=== PATIENT | male | born 1930 | race Caucasian/White ===

== ENCOUNTER 2018-01-22 09:50 | Observation (INO) | payer OTHER ==
--- NOTE | 2018-01-22 10:08 | PDOC ---
History of Present Illness - General Chief Complaint: Weakness Stated Complaint: WEAKNESS Time Seen by Provider: 01/22/18 09:53 - History of Present Illness Initial Comments: 01/22/18 10:36 87m with pmh of CVA, DM,HTN,HLD,CAD S/P CABG presents to the ED after episode of weakness making him unsteady on his legs [address] Ferreira who said to come to ED today for evaluation. Patient feels at baseline. No oil changer the past 3 days. Patient was supposed to get follow up to the wound care clinic for right leg wound today but didn't to get evaluated here. Past History - Past Medical History Allergies/Adverse Reactions: Allergies Allergy/AdvReac Type Severity Reaction Status Date / Time ciprofloxacin [From Cipro] Allergy Verified 01/22/18 09:54 moxifloxacin [From Avelox] Allergy Verified 01/22/18 09:54 Penicillins Allergy Verified 01/22/18 09:54 Home Medications: Ambulatory Orders Atorvastatin Ca [Lipitor] 40 mg PO HS 10/07/17 Amlodipine Besylate 2.5 mg PO DAILY 30 Days tablet 10/11/17 Aspirin Coated [Ecotrin -] 162 mg PO DAILY tablet.ec 10/11/17 Memantine HCl [Namenda -] 5 mg PO BID 12/25/17 Ascorbic Acid [Vitamin C -] 500 mg PO DAILY 01/22/18 Glimepiride 4 mg PO DAILY 01/22/18 L.acidoph,Paracasei, B.lactis [Probiotic] 1 each PO BID 01/22/18 CVA: Yes COPD: No Dementia: Yes Diabetes: Yes HTN: Yes Hypercholesterolemia: Yes - Surgical History Cardiac Surgery: Yes (cabg) - Immunization History Immunization Up to Date: Yes - Suicide/Smoking/Psychosocial Hx Smoking History: Former smoker Have you smoked in the past 12 months: No If you are a former smoker, when did you quit?: 2003 Hx Alcohol Use: No Drug/Substance Use Hx: No Substance Use Type: None Hx Substance Use Treatment: No Review of Systems - Review of Systems Able to Perform ROS?: Yes Is the patient limited Faroese proficient: No Constitutional: Yes: See HPI HEENTM: No: Symptoms Reported Respiratory: No: Symptoms reported Cardiac (ROS): No: Symptoms Reported ABD/GI: No: Symptoms Reported : No: Symptoms Reported Musculoskeletal: No: Symptoms Reported Integumentary: No: Symptoms Reported Neurological: No: Symptoms reported All Other Systems: Reviewed and Negative *Physical Exam - Physical Exam General Appearance: Yes: Nourished, Appropriately Dressed. No: Apparent Distress HEENT: positive: EOMI, OMERO, Normal ENT Inspection Respiratory/Chest: positive: Lungs Clear, Normal Breath Sounds. negative: Chest Tender Cardiovascular: positive: Regular Rhythm, Regular Rate, S1, S2 Gastrointestinal/Abdominal: positive: Normal Bowel Sounds, Flat, Soft. negative : Tender Neurologic: positive: Alert, Normal Response, Motor Strength 5/5 NIH Stroke Scale - Last Known Well Date/Time & Onset Date Last Known Well: 01/20/18 - Initial Evaluation Level of consciousness: Alert Ask patient the month and their age: Answers one correctly Ask patient to open & close eyes; make fist and let go: Obeys both correctly Best gaze (horizontal eye movement): Normal Visual field testing: No visual field loss Facial paresis (Show teeth/raise eyebrows/close eyes tight): Normal symmetrical movement Motor Function: Left Arm: Normal Motor Function: Right Arm: Normal (extends arm 90 (or 45) degrees for 10 seconds without drift Motor Function: Left Leg: Normal (extends leg 30 degrees for 5 seconds without drift) Motor Function: Right Leg: Normal (extends leg 30 degrees for 5 seconds without drift) Limb Ataxia: No ataxia Sensory(Use pinprick test arms,legs,trunk,face/side to side): Normal Best language (Describe picture, name items, read sentences): No Aphasia Dysarthria (read several words): Normal articulation Extinction and Inattention: No abnormality - Total Score NIH Stroke Scale Score: 1 Critical Care Time/MDM Note - Medical Decision Making Note: 01/22/18 14:13 87m with pmh of cva with episode of weakness 3 days ago. R/o stroke vs metabolic vs cardiac event Although the diagnosis of stroke is unlikely for b/l leg weakness "giving out" under his weight we will r/o stroke due to recent pmh of the patient. CT head negative, all labs wnl. Negative troponins EKG: Junctional rhythm, left anterior fascicular block, junctional ST depression , probably normal Will admit for tele obs for weakness and failure to ambulate 01/22/18 14:35 *DC/Admit/Observation/Transfer Diagnosis at time of Disposition: Weakness - Discharge Dispostion Decision to Admit order: Yes - Referrals Referrals: Rober Ferreira MD [Primary Care Provider] - - Patient Instructions - Post Discharge Activity
[2018-01-22] MEDS: SODIUM CHLORIDE 1,000 ML IV SCH ×2 (10:30→22:24)
[2018-01-22 10:39] VITALS: BMI 23.7
--- NOTE | 2018-01-22 10:39 | PDOC ---
Attending Attestation - Resident Resident Name: Charles Baldwin - ED Attending Attestation I have performed the following: I have examined & evaluated the patient, The case was reviewed & discussed with the resident, I agree w/resident's findings & plan, Exceptions are as noted - HPI HPI: 01/22/18 10:41 87yo M Dementia, T2DM, HTN, Dyslipedemia, CAD s/p CABG, CVA 09/2017 presents to the emergency department for evaluation of a fall 3 days ago. History is provided by the patient's as patient is demented. She reports the patient was ambulating with his walker 3 days ago when suddenly his legs gave out and he fell onto his knees bilaterally. She activated the nonurgent medical line who evaluated the patient and brought him a wheelchair to their home. She called her primary physician Dr. Ferreira who recommended that they come in for evaluation, but the patient's states she had too much to do this weekend and decided to bring him on Monday (today). Per Dr. Ferreira, the patient previously had a stroke that presented with new lower extremity weakness. does not report any focal weakness. She does report the patient has not ambulated since the fall on Monday. Patient denies any pain at this time. - Physicial Exam PE: 01/22/18 10:49 GENERAL: Awake, alert, and oriented to name, in no acute distress HEAD: No signs of trauma EYES: Sclera anicteric, conjunctiva clear ENT: Nares patent, oropharynx clear without exudates. Moist mucosa NECK: Normal ROM, supple, no lymphadenopathy, JVD, or masses LUNGS: Breath sounds equal, clear to auscultation bilaterally. No wheezes, and no crackles HEART: Regular rate and rhythm, normal S1 and S2, no murmurs, rubs or gallops ABDOMEN: Soft, nontender, normoactive bowel sounds. No guarding, no rebound. No masses EXTREMITIES: Normal range of motion, no edema. No cords, erythema, or tenderness BACK: No midline spinal tenderness in cervical/thoracic/lumbar region NEUROLOGICAL: Normal speech, cranial nerves intact, negative pronator drift, 4/ 5 strength in all 4 extremities, normal sensation to light touch in all 4 extremities, normal cerebellar exam, gait deferred, normal tone - Medical Decision Making 01/22/18 10:58 87yo M hx dementia, CABG, CVA presents to the ED after fall, c/o persistent leg weakness, inability to ambulate. Vitals remarkable for elevated BP. On exam, pt is globally weak. Wide differential for LE weakness includes neurologic vs infectious vs metabilic abnormalities. Case discussed with Dr. Ferreira, anticipate admission.
[2018-01-22 11:18] LABS: BASO % 0.6 % (0-2.0); EOS % 5.4 % (0-4.5); HEMATOCRIT 43.7 % (35.4-49); LYMPH % 32.1 % (8-40); MCH 32.1 pg (25.7-33.7); MCHC 34.3 g/dl (32.0-35.9); MEAN CELL VOLUME 93.7 fl (80-96); MEAN PLT VOLUME 10.4 fl (7.5-11.1); MONO % 4.7 % (3.8-10.2); NEUT % 57.2 % (42.8-82.8); PLATELET COUNT 264 K/MM3 (134-434); RBC 4.67 M/mm3 (4.00-5.60); RDW 14.7 % (11.9-15.9); WHITE BLOOD COUNT 7.4 K/mm3 (4.0-10.0)
[2018-01-22 11:40] LABS: INR 0.94 (0.83-1.09); PROTHROMBIN TIME (PATIENT) 11.1 SEC (9.7-13.0)
[2018-01-22 11:55] LABS: ALBUMIN 3.4 g/dl (3.4-5.0); ALK PHOS 114 U/L (45-117); ANION GAP 9 MMOL/L (8-16); BILIRUBIN,TOTAL 0.4 mg/dL (0.2-1); BLOOD UREA NITROGEN 40 mg/dL (7-18); CALCIUM 10.1 mg/dL (8.5-10.1); CHLORIDE 106 mmol/L (98-107); CHOLESTEROL 131 mg/dL (50-200); CO2 26 mmol/L (21-32); CREATININE 2.2 mg/dL (0.55-1.3); GLUCOSE,RANDOM 86 mg/dL (74-106); HDL CHOLESTEROL 35 mg/dL (40-60); POTASSIUM 4.6 mmol/L (3.5-5.1); SGOT/AST 14 U/L (15-37); SGPT/ALT 24 U/L (13-61); SODIUM 140 mmol/L (136-145); TOT PROT 6.8 g/dl (6.4-8.2); TRIGLYCERIDES 94 mg/dL (0-150)
[2018-01-22 12:20] LABS: MAGNESIUM 2.2 mg/dL (1.8-2.4)
--- NOTE | 2018-01-22 14:21 | HP ---
Admitting History and Physical - Primary Care Physician PCP: Rober Ferreira - Admission Chief Complaint: weakness History of Present Illness: is a 87 year old male pmh of recent CVA, dementia, NIDDM, CKD,HTN, HLD , CAD s/p CABG brought in by for complaints of weakness. Pt unable to give substantial history due to dementia. reports pt had an episode of generalized weakness 3 days ago where his legs gave out and he sat down onto the floor. She called PCP and was advised to come to ED. Pt has been in a wheelchair since the incident, he has not been getting up or ambulating as before. She denies pt reporting any prodromal symptoms such as chest pain, sob, n/v/d or lightheadedness. Denies any recent fall, head trauma, loss of consciousness or dizziness. Pt reports he is feeling well, denies any current chest pain, sob, n/v/d, lightheadedness, dysuria, abd pain, rash or recent med changes. 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, 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 History of Recent Travel: No Home Medications - Allergies Allergies/Adverse Reactions: Allergies Allergy/AdvReac Type Severity Reaction Status Date / Time ciprofloxacin [From Cipro] Allergy Verified 01/22/18 09:54 moxifloxacin [From Avelox] Allergy Verified 01/22/18 09:54 Penicillins Allergy Verified 01/22/18 09:54 - Home Medications Home Medications: Ambulatory Orders Atorvastatin Ca [Lipitor] 40 mg PO HS 10/07/17 Amlodipine Besylate 2.5 mg PO DAILY 30 Days tablet 10/11/17 Aspirin Coated [Ecotrin -] 162 mg PO DAILY tablet.ec 10/11/17 Memantine HCl [Namenda -] 5 mg PO BID 12/25/17 Ascorbic Acid [Vitamin C -] 500 mg PO DAILY 01/22/18 Glimepiride 4 mg PO BID 01/22/18 Grace.acidoph,Paracjorgei B.lactis [Probiotic] 1 each PO BID 01/22/18 Family Disease History - Family Disease History Family History: Denies Review of Systems Findings/Remarks: as per hpi Physical Examination Vital Signs: Vital Signs Temperature 97.4 F L 01/22/18 13:00 Pulse Rate 58 L 01/22/18 13:00 Respiratory Rate 18 01/22/18 13:00 Blood Pressure 137/71 01/22/18 13:00 O2 Sat by Pulse Oximetry (%) 98 01/22/18 13:00 Constitutional: Yes: Well Nourished, No Distress, Calm Cardiovascular: Yes: WNL, Regular Rate and Rhythm. No: Murmur Respiratory: Yes: WNL, Regular, CTA Bilaterally. No: Accessory Muscle Use, SOB , Tachypnea, Wheezes Gastrointestinal: Yes: WNL, Normal Bowel Sounds, Soft. No: Distention, Tenderness Renal/: Yes: WNL Musculoskeletal: Yes: WNL Extremities: Yes: WNL Edema: No Neurological: Yes: Alert, Confusion Psychiatric: Yes: Alert Labs: CBC, BMP 01/22/18 10:06 01/22/18 10:12 Imaging - Results Chest X-ray: Report Reviewed Cat Scan: Pending (HEAD CT- no acute findings Lumbar/Spine- marked L4-L5, L3- L4 central canal stenosis), Report Reviewed Problem List - Problems (1) Weakness Assessment/Plan: generalized b/l lower extremity weakness head CT neg trop neg, echo ordered cardiac monitoring x [address] lumbar w/ marked stenosis neurology consulted PT family declines SNF if needed Code(s): R53.1 - WEAKNESS (2) CAD (coronary artery disease) Assessment/Plan: s/p cabg continue asa, statin Code(s): I25.10 - ATHSCL HEART DISEASE OF [place] CORONARY ARTERY W/O ANG PCTRS Qualifiers: [place] vs. 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: without [facility] use Diabetes mellitus complication status: with kidney complications Diabetes mellitus complication detail: with chronic kidney disease Chronic kidney disease stage : stage 3 (moderate) Qualified Code(s): E11.22 - Type 2 diabetes mellitus with diabetic chronic kidney disease; N18.3 - Chronic kidney disease, stage 3 ( moderate) (5) Dementia Assessment/Plan: stable continue namenda Code(s): F03.90 - UNSPECIFIED DEMENTIA WITHOUT BEHAVIORAL DISTURBANCE Qualifiers: Dementia behavioral disturbance: without behavioral disturbance (6) HLD (hyperlipidemia) Assessment/Plan: stable continue statin Code(s): E78.5 - HYPERLIPIDEMIA, UNSPECIFIED (7) Chronic wound of extremity Assessment/Plan: chronic RLE wound, no signs of active infection followed by vascular consulted per family request Code(s): GCC4859 -
--- NOTE | 2018-01-22 15:13 | EKG ---
Test Reason : Blood Pressure : / mmHG Vent. Rate : 057 BPM Atrial Rate : 056 BPM P-R Int : 000 ms QRS Dur : 090 ms QT Int : 448 ms P-R-T Axes : 000 -82 055 degrees QTc Int : 436 ms PROBABLE SINUS RHYTHM, BASELINE ARTIFACT WHEN COMPARED WITH ECG OF 07-OCT-2017 11:58, LIKELY NO SIGNIFICANT CHANGES Confirmed by GENEVIEVE FOFANA MD ([id number]) on 01/22/2018 3:13:28 PM Referred By: Confirmed By:GENEVIEVE FOFANA MD
[2018-01-22 16:08] LABS: URINE APPEARANCE CLEAR; URINE BILIRUBIN NEGATIVE (<2.0 mg/dL); URINE COLOR LTYELLOW; URINE GLUCOSE (UA) 1+ (NEGATIVE); URINE KETONE NEGATIVE (NEGATIVE); URINE LEUK ESTERASE NEGATIVE (NEGATIVE); URINE NITRITE NEGATIVE (NEGATIVE); URINE PROTEIN NEGATIVE (NEGATIVE); URINE UROBILINOGEN NEGATIVE mg/dL (0.2-1.0)
[2018-01-22] MEDS ORDERED: PNEUMOC 13-VAL CONJ-DIP CRM/PF 0.5 ML DISP.SYRIN IM ONE (19:30)
[2018-01-22] MEDS ORDERED: ATORVASTATIN CA 40 MG TABLET (FP) PO SCH (22:00)
[2018-01-22] MEDS: MEMANTINE HCL 5 MG TABLET (UD) PO SCH (22:25)
[2018-01-23] MEDS: GLIMEPIRIDE 4 MG TABLET (FP) PO SCH ×2 (06:10→17:50)
[2018-01-23 06:52] LABS: ANION GAP 7 MMOL/L (8-16); BLOOD UREA NITROGEN 39 mg/dL (7-18); CALCIUM 9.5 mg/dL (8.5-10.1); CHLORIDE 113 mmol/L (98-107); CO2 25 mmol/L (21-32); CREATININE 2.2 mg/dL (0.55-1.3); GLUCOSE,RANDOM 61 mg/dL (74-106); PHOSPHOROUS 2.7 mg/dL (2.5-4.9); POTASSIUM 4.4 mmol/L (3.5-5.1); SODIUM 145 mmol/L (136-145)
[2018-01-23 07:02] LABS: BASO % 0.7 % (0-2.0); EOS % 6.1 % (0-4.5); HEMATOCRIT 39.2 % (35.4-49); HEMOGLOBIN 13.4 GM/dL (11.7-16.9); MCH 32.1 pg (25.7-33.7); MCHC 34.2 g/dl (32.0-35.9); MEAN PLT VOLUME 9.8 fl (7.5-11.1); MONO % 6.1 % (3.8-10.2); NEUT % 51.1 % (42.8-82.8); PLATELET COUNT 242 K/MM3 (134-434); RBC 4.17 M/mm3 (4.00-5.60); RDW 14.7 % (11.9-15.9); WHITE BLOOD COUNT 6.8 K/mm3 (4.0-10.0)
--- NOTE | 2018-01-23 09:04 | CONSULT ---
Consult - text type - Consultation Consultation Note: Neurology History of Present Illness: 87 year old male pmh of recent CVA, dementia, NIDDM, CKD,HTN, HLD, CAD s/p CABG brought in by for complaints of weakness. Pt unable to give substantial history due to dementia. reported pt had an episode of generalized weakness 3 days prior to admission where his legs gave out and he sat down onto the floor. She called PCP, Dr. Ferreira, and was advised to come to ED. Pt has been in a wheelchair since the incident, he has not been getting up or ambulating as before. She denied pt reporting any prodromal symptoms such as chest pain, sob, n/v/d or lightheadedness. Denies any recent fall, head trauma, loss of consciousness or dizziness. Pt reported he is feeling well, denies any current chest pain, sob, n/v/d, lightheadedness, dysuria, abd pain, rash or recent med changes. CT head was completed and reviewed, no acute changes noted. Spoke with hospitalist yesterday, CT L spine recommended, completed and showed marked L4/L5 and moderate to marked L3/L4 central stenosis though denies back pain. 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 History of Recent Travel: No Home Medications - Allergies Allergies/Adverse Reactions: Allergies Allergy/AdvReac Type Severity Reaction Status Date / Time ciprofloxacin [From Cipro] Allergy Verified 01/22/18 09:54 moxifloxacin [From Avelox] Allergy Verified 01/22/18 09:54 Penicillins Allergy Verified 01/22/18 09:54 - Home Medications Home Medications: Ambulatory Orders Atorvastatin Ca [Lipitor] 40 mg PO HS 10/07/17 Amlodipine Besylate 2.5 mg PO DAILY 30 Days tablet 10/11/17 Aspirin Coated [Ecotrin -] 162 mg PO DAILY tablet.ec 10/11/17 Memantine HCl [Namenda -] 5 mg PO BID 12/25/17 Ascorbic Acid [Vitamin C -] 500 mg PO DAILY 01/22/18 Glimepiride 4 mg PO BID 01/22/18 Biboph,Frances, B.lactis [Probiotic] 1 each PO BID 01/22/18 Family Disease History - Family Disease History Family History: Denies Review of Systems Findings/Remarks: as per hpi Physical Examination Vital Signs: Vital Signs Temperature 97.4 F L 01/22/18 13:00 Pulse Rate 58 L 01/22/18 13:00 Respiratory Rate 18 01/22/18 13:00 Blood Pressure 137/71 01/22/18 13:00 O2 Sat by Pulse Oximetry (%) 98 01/22/18 13:00 Constitutional: Yes: Well Nourished, No Distress, Calm Cardiovascular: Yes: WNL, Regular Rate and Rhythm. No: Murmur Respiratory: Yes: WNL, Regular, CTA Bilaterally. No: Accessory Muscle Use, SOB , Tachypnea, Wheezes Gastrointestinal: Yes: WNL, Normal Bowel Sounds, Soft. No: Distention, Tenderness Renal/: Yes: WNL Musculoskeletal: Yes: WNL Extremities: Yes: WNL Edema: No Neurological: Yes: Alert, awake, CN intact, strength 5-/5 in UE, 4+ in LE, sensory intact, gait deferred Psychiatric: Yes: Alert CBCD WBC 6.8 K/mm3 (4.0-10.0) 01/23/18 06:00 RBC 4.17 M/mm3 (4.00-5.60) 01/23/18 06:00 Hgb 13.4 GM/dL (11.7-16.9) 01/23/18 06:00 Hct 39.2 % (35.4-49) 01/23/18 06:00 MCV 94.0 fl (80-96) 01/23/18 06:00 MCHC 34.2 g/dl (32.0-35.9) 01/23/18 06:00 RDW 14.7 % (11.9-15.9) 01/23/18 06:00 Plt Count 242 K/MM3 (134-434) 01/23/18 06:00 MPV 9.8 fl (7.5-11.1) 01/23/18 06:00 CMP Sodium 145 mmol/L (136-145) 01/23/18 06:00 Potassium 4.4 mmol/L (3.5-5.1) 01/23/18 06:00 Chloride 113 mmol/L (98-107) H 01/23/18 06:00 Carbon Dioxide 25 mmol/L (21-32) 01/23/18 06:00 Anion Gap 7 MMOL/L (8-16) L 01/23/18 06:00 BUN 39 mg/dL (7-18) H 01/23/18 06:00 Creatinine 2.2 mg/dL (0.55-1.3) H 01/23/18 06:00 Creat Clearance w eGFR 28.39 (>60) 01/23/18 06:00 Random Glucose 61 mg/dL (74-106) L 01/23/18 06:00 Calcium 9.5 mg/dL (8.5-10.1) 01/23/18 06:00 Total Bilirubin 0.4 mg/dL (0.2-1) 01/22/18 10:12 AST 14 U/L (15-37) L 01/22/18 10:12 ALT 24 U/L (13-61) 01/22/18 10:12 Alkaline Phosphatase 114 U/L (45-117) 01/22/18 10:12 Total Protein 6.8 g/dl (6.4-8.2) 01/22/18 10:12 Albumin 3.4 g/dl (3.4-5.0) 01/22/18 10:12 CARDIAC ENZYMES Creatine Kinase 56 IU/L (26-308) 01/22/18 10:12 Troponin I < 0.02 ng/ml (0.00-0.05) 01/23/18 06:00 Imaging - Results Chest X-ray: Report Reviewed Cat Scan: Pending (HEAD CT- no acute findings Lumbar/Spine- marked L4-L5, L3- L4 central canal stenosis) Plan 87 year old male pmh of recent CVA, dementia, NIDDM, CKD,HTN, HLD, CAD s/p CABG brought in by for complaints of weakness. Pt unable to give substantial history due to dementia. reported pt had an episode of generalized weakness 3 days prior to admission where his legs gave out and he sat down onto the floor. She called PCP, Dr. Ferreira, and was advised to come to ED. Pt has been in a wheelchair since the incident, he has not been getting up or ambulating as before. She denied pt reporting any prodromal symptoms such as chest pain, sob, n/v/d or lightheadedness. Denies any recent fall, head trauma, loss of consciousness or dizziness. Pt reported he is feeling well, denies any current chest pain, sob, n/v/d, lightheadedness, dysuria, abd pain, rash or recent med changes. CT head was completed and reviewed, no acute changes noted. Spoke with hospitalist yesterday, CT L spine recommended, completed and showed marked L4/L5 and moderate to marked L3/L4 central stenosis though denies back pain. Not likely surgical candidate given age and comorbidities. Recommend conservative mgmt, physical therapy, increased use of assistive device (reports using walker), fall precautions. Consider short term rehab. Continue Namenda for dementia. Hydration recommended. Follow up vascular rec'd for wound care.
--- NOTE | 2018-01-23 09:27 | CONSULT ---
- Consultation REQUESTING PROVIDER: CONSULT REQUEST: We have been asked to surgically evaluate this patient for RLE wound PCP:Amos Patterson MD HISTORY OF PRESENT ILLNESS: 87yo M who is known to the wound care clinic and Dr. Carter, was admitted to the hospital for weakness and missed his appt with the wound care clinic. Pt has dementia and is unable to answer questions, RLE was being treated with Silver collagen dressing. PMHx: Dementia, DM, HTN, CAD Home Medications Medication Instructions Recorded Atorvastatin Ca [Lipitor] 40 mg PO HS 10/07/17 Amlodipine Besylate 2.5 mg PO DAILY 30 Days tablet 10/11/17 Aspirin Coated [Ecotrin -] 162 mg PO DAILY tablet.ec 10/11/17 Memantine HCl [Namenda -] 5 mg PO BID 12/25/17 Ascorbic Acid [Vitamin C -] 500 mg PO DAILY 01/22/18 Glimepiride 4 mg PO BID 01/22/18 L.acidoph,Paracasei, B.lactis 1 each PO BID 01/22/18 [Probiotic] Allergies Allergy/AdvReac Type Severity Reaction Status Date / Time ciprofloxacin [From Cipro] Allergy Verified 01/22/18 09:54 moxifloxacin [From Avelox] Allergy Verified 01/22/18 09:54 Penicillins Allergy Verified 01/22/18 09:54 PHYSICAL EXAM: GENERAL: Awake, alert, confused HEAD: Normal with no signs of trauma. EYES: PERRL, sclera anicteric, conjunctiva clear. NECK: Normal ROM LUNGS: breathing comfortably, No accessory muscle use. HEART: Regular rate and rhythm. MUSCULOSKELETAL: Normal ROM at all joints. UPPER EXTREMITIES: 2+ pulses, warm, well-perfused. No cyanosis. Cap refill <2 seconds. No peripheral edema. LOWER EXTREMITIES: faint dopplarable pulses b/l, warm, well-perfused. No calf tenderness. No peripheral edema. RLE shows 1 cm wound on lateral right gutierrez, no erythema or discharge. PSYCH: Cooperative. SKIN: Warm, dry, normal turgor, no rashes or lesions noted. Vital Signs Temperature 97.3 F L 01/23/18 06:00 Pulse Rate 63 01/23/18 06:00 Respiratory Rate 18 01/23/18 07:00 Blood Pressure 147/62 01/23/18 06:00 O2 Sat by Pulse Oximetry (%) 98 01/23/18 07:00 Lab Results WBC 6.8 K/mm3 (4.0-10.0) 01/23/18 06:00 RBC 4.17 M/mm3 (4.00-5.60) 01/23/18 06:00 Hgb 13.4 GM/dL (11.7-16.9) 01/23/18 06:00 Hct 39.2 % (35.4-49) 01/23/18 06:00 MCV 94.0 fl (80-96) 01/23/18 06:00 MCHC 34.2 g/dl (32.0-35.9) 01/23/18 06:00 RDW 14.7 % (11.9-15.9) 01/23/18 06:00 Plt Count 242 K/MM3 (134-434) 01/23/18 06:00 Sodium 145 mmol/L (136-145) 01/23/18 06:00 Potassium 4.4 mmol/L (3.5-5.1) 01/23/18 06:00 Chloride 113 mmol/L (98-107) H 01/23/18 06:00 Carbon Dioxide 25 mmol/L (21-32) 01/23/18 06:00 Anion Gap 7 MMOL/L (8-16) L 01/23/18 06:00 BUN 39 mg/dL (7-18) H 01/23/18 06:00 Creatinine 2.2 mg/dL (0.55-1.3) H 01/23/18 06:00 Random Glucose 61 mg/dL (74-106) L 01/23/18 06:00 Calcium 9.5 mg/dL (8.5-10.1) 01/23/18 06:00 Blood Type O NEGATIVE 01/22/18 10:15 Antibody Screen Negative 01/22/18 10:15 INR 0.94 (0.83-1.09) 01/22/18 10:11 Problem List - Problems (1) Chronic wound of extremity Assessment/Plan: Plan -wound appears to be healing well, place silver collagen dressing. -follow up with wound care clinic with Dr. Carter as outpatient -please contact vascular surgery if any issues. Code(s): [id number] -
[2018-01-23] MEDS ORDERED: amLODIPine BESYLATE 2.5 MG TABLET (FP) PO SCH (10:00)
[2018-01-23] MEDS ORDERED: ASCORBIC ACID 500 MG TABLET (FP) PO SCH (10:00)
[2018-01-23] MEDS ORDERED: ASPIRIN COATED 81 MG TABLET.EC PO SCH (10:00)
[2018-01-23] MEDS: SODIUM CHLORIDE 1,000 ML IV SCH (10:07)
[2018-01-23] MEDS: MEMANTINE HCL 5 MG TABLET (UD) PO SCH (10:07)
--- NOTE | 2018-01-23 14:38 | ECHO ---
Name: ANA AMARAL Exam:Adult Echocardiogram Study Date: 01/23/2018 08:34 AM Age: 87 yrs Reason For Study: WEAKNESS Height: 71 in Weight: 170 lb BSA: 2.0 m2 MMode/2D Measurements & Calculations IVSd: 0.95 cm Ao root diam: 4.1 cm LVIDd: 4.9 cm LA dimension: 2.5 cm LVIDs: 2.7 cm LVPWd: 0.91 cm EDV(Teich): 112.0 ml LAV (MOD-bp): 41.1 ml ESV(Teich): 27.8 ml Doppler Measurements & Calculations MV E max cristopher: 69.4 cm/sec AI P1/2t: 604.8 msec MV A max cristopher: 93.1 cm/sec MV E/A: 0.75 MV dec time: 0.16 sec AI max cristopher: 168.3 cm/sec TR max cristopher: 209.7 cm/sec AI max P.3 mmHg TR max P.8 mmHg AI dec slope: 81.5 cm/sec2 PI end-d cristopher: 67.9 cm/sec Med Peak E' Cristopher: 5.0 cm/sec Med E/e': 13.9 Lat Peak E' Cristopher: 8.5 cm/sec Lat E/e': 8.2 Procedure The study was technically adequate with some images being suboptimal in quality. Left Ventricle Ejection Fraction = 55%. The left ventricular ejection fraction is normal. The transmitral spectral D oppler flow pattern is suggestive of impaired LV relaxation. The left ventricular wall motion is normal. Right Ventricle The right ventricle is normal in size and function. Atria Normal left and right atrial size and function. Mitral Valve Redundant mitral valve with posterior prolapse. There is no mitral regurgitation noted. Tricuspid Valve The tricuspid valve is normal in structure and function. Aortic Valve The aortic valve is trileaflet. Trace aortic regurgitation. Pulmonic Valve The pulmonic valve is not well visualized. Great Vessels The aortic root is normal size. Pericardium/Pleura There is no pericardial effusion. There is no pleural effusion. Interpretation Summary The left ventricular wall motion is normal. Ejection Fraction = 55%. The right ventricle is normal in size and function. Redundant mitral valve with posterior prolapse. Marques Adams 01/23/2018 02:38 PM
--- NOTE | 2018-01-23 14:58 | DS ---
Physical Examination Vital Signs: Vital Signs Temperature 97.8 F 01/23/18 10:00 Pulse Rate 90 01/23/18 10:00 Respiratory Rate 18 01/23/18 10:00 Blood Pressure 146/63 01/23/18 10:00 O2 Sat by Pulse Oximetry (%) 98 01/23/18 07:00 Constitutional: Yes: Well Nourished, No Distress, Calm Cardiovascular: Yes: Regular Rate and Rhythm Respiratory: Yes: Regular, CTA Bilaterally. No: Accessory Muscle Use, Rhonchi, SOB, Tachypnea, Wheezes Gastrointestinal: Yes: WNL, Normal Bowel Sounds, Soft. No: Distention, Vomiting Renal/: Yes: WNL Extremities: Yes: WNL Edema: No Neurological: Yes: Alert, Confusion Psychiatric: Yes: Alert Labs: CBC, BMP 01/23/18 06:00 01/23/18 06:00 Discharge Summary Reason For Visit: WEAKNESS Current Active Problems Chronic wound of extremity (Acute) HLD (hyperlipidemia) (Acute) Weakness (Acute) Hospital Course: 87 year old male admitted for evaluation of generalized weakness/near fall. All infectious work up neg. Lumbar spine CT revealed marked stenosis of L3-L5, evaluated by neurology, conservative management considering older age/ comorbidities, ambulated 20ft with PT, recommended SNF for rehab, refuses snf placement. Cardiac echo revealed mitral valve prolapse, discussed with cardiology, recommend outpt follow up. Otherwise, pt in no acute distress, vitals stable,labs unremarkable. Pt is medically stable for discharge home. Follow up as directed 32 minutes spent in discharge planning Condition: Good - Instructions Diet, Activity, Other Instructions: HOME PT TOLERATED FALL PRECAUTIONS CARDIAC ECHO SHOWED MITRAL VALVE PROLAPSE- PLEASE FOLLOW UP WITH REGARDING THIS F/U DIRECTED Referrals: Jasiel Urbina MD [Staff Physician] - 1 Week Rober Ferreira MD [Primary Care Provider] - 1 Week Disposition: VNS/HOME HEALTH CARE - Home Medications Comprehensive Discharge Medication List: Ambulatory Orders Atorvastatin Ca [Lipitor] 40 mg PO HS 10/07/17 Amlodipine Besylate 2.5 mg PO DAILY 30 Days tablet 10/11/17 Aspirin Coated [Ecotrin -] 162 mg PO DAILY tablet.ec 10/11/17 Memantine HCl [Namenda -] 5 mg PO BID 12/25/17 Ascorbic Acid [Vitamin C -] 500 mg PO DAILY 01/22/18 Glimepiride 4 mg PO BID 01/22/18 L.acidoph,Paracasei, B.lactis [Probiotic] 1 each PO BID 01/22/18
[2018-01-23 15:04] VITALS: BP 120/62; PULSE 86; TEMP 98.3
== END 2018-01-23 22:04 | disposition home health service (06) ==
LOC: JER 09:50 → JERBED 14:16 → J4S 16:14
PROVIDERS: ADMIT Internal Medicine; ATTEND Nurse Practitioner Family
DX: R53.1 Weakness (principal); I25.10 Atherosclerotic heart disease of native coronary artery without angina pectoris; I12.9 Hypertensive chronic kidney disease with stage 1 through stage 4 chronic kidney disease, or unspecified chronic kidney disease; N18.3 Chronic kidney disease, stage 3 (moderate); Z95.1 Presence of aortocoronary bypass graft; Z87.891 Personal history of nicotine dependence; E11.22 Type 2 diabetes mellitus with diabetic chronic kidney disease; Z79.84 Long term (current) use of oral hypoglycemic drugs; E78.5 Hyperlipidemia, unspecified; E78.00 Pure hypercholesterolemia, unspecified; F03.90 Unspecified dementia, unspecified severity, without behavioral disturbance, psychotic disturbance, mood disturbance, and anxiety; L97.919 Non-pressure chronic ulcer of unspecified part of right lower leg with unspecified severity; Z86.73 Personal history of transient ischemic attack (TIA), and cerebral infarction without residual deficits; R26.89 Other abnormalities of gait and mobility; Z99.89 Dependence on other enabling machines and devices; Z88.0 Allergy status to penicillin; Z88.1 Allergy status to other antibiotic agents
CPT/HCPCS: 36415; 70450-TC; 71045-TC-FY; 72131-TC; 80048; 80053; 81003; 82465; 82550; 82962; 83718; 83721; 83735; 84100; 84478; 84484; 85025; 85610; 86850; 86900; 86901; 87086; 93005; 93010; 93306-TC; 97116-GP; 97161-GP; 99285-25; G0378; J7030

== ENCOUNTER 2018-07-30 11:09 | Emergency (ER) | payer OTHER | END 2018-07-30 21:00 | disposition home or self-care (01) | LOC: JER 11:09 ==

== ENCOUNTER 2019-01-09 11:00 | Inpatient (IN) | payer OTHER ==
--- NOTE | 2019-01-09 11:58 | PDOC ---
History of Present Illness - General Chief Complaint: Urinary Problem Stated Complaint: UTI Time Seen by Provider: 01/09/19 11:57 History Source: Patient Exam Limitations: No Limitations, Dementia - History of Present Illness Initial Comments: Pt is an 88 yo M, with PMH of CVA, CAD (s/p CABG), dementia, HTN, HLD, NIDDM, who is presenting with AMS, foul-smelling urine, and generalized weakness which has worsened over the past 3 days. Pt is accompanied by his , who states the pt has been unable to stand up due to weakness in his legs, and he can normally transfer from the wheelchair to his walker. Pts sugar was also elevated today >200, which is abnormal. His behavior has changed from baseline, with increased agitation and lack of appetite. She denies any changes to his BMs , diarrhea, vomiting, or fevers at home. Allergies: NKDA PCP: Dr. Ferreira Cards: Dr. Urbina Social: No cigarette, alcohol, or drug use. No recent travel or sick contacts. Surgical: CABG Family: no relevant history. 01/09/19 12:45 Past History - Travel Traveled outside of the country in the last 30 days: No Close contact w/someone who was outside of country & ill: No - Past Medical History Allergies/Adverse Reactions: Allergies Allergy/AdvReac Type Severity Reaction Status Date / Time ciprofloxacin [From Cipro] Allergy Verified 01/09/19 11:06 moxifloxacin [From Avelox] Allergy Verified 01/09/19 11:06 Penicillins Allergy Verified 01/09/19 11:06 Home Medications: Ambulatory Orders Amlodipine Besylate 2.5 mg PO HS 01/09/19 Ascorbate Calcium [Vitamin C] 500 mg PO DAILY 01/09/19 Aspirin 162 mg PO DAILY 01/09/19 Atorvastatin Ca [Lipitor] 40 mg PO HS 01/09/19 Glimepiride [Amaryl -] 4 mg PO BID 01/09/19 Lactobacillus Acidophilus [Acidophilus] 1 each PO DAILY 01/09/19 Memantine HCl 5 mg PO BID 01/09/19 Cardiac Disorders: Yes (HTN, CAD) CVA: Yes COPD: No CHF: Yes Dementia: Yes Diabetes: Yes GI Disorders: Yes HTN: Yes Hypercholesterolemia: Yes Thyroid Disease: No - Surgical History Cardiac Surgery: Yes (cabg) - Immunization History Immunization Up to Date: Yes - Psycho Social/Smoking Cessation Hx Smoking History: Unknown if ever smoked Have you smoked in the past 12 months: No If you are a former smoker, when did you quit?: 2003 Information on smoking cessation initiated: No Hx Alcohol Use: No Drug/Substance Use Hx: No Substance Use Type: None Hx Substance Use Treatment: No Abd/GI Specific PMHX - Complaint Specific PMHX Colitis: No Diverticulitis: No Gall Bladder Disease: No GERD: No Hepatitis: No Irritable Bowel Synd (IBS): No Pancreatitis: No GI Ulcer Disease: No Review of Systems - Review of Systems Able to Perform ROS?: No (dementia, see HPI) *Physical Exam - Vital Signs Last Vital Signs Temp Pulse Resp BP Pulse Ox 97.8 F 86 16 138/80 96 01/09/19 11:03 01/09/19 11:03 01/09/19 11:03 01/09/19 11:03 01/09/19 11:03 - Physical Exam Comments: Vitals stable, pt afebrile. Pt in NAD, normal body habitus. Pt alert with spontaneous eye opening, but does not follow commands. [employer] e business developer generally intact (limited due to pt cooperation), muscular strength and sensation intact. No midline spinal tenderness, step-offs, or crepitus. Head normocephalic, atraumatic. Eyes PERRLA, EOMI. Oropharynx without erythema or exudates, no LAD b/l. No nasal congestion. Hearing severely diminished (baseline, hearing aids) Clear heart sounds, S1/S2, no JVD, b/l pedal edema, or heart murmur. Clear lung sounds, no respiratory distress, wheezes, crackles, or accessory muscle use. No abdominal or CVA tenderness to palpation, no rebound, no guarding. Abdomen soft, non-distended, and with normoactive bowel sounds. Large ([place]-sized) external hemorrhoid. No pressure ulcers noted. Skin without jaundice or rash. 01/09/19 12:49 ED Treatment Course - LABORATORY CBC & Chemistry Diagram: 01/09/19 12:24 01/09/19 12:24 Medical Decision Making - Medical Decision Making Pt was seen at bedside, also will be seen by attending Dr. Angel. Pt presenting with AMS, foul-smelling and pustular looking urine, likely 2/2 UTI. Will also evaluate for sepsis, electrolyte imbalances, ACS, CVA/bleed. No recent falls since his last visit. Provided 1 L IV NS and ofirmev for improvement of hydration and discomfort. Will continue to reassess pt and monitor for symptomatic improvement. 01/09/19 12:52 ECG: NSR with PACs (Hr 73, Pr 156, QRS 96, QTc 467). Biphasic T wave in V3, with no contiguous leads or significant ST segment changes. No significant changes from prior ECG (07/30/2018). CBC WNL CMP shows mild ARSALAN from baseline -- providing 2 L IV NS UA with UTI, blood -- providing 1 g aztreonam Trop <.02 with no significant EKG changes Pt going for head CT to evaluate for any stroke or bleed that also could be causing AMS or weakness Pt admitted to hospitalist team (Dr. Whitaker) 01/09/19 14:54 01/09/19 16:20 CT head negative for acute infarct. 01/09/19 18:20 Discharge - Discharge Information Problems reviewed: Yes Clinical Impression/Diagnosis: ARSALAN (acute kidney injury) UTI (urinary tract infection) Qualifiers: Urinary tract infection type: acute cystitis Hematuria presence: with hematuria Qualified Code(s): N30.01 - Acute cystitis with hematuria AMS (altered mental status) Qualifiers: Altered mental status type: delirium Qualified Code(s): R41.0 - Disorientation , unspecified Condition: Stable - Admission Yes - Follow up/Referral - Patient Discharge Instructions - Post Discharge Activity
[2019-01-09] MEDS ORDERED: SODIUM CHLORIDE 0.9% 1000 ML INFUS.BAG IV ONE (12:02)
[2019-01-09 12:49] LABS: BASO % 1.1 % (0-2.0); EOS % 3.5 % (0-4.5); HEMATOCRIT 42.4 % (35.4-49); HEMOGLOBIN 13.8 GM/dL (11.7-16.9); LYMPH % 12.9 % (8-40); MCH 31.9 pg (25.7-33.7); MCHC 32.6 g/dl (32.0-35.9); MEAN CELL VOLUME 97.7 fl (80-96); MEAN PLT VOLUME 10.3 fl (7.5-11.1); MONO % 6.3 % (3.8-10.2); NEUT % 76.2 % (42.8-82.8); PLATELET COUNT 257 K/MM3 (134-434); RBC 4.34 M/mm3 (4.00-5.60); RDW 14.9 % (11.9-15.9); WHITE BLOOD COUNT 9.8 K/mm3 (4.0-10.0)
[2019-01-09] MEDS ORDERED: ACETAMINOPHEN 1000 MG/100 ML VIAL (NON FORMULARY) IVPB ONE (12:55)
--- NOTE | 2019-01-09 12:57 | PDOC ---
Attending Attestation - Resident Resident Name: AdamConnie - ED Attending Attestation I have performed the following: I have examined & evaluated the patient, The case was reviewed & discussed with the resident, I agree w/resident's findings & plan, Exceptions are as noted - HPI HPI: 01/09/19 12:53 88-year-old male currently at home history of CVA with residual right-sided weakness, hypertension CAD CABG diabetes dementia here today with his who provides the history and his foot caster who states that he has been more lethargic and sleepy and has had foul-smelling urine over the last few days. Patient does have a cough which is chronic according to them no recent fevers no nausea no vomiting however has had decreased p.o. intake over the last 24 hours. Patient does not ambulate but is out of bed to wheelchair daily was previously in physical therapy but is no longer. No recent falls no other complaints the patient is very hard of hearing and therefore is unable to provide history or answer many of the questions asked normally he is alert and oriented to person and place - Physicial Exam PE: 01/09/19 12:54 Patient is awake alert eyes open has moist mucous membranes. Lungs are clear bilaterally no appreciated wheezes or crackles. Heart is regular without murmurs rubs or gallops abdomen is soft no palpable fullness no pulsatile masses. Appears to be nontender extremities are warm well perfused there is no noted edema no rash appreciated. Neurologically the patient is awake unable to follow many commands due to his difficulty hearing however on gross examination does demonstrate to have some right-sided leg weakness compared to the left but is moving all 4 extremities and faces are symmetric - Medical Decision Making 01/09/19 12:54 88-year-old male history of dementia hypertension diabetes CAD here with worsening lethargy and confusion differential includes renal failure, dehydration, electrolyte abnormality such as hyponatremia anemia infection or sepsis from possible pneumonia or UTI being the most likely. Patient received a straight catheter the bedside performed by the nurse there was purulent puslike urine that came out patient will be treated for a UTI septic work-up was initiated. Rectal temperature was found to be 99 we will also obtain a CT head to rule out any intracranial pathology as patient does have a history of a previous stroke Due to the delirium on dementia and a UTI in addition to patient being diabetic will admit for IV antibiotics, debora. given ivf, aztreonam, and admitted to hospitalist dr ren, for dr robert. 01/09/19 14:58
[2019-01-09 13:10] LABS: ALK PHOS 98 U/L (45-117); ANION GAP 5 MMOL/L (8-16); BILIRUBIN,TOTAL 0.5 mg/dL (0.2-1); BLOOD UREA NITROGEN 51.3 mg/dL (7-18); CALCIUM 10.8 mg/dL (8.5-10.1); CHLORIDE 114 mmol/L (98-107); CO2 24 mmol/L (21-32); CREATININE 2.8 mg/dL (0.55-1.3); GLUCOSE,RANDOM 211 mg/dL (74-106); POTASSIUM 4.6 mmol/L (3.5-5.1); SGOT/AST 16 U/L (15-37); SGPT/ALT 20 U/L (13-61); SODIUM 144 mmol/L (136-145); TOT PROT 6.3 g/dl (6.4-8.2)
[2019-01-09] MEDS ORDERED: ACETAMINOPHEN INJECTION 100 ML IVPB ONE (13:21)
[2019-01-09] MEDS ORDERED: AZTREONAM 1 GM in DEXTROSE 5%-WATER - 50 ML IVPB ONE (14:21)
[2019-01-09] MEDS ORDERED: SODIUM CHLORIDE 1,000 ML IV STA (14:22)
[2019-01-09 14:25] LABS: PH,URINE >= 9.0 (5.0-8.0); URINE BILIRUBIN Negative (NEGATIVE); URINE COLOR Yellow; URINE GLUCOSE (UA) 2+ (NEGATIVE); URINE KETONE Negative (NEGATIVE); URINE LEUK ESTERASE 3+ (NEGATIVE); URINE NITRITE Positive (NEGATIVE); URINE PROTEIN 3+ (NEGATIVE); URINE UROBILINOGEN 0.2 mg/dL (0.2-1.0)
[2019-01-09 14:28] LABS: URINE APPEARANCE TURBID
[2019-01-09 14:39] LABS: EPI CELLS 1 /HPF (0-5/HPF); HYALINE CASTS 1 /lpf (0-8)
[2019-01-09 14:40] LABS: URINE CRYSTALS 0 /hpf
[2019-01-09] MEDS ORDERED: AZTREONAM 1 GM VIAL (RESTRICTED TO ID) ONE (14:40)
[2019-01-09 14:43] LABS: URINE WBC >100 /hpf (0-5)
[2019-01-09 14:44] LABS: URINE BACTERIA MANY /hpf (NEGATIVE); YEAST NONE SEEN (NEGATIVE)
[2019-01-09 14:45] LABS: URINE RBC 10 /hpf (0-4)
[2019-01-09] MEDS ORDERED: ACETAMINOPHEN 325 MG TABLET (FP) PO ONE (14:54)
--- NOTE | 2019-01-09 14:54 | EKG ---
Test Reason : Blood Pressure : / mmHG Vent. Rate : 073 BPM Atrial Rate : 073 BPM P-R Int : 156 ms QRS Dur : 096 ms QT Int : 424 ms P-R-T Axes : 079 -58 098 degrees QTc Int : 467 ms SINUS RHYTHM WITH PREMATURE ATRIAL COMPLEXES LEFT AXIS DEVIATION T WAVE ABNORMALITY, CONSIDER ANTERIOR ISCHEMIA PROLONGED QT ABNORMAL ECG WHEN COMPARED WITH ECG OF 30-JUL-2018 15:29, PREMATURE ATRIAL COMPLEXES ARE NOW PRESENT Confirmed by IVAN MARTINEZ MD ([id number]) on 01/09/2019 2:54:20 PM Referred By: Confirmed By:IVAN MARTINEZ MD
[2019-01-09] MEDS ORDERED: SODIUM CHLORIDE 1,000 ML IV SCH ×2 (15:00→16:02)
--- NOTE | 2019-01-09 15:39 | HP ---
Hospitalist Medicine 88 y/o M with PMH dementia (baseline), CVA (2019), CAD without stents s/p CABG, NIDDM, HTN, HLD, who presented for a change in mental status over the last 2-3 days. Per at bedside, pt has not been acting himself during this time. States that he has had confusion, and weakness in his gait. No new medications have been started, no falls, and no recent illnesses or sick contacts. Lives at home with , has a HEMODIALYSIS RN who is there for 3 days a week, M/W/F. Does some of ADL's on own such as eating and grooming. However needs help with bathing, etc. No recent falls. Has not complained to of any sx; denies MACK, fever, chills , SOB, chest pain or pressure or changes in urinary or bowel function. At baseline, pt alternates with a walker and wheelchair for ambulation. 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 ex-smoker; smoked 1 ppd since age 16, quit when had CABG. social drinker previously. no drug use Allergies ciprofloxacin [From Cipro] Allergy (Verified 01/09/19 11:06) -swelling moxifloxacin [From Avelox] Allergy (Verified 01/09/19 11:06) - swelling Penicillins Allergy (Verified 01/09/19 11:06) - swelling AVELOX - severe allergy, MACK, tinnitus HOME MEDICATIONS: Home Medications Medication Instructions Recorded Amlodipine Besylate 2.5 mg PO HS 01/09/19 Ascorbate Calcium [Vitamin C] 500 mg PO DAILY 01/09/19 Aspirin 81 mg x 2 PO DAILY 01/09/19 Atorvastatin Ca [Lipitor] 40 mg PO HS 01/09/19 Glimepiride [Amaryl -] 4 mg PO BID 01/09/19 Lactobacillus Acidophilus 1 each PO DAILY 01/09/19 [Acidophilus] Memantine HCl 5 mg PO BID 01/09/19 PHYSICAL EXAMINATION Vital Signs - 24 hr 01/09/19 01/09/19 11:03 12:15 Temperature 97.8 F 99.7 F H Pulse Rate 86 Respiratory 16 Rate Blood Pressure 138/80 O2 Sat by Pulse 96 Oximetry (%) General: +nonsensical speech, stuttering. in NAD , resting. unable to respond to commands or questions. HEENT: NCAT, PERRLA neck: supple, no JVD noted Cardio: +systolic murmur 2nd IS. otherwise no r/g. RRR pulm: CTA b/l, however poor inspiratory effort abdomen: nontender, nondistended. obese MSK: would not participate in exam, able to move UE, LE neuro: Aircraft [employer]ic [employer]ures 2-12 grossly intact, however does not participate in full exam. + intention tremor skin: +wound on LE 2x2cm, clean, without drainage . no foul smell affect: inappropriate, self stimulated; laughing to self Laboratory Results - last 24 hr 01/09/19 01/09/19 01/09/19 12:24 12:24 12:24 WBC 9.8 RBC 4.34 Hgb 13.8 Hct 42.4 MCV 97.7 H MCH 31.9 MCHC 32.6 RDW 14.9 Plt Count 257 MPV 10.3 Absolute Neuts (auto) 7.5 Neutrophils % 76.2 Lymphocytes % 12.9 Monocytes % 6.3 Eosinophils % 3.5 Basophils % 1.1 D Nucleated RBC % 0 Sodium 144 Potassium 4.6 Chloride 114 H Carbon Dioxide 24 Anion Gap 5 L BUN 51.3 H Creatinine 2.8 H Est GFR (CKD-EPI)AfAm 22.17 Est GFR (CKD-EPI)NonAf 19.13 Random Glucose 211 H Lactic Acid Calcium 10.8 H Total Bilirubin 0.5 AST 16 ALT 20 Alkaline Phosphatase 98 Troponin I < 0.02 Total Protein 6.3 L Albumin 3.0 L Urine Color Yellow Urine Appearance Turbid Urine pH >= 9.0 H D Ur Specific [place] 1.010 Urine Protein 3+ H Urine Glucose (UA) 2+ H Urine Ketones Negative Urine Blood 1+ H Urine Nitrite Positive Urine Bilirubin Negative Urine Urobilinogen 0.2 Ur Leukocyte Esterase 3+ H Urine WBC (Auto) >100 Urine RBC (Auto) 10 Urine Casts (Auto) 1 U Epithel Cells (Auto) 1 Urine Crystals (Auto) 0 Urine Bacteria (Auto) Many Urine Yeast (Auto) None seen 01/09/19 12:31 WBC RBC Hgb Hct MCV MCH MCHC RDW Plt Count MPV Absolute Neuts (auto) Neutrophils % Lymphocytes % Monocytes % Eosinophils % Basophils % Nucleated RBC % Sodium Potassium Chloride Carbon Dioxide Anion Gap BUN Creatinine Est GFR (CKD-EPI)AfAm Est GFR (CKD-EPI)NonAf Random Glucose Lactic Acid 1.6 Calcium Total Bilirubin AST ALT Alkaline Phosphatase Troponin I Total Protein Albumin Urine Color Urine Appearance Urine pH Ur Specific [place] Urine Protein Urine Glucose (UA) Urine Ketones Urine Blood Urine Nitrite Urine Bilirubin Urine Urobilinogen Ur Leukocyte Esterase Urine WBC (Auto) Urine RBC (Auto) Urine Casts (Auto) U Epithel Cells (Auto) Urine Crystals (Auto) Urine Bacteria (Auto) Urine Yeast (Auto) 01/09 Ucx, blood cx - sent, pending EKG 01/09: NSR, with PAC's, biphasic V3, no reciprocal changes. qtc 467ms* CXR 01/09: prominent mediastinum w/ sternal sutures, aortic plaque. no acute process is seen Head CT 01/09: no acute infarct, no hemorrhage, chronic L frontal, L parietal, L occipital/temp cortical/subcortical infarcts ASSESSMENT/PLAN: 88 y/o M with PMH dementia (baseline), CVA (2019), CAD without stents s/p CABG, NIDDM, HTN, HLD, who presented for a change in mental status over the last 2-3 days. #Acute metabolic encephalopathy 2/2 UTI -less likely 2/2 bleed, electrolyte disturbance, polypharmacy, or hypoglycemia -UA (+): will tx with azactam 0.5g IVPB q8h renally dosed -multiple abx allergies -f/u Ucx, blood cx -PT, fall risk precautions, neurochecks q4h -IVF -insert mazariegos -ID: Dr. Beauchamp #ARSALAN on CKD -f/u renal, bladder sono -c/w gentle IVF -continue to monitor #dementia -c/w namenda #hx CVA -c/w asa 162 mg (confirmed w/ list) -c/w lipitor #NIDDM -hold home agents -f/u a1c -ISS, BGM ACHS #HTN -c/w amlodipine #HLD -c/w lipitor #F/E/ EF 55% previously. IV NS 75 cc/hr continue to follow lytes puree diet (diabetic, low salt) until s/s #code status full code #PPX DVT: SCD's #Dispo admit to med-surg Visit type - Emergency Visit Emergency Visit: Yes ED Registration Date: 01/09/19 Care time: The patient presented to the Emergency Department on the above date and was hospitalized for further evaluation of their emergent condition. - New Patient This patient is new to me today: Yes Date on this admission: 01/09/19 - Critical Care Critical Care patient: No
[2019-01-09 15:44] LABS: INR 0.98 (0.83-1.09); PROTHROMBIN TIME (PATIENT) 11.6 SEC (9.7-13.0)
[2019-01-09 15:47] LABS: ACTIVATED PTT 27.6 SECONDS (25.2-36.5)
--- NOTE | 2019-01-09 15:55 | PN ---
Teaching Attending Note Name of Resident: Isaura Tejada ATTENDING PHYSICIAN STATEMENT I saw and evaluated the patient. I reviewed the resident's note and discussed the case with the resident. I agree with the resident's findings and plan as documented. SUBJECTIVE: Altered mental status OBJECTIVE: Vital Signs Temperature 99.7 F H 01/09/19 12:15 Pulse Rate 86 01/09/19 11:03 Respiratory Rate 16 01/09/19 11:03 Blood Pressure 138/80 01/09/19 11:03 O2 Sat by Pulse Oximetry (%) 96 01/09/19 11:03 General: Elderly man, confused, oriented to self comfortable, not in distress HEENT; mucous membranes dry, no anemia, no jaundice, PERRLA, no nystagmus Neck: No JVD, supple, no bruit, thyroid palpably normal, normal carotid pulsations. Chest: Non-tender, clear to auscultation bilaterally/bilateral wheezing/ bilateral basal rales. CVS: S1-S2 regular/irregular no murmur/gallop/rub Abdomen: Non-distended, soft, bowel sounds present. Extremities: No edema., No cough tenderness, pulses present RESPONDER: Confused disoriented CBCD WBC 9.8 K/mm3 (4.0-10.0) 01/09/19 12:24 RBC 4.34 M/mm3 (4.00-5.60) 01/09/19 12:24 Hgb 13.8 GM/dL (11.7-16.9) 01/09/19 12:24 Hct 42.4 % (35.4-49) 01/09/19 12:24 MCV 97.7 fl (80-96) H 01/09/19 12:24 MCHC 32.6 g/dl (32.0-35.9) 01/09/19 12:24 RDW 14.9 % (11.9-15.9) 01/09/19 12:24 Plt Count 257 K/MM3 (134-434) 01/09/19 12:24 MPV 10.3 fl (7.5-11.1) 01/09/19 12:24 CMP Sodium 144 mmol/L (136-145) 01/09/19 12:24 Potassium 4.6 mmol/L (3.5-5.1) 01/09/19 12:24 Chloride 114 mmol/L (98-107) H 01/09/19 12:24 Carbon Dioxide 24 mmol/L (21-32) 01/09/19 12:24 Anion Gap 5 MMOL/L (8-16) L 01/09/19 12:24 BUN 51.3 mg/dL (7-18) H 01/09/19 12:24 Creatinine 2.8 mg/dL (0.55-1.3) H 01/09/19 12:24 Calcium 10.8 mg/dL (8.5-10.1) H 01/09/19 12:24 Total Bilirubin 0.5 mg/dL (0.2-1) 01/09/19 12:24 AST 16 U/L (15-37) 01/09/19 12:24 ALT 20 U/L (13-61) 01/09/19 12:24 Alkaline Phosphatase 98 U/L (45-117) 01/09/19 12:24 Total Protein 6.3 g/dl (6.4-8.2) L 01/09/19 12:24 Albumin 3.0 g/dl (3.4-5.0) L 01/09/19 12:24 EK normal sinus rhythm QTc 467 axis -58, nonspecific ST-T changes same as baseline. Chest x-ray: No acute infiltrate . Active Medications Amlodipine Besylate (Norvasc -) 2.5 mg PO HS SONYA Aspirin (Asa -) 162 mg PO DAILY SONYA Atorvastatin Calcium (Lipitor -) 40 mg PO HS SONYA Sodium Chloride (Normal Saline -) 1,000 mls @ 100 mls/hr IV [facility] Last Admin: 01/09/19 15:13 Dose: 100 mls/hr Aztreonam 0.5 gm/ Dextrose 50 mls @ 100 mls/hr IVPB Q8H SONYA; Protocol Aztreonam 0.5 gm/ Dextrose 50 mls @ 100 mls/hr IVPB Q8H SONYA; Protocol Stop: 01/10/19 14:29 Insulin Aspart (Novolog Vial Sliding Scale -) 1 vial SQ [facility]; Protocol Lactobacillus Acidophilus (Bacid -) 1 tab PO DAILY SONYA Memantine (Namenda -) 5 mg PO BID [facility] ASSESSMENT AND PLAN: 88 years old man lives at home with the , poor historian due to advanced dementia history of CVA with right-sided residual weakness, as per no problem with swallowing CAD he status post CABG and stent, type 2 diabetes mellitus, CKD stage III hypertension, dyslipidemia, at baseline minimalADLS with help of and walker, today brought in by for evaluation of gradually increasing weakness, and poor p.o. intake, Foul- smelling urine, low-grade fever, does not endorse any nausea, vomiting , diarrhea , cough or a fall, on arrival to ED patient is confused dehydrated, UA shows many WBC leukoesterase and nitrate and elevated BUN/creatinine Impression: 1. UTI: Patient urinalysis consistent with UTI, follow-up urine culture, blood culture, meantime continue aztreonam 2. Toxic metabolic encephalopathy: Due to UTI, neurochecks, fall precautions, n.p.o. except medication, follow-up CT head 2. Dehydration: Patient has poor p.o. intake, normal saline 75 cc/h switch to D5 once Accu-Cheks are less than 150 mg 3. ARSALAN on CKD; worsening renal functions, Chou's catheter, follow BMP after IV hydration 4. CAD: Stable at present denies any chest pain, EKG non-dynamic, resume all home medications including ASA 5. Type 2 diabetes mellitus: Hold p.o. medication, Accu-Chek and correction dose lispro 6. CODE STATUS discussed with the as per patient is full code.
[2019-01-09] MEDS: INSULIN SLIDING SCALE (NOVOLOG) 1 VIAL SQ SCH (16:43)
[2019-01-09] MEDS ORDERED: AZTREONAM 0.5 GM in DEXTROSE 5%-WATER - 50 ML IVPB SCH (22:00)
[2019-01-09] MEDS ORDERED: ATORVASTATIN CA 40 MG TABLET (FP) ONE (22:06)
[2019-01-09] MEDS: ATORVASTATIN CA 40 MG TABLET (FP) PO SCH (22:20)
[2019-01-09] MEDS ORDERED: amLODIPine BESYLATE 5 MG TABLET (FP) ONE (23:21)
[2019-01-09] MEDS: MEMANTINE HCL 5 MG TABLET (UD) PO SCH (23:31)
[2019-01-09] MEDS: amLODIPine BESYLATE 2.5 MG TABLET (FP) PO SCH (23:31)
[2019-01-10 06:24] LABS: BASO % 0.6 % (0-2.0); EOS % 6.9 % (0-4.5); HEMATOCRIT 40.8 % (35.4-49); HEMOGLOBIN 13.5 GM/dL (11.7-16.9); LYMPH % 17.1 % (8-40); MEAN CELL VOLUME 97.1 fl (80-96); MEAN PLT VOLUME 9.6 fl (7.5-11.1); MONO % 8.3 % (3.8-10.2); NEUT % 67.1 % (42.8-82.8); PLATELET COUNT 230 K/MM3 (134-434); RBC 4.21 M/mm3 (4.00-5.60); RDW 14.4 % (11.9-15.9); WHITE BLOOD COUNT 7.4 K/mm3 (4.0-10.0)
[2019-01-10 06:43] LABS: BLOOD UREA NITROGEN 44.3 mg/dL (7-18); CALCIUM 10.2 mg/dL (8.5-10.1); CREATININE 2.3 mg/dL (0.55-1.3); MAGNESIUM 2.3 mg/dL (1.8-2.4); PHOSPHOROUS 2.2 mg/dL (2.5-4.9); POTASSIUM 4.3 mmol/L (3.5-5.1)
[2019-01-10] MEDS: INSULIN SLIDING SCALE (NOVOLOG) 1 VIAL SQ SCH ×3 (07:01→17:36)
[2019-01-10] MEDS: ASPIRIN 81 MG CHEWABLE TABLETS PO SCH (09:44)
[2019-01-10] MEDS: LACTOBACILLUS ACIDOPHILUS 1 TABLET PO SCH (09:44)
[2019-01-10] MEDS: MEMANTINE HCL 5 MG TABLET (UD) PO SCH ×2 (09:44→21:51)
[2019-01-10] MEDS ORDERED: ASPIRIN 81 MG CHEWABLE TABLETS PO SCH (10:00)
[2019-01-10] MEDS ORDERED: AZTREONAM 1 GM in DEXTROSE 5%-WATER - 50 ML IVPB SCH (10:00)
[2019-01-10] MEDS ORDERED: CEFTRIAXONE 1 GM in DEXTROSE 5%-WATER - 50 ML IVPB SCH (10:00)
--- NOTE | 2019-01-10 10:38 | PN ---
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 (short form) - Note 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: ID CONSULT DICTATED GRAM NEGATIVE BACTEREMIA/ SEPSIS UTI/ SEPSIS SECONDARY TO UTI PCN/ FQ ALLERGIES RENAL INSUFFICIENCY TOXIC METABOLIC ENCEPHALOPATHY/OBS AWAIT C/S EMPIRIC AZTREONAM/VANCOMYCIN
--- NOTE | 2019-01-10 11:39 | CONS ---
DATE OF CONSULTATION: DATE OF DICTATION: 01/10/2019 INFECTIOUS DISEASE CONSULTATION HISTORY OF PRESENT ILLNESS: The patient is an 88-year-old male who is evaluated for sepsis. History was obtained from the chart, as he suffers from dementia and cannot give a history. He was admitted from home on January 09, 2019, with altered mental status. According to notes, he had become increasingly confused and had experienced generalized weakness over the past 3 days prior to admission. He had very poor oral intake and had inability to stand. In addition, the patient was noted to have foul-smelling urine. He was evaluated in the emergency room where urine specimens showed kenneth pus. Cultures now positive for gram-negative rods. He is awake, however he is confused. He cannot offer any additional details. No reports of high-grade fever or shaking chills. Blood pressure has been stable. PAST MEDICAL HISTORY: Positive for stroke, dementia, coronary artery disease, hypertension, hyperlipidemia. ALLERGIES: CIPROFLOXACIN and PENICILLIN. He has tolerated aztreonam in the past. MEDICATION: Include amlodipine, aspirin, Lipitor, and Amaryl. SOCIAL HISTORY: Lives at home. Has a home health aid. SYSTEMS REVIEW: Neurologic: Positive for dementia and stroke. Cardiac: Negative for chest pain or palpitations. Respiratory: Negative for cough or sputum production. Gastrointestinal: Negative vomiting or diarrhea. Genitourinary: As per HPI. LABORATORY DATA: White count 7.4, hematocrit 40.8, platelets 230, creatinine 2.3. Blood cultures growing gram-negative rods. Urine culture growing proteus. Urine analysis with pH of greater than 9. PHYSICAL EXAMINATION: General: On exam, he is awake but confused. He is nonconversant. Vital signs: Temperature 98.7, blood pressure 142/69, pulse 129 regular, respirations 16 per minute. HEENT: Sclerae anicteric. Cardiovascular: Heart sounds S1, S2. Lungs: Clear. Abdomen: Soft, no tenderness elicited. Extremities: Negative for edema. Chou catheter is in place. Urine is cloudy. IMPRESSION: 1. Gram-negative bacteremia/sepsis. 2. Urinary tract infection/sepsis secondary to urinary tract infection. 3. PENICILLIN and FLUOROQUINOLONE allergies. 4. Renal insufficiency. 5. Toxic metabolic encephalopathy/dementia. Await final culture results. Empiric antibiotic coverage with vancomycin and Azactam adjusted for renal insufficiency. Further recommendations pending cultures. Will follow. Thank you for the kind referral. MC TAVARES M.D. ERIK/[id number]
[2019-01-10] MEDS ORDERED: VANCOMYCIN 1 GRAM (PRE-DOCKED) 1,000 MG/250 ML BAG IVPB ONE ×2 (12:00→13:06)
--- NOTE | 2019-01-10 14:01 | PN ---
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 (short form) - Note 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: Hospitalist Medicine Resting in bed, without complaint. Vitals 01/10/19 01/10/19 01/10/19 04:08 07:38 08:34 Temperature 98.7 F Pulse Rate [ 121 H Radial] Blood Pressure 142/69 [Right Arm] O2 Sat by Pulse 92 L 99 Oximetry (%) Physical Exam General: resting in bed, in NAD HEENT: NCAT, PERRLA neck: supple, no JVD noted Cardio: +systolic murmur 2nd IS. otherwise no r/g. RRR pulm: CTA b/l, however poor inspiratory effort abdomen: nontender, nondistended. neuro: Weight And Test Bar Clerk 2-12 grossly intact, +intention tremor skin: +wound on LE 2x2cm, clean, without drainage . affect: appropriate Laboratory Tests 01/10/19 01/10/19 01/10/19 06:08 06:08 06:08 WBC 7.4 RBC 4.21 Hgb 13.5 Hct 40.8 Plt Count 230 Sodium 149 H Potassium 4.3 Chloride 122 H BUN 44.3 H Creatinine 2.3 H Hemoglobin A1c % 8.0 H Calcium 10.2 H Phosphorus 2.2 L Magnesium 2.3 Microbiology 01/09/19 12:29 Blood - Peripheral Venous Blood Culture - Preliminary Pending Organism 01/09/19 12:24 Urine - Urine Clean Catch Urine Culture - Preliminary Proteus Species 01/09/19 12:10 Blood - Peripheral Venous Blood Culture - Preliminary Pending Organism Imaging EKG 01/09: NSR, with PAC's, biphasic V3, no reciprocal changes. qtc 467ms* CXR 01/09: prominent mediastinum w/ sternal sutures, aortic plaque. no acute process is seen Head CT 01/09: no acute infarct, no hemorrhage, chronic L frontal, L parietal, L occipital/temp cortical/subcortical infarcts spiral CT 01/10: mild fullness of pelvicalyceal system and proximal hydroureter , without evidence of obstructing stone. Few L ernal cysts. Complex cysts noted. Vascular calcifications in renal hilum. Mild fullness of R renal pelvis and mild proximal R hydroureter without obstructing stone. urinary bladder decompressed with mazariegos. possible cystitis. moderate amount fecal residue. prostate enlarged. 3.2cm abdominal aorta. ASSESSMENT/PLAN: 88 y/o M with PMH dementia (baseline), CVA (2019), CAD without stents s/p CABG, NIDDM, HTN, HLD, who presented for a change in mental status over the last 2-3 days. #Acute metabolic encephalopathy 2/2 UTI -c/w azactam (Day 2), vanco x 1 -no nephrolithiasis per spiral CT -multiple abx allergies -Ucx - proteus, blood cx - gram (-) bacilli, c+s pending -PT, fall risk precautions, neurochecks q4h -IVF -c/w mazariegos -ID: Dr. Mart #ARSALAN on CKD -c/w gentle IVF -continue to monitor #dementia -c/w namenda #hx CVA -c/w asa 162 mg (confirmed w/ list) -c/w lipitor #NIDDM -hold home agents -a1c 8% -ISS, BGM ACHS #HTN -c/w amlodipine #HLD -c/w lipitor #F/E/N EF 55% previously. switched to IV 1/2NS 75 cc/hr continue to follow lytes puree diet (diabetic, low salt) until s/s #code status full code #PPX DVT: SCD's #Dispo admitted to med-surg, however no beds. in ER <Isaura Tejada - Last Filed: 01/10/19 14:09> - Note 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: Seen and examined; please see resident note for further historical information. I personally verified all kelley historical information and exam findings. Personally interpreted all imaging and diagnostics and reviewed appropriate consults. I reviewed all labs and vital signs as per resident note and EMR as documented. I agree with the above assessment and plan unless supplemented by myself in the following. Tachycardic this morning and poor mentation. This is apparently worse than his baseline. Patient has gram-negative bacteremia and is growing Proteus which is suspicious for an underlying stone. I will obtain a CT abdomen and pelvis. If this is positive for any acute findings with the genitourinary system we will consult urology. I was informed a renal ultrasound was ordered yesterday but this was not seen under the order history. Preliminary imaging does show proximal hydroureter with patient septic from urinary source with positive bacteremia. Repeating blood cultures in 48 hours, checking lactic acid, will upgrade level of care if necessary. Will discuss goals of care with family should he have a diminished response to resuscitation. 10 system review of systems could not be reliably completed due to the underlying dementia and toxic metabolic encephalopathy VS, labs, imaging reviewed NAD, AAO, resting comfortably in bed. RRR s1/2 no mgr Normal muscle tone, moves all 5 extremities with normal apparent strength Neck is supple, trachea midline, no kenneth LN Lungs CTAB with sym expansion NT ND +BS no kenneth organomegaly CN2-12 wnl; no FND NC AT EOMI PERRLA Normal mood, appropriate behavior, euthymic affect No skin breakdown or rashes noted EKG reviewed Chest x-ray reviewed CT head without acute abnormalities Preliminary CT abdomen and pelvis with proximal hydroureter without clear stone A/P: Patient presents with AMS due to Toxic metabolic encephalopathy brought upon by sepsis secondary to UTI. He is found to be bacteremic and growing proteus and was tachycardic this morning. No new issues today. Mentation not clearly improved. Sepsis secondary to urinary tract infection, persistent Toxic metabolic encephalopathy causing acute on chronic altered mentation Underlying dementia ARSALAN on CKD, improved to baseline Diabetes mellitus, A1c is 8.0%. This is acceptable for an 88-year-old, we will hold p.o. medications and monitor fingersticks. Poor p.o. intake, check prealbumin, consider diagnosis of failure to thrive Hypernatremia, hyperchloremia the pattern observed with this appears to have been drawn off of the saline lock. I will repeat a stat BM P and we can address if these values indeed persist <Erwin Whitaker - Last Filed: 01/10/19 14:19>
[2019-01-10] MEDS ORDERED: SODIUM CHLORIDE 0.45% 1,000 ML IV SCH (14:15)
[2019-01-10] MEDS: LACTATED RINGERS SOLUTION 1,000 ML/1,000 ML INFUS.BAG IV SCH (15:25)
[2019-01-10 17:42] LABS: BLOOD UREA NITROGEN 43.9 mg/dL (7-18); CALCIUM 9.7 mg/dL (8.5-10.1); CREATININE 2.3 mg/dL (0.55-1.3); POTASSIUM 4.3 mmol/L (3.5-5.1)
--- NOTE | 2019-01-10 21:00 | CONS ---
DATE OF CONSULTATION: DATE OF DICTATION: 01/10/2019 The patient is an 88-year-old male admitted via the emergency room on January 09, 2019. He comes in with change in mental status as well as lethargy. explains that the patient has not been acting normally and has been more confused and weaker for the past several days. Also states that the patient has been having odorous urine and the urine is cloudy in color. The patient does have a history of a left CVA with some right hemiparesis. He also has a history of coronary artery disease. He underwent coronary artery bypass graft surgery in the past. He is a type 2 diabetic, a hypertensive, a dyslipidemic. He also has history of dementia. Patient is on multiple medications including Norvasc, Amaryl, and Lipitor. He is allergic to CIPRO, PENICILLIN, and AVELOX. In the emergency room, the urine appeared to be cloudy and odorous. The patient is presently confused and nonverbal due to hearing impairment. The patient underwent a CT scan of the abdomen earlier this afternoon and this revealed mild fulness of the right renal unit as well as healthy caliceal system dilation, also has proximal hydroureter without evidence of an obstructing stone. There were bilateral renal simple cysts. A Chou catheter was in place. There was a decompressed bladder. The bladder revealed diffuse wall thickening, which is suggestive of possible cystitis. Also gallstones and diverticulosis were seen on CAT scan. The patient's Chou catheter presently is draining clear urine. His abdomen is soft. No CVA tenderness is elicited. Laboratory data reveals a white count of 7.4, hematocrit 40.8, platelets 230, creatinine 2.3. Blood cultures grew gram-negative rods and urine culture is growing Proteus. The urine pH was greater than 9. The patient appears to be confused and nonconversant. His T-max is 98.7. Presently his blood pressure is 142/69, pulse is 129 and regular, respirations are 16. Genitalia are atraumatic. Prostate is 3+, firm, and nontender. IMPRESSION AT PRESENT: Gram-negative bacteremia as well as sepsis, urinary tract sepsis secondary to prostatism, renal insufficiency, with acute exacerbation, most likely secondary to obstructive uropathy and toxic metabolic encephalopathy and dementia secondary to sepsis. Will recommend continuation of Chou catheter, strict I's and O's, placing the patient on tamsulosin 0.4 mg daily. Will discontinue Chou catheter in 48 hours and monitor patient's urine output. Will follow with you. Alfred [id number]
[2019-01-10] MEDS ORDERED: AZTREONAM 1 GM VIAL (RESTRICTED TO ID) ONE (21:41)
[2019-01-10] MEDS ORDERED: DEXTROSE 5%-WATER - 50 ML IVPB ONE (21:41)
[2019-01-10] MEDS: AZTREONAM 1 GM in DEXTROSE 5%-WATER - 50 ML IVPB SCH (21:44)
[2019-01-10] MEDS: ATORVASTATIN CA 40 MG TABLET (FP) PO SCH (21:51)
[2019-01-10] MEDS: amLODIPine BESYLATE 2.5 MG TABLET (FP) PO SCH (21:51)
[2019-01-11] MEDS ORDERED: AZTREONAM 1 GM in DEXTROSE 5%-WATER - 50 ML IVPB SCH (02:00)
[2019-01-11 04:19] VITALS: BMI 23.6
[2019-01-11] MEDS: INSULIN SLIDING SCALE (NOVOLOG) 1 VIAL SQ SCH ×3 (06:00→17:29)
[2019-01-11] MEDS ORDERED: TAMSULOSIN HCL 0.4 MG CAP PO SCH (08:30)
[2019-01-11 09:18] LABS: BASO % 0.6 % (0-2.0); HEMATOCRIT 36.5 % (35.4-49); HEMOGLOBIN 12.3 GM/dL (11.7-16.9); LYMPH % 22.8 % (8-40); MCH 32.5 pg (25.7-33.7); MCHC 33.8 g/dl (32.0-35.9); MEAN CELL VOLUME 96.2 fl (80-96); MEAN PLT VOLUME 9.7 fl (7.5-11.1); NEUT % 63.6 % (42.8-82.8); PLATELET COUNT 233 K/MM3 (134-434); RBC 3.79 M/mm3 (4.00-5.60); RDW 14.4 % (11.9-15.9); WHITE BLOOD COUNT 6.5 K/mm3 (4.0-10.0)
[2019-01-11 09:55] LABS: BLOOD UREA NITROGEN 38.7 mg/dL (7-18); CREATININE 2.2 mg/dL (0.55-1.3); MAGNESIUM 2.1 mg/dL (1.8-2.4); PHOSPHOROUS 2.1 mg/dL (2.5-4.9)
[2019-01-11] MEDS ORDERED: FLU VACCINE QUAD 60 MCG/0.5 ML (MDV 19-20) IM ONE (10:00)
[2019-01-11] MEDS ORDERED: AZTREONAM 1 GM VIAL (RESTRICTED TO ID) ONE ×2 (11:40→22:40)
[2019-01-11] MEDS ORDERED: DEXTROSE 5%-WATER - 50 ML IVPB ONE ×2 (11:41→22:41)
[2019-01-11] MEDS: LACTATED RINGERS SOLUTION 1,000 ML/1,000 ML INFUS.BAG IV SCH ×2 (11:56→15:12)
[2019-01-11] MEDS: AZTREONAM 1 GM in DEXTROSE 5%-WATER - 50 ML IVPB SCH ×2 (11:58→22:41)
[2019-01-11] MEDS: TAMSULOSIN HCL 0.4 MG CAP PO SCH (11:58)
[2019-01-11] MEDS: LACTOBACILLUS ACIDOPHILUS 1 TABLET PO SCH (11:58)
[2019-01-11] MEDS: ASPIRIN 81 MG CHEWABLE TABLETS PO SCH (11:58)
[2019-01-11] MEDS: MEMANTINE HCL 5 MG TABLET (UD) PO SCH ×2 (12:01→22:41)
--- NOTE | 2019-01-11 12:41 | CONSULT ---
Admitting History and Physical - Primary Care Physician PCP: Erwin Whitaker - Admission History of Present Illness: 88 y/o M with PMH dementia (baseline), CVA (2019), CAD without stents s/p CABG, NIDDM, HTN, HLD, who presented for a change in mental status over the last 2-3 days. Per at bedside, pt has not been acting himself during this time. States that he has had confusion, and weakness in his gait. Selected Entries 01/10/19 01/10/19 01/10/19 04:08 14:30 17:39 Temperature 98.7 F 97.5 F L 98.2 F 01/10/19 01/11/19 20:03 05:32 Temperature 98.7 F 98.5 F Laboratory Tests 01/11/19 08:20 WBC 6.5 On Puree/thin liquids Seen last by me 09/2017-verbal confused euphoric, tolerated reg diet/thin liquids ID imp-GRAM NEGATIVE BACTEREMIA/ SEPSIS UTI/ SEPSIS SECONDARY TO UTI PCN/ FQ ALLERGIES RENAL INSUFFICIENCY TOXIC METABOLIC ENCEPHALOPATHY/OBS\ \ Performance similar to 09/30 assessment History Source: Medical Record Limitations to Obtaining History: Clinical Condition, Dementia - Past Medical History LINE ORDERING CLINICIAN: Yes: CVA, Dementia Cardiovascular: Yes: CAD, HTN, Hyperlipdemia - Past Surgical History Past Surgical History: Yes: CABG - Smoking History Smoking history: Former smoker Have you smoked in the past 12 months: No If you are a former smoker, when did you quit?: 2003 - Alcohol/Substance Use Hx Alcohol Use: No History of Substance Use: reports: None - Social History ADL: Family Assistance 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, 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 History of Recent Travel: No History - Admission Reason For Visit: UTI - Diagnostics CT Scan: Report Reviewed - General Mental Status: Awake and Alert, Confused Attention: Mild Impairment Ability to Follow Directions: Fair (intermittent) Head/Neck Control: Fair - Hearing Hearing: Impaired Hearing Aide: Yes (Right side only) With Patient: Yes Speech Evaluation - Communication Primary Language: GABONESE Communication: Yes: Simple Responses Oral Expression Ability: Yes: Mild Impairment, Moderate Impairment - Speech Production Intelligibility: Yes: WNL - Speech Characteristics Voice Loudness: Normal Voice Pitch: Yes: Normal Voice Phonatory-based Quality: Yes: Normal Speech Pattern: Normal Nasal Resonance: Normal Articulation: Yes: Imprecise (intermittent) - Language/Auditory Comprehension Observation: Comprehends Conversational Speech: Yes (If loud enough) - Swallow Evaluation/Bedside Assessment Current Nutritional Intake: Dysphagia Pureed, Thin Liquids, Other (cookies at bedside) Oral Secretions: Yes: WFL Dentition: Yes: Adequate Facial Symmetry at Rest: Symmetrical Facial Symmetry on Retraction: Symmetrical Against Resistance Opening: Normal Against Resistance Closing: Normal Pucker Lips: Normal Smile: Normal Lingual Movement: Normal, Symmetric Lingual Speed of Movement: Normal Lingual Movement Strgth Against Opposition: Normal Lingual Movement Characteristics: Normal Velopharyngeal Movement: Normal Laryngeal Elevation: WFL Rate of Intake: WFL Bolus Size: WFL Labial Seal: WFL Chewing: WFL Oral Prep Time: WFL A-P Transit: WFL Pocketing: None Timing of Swallow: Delayed Coughing/Throat Clear: No Change in Voice: No Recommendations - Speech Evaluation, Impression/Plan Impression: Confused, euphoric, chews well, delayed but brisk swallow. - Dysphagia Impressions/Plan Dysphagia Impressions: Mild Impairment, Risk of Aspiration *Silent aspiration: cannot be R/O at bedside Dysphagia Treatment Plan: Small Bites, Chin Tuck/Down, Facilitative Feeding, Safe Rate, Elevate HOB during feed - Recommendations Diet Consistency: Regular (cut up. Assist with meals) Medication Administration: Crushed with applesauce Liquids: Thin Liquids Supplement: Ensure, Magic Cup
--- NOTE | 2019-01-11 13:38 | PN ---
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 (short form) - Note 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: Hospitalist Medicine Resting in bed. Interactive, however w/ dementia Vitals 01/11/19 05:32 Temperature 98.5 F Pulse Rate 62 Respiratory 18 Rate Blood Pressure 122/54 L Physical Exam General: resting in bed, in NAD HEENT: NCAT, PERRLA neck: supple Cardio: +systolic murmur 2nd IS. otherwise no r/g. RRR pulm: CTA b/l abdomen: nontender, nondistended. neuro: Claims Director 2-12 grossly intact, +intention tremor skin: +wound on LE 2x2cm, clean, without drainage . affect: confused Laboratory Tests 01/11/19 01/11/19 08:20 08:20 WBC 6.5 Hgb 12.3 Hct 36.5 Plt Count 233 Sodium 148 H Potassium 4.0 Chloride 120 H BUN 38.7 H Creatinine 2.2 H Random Glucose 62 L Phosphorus 2.1 L Microbiology 01/09/19 12:24 Urine - Urine Clean Catch Urine Culture - Final Proteus Mirabilis 01/09/19 12:29 Blood - Peripheral Venous Blood Culture - Preliminary Proteus Species 01/09/19 12:10 Blood - Peripheral Venous Blood Culture - Preliminary Proteus Species Imaging EKG 01/09: NSR, with PAC's, biphasic V3, no reciprocal changes. qtc 467ms* CXR 01/09: prominent mediastinum w/ sternal sutures, aortic plaque. no acute process is seen Head CT 01/09: no acute infarct, no hemorrhage, chronic L frontal, L parietal, L occipital/temp cortical/subcortical infarcts spiral CT 01/10: mild fullness of pelvicalyceal system and proximal hydroureter , without evidence of obstructing stone. Few L ernal cysts. Complex cysts noted. Vascular calcifications in renal hilum. Mild fullness of R renal pelvis and mild proximal R hydroureter without obstructing stone. urinary bladder decompressed with mazariegos. possible cystitis. moderate amount fecal residue. prostate enlarged. 3.2cm abdominal aorta. ASSESSMENT/PLAN: 88 y/o M with PMH dementia (baseline), CVA (2019), CAD without stents s/p CABG, NIDDM, HTN, HLD, who presented for a change in mental status over the last 2-3 days. #Acute metabolic encephalopathy 2/2 UTI -c/w azactam (Day 3), vanco x 1 -no nephrolithiasis per spiral CT -multiple abx allergies -Ucx, blood cx (+) proteus -blood cx repeated (48h after) -PT, fall risk precautions, neurochecks q4h -IVF -c/w mazariegos -ID: Dr. Mart #ARSALAN on CKD -c/w gentle IVF -continue to monitor -f/u renal, bladder sono -started on flomax per uro recs -uro: Dr. Anthony Magdaleno #dementia -c/w namenda #hx CVA -c/w asa 162 mg (confirmed w/ list) -c/w lipitor #NIDDM -hold home agents -will need to hold glimepiride on d/c -a1c 8% -ISS, BGM ACHS #HTN -c/w amlodipine #HLD -c/w lipitor #F/E/N EF 55% previously. switched to LR 75 cc/hr continue to follow lytes na controlled/diabetic - cut with thin liquids #code status full code #PPX DVT: SCD's #Dispo monitoring on med-surg <Isaura Tejada - Last Filed: 01/11/19 13:46> - Note 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: Seen and examined; agree with resident note as documented aside from as supplemented by myself. All kelley historical and PE findings independently verified alongside all labs, imaging, and diagnostics. Discussed at length with resident team and indicated consultants. Mentation is slightly improved; no new issues brought to my attention VS, labs, imaging reviewed NAD, AAO, resting in bed NC AT EOMI PERRLA HR wnl, +s1/2 Lungs CTAB, w/ sym exp NT ND +BS Mentation slightly improved; restricted insight and judgment with underlying dementia Trachea midline; no JVD. No LN Skin without new rashes or breakdown A/P: Patient presents with toxic metabolic encephalopathy secondary to acute infection with AMS superimposed over his dementia; agree with the above plan and problem list. Continue to monitor on floor, abx. Full Code <Erwin Whitaker - Last Filed: 01/13/19 13:14>
[2019-01-11] MEDS ORDERED: POTASSIUM PHOSPHATE 15 MM in DEXTROSE 5%-WATER - 250 ML IVPB ONE (14:00)
[2019-01-11] MEDS ORDERED: HEPARIN NA (PORCINE) 5,000 UNITS/ML 1ML VIAL SQ SCH (14:00)
--- NOTE | 2019-01-11 17:08 | PN ---
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, Physician History of Present Illness: AWAKE, NON VERBAL AFEBRILE BC, URINE C/S PROTEUS SP - Current Medication List Current Medications: Active Medications Amlodipine Besylate (Norvasc -) 2.5 mg PO HS [facility] Last Admin: 01/10/19 21:51 Dose: 2.5 mg Aspirin (Asa -) 162 mg PO DAILY [facility] Last Admin: 01/11/19 11:58 Dose: 162 mg Atorvastatin Calcium (Lipitor -) 40 mg PO HS [facility] Last Admin: 01/10/19 21:51 Dose: 40 mg Aztreonam 1 gm/ Dextrose 50 mls @ 100 mls/hr IVPB BID [facility]; Protocol Last Admin: 01/11/19 11:58 Dose: 100 mls/hr Lactated Ringer's (Lactated Ringers Solution) 1,000 ml in 1,000 mls @ 75 mls/ hr IV ASDIR [facility] Last Admin: 01/11/19 15:12 Dose: Not Given Potassium Phosphate 15 mm/ (Dextrose) 255 mls @ 42.5 mls/hr IVPB ONCE ONE Stop: 01/11/19 19:59 Last Admin: 01/11/19 15:14 Dose: 42.5 mls/hr Insulin Aspart (Novolog Vial Sliding Scale -) 1 vial SQ TIDAC [facility]; Protocol Last Admin: 01/11/19 12:01 Dose: Not Given Lactobacillus Acidophilus (Bacid -) 1 tab PO DAILY [facility] Last Admin: 01/11/19 11:58 Dose: 1 tab Memantine (Namenda -) 5 mg PO BID [facility] Last Admin: 01/11/19 12:01 Dose: 5 mg Tamsulosin HCl (Flomax -) 0.4 mg PO DAILY@0830 [facility] Last Admin: 01/11/19 11:58 Dose: 0.4 mg - Objective Vital Signs: Vital Signs Temperature 98.7 F 01/11/19 14:15 Pulse Rate 76 01/11/19 14:15 Respiratory Rate 20 01/11/19 14:15 Blood Pressure 127/58 L 01/11/19 14:15 O2 Sat by Pulse Oximetry (%) 95 01/11/19 09:00 Constitutional: Yes: No Distress Eyes: Yes: Conjunctiva Clear Cardiovascular: Yes: Regular Rate and Rhythm, S1, S2 Respiratory: Yes: Diminished Gastrointestinal: Yes: Normal Bowel Sounds, Soft. No: Tenderness Edema: Yes Edema: LLE: 1+, RLE: 1+ Labs: CBC, BMP 01/11/19 08:20 01/11/19 08:20 INR, PTT INR 0.98 (0.83-1.09) 01/09/19 15:11 Assessment/Plan UTI/ SEPSIS SECONDARY TO UTI PROTEUS SP PCN/ FQ ALLERGIES CKD TOXIC METABOLIC ENCEPHALOPATHY/ OBS CONTINUE AZTREONAM, ADJUSTED FOR RENAL FAILURE
[2019-01-11] MEDS: ATORVASTATIN CA 40 MG TABLET (FP) PO SCH (22:41)
[2019-01-11] MEDS: amLODIPine BESYLATE 2.5 MG TABLET (FP) PO SCH (22:41)
[2019-01-12] MEDS: INSULIN SLIDING SCALE (NOVOLOG) 1 VIAL SQ SCH ×3 (06:08→16:35)
[2019-01-12 09:08] LABS: BASO % 0.7 % (0-2.0); EOS % 4.9 % (0-4.5); HEMATOCRIT 37.9 % (35.4-49); HEMOGLOBIN 12.4 GM/dL (11.7-16.9); LYMPH % 23.2 % (8-40); MCH 31.9 pg (25.7-33.7); MCHC 32.8 g/dl (32.0-35.9); MEAN PLT VOLUME 9.4 fl (7.5-11.1); MONO % 6.9 % (3.8-10.2); NEUT % 64.3 % (42.8-82.8); PLATELET COUNT 235 K/MM3 (134-434); RBC 3.91 M/mm3 (4.00-5.60); RDW 14.5 % (11.9-15.9); WHITE BLOOD COUNT 6.6 K/mm3 (4.0-10.0)
[2019-01-12] MEDS ORDERED: AZTREONAM 1 GM VIAL (RESTRICTED TO ID) ONE ×2 (09:13→21:19)
[2019-01-12] MEDS ORDERED: DEXTROSE 5%-WATER - 50 ML IVPB ONE ×2 (09:13→21:19)
[2019-01-12] MEDS: MEMANTINE HCL 5 MG TABLET (UD) PO SCH ×2 (09:14→21:25)
[2019-01-12] MEDS: TAMSULOSIN HCL 0.4 MG CAP PO SCH (09:14)
[2019-01-12] MEDS: ASPIRIN 81 MG CHEWABLE TABLETS PO SCH (09:14)
[2019-01-12] MEDS: LACTOBACILLUS ACIDOPHILUS 1 TABLET PO SCH (09:14)
[2019-01-12] MEDS: AZTREONAM 1 GM in DEXTROSE 5%-WATER - 50 ML IVPB SCH ×2 (09:15→21:25)
[2019-01-12 09:29] LABS: BLOOD UREA NITROGEN 33.9 mg/dL (7-18); CALCIUM 9.9 mg/dL (8.5-10.1); CREATININE 2.2 mg/dL (0.55-1.3); PHOSPHOROUS 2.6 mg/dL (2.5-4.9)
--- NOTE | 2019-01-12 10:15 | PN ---
Physical Exam: SUBJECTIVE: Patient seen and examined Proteus Mirabella's growing in 2 out of 2 bottles on the initial cultures, negative repeat cultures to date. Hemodynamics are stable. No longer septic. 10 item review of systems done and negative aside from HPI OBJECTIVE: Vital Signs Period Temp Pulse Resp BP Sys/Brink Pulse Ox Last 24 Hr 98.5 F-98.7 F 76-80 20-20 120-127/58-80 95 VS, labs, imaging reviewed NAD, AAO, resting in bed NC AT EOMI PERRLA HR wnl, +s1/2 Lungs CTAB, w/ sym exp NT ND +BS Mentation slightly improved; restricted insight and judgment with underlying dementia Trachea midline; no JVD. No LN Skin without new rashes or breakdown Laboratory Results - last 24 hr 01/11/19 01/12/19 01/12/19 11:53 05:54 08:40 WBC 6.6 RBC 3.91 L Hgb 12.4 Hct 37.9 MCV 97.0 H MCH 31.9 MCHC 32.8 RDW 14.5 Plt Count 235 MPV 9.4 Absolute Neuts (auto) 4.2 Neutrophils % 64.3 Lymphocytes % 23.2 Monocytes % 6.9 Eosinophils % 4.9 H Basophils % 0.7 Nucleated RBC % 0 Sodium Potassium Chloride Carbon Dioxide Anion Gap BUN Creatinine Est GFR (CKD-EPI)AfAm Est GFR (CKD-EPI)NonAf POC Glucometer 115 112 Random Glucose Calcium Phosphorus Magnesium 01/12/19 08:40 WBC RBC Hgb Hct MCV MCH MCHC RDW Plt Count MPV Absolute Neuts (auto) Neutrophils % Lymphocytes % Monocytes % Eosinophils % Basophils % Nucleated RBC % Sodium 146 H Potassium 4.0 Chloride 116 H Carbon Dioxide 25 Anion Gap 5 L BUN 33.9 H Creatinine 2.2 H Est GFR (CKD-EPI)AfAm 29.68 Est GFR (CKD-EPI)NonAf 25.61 POC Glucometer Random Glucose 100 Calcium 9.9 Phosphorus 2.6 Magnesium 2.0 Active Medications Generic Name Dose Route Start Last Admin Trade Name Freq PRN Reason Stop Dose Admin Amlodipine Besylate 2.5 mg 01/09/19 22:00 01/11/19 22:41 Norvasc - PO 2.5 mg HS [facility]ON[facility] Administration Aspirin 162 mg 01/10/19 10:00 01/12/19 09:14 Asa - PO 162 mg DAILY SONYA Administration Atorvastatin Calcium 40 mg 01/09/19 22:00 01/11/19 22:41 Lipitor - PO 40 mg HS SONYA Administration Aztreonam 1 gm/ Dextrose 50 mls @ 100 mls/hr 01/10/19 22:00 01/12/19 09:15 IVPB 100 mls/hr BID [facility] Administration Protocol Lactated Ringer's 1,000 ml in 1,000 mls @ 75 mls/hr 01/10/19 14:30 01/11/19 15:12 Lactated Ringers Solution IV Not Given [facility] Insulin Aspart 1 vial 01/09/19 16:30 01/12/19 06:08 Novolog Vial Sliding Scale - SQ Not Given [facility] Protocol Lactobacillus Acidophilus 1 tab 01/10/19 10:00 01/12/19 09:14 Bacid - PO 1 tab DAILY [facility] Administration Memantine 5 mg 01/09/19 22:00 01/12/19 09:14 Namenda - PO 5 mg BID S[facility] Administration Tamsulosin HCl 0.4 mg 01/11/19 08:30 01/12/19 09:14 Flomax - PO 0.4 mg DAILY@0830 [facility] Administration EKG 01/09: NSR, with PAC's, biphasic V3, no reciprocal changes. qtc 467ms* CXR 01/09: prominent mediastinum w/ sternal sutures, aortic plaque. no acute process is seen Head CT 01/09: no acute infarct, no hemorrhage, chronic L frontal, L parietal, L occipital/temp cortical/subcortical infarcts spiral CT 01/10: mild fullness of pelvicalyceal system and proximal hydroureter , without evidence of obstructing stone. Few L ernal cysts. Complex cysts noted. Vascular calcifications in renal hilum. Mild fullness of R renal pelvis and mild proximal R hydroureter without obstructing stone. urinary bladder decompressed with mazariegos. possible cystitis. moderate amount fecal residue. prostate enlarged. 3.2cm abdominal aorta. ASSESSMENT/PLAN: Patient presents with toxic metabolic encephalopathy secondary to acute infection with AMS superimposed over his dementia; ID following with abx. -AMS 2/2 Acute toxic met. enceph due to UTI is resolved. Will c/w abx per ID; no stone on CT with mild fullness of of the collecting system noted. -ARSALAN on CKD; followup with uro recs, no obstructing stones. monioring BMP and UOP -dementia; no issues with sundowning noted. Will c/w namenda -hx CVA On asa, statin. -NIDDM; hold PO agents and no STILL on DC; A1c acceptable for age. SSI and ACHS checks. -HTN; Controlled on amlodipine. Continue to monitor on floor. -HLD; continue statin. Full Code Starting hep SQ for DVT ppx Visit type - Emergency Visit Emergency Visit: Yes ED Registration Date: 01/09/19 Care time: The patient presented to the Emergency Department on the above date and was hospitalized for further evaluation of their emergent condition. - New Patient This patient is new to me today: No - Critical Care Critical Care patient: No
[2019-01-12] MEDS ORDERED: INSULIN (NOVOLOG) ASPART 100 UNITS/ML 10ML VIAL ONE (11:35)
[2019-01-12] MEDS: LACTATED RINGERS SOLUTION 1,000 ML/1,000 ML INFUS.BAG IV SCH ×2 (16:34→21:25)
[2019-01-12] MEDS ORDERED: PT OWN MED DRAWER 7, Y5N ONE (21:19)
[2019-01-12] MEDS: ATORVASTATIN CA 40 MG TABLET (FP) PO SCH (21:25)
[2019-01-12] MEDS: amLODIPine BESYLATE 2.5 MG TABLET (FP) PO SCH (21:25)
[2019-01-13] MEDS: INSULIN SLIDING SCALE (NOVOLOG) 1 VIAL SQ SCH ×3 (06:45→16:34)
[2019-01-13] MEDS: ASPIRIN 81 MG CHEWABLE TABLETS PO SCH (08:59)
[2019-01-13] MEDS: TAMSULOSIN HCL 0.4 MG CAP PO SCH (08:59)
[2019-01-13] MEDS: MEMANTINE HCL 5 MG TABLET (UD) PO SCH ×2 (09:00→21:06)
[2019-01-13] MEDS: LACTOBACILLUS ACIDOPHILUS 1 TABLET PO SCH (09:00)
[2019-01-13] MEDS ORDERED: DEXTROSE 5%-WATER - 50 ML IVPB ONE ×2 (10:50→20:55)
[2019-01-13] MEDS ORDERED: AZTREONAM 1 GM VIAL (RESTRICTED TO ID) ONE ×2 (10:50→20:55)
[2019-01-13] MEDS: AZTREONAM 1 GM in DEXTROSE 5%-WATER - 50 ML IVPB SCH ×2 (10:58→21:06)
--- NOTE | 2019-01-13 13:19 | PN ---
Physical Exam: SUBJECTIVE: Patient seen and examined; no events. Not agitated. Urology recs to DC mazariegos in AM. If unable to void will schedule TURP on Monday. ID input noted as well. Appreciate expert management. Been eating so DC LR this PM. 10 item review of systems done and negative aside from HPI OBJECTIVE: Vital Signs Period Temp Pulse Resp BP Sys/Brink Pulse Ox Last 24 Hr 98.5 F-98.7 F 76-80 20-20 120-127/58-80 95 VS, labs, imaging reviewed NAD, AAO, resting in bed NC AT EOMI PERRLA HR wnl, +s1/2 Lungs CTAB, w/ sym exp NT ND +BS Mazariegos inserted and is draining appropriately. Mentation slightly improved; restricted insight and judgment with underlying dementia Trachea midline; no JVD. No LN Skin without new rashes or breakdown Laboratory Results - last 24 hr 01/11/19 01/12/19 01/12/19 11:53 05:54 08:40 WBC 6.6 RBC 3.91 L Hgb 12.4 Hct 37.9 MCV 97.0 H MCH 31.9 MCHC 32.8 RDW 14.5 Plt Count 235 MPV 9.4 Absolute Neuts (auto) 4.2 Neutrophils % 64.3 Lymphocytes % 23.2 Monocytes % 6.9 Eosinophils % 4.9 H Basophils % 0.7 Nucleated RBC % 0 Sodium Potassium Chloride Carbon Dioxide Anion Gap BUN Creatinine Est GFR (CKD-EPI)AfAm Est GFR (CKD-EPI)NonAf POC Glucometer 115 112 Random Glucose Calcium Phosphorus Magnesium 01/12/19 08:40 WBC RBC Hgb Hct MCV MCH MCHC RDW Plt Count MPV Absolute Neuts (auto) Neutrophils % Lymphocytes % Monocytes % Eosinophils % Basophils % Nucleated RBC % Sodium 146 H Potassium 4.0 Chloride 116 H Carbon Dioxide 25 Anion Gap 5 L BUN 33.9 H Creatinine 2.2 H Est GFR (CKD-EPI)AfAm 29.68 Est GFR (CKD-EPI)NonAf 25.61 POC Glucometer Random Glucose 100 Calcium 9.9 Phosphorus 2.6 Magnesium 2.0 Active Medications Generic Name Dose Route Start Last Admin Trade Name Freq PRN Reason Stop Dose Admin Amlodipine Besylate 2.5 mg 01/09/19 22:00 01/11/19 22:41 Norvasc - PO 2.5 mg HS SONYA Administration Aspirin 162 mg 01/10/19 10:00 01/12/19 09:14 Asa - PO 162 mg DAILY SONYA Administration Atorvastatin Calcium 40 mg 01/09/19 22:00 01/11/19 22:41 Lipitor - PO 40 mg HS SONYA Administration Aztreonam 1 gm/ Dextrose 50 mls @ 100 mls/hr 01/10/19 22:00 01/12/19 09:15 IVPB 100 mls/hr BID [facility] Administration Protocol Lactated Ringer's 1,000 ml in 1,000 mls @ 75 mls/hr 01/10/19 14:30 01/11/19 15:12 Lactated Ringers Solution IV Not Given ASDIR SONYA Insulin Aspart 1 vial 01/09/19 16:30 01/12/19 06:08 Novolog Vial Sliding Scale - SQ Not Given TIDAC [facility] Protocol Lactobacillus Acidophilus 1 tab 01/10/19 10:00 01/12/19 09:14 Bacid - PO 1 tab DAILY [facility] Administration Memantine 5 mg 01/09/19 22:00 01/12/19 09:14 Namenda - PO 5 mg BID SONYA Administration Tamsulosin HCl 0.4 mg 01/11/19 08:30 01/12/19 09:14 Flomax - PO 0.4 mg DAILY@0830 S[facility] Administration Microbiology 01/11/19 13:40 Blood - Peripheral Venous Blood Culture - Preliminary NO GROWTH OBTAINED AFTER 48 HOURS, INCUBATION TO CONTINUE FOR 3 DAYS. 01/11/19 13:20 Blood - Peripheral Venous Blood Culture - Preliminary NO GROWTH OBTAINED AFTER 48 HOURS, INCUBATION TO CONTINUE FOR 3 DAYS. 01/09/19 12:29 Blood - Peripheral Venous Blood Culture - Final Proteus Mirabilis 01/09/19 12:10 Blood - Peripheral Venous Blood Culture - Final Proteus Mirabilis 01/09/19 12:24 Urine - Urine Clean Catch Urine Culture - Final Proteus Mirabilis EKG 01/09: NSR, with PAC's, biphasic V3, no reciprocal changes. qtc 467ms* CXR 01/09: prominent mediastinum w/ sternal sutures, aortic plaque. no acute process is seen Head CT 01/09: no acute infarct, no hemorrhage, chronic L frontal, L parietal, L occipital/temp cortical/subcortical infarcts spiral CT 01/10: mild fullness of pelvicalyceal system and proximal hydroureter , without evidence of obstructing stone. Few L ernal cysts. Complex cysts noted. Vascular calcifications in renal hilum. Mild fullness of R renal pelvis and mild proximal R hydroureter without obstructing stone. urinary bladder decompressed with mazariegos. possible cystitis. moderate amount fecal residue. prostate enlarged. 3.2cm abdominal aorta. ASSESSMENT/PLAN: Patient presents with toxic metabolic encephalopathy secondary to acute infection with AMS superimposed over his dementia; ID following with abx. Continues to improve. Uro recs noted. NGTD 01/11 repeat cx. TURP Monday AM if fails voiding trial in the AM. -Sepsis secondary to UTI (present on admission, resolved) -AMS 2/2 Acute toxic met. enceph due to UTI is resolved. Will c/w abx per ID- on aztreonam due to PNC allergy; no stone on CT with mild fullness of of the collecting system noted. -Proteus Bacteremia (NGTD on the repeat cultures on 01/11. As GNB no need for echo. FU ID recs.) -ARSALAN on CKD; followup with uro recs, no obstructing stones. monioring BMP and UOP -Chronic Dementia; no issues with noted. Will c/w namenda -BPH (Continue tams, TURP on monday if fails voiding trial tomorrow). -Hx CVA On asa, statin. -NIDDM; hold PO agents and no STILL on DC; A1c acceptable for age. SSI and ACHS checks. -HTN; Controlled on amlodipine. Continue to monitor on floor. -HLD; continue statin. Full Code SCDs, Hep for DVT ppx. Visit type - Emergency Visit Emergency Visit: Yes ED Registration Date: 01/09/19 Care time: The patient presented to the Emergency Department on the above date and was hospitalized for further evaluation of their emergent condition. - New Patient This patient is new to me today: No - Critical Care Critical Care patient: No
--- NOTE | 2019-01-13 16:28 | PN ---
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 (short form) - Note 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: Pt is an 88 y/o M with a h/o urinary retention. Presently bun/cr are 33/2.2, wbc 6.6, afebrile, mazariegos patent, urine clear. Renal /pelvic sono reveals b/l renal cysts/ bladder decompressed, mazariegos in bladder. Plan: will give TOV in am. If unable to void, will recommend TURP Monday morning.
[2019-01-13] MEDS: ATORVASTATIN CA 40 MG TABLET (FP) PO SCH (21:06)
[2019-01-13] MEDS: amLODIPine BESYLATE 2.5 MG TABLET (FP) PO SCH (21:06)
[2019-01-14] MEDS: INSULIN SLIDING SCALE (NOVOLOG) 1 VIAL SQ SCH ×3 (06:17→17:19)
[2019-01-14 08:58] LABS: BASO % 0.5 % (0-2.0); EOS % 5.1 % (0-4.5); HEMATOCRIT 37.3 % (35.4-49); HEMOGLOBIN 12.2 GM/dL (11.7-16.9); LYMPH % 19.7 % (8-40); MCH 31.7 pg (25.7-33.7); MCHC 32.8 g/dl (32.0-35.9); MEAN CELL VOLUME 96.6 fl (80-96); MEAN PLT VOLUME 9.5 fl (7.5-11.1); MONO % 5.8 % (3.8-10.2); NEUT % 68.9 % (42.8-82.8); PLATELET COUNT 256 K/MM3 (134-434); RBC 3.86 M/mm3 (4.00-5.60); RDW 14.1 % (11.9-15.9); WHITE BLOOD COUNT 8.2 K/mm3 (4.0-10.0)
[2019-01-14 09:22] LABS: ALBUMIN 2.3 g/dl (3.4-5.0); BILIRUBIN,TOTAL 0.2 mg/dL (0.2-1); BLOOD UREA NITROGEN 32.2 mg/dL (7-18); CALCIUM 9.5 mg/dL (8.5-10.1); CREATININE 2.2 mg/dL (0.55-1.3); POTASSIUM 4.3 mmol/L (3.5-5.1); TOT PROT 5.1 g/dl (6.4-8.2)
[2019-01-14] MEDS ORDERED: DEXTROSE 5%-WATER - 50 ML IVPB ONE ×2 (10:03→21:58)
[2019-01-14] MEDS ORDERED: AZTREONAM 1 GM VIAL (RESTRICTED TO ID) ONE ×2 (10:03→21:58)
[2019-01-14] MEDS: ASPIRIN 81 MG CHEWABLE TABLETS PO SCH (10:17)
[2019-01-14] MEDS: AZTREONAM 1 GM in DEXTROSE 5%-WATER - 50 ML IVPB SCH ×2 (10:18→22:01)
[2019-01-14] MEDS: TAMSULOSIN HCL 0.4 MG CAP PO SCH (10:18)
[2019-01-14] MEDS: LACTOBACILLUS ACIDOPHILUS 1 TABLET PO SCH (10:18)
[2019-01-14] MEDS: MEMANTINE HCL 5 MG TABLET (UD) PO SCH ×2 (10:18→22:01)
--- NOTE | 2019-01-14 11:08 | CONSULT ---
Consultation: NEPHROLOGY CONSULTATION REQUESTING PROVIDER: Dr. Gan CONSULT REQUEST: We have been asked to medically evaluate this patient for CKD HISTORY OF PRESENT ILLNESS: This is an 88 year old male with a baseline history of dementia, CVA (2019 with reported residual R sided weakness), coronary artery disease s/p CABG, diabetes mellitus, hypertension initially arrived to the hospital for altered mental status for 2-3 days including increased confusion and motor weakness. Patient was found to have a urinary tract infection growing dhillon-sensitive proteus species. Nephrology consulted for evaluation and chronic followup of chronic kidney disease. Patient himself is reportedly at baseline mental status per primary team. He is pleasant, awake and alert, but is not appropriately responding to questions. He is able to follow basic commands after being prompted to over several times. He is unable to respond when questioned about his symptoms, but he is laying in bed in no distress and not complaining of any symptoms. CT scan showed R sided hydroureter without stone. Urology is following and patient was started on flomax. REVIEW OF SYSTEMS: Unable to obtain due to mental status PHYSICAL EXAMINATION Vital Signs - 24 hr 01/13/19 01/13/19 01/13/19 14:00 19:55 20:45 Temperature 98.4 F 99.4 F Pulse Rate 69 72 Respiratory 20 20 Rate Blood Pressure 130/60 124/59 L O2 Sat by Pulse 96 Oximetry (%) 01/14/19 05:18 Temperature 97.9 F Pulse Rate 67 Respiratory Rate Blood Pressure 149/67 O2 Sat by Pulse Oximetry (%) GENERAL: Awake and alert, but not oriented, no acute distress EYES: PERRL, EOMI ENT: poor dentition, oropharynx appears moist LUNGS: Clear to auscultation (with occasional cough) HEART: Regular rate and rhythm, systolic murmur auscultated on exam ABDOMEN: epigastrum soft and nontender, suprapubic region is very mildly distended but palpation does not elicit tenderness on exam. Bowel sounds present LOWER EXTREMITIES: 2+ pulses, warm, well-perfused. No calf tenderness. No peripheral edema. NEUROLOGICAL: Unable to fully assess due to mental status, but patient is moving all extremities equally SKIN: Warm, dry, normal turgor, no rashes or lesions noted. Laboratory Results - last 24 hr 12/01/19 12/01/19 12/02/19 11:28 16:32 06:09 WBC RBC Hgb Hct MCV MCH MCHC RDW Plt Count MPV Absolute Neuts (auto) Neutrophils % Lymphocytes % Monocytes % Eosinophils % Basophils % Nucleated RBC % Sodium Potassium Chloride Carbon Dioxide Anion Gap BUN Creatinine Est GFR (CKD-EPI)AfAm Est GFR (CKD-EPI)NonAf POC Glucometer 179 121 110 Random Glucose Calcium Magnesium Total Bilirubin AST ALT Alkaline Phosphatase Total Protein Albumin 01/14/19 01/14/19 08:10 08:10 WBC 8.2 RBC 3.86 L Hgb 12.2 Hct 37.3 MCV 96.6 H MCH 31.7 MCHC 32.8 RDW 14.1 Plt Count 256 MPV 9.5 Absolute Neuts (auto) 5.7 Neutrophils % 68.9 Lymphocytes % 19.7 Monocytes % 5.8 Eosinophils % 5.1 H Basophils % 0.5 Nucleated RBC % 0 Sodium 143 Potassium 4.3 Chloride 114 H Carbon Dioxide 23 Anion Gap 6 L BUN 32.2 H Creatinine 2.2 H Est GFR (CKD-EPI)AfAm 29.68 Est GFR (CKD-EPI)NonAf 25.61 POC Glucometer Random Glucose 101 Calcium 9.5 Magnesium 2.0 Total Bilirubin 0.2 AST 29 ALT 43 Alkaline Phosphatase 86 Total Protein 5.1 L Albumin 2.3 L Active Medications Generic Name Dose Route Start Last Admin Trade Name Freq PRN Reason Stop Dose Admin Amlodipine Besylate 2.5 mg 01/09/19 22:00 01/13/19 21:06 Norvasc - PO 2.5 mg HS SONYA Administration Aspirin 162 mg 01/10/19 10:00 01/14/19 10:17 Asa - PO 162 mg DAILY SONYA Administration Atorvastatin Calcium 40 mg 01/09/19 22:00 01/13/19 21:06 Lipitor - PO 40 mg HS SONYA Administration Aztreonam 1 gm/ Dextrose 50 mls @ 100 mls/hr 01/10/19 22:00 01/14/19 10:18 IVPB 100 mls/hr BID [facility] Administration Protocol Insulin Aspart 1 vial 01/09/19 16:30 01/14/19 06:17 Novolog Vial Sliding Scale - SQ Not Given TIDAC [facility] Protocol Lactobacillus Acidophilus 1 tab 01/10/19 10:00 01/14/19 10:18 Bacid - PO 1 tab DAILY S[facility]YA Administration Memantine 5 mg 01/09/19 22:00 01/14/19 10:18 Namenda - PO 5 mg BID S[facility]YA Administration Tamsulosin HCl 0.4 mg 01/11/19 08:30 01/14/19 10:18 Flomax - PO 0.4 mg DAILY@0830 S[facility] Administration ASSESSMENT/PLAN: 88 year old male with a baseline history of dementia, CVA (2019 with reported residual R sided weakness), coronary artery disease s/p CABG, diabetes mellitus , hypertension initially arrived to the hospital for altered mental status for 2 -3 days including increased confusion and motor weakness. #Acute Kidney Injury on Chronic Kidney Disease: initially presented with an ARSALAN on CKD that has since been improving. Creatinine on admission was 2.8, down to 2.2 which is patient's reported baseline. -CT abd/pelvis reveals R sided hydroureter w/o stone; urology following, on flowmax, unlikely causing this AKD/CKD because it is unilateral -US shows b/l renal cysts and chronic/medical renal disease -patient is making urine per primary team and nurse (UO > 1400), incontinent -Unclear history of CKD or prior followup with nephrology -urine lytes at present moment -initial ARSALAN likely due to volume depletion with concomitant urinary retention and acute cystitis with proteus mirabilus, unlikely overt ATN -on azactam for UTI #Hypercalcemia: calcium measured is 9.5, however corrected for albumin results in 10.9. Appears to be chronic as it was present last year as well -clinical status suggests a primary hyperparathyroidism -would recommend measuring intact PTH -monitor clinically Thank you for this consultative opportunity. Efrain Martin Will discuss with Dr. Mcgregor Visit type - Emergency Visit Emergency Visit: No - New Patient This patient is new to me today: Yes Date on this admission: 01/14/19 - Critical Care Critical Care patient: No ATTENDING PHYSICIAN STATEMENT I saw and evaluated the patient. I reviewed the resident's note and discussed the case with the resident. I agree with the resident's findings and plan as documented. SUBJECTIVE: OBJECTIVE: ASSESSMENT AND PLAN:
[2019-01-14] MEDS ORDERED: INSULIN (NOVOLOG) ASPART 100 UNITS/ML 10ML VIAL ONE (11:34)
--- NOTE | 2019-01-14 14:00 | PN ---
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 (short form) - Note 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: Hospitalist Medicine Pleasant. Laughing to self. Appears to be at baseline. Passed TOV; incontinent Vitals 01/14/19 10:00 Temperature 97.9 F Pulse Rate 70 Blood Pressure 136/74 Physical Exam General: resting in bed, in NAD HEENT: NCAT, PERRLA neck: supple Cardio: +systolic murmur 2nd IS. otherwise no r/g. RRR pulm: CTA b/l abdomen: nontender, nondistended. neuro: Bridge Attacher 2-12 grossly intact, +intention tremor skin: +wound on LE 2x2cm, clean, without drainage. affect: confused however at baseline Laboratory Tests 01/14/19 01/14/19 08:10 08:10 WBC 8.2 Hgb 12.2 Hct 37.3 Plt Count 256 Sodium 143 Potassium 4.3 Chloride 114 H Carbon Dioxide 23 BUN 32.2 H Creatinine 2.2 H Random Glucose 101 Microbiology 01/09/19 12:29 Blood - Peripheral Venous Blood Culture - Final Proteus Mirabilis 01/09/19 12:24 Urine - Urine Clean Catch Urine Culture - Final Proteus Mirabilis 01/09/19 12:10 Blood - Peripheral Venous Blood Culture - Final Proteus Mirabilis 01/11/19 13:40 Blood - Peripheral Venous Blood Culture - Preliminary NO GROWTH OBTAINED AFTER 72 HOURS, INCUBATION TO CONTINUE FOR 2 DAYS. 01/11/19 13:20 Blood - Peripheral Venous Blood Culture - Preliminary NO GROWTH OBTAINED AFTER 72 HOURS, INCUBATION TO CONTINUE FOR 2 DAYS. Imaging EKG 01/09: NSR, with PAC's, biphasic V3, no reciprocal changes. qtc 467ms* CXR 01/09: prominent mediastinum w/ sternal sutures, aortic plaque. no acute process is seen Head CT 01/09: no acute infarct, no hemorrhage, chronic L frontal, L parietal, L occipital/temp cortical/subcortical infarcts spiral CT 01/10: mild fullness of pelvicalyceal system and proximal hydroureter , without evidence of obstructing stone. Few L ernal cysts. Complex cysts noted. Vascular calcifications in renal hilum. Mild fullness of R renal pelvis and mild proximal R hydroureter without obstructing stone. urinary bladder decompressed with mazariegos. possible cystitis. moderate amount fecal residue. prostate enlarged. 3.2cm abdominal aorta. bladder/kidney U/S 01/12: bilateral renal cysts; several noted. largest is 2.2cm. largest of L is 3cm. no hydronephrosis or masses. ASSESSMENT/PLAN: 88 y/o M with PMH dementia (baseline), CVA (2019), CAD without stents s/p CABG, NIDDM, HTN, HLD, who presented for a change in mental status over the last 2-3 days. #Acute metabolic encephalopathy 2/2 UTI -c/w azactam (01/10), vanco x 1 -no nephrolithiasis per spiral CT -multiple abx allergies -Ucx, blood cx (+) proteus -blood cx repeated (48h after) -PT, fall risk precautions, neurochecks q4h -IVF -mazariegos has been d/c, passed TOV -ID: Dr. Mart -uro: Dr. Anthony Magdaleno #ARSALAN on CKD -c/w gentle IVF -continue to monitor -f/u urine lytes -started on flomax per uro recs -uro: Dr. Anthony Magdaleno -Nephro: Dr. Mcgregor #dementia -c/w namenda #hx CVA -c/w asa 162 mg (confirmed w/ list) -c/w lipitor #NIDDM -hold home agents -will need to hold glimepiride on d/c -a1c 8% -ISS, BGM ACHS #HTN -c/w amlodipine #HLD -c/w lipitor #F/E/N EF 55% previously. no need for IVF at this time continue to follow lytes na controlled/diabetic - cut with thin liquids #code status full code #PPX DVT: SCD's #Dispo monitoring on med-surg per ID, will likely need 7-10 days abx will need SNF placement, have d/w SW <Isaura Tejada - Last Filed: 01/14/19 14:19> - Note 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: Seen and examined; please see resident note for further historical information. I personally verified all kelley historical information and exam findings. Personally interpreted all imaging and diagnostics and reviewed appropriate consults. I reviewed all labs and vital signs as per resident note and EMR as documented. I agree with the above assessment and plan unless supplemented by myself in the following. Mentation plateaued and I am told this is apparently his baseline. He has no new issues or concerns today with no documented agitation. He will complete abx for Proteus Bacteremia per ID and then return to his place of living. Unreliable historian but denies pain. 10 sys ROS done and negative aside from hpi vs labs imaging reviewed NAD AAOx1-2 resting in bed NC AT EOMI PERRLA Trachea midlines, no jvd Lungs CTAB, w/ sym exp No rashes or breakdown noted CN2-12 wnl, no fnd Normal mood, appropriate behavior, limited insight and judgment secondary to chronic medical condition. -Sepsis secondary to UTI (present on admission, resolved) -AMS 2/2 Acute toxic met. enceph due to UTI is resolved. Will c/w abx per ID- on aztreonam due to PNC allergy; no stone on CT with mild fullness of of the collecting system noted. -Proteus Bacteremia (NGTD on the repeat cultures on 01/11. As GNB no need for echo. FU ID recs.) -ARSALAN on CKD; followup with uro recs, no obstructing stones. monioring BMP and UOP -Chronic Dementia; no issues with noted. Will c/w namenda -BPH (Continue tams, TURP on monday if fails voiding trial tomorrow). -Hx CVA On asa, statin. -NIDDM; hold PO agents and no STILL on DC; A1c acceptable for age. SSI and ACHS checks. -HTN; Controlled on amlodipine. Continue to monitor on floor. -HLD; continue statin. Full Code SCDs, Hep for DVT ppx. <Erwin Whitaker - Last Filed: 01/16/19 07:56>
--- NOTE | 2019-01-14 14:43 | PN ---
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, Physician History of Present Illness: AWAKE, NON VERBAL NO ACUTE DISTRESS AFEBRILE BC, URINE C/S PROTEUS SP - Current Medication List Current Medications: Active Medications Amlodipine Besylate (Norvasc -) 2.5 mg PO HS [facility] Last Admin: 01/13/19 21:06 Dose: 2.5 mg Aspirin (Asa -) 162 mg PO DAILY [facility] Last Admin: 01/14/19 10:17 Dose: 162 mg Atorvastatin Calcium (Lipitor -) 40 mg PO HS [facility] Last Admin: 01/13/19 21:06 Dose: 40 mg Aztreonam 1 gm/ Dextrose 50 mls @ 100 mls/hr IVPB BID [facility]; Protocol Last Admin: 01/14/19 10:18 Dose: 100 mls/hr Insulin Aspart (Novolog Vial Sliding Scale -) 1 vial SQ TIDAC [facility]; Protocol Last Admin: 01/14/19 11:36 Dose: 2 unit Lactobacillus Acidophilus (Bacid -) 1 tab PO DAILY [facility] Last Admin: 01/14/19 10:18 Dose: 1 tab Memantine (Namenda -) 5 mg PO BID [facility] Last Admin: 01/14/19 10:18 Dose: 5 mg Tamsulosin HCl (Flomax -) 0.4 mg PO DAILY@0830 [facility] Last Admin: 01/14/19 10:18 Dose: 0.4 mg - Objective Vital Signs: Vital Signs Temperature 98.2 F 01/14/19 14:21 Pulse Rate 69 01/14/19 14:21 Respiratory Rate 20 01/13/19 20:45 Blood Pressure 148/60 01/14/19 14:21 O2 Sat by Pulse Oximetry (%) 96 01/13/19 20:45 Constitutional: Yes: No Distress Eyes: Yes: Conjunctiva Clear Cardiovascular: Yes: Regular Rate and Rhythm, S1, S2 Respiratory: Yes: Rhonchi Gastrointestinal: Yes: Normal Bowel Sounds, Soft. No: Tenderness Labs: CBC, BMP 01/14/19 08:10 01/14/19 08:10 INR, PTT INR 0.98 (0.83-1.09) 01/09/19 15:11 Assessment/Plan UTI/ SEPSIS SECONDARY TO UTI PROTEUS SP PCN/ FQ ALLERGIES CKD TOXIC METABOLIC ENCEPHALOPATHY/ OBS DAY #5 AZTREONAM NEEDS 7-10D IV THERAPY CONTINUE AZTREONAM, ADJUSTED FOR RENAL FAILURE ORAL ANTIBIOTIC THERPY WOULD BE PROBLEMATIC IN LIGHT OF ALLERGIES WILL DISCUSS WITH
--- NOTE | 2019-01-14 18:26 | PN ---
Teaching Attending Note Name of Resident: Efrain Martin (Nephrology) ATTENDING PHYSICIAN STATEMENT I saw and evaluated the patient. I reviewed the resident's note and discussed the case with the resident. I agree with the resident's findings and plan as documented. Renal Pt is an 88 year old male with pmhx of demenia, CVA, cad, cabg, dm and htn who presented with altered mental status. He was found to have worsening of his renal function. 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 HE has hx of CKD. He is unable to contribute to his history. pmhx dm htm ckd pshx cabg allergies cipro, moxifloxacin, pna ros unable Current Medications Generic Name Dose Route Start Last Admin Trade Name Freq PRN Reason Stop Dose Admin Amlodipine Besylate 2.5 mg 01/09/19 22:00 01/13/19 21:06 Norvasc - PO 2.5 mg HS SONYA Administration Aspirin 162 mg 01/10/19 10:00 01/14/19 10:17 Asa - PO 162 mg DAILY [facility] Administration Atorvastatin Calcium 40 mg 01/09/19 22:00 01/13/19 21:06 Lipitor - PO 40 mg HS [facility] Administration Aztreonam 1 gm/ Dextrose 50 mls @ 100 mls/hr 01/10/19 22:00 01/14/19 10:18 IVPB 100 mls/hr BID [facility] Administration Protocol Insulin Aspart 1 vial 01/09/19 16:30 01/14/19 17:19 Novolog Vial Sliding Scale - SQ 2 unit TIDAC [facility] Administration Protocol Lactobacillus Acidophilus 1 tab 01/10/19 10:00 01/14/19 10:18 Bacid - PO 1 tab DAILY [facility] Administration Memantine 5 mg 01/09/19 22:00 01/14/19 10:18 Namenda - PO 5 mg BID [facility] Administration Tamsulosin HCl 0.4 mg 01/11/19 08:30 01/14/19 10:18 Flomax - PO 0.4 mg DAILY@0830 [facility] Administration Laboratory Tests 01/22/18 07/30/18 01/10/19 10:12 14:45 06:08 Creatinine 2.2 H 2.6 H 2.3 H 01/11/19 01/12/19 01/14/19 08:20 08:40 08:10 Creatinine 2.2 H 2.2 H 2.2 H cardio s1s2 pulm clear GI soft ext neg edema Impression 1. ckd with acute component 2. dementia 3. cva 4. cad 5. htn 6. uti Plan - renal function improved - bilateral renal cysts on ultrasound - renal dose meds - will follow - cont abx
[2019-01-14] MEDS: ATORVASTATIN CA 40 MG TABLET (FP) PO SCH (22:01)
[2019-01-14] MEDS: amLODIPine BESYLATE 2.5 MG TABLET (FP) PO SCH (22:01)
[2019-01-15] MEDS: INSULIN SLIDING SCALE (NOVOLOG) 1 VIAL SQ SCH ×3 (06:26→16:25)
[2019-01-15 08:41] LABS: BASO % 0.2 % (0-2.0); EOS % 4.7 % (0-4.5); HEMATOCRIT 38.6 % (35.4-49); HEMOGLOBIN 12.8 GM/dL (11.7-16.9); LYMPH % 20.1 % (8-40); MCH 31.7 pg (25.7-33.7); MCHC 33.1 g/dl (32.0-35.9); MEAN CELL VOLUME 95.9 fl (80-96); MONO % 4.1 % (3.8-10.2); NEUT % 70.9 % (42.8-82.8); RBC 4.02 M/mm3 (4.00-5.60)
[2019-01-15 08:43] LABS: INR 1.03 (0.83-1.09); PROTHROMBIN TIME (PATIENT) 12.1 SEC (9.7-13.0)
[2019-01-15 08:56] LABS: WHITE BLOOD COUNT 12.4 K/mm3 (4.0-10.0)
[2019-01-15 09:01] LABS: BLOOD UREA NITROGEN 29.8 mg/dL (7-18); CALCIUM 10.3 mg/dL (8.5-10.1); CREATININE 2.1 mg/dL (0.55-1.3); PHOSPHOROUS 2.5 mg/dL (2.5-4.9); POTASSIUM 4.6 mmol/L (3.5-5.1)
[2019-01-15] MEDS: TAMSULOSIN HCL 0.4 MG CAP PO SCH (09:09)
[2019-01-15] MEDS: ASPIRIN 81 MG CHEWABLE TABLETS PO SCH (09:09)
[2019-01-15] MEDS: LACTOBACILLUS ACIDOPHILUS 1 TABLET PO SCH (09:09)
[2019-01-15] MEDS: MEMANTINE HCL 5 MG TABLET (UD) PO SCH ×2 (09:09→21:57)
[2019-01-15] MEDS ORDERED: DEXTROSE 5%-WATER - 50 ML IVPB ONE ×2 (10:36→20:42)
[2019-01-15] MEDS ORDERED: AZTREONAM 1 GM VIAL (RESTRICTED TO ID) ONE ×2 (10:36→20:42)
[2019-01-15] MEDS: AZTREONAM 1 GM in DEXTROSE 5%-WATER - 50 ML IVPB SCH ×2 (10:38→21:57)
--- NOTE | 2019-01-15 14:47 | PN ---
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, Physician History of Present Illness: MORE AWAKE AND RESPONSIVE NO COMPLAINTS OFFERRED NO ACUTE DISTRESS AFEBRILE BC, URINE C/S PROTEUS SP - Current Medication List Current Medications: Active Medications Amlodipine Besylate (Norvasc -) 2.5 mg PO HS [facility] Last Admin: 01/14/19 22:01 Dose: 2.5 mg Aspirin (Asa -) 162 mg PO DAILY [facility] Last Admin: 01/15/19 09:09 Dose: 162 mg Atorvastatin Calcium (Lipitor -) 40 mg PO HS [facility] Last Admin: 01/14/19 22:01 Dose: 40 mg Aztreonam 1 gm/ Dextrose 50 mls @ 100 mls/hr IVPB BID [facility]; Protocol Last Admin: 01/15/19 10:38 Dose: 100 mls/hr Insulin Aspart (Novolog Vial Sliding Scale -) 1 vial SQ TIDAC [facility]; Protocol Last Admin: 01/15/19 11:58 Dose: 4 unit Lactobacillus Acidophilus (Bacid -) 1 tab PO DAILY [facility] Last Admin: 01/15/19 09:09 Dose: 1 tab Memantine (Namenda -) 5 mg PO BID [facility] Last Admin: 01/15/19 09:09 Dose: 5 mg Tamsulosin HCl (Flomax -) 0.4 mg PO DAILY@0830 [facility] Last Admin: 01/15/19 09:09 Dose: 0.4 mg - Objective Vital Signs: Vital Signs Temperature 97.9 F 01/15/19 10:00 Pulse Rate 71 01/15/19 10:00 Respiratory Rate 20 01/15/19 10:00 Blood Pressure 141/66 01/15/19 10:00 O2 Sat by Pulse Oximetry (%) 96 01/13/19 20:45 Constitutional: Yes: No Distress Eyes: Yes: Conjunctiva Clear Cardiovascular: Yes: Regular Rate and Rhythm, S1, S2 Respiratory: Yes: CTA Bilaterally Gastrointestinal: Yes: Normal Bowel Sounds, Soft. No: Tenderness Edema: No Labs: CBC, BMP 01/15/19 08:10 01/15/19 08:10 INR, PTT INR 1.03 (0.83-1.09) 01/15/19 08:10 Assessment/Plan UTI/ SEPSIS SECONDARY TO UTI PROTEUS SP PCN/ FQ ALLERGIES CKD TOXIC METABOLIC ENCEPHALOPATHY/ OBS DAY #6 AZTREONAM CONTINUE AZTREONAM, ADJUSTED FOR RENAL FAILURE DISCUSSED WITH [facility] SHE REPORTS PT DEVELOPED VOMITING AFTER TAKING PCN MANY YEARS AGO ADVISE COMPLETE 7D AZTREONAM, THEN SUBSTITUTE KEFLEX 500MG PO BID X 7D
--- NOTE | 2019-01-15 15:10 | PN ---
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 (short form) - Note 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: Hospitalist Medicine In good spirits, laughing to self. in NAD Vitals 01/15/19 10:00 Temperature 97.9 F Pulse Rate 71 Respiratory 20 Rate Blood Pressure 141/66 Physical Exam General: resting in bed, in NAD HEENT: NCAT, PERRLA neck: supple Cardio: +systolic murmur 2nd IS. otherwise no r/g. RRR pulm: CTA b/l abdomen: nontender, nondistended. neuro: [employer] 2-12 grossly intact, +intention tremor skin: +wound on LE 2x2cm, clean, without drainage. Laboratory Tests 01/15/19 01/15/19 08:10 08:10 WBC 12.4 H Hgb 12.8 Hct 38.6 Plt Count Sodium 144 Potassium 4.6 Chloride 115 H BUN 29.8 H Creatinine 2.1 H Random Glucose 103 Microbiology 01/14/19 10:00 Nares - Mrsa Screen - Right MRSA Screen - Final NO MRSA ISOLATED 01/14/19 10:00 Nares - Mrsa Screen - Left MRSA Screen - Final NO MRSA ISOLATED 01/09/19 12:29 Blood - Peripheral Venous Blood Culture - Final Proteus Mirabilis 01/09/19 12:24 Urine - Urine Clean Catch Urine Culture - Final Proteus Mirabilis 01/09/19 12:10 Blood - Peripheral Venous Blood Culture - Final Proteus Mirabilis 01/11/19 13:40 Blood - Peripheral Venous Blood Culture - Preliminary NO GROWTH OBTAINED AFTER 96 HOURS, INCUBATION TO CONTINUE FOR 1 DAYS. 01/11/19 13:20 Blood - Peripheral Venous Blood Culture - Preliminary NO GROWTH OBTAINED AFTER 96 HOURS, INCUBATION TO CONTINUE FOR 1 DAYS. Imaging EKG 01/09: NSR, with PAC's, biphasic V3, no reciprocal changes. qtc 467ms* CXR 01/09: prominent mediastinum w/ sternal sutures, aortic plaque. no acute process is seen Head CT 01/09: no acute infarct, no hemorrhage, chronic L frontal, L parietal, L occipital/temp cortical/subcortical infarcts spiral CT 01/10: mild fullness of pelvicalyceal system and proximal hydroureter , without evidence of obstructing stone. Few L ernal cysts. Complex cysts noted. Vascular calcifications in renal hilum. Mild fullness of R renal pelvis and mild proximal R hydroureter without obstructing stone. urinary bladder decompressed with mazariegos. possible cystitis. moderate amount fecal residue. prostate enlarged. 3.2cm abdominal aorta. bladder/kidney U/S 01/12: bilateral renal cysts; several noted. largest is 2.2cm. largest of L is 3cm. no hydronephrosis or masses. ASSESSMENT/PLAN: 88 y/o M with PMH dementia (baseline), CVA (2019), CAD without stents s/p CABG, NIDDM, HTN, HLD, who presented for a change in mental status over the last 2-3 days. #Acute metabolic encephalopathy 2/2 UTI -c/w azactam (01/10 - Day 07/20). will cont after with keflex 500mg BID x 7 days -no nephrolithiasis per spiral CT -multiple abx allergies -Ucx, blood cx (+) proteus -blood cx repeated (48h after) -PT, fall risk precautions, neurochecks q4h -IVF -mazariegos has been d/c, passed TOV -ID: Dr. Mart -uro: Dr. Anthony Magdaleno #ARSALAN on CKD -c/w gentle IVF -continue to monitor -f/u urine lytes -started on flomax per uro recs -uro: Dr. Anthony Magdaleno -Nephro: Dr. Mcgregor #dementia -c/w namenda #hx CVA -c/w asa 162 mg (confirmed w/ list) -c/w lipitor #NIDDM -hold home agents -will need to hold glimepiride on d/c -a1c 8% -ISS, BGM ACHS #HTN -c/w amlodipine #HLD -c/w lipitor #F/E/N EF 55% previously. no need for IVF at this time continue to follow lytes na controlled/diabetic - cut with thin liquids #code status full code #PPX DVT: SCD's #Dispo monitoring on med-surg per ID, tomorrow 08/19 IV abx, then to c/w keflex 500mg BID x 7 days <Renee Tejadana - Last Filed: 01/15/19 15:15> - Note 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: Seen and examined; please see resident note for further historical information. I personally verified all kelley historical information and exam findings. Personally interpreted all imaging and diagnostics and reviewed appropriate consults. I reviewed all labs and vital signs as per resident note and EMR as documented. I agree with the above assessment and plan unless supplemented by myself in the following. Mentation plateaued and I am told this is apparently his baseline. He has no new issues or concerns today with no documented agitation. He will complete abx for Proteus Bacteremia per ID and then return to his place of living. Unreliable historian but denies pain. 10 sys ROS done and negative aside from hpi vs labs imaging reviewed NAD AAOx1-2 resting in bed NC AT EOMI PERRLA Trachea midlines, no jvd Lungs CTAB, w/ sym exp No rashes or breakdown noted CN2-12 wnl, no fnd Normal mood, appropriate behavior, limited insight and judgment secondary to chronic medical condition. -Sepsis secondary to UTI (present on admission, resolved) -AMS 2/2 Acute toxic met. enceph due to UTI is resolved. Will c/w abx per ID- on aztreonam due to PNC allergy; no stone on CT with mild fullness of of the collecting system noted. -Proteus Bacteremia (NGTD on the repeat cultures on 01/11. As GNB no need for echo. FU ID recs.) -ARSALAN on CKD; followup with uro recs, no obstructing stones. monioring BMP and UOP -Chronic Dementia; no issues with noted. Will c/w namenda -BPH (Continue tams, TURP on monday if fails voiding trial tomorrow). -Hx CVA On asa, statin. -NIDDM; hold PO agents and no STILL on DC; A1c acceptable for age. SSI and ACHS checks. -HTN; Controlled on amlodipine. Continue to monitor on floor. -HLD; continue statin. Full Code SCDs, Hep for DVT ppx. <Erwin Whitaker - Last Filed: 01/16/19 07:56>
--- NOTE | 2019-01-15 15:16 | PN ---
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, COIL WRAPPER - Note 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: Selected Entries 01/15/19 01/15/19 01/15/19 06:00 09:49 10:00 Breakfast 75% Lunch Temperature 99.1 F 97.9 F 01/15/19 12:30 Breakfast Lunch 75% Temperature Laboratory Tests 01/14/19 01/15/19 08:10 08:10 WBC 8.2 12.4 H Pt on cut up diet/thin liquids with good tolerance.
--- NOTE | 2019-01-15 15:54 | PN ---
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, Physician History of Present Illness: Pt seen and examined at bedside. He is more awake today. - Current Medication List Current Medications: Active Medications Amlodipine Besylate (Norvasc -) 2.5 mg PO [facility] Last Admin: 01/14/19 22:01 Dose: 2.5 mg Aspirin (Asa -) 162 mg PO DAILY [facility] Last Admin: 01/15/19 09:09 Dose: 162 mg Atorvastatin Calcium (Lipitor -) 40 mg PO HS [facility] Last Admin: 01/14/19 22:01 Dose: 40 mg Aztreonam 1 gm/ Dextrose 50 mls @ 100 mls/hr IVPB BID [facility]; Protocol Last Admin: 01/15/19 10:38 Dose: 100 mls/hr Insulin Aspart (Novolog Vial Sliding Scale -) 1 vial SQ TIDAC [facility]; Protocol Last Admin: 01/15/19 11:58 Dose: 4 unit Lactobacillus Acidophilus (Bacid -) 1 tab PO DAILY [facility] Last Admin: 01/15/19 09:09 Dose: 1 tab Memantine (Namenda -) 5 mg PO BID [facility] Last Admin: 01/15/19 09:09 Dose: 5 mg Tamsulosin HCl (Flomax -) 0.4 mg PO DAILY@0830 [facility] Last Admin: 01/15/19 09:09 Dose: 0.4 mg - Objective Vital Signs: Vital Signs Temperature 97.9 F 01/15/19 10:00 Pulse Rate 71 01/15/19 10:00 Respiratory Rate 20 01/15/19 10:00 Blood Pressure 141/66 01/15/19 10:00 O2 Sat by Pulse Oximetry (%) 96 01/13/19 20:45 Constitutional: Yes: Calm Eyes: Yes: Conjunctiva Clear HENT: Yes: Atraumatic Cardiovascular: Yes: S1, S2 Respiratory: Yes: CTA Bilaterally Gastrointestinal: Yes: Soft Genitourinary: Yes: Incontinence Musculoskeletal: Yes: WNL Edema: No Neurological: Yes: Pre-Existing Deficit Labs: CBC, BMP 01/15/19 08:10 01/15/19 08:10 INR, PTT INR 1.03 (0.83-1.09) 01/15/19 08:10 Assessment/Plan Current Medications Generic Name Dose Route Start Last Admin Trade Name Freq PRN Reason Stop Dose Admin Amlodipine Besylate 2.5 mg 01/09/19 22:00 01/14/19 22:01 Norvasc - PO 2.5 mg HS SONYA Administration Aspirin 162 mg 01/10/19 10:00 01/15/19 09:09 Asa - PO 162 mg DAILY SONYA Administration Atorvastatin Calcium 40 mg 01/09/19 22:00 01/14/19 22:01 Lipitor - PO 40 mg HS SONYA Administration Aztreonam 1 gm/ Dextrose 50 mls @ 100 mls/hr 01/10/19 22:00 01/15/19 10:38 IVPB 100 mls/hr BID SONYA Administration Protocol Insulin Aspart 1 vial 01/09/19 16:30 01/15/19 11:58 Novolog Vial Sliding Scale - SQ 4 unit TIDAC [facility] Administration Protocol Lactobacillus Acidophilus 1 tab 01/10/19 10:00 01/15/19 09:09 Bacid - PO 1 tab DAILY SONYA Administration Memantine 5 mg 01/09/19 22:00 01/15/19 09:09 Namenda - PO 5 mg BID SONYA Administration Tamsulosin HCl 0.4 mg 01/11/19 08:30 01/15/19 09:09 Flomax - PO 0.4 mg DAILY@0830 SONYA Administration Impression 1. ckd with acute component 2. dementia 3. cva 4. cad 5. htn 6. uti 7. hypercalcemia Plan - will start fluids - follow pth - hypercalcemia workup - renal dose meds - will follow - cont abx
[2019-01-15] MEDS: SODIUM CHLORIDE 0.45% 1,000 ML IV SCH (16:07)
[2019-01-15] MEDS: ATORVASTATIN CA 40 MG TABLET (FP) PO SCH (21:57)
[2019-01-15] MEDS: amLODIPine BESYLATE 2.5 MG TABLET (FP) PO SCH (21:57)
[2019-01-16] MEDS: INSULIN SLIDING SCALE (NOVOLOG) 1 VIAL SQ SCH ×2 (06:07→11:41)
[2019-01-16] MEDS: SODIUM CHLORIDE 0.45% 1,000 ML IV SCH (06:08)
[2019-01-16] MEDS: TAMSULOSIN HCL 0.4 MG CAP PO SCH (08:22)
[2019-01-16 08:37] LABS: ALBUMIN 2.6 g/dl (3.4-5.0); BILIRUBIN,TOTAL 0.3 mg/dL (0.2-1); BLOOD UREA NITROGEN 30.6 mg/dL (7-18); CALCIUM 9.7 mg/dL (8.5-10.1); CREATININE 2.1 mg/dL (0.55-1.3); POTASSIUM 4.5 mmol/L (3.5-5.1); TOT PROT 5.5 g/dl (6.4-8.2)
[2019-01-16] MEDS: MEMANTINE HCL 5 MG TABLET (UD) PO SCH (09:03)
[2019-01-16] MEDS: ASPIRIN 81 MG CHEWABLE TABLETS PO SCH (09:03)
[2019-01-16] MEDS: LACTOBACILLUS ACIDOPHILUS 1 TABLET PO SCH (09:03)
[2019-01-16] MEDS ORDERED: AZTREONAM 1 GM VIAL (RESTRICTED TO ID) ONE (09:09)
[2019-01-16] MEDS ORDERED: DEXTROSE 5%-WATER - 50 ML IVPB ONE (09:09)
[2019-01-16] MEDS: AZTREONAM 1 GM in DEXTROSE 5%-WATER - 50 ML IVPB SCH (09:11)
[2019-01-16 09:31] LABS: EPI CELLS 1.4 /HPF (0-5/HPF); HYALINE CASTS 2 /lpf (0-8); URINE APPEARANCE CLEAR; URINE BACTERIA 2.9 /hpf (NEGATIVE); URINE BILIRUBIN NEGATIVE (NEGATIVE); URINE COLOR YELLOW; URINE GLUCOSE (UA) 2+ (NEGATIVE); URINE KETONE NEGATIVE (NEGATIVE); URINE LEUK ESTERASE NEGATIVE (NEGATIVE); URINE NITRITE NEGATIVE (NEGATIVE); URINE PROTEIN 1+ (NEGATIVE); URINE RBC 2 /hpf (0-4); URINE WBC 4 /hpf (0-5)
--- NOTE | 2019-01-16 09:50 | DS ---
Physical Exam: SUBJECTIVE: Patient seen and examined at bedside. Laughing to self, in good spirits. Receiving last dose of IV abx currently, then will be d/c. OBJECTIVE: Vital Signs Period Temp Pulse Resp BP Sys/Brink Pulse Ox Last 24 Hr 97.9 F-98.6 F 65-71 20-20 126-149/56-69 01/09/19 01/09/19 01/10/19 11:03 12:15 04:08 Temperature 97.8 F 99.7 F H 98.7 F 01/10/19 01/13/19 01/13/19 14:30 14:00 19:55 Temperature 97.5 F L 98.4 F 99.4 F 01/14/19 05:18 Temperature 97.9 F 01/09/19 01/10/19 01/11/19 11:03 20:03 05:32 Blood Pressure 138/80 158/71 122/54 L 01/11/19 01/12/19 01/12/19 14:15 15:08 21:06 Blood Pressure 127/58 L 117/53 L 130/59 L 01/13/19 01/15/19 01/15/19 19:55 06:00 22:00 Blood Pressure 124/59 L 110/56 L 126/56 L Physical Exam General: resting in bed, in NAD HEENT: NCAT, PERRLA neck: supple Cardio: +systolic murmur 2nd IS. otherwise no r/g. RRR pulm: CTA b/l abdomen: nontender, nondistended. neuro: [employer] 2-12 grossly intact, +intention tremor skin: +wound on LE 2x2cm, clean, without drainage. LABS Laboratory Results - last 24 hr 01/15/19 01/15/19 01/16/19 11:41 16:20 06:06 Sodium Potassium Chloride Carbon Dioxide Anion Gap BUN Creatinine Est GFR (CKD-EPI)AfAm Est GFR (CKD-EPI)NonAf POC Glucometer 213 146 102 Random Glucose Calcium Total Bilirubin AST ALT Alkaline Phosphatase Total Protein Albumin Urine Color Urine Appearance Urine pH Ur Specific Kramer Urine Protein Urine Glucose (UA) Urine Ketones Urine Blood Urine Nitrite Urine Bilirubin Urine Urobilinogen Ur Leukocyte Esterase Urine WBC (Auto) Urine RBC (Auto) Urine Casts (Auto) U Epithel Cells (Auto) Urine Bacteria (Auto) Ur Random Sodium Ur Random Potassium Ur Random Chloride 01/16/19 01/16/19 01/16/19 07:00 07:00 07:30 Sodium 141 Potassium 4.5 Chloride 112 H Carbon Dioxide 24 Anion Gap 6 L BUN 30.6 H Creatinine 2.1 H Est GFR (CKD-EPI)AfAm 31.40 Est GFR (CKD-EPI)NonAf 27.09 POC Glucometer Random Glucose 101 Calcium 9.7 Total Bilirubin 0.3 AST 22 ALT 48 Alkaline Phosphatase 96 Total Protein 5.5 L Albumin 2.6 L Urine Color Yellow Urine Appearance Clear Urine pH 6.0 D Ur Specific Kramer 1.015 Urine Protein 1+ H Urine Glucose (UA) 2+ H Urine Ketones Negative Urine Blood Negative Urine Nitrite Negative Urine Bilirubin Negative Urine Urobilinogen 1.0 Ur Leukocyte Esterase Negative Urine WBC (Auto) 4 Urine RBC (Auto) 2 Urine Casts (Auto) 2 U Epithel Cells (Auto) 1.4 Urine Bacteria (Auto) 2.9 Ur Random Sodium 98 Ur Random Potassium 33.0 Ur Random Chloride 97 L 01/09/19 01/10/19 01/11/19 12:24 06:08 08:20 WBC 9.8 7.4 6.5 01/12/19 01/14/19 01/15/19 08:40 08:10 08:10 WBC 6.6 8.2 12.4 H 01/09/19 01/10/19 01/10/19 12:24 06:08 16:55 Creatinine 2.8 H 2.3 H 2.3 H 01/11/19 01/12/19 01/14/19 08:20 08:40 08:10 Creatinine 2.2 H 2.2 H 2.2 H 01/15/19 01/16/19 08:10 07:30 Creatinine 2.1 H 2.1 H Microbiology 01/14/19 10:00 Nares - Mrsa Screen - Right MRSA Screen - Final NO MRSA ISOLATED 01/14/19 10:00 Nares - Mrsa Screen - Left MRSA Screen - Final NO MRSA ISOLATED 01/09/19 12:29 Blood - Peripheral Venous Blood Culture - Final Proteus Mirabilis 01/09/19 12:24 Urine - Urine Clean Catch Urine Culture - Final Proteus Mirabilis 01/09/19 12:10 Blood - Peripheral Venous Blood Culture - Final Proteus Mirabilis 01/11/19 13:40 Blood - Peripheral Venous Blood Culture - Preliminary NO GROWTH OBTAINED AFTER 96 HOURS, INCUBATION TO CONTINUE FOR 1 DAYS. 01/11/19 13:20 Blood - Peripheral Venous Blood Culture - Preliminary NO GROWTH OBTAINED AFTER 96 HOURS, INCUBATION TO CONTINUE FOR 1 DAYS. Imaging EKG 01/09: NSR, with PAC's, biphasic V3, no reciprocal changes. qtc 467ms* CXR 01/09: prominent mediastinum w/ sternal sutures, aortic plaque. no acute process is seen Head CT 01/09: no acute infarct, no hemorrhage, chronic L frontal, L parietal, L occipital/temp cortical/subcortical infarcts spiral CT 01/10: mild fullness of pelvicalyceal system and proximal hydroureter , without evidence of obstructing stone. Few L ernal cysts. Complex cysts noted. Vascular calcifications in renal hilum. Mild fullness of R renal pelvis and mild proximal R hydroureter without obstructing stone. urinary bladder decompressed with mazariegos. possible cystitis. moderate amount fecal residue. prostate enlarged. 3.2cm abdominal aorta. bladder/kidney U/S 01/12: bilateral renal cysts; several noted. largest is 2.2cm. largest of L is 3cm. no hydronephrosis or masses. HOSPITAL COURSE: Date of Admission:01/09/19 Date of Discharge: 01/16/19 Admit diagnosis: acute metabolic encephalopathy, UTI 88 y/o M with PMH dementia (baseline), CVA (2019), CAD without stents s/p CABG, NIDDM, HTN, HLD, who presented for a change in mental status over the last 2-3 days. Found to be 2/2 UTI. Please see below for management, while in hospital: #Acute metabolic encephalopathy 2/2 UTI -was on IV azactam- received 7 day course. will d/c on keflex 500mg BID x 7 days , per ID recommendation -no nephrolithiasis per spiral CT -multiple abx allergies -Ucx, blood cx (+) proteus -blood cx repeated (48h after) - negative -PT, fall risk precautions, neurochecks q4h -IVF -was initially with mazariegos catheter, but passed trial to void #ARSALAN on CKD -was monitored in hospital with IVF, by nephro -started on flomax per uro recs -will c/w nephro f/u as outpt #HyperCA -improved during stay, w/ IVF hydration -followed by nephro -on d/c , to continue hydration. improved corrected Ca 10.8 asymptomatic #dementia -c/w namenda #hx CVA -c/w asa 162 mg (confirmed w/ list) -c/w lipitor #NIDDM -will need to hold glimepiride on d/c -a1c 8%; preferred in elderly, to avoid falls. risks>benefits -ISS, BGM ACHS #HTN -c/w amlodipine #HLD -c/w lipitor Minutes to complete discharge: 45 <Isaura Tejada - Last Filed: 01/16/19 09:52> Physical Exam: Seeen and examined; I agree with thee above assessment and plan and DCS as documented. Discussed with resident and indicated subspecialists. Independently verified all kelley historical elements and PE features. All questions answered. No further subjective issues; patient has reached maximum benefit from hospital stay. VS labs imaging reviewed NAD, AAO HR wnl, +s1/2 NT ND +BS Neuro baseline with no new FNDs or speech changes Agree with DC plan as indicated including discussion of diet, activity, and followups. Agree with adjusted antihyperglycemic regimine. <Erwin Whitaker - Last Filed: 02/11/19 06:54> Discharge Summary Problems reviewed: Yes Reason For Visit: UTI Current Active Problems ARSALAN (acute kidney injury) (Acute) AMS (altered mental status) (Acute) UTI (urinary tract infection) (Acute) - Home Medications Comprehensive Discharge Medication List: Ambulatory Orders Amlodipine Besylate 2.5 mg PO HS 01/09/19 Ascorbate Calcium [Vitamin C] 500 mg PO DAILY 01/09/19 Aspirin 162 mg PO DAILY 01/09/19 Atorvastatin Ca [Lipitor] 40 mg PO HS 01/09/19 Lactobacillus Acidophilus [Acidophilus] 1 each PO DAILY 01/09/19 Memantine HCl 5 mg PO BID 01/09/19 Cephalexin [Keflex] 500 mg PO BID #14 capsule 01/16/19 Tamsulosin HCl [Flomax -] 0.4 mg PO DAILY@0830 #30 cap.er.24h 01/16/19 <Isaura Tejada - Last Filed: 01/16/19 09:52> - Home Medications Comprehensive Discharge Medication List: Ambulatory Orders Amlodipine Besylate 2.5 mg PO HS 01/09/19 Ascorbate Calcium [Vitamin C] 500 mg PO DAILY 01/09/19 Aspirin 162 mg PO DAILY 01/09/19 Atorvastatin Ca [Lipitor] 40 mg PO HS 01/09/19 Lactobacillus Acidophilus [Acidophilus] 1 each PO DAILY 01/09/19 Memantine HCl 5 mg PO BID 01/09/19 Cephalexin [Keflex] 500 mg PO BID #14 capsule 01/16/19 Tamsulosin HCl [Flomax -] 0.4 mg PO DAILY@0830 #30 cap.er.24h 01/16/19 <JulianneErwin - Last Filed: 02/11/19 06:54> Condition: Stable - Instructions Diet, Activity, Other Instructions: You were in the hospital because you were found to have a urinary tract infection. You were managed in the hospital with 7 days of IV antibiotics. While you were here, your kidney numbers were also mildly elevated (on top of your chronic kidney disease), however this resolved. You improved, and are being sent home. Medications 1. Please take keflex 500mg twice a day (starting tomorrow 01/17) for 7 days to finish your antibiotics for your urinary tract infection. 2. We are discontinuing your glimepiride diabetic medication. This can cause low blood sugar levels in elderly people. It is important to avoid this. Additionally, in elderly individuals, a slightly higher A1c is permitted, as the risks of falls usually outweigh the benefits of the medication. You should discuss this further with your primary care doctor this week. 3. You have been started on a medication called flomax. Please take 1 pill daily. This helps your urine flow. 3. You may continue your other home medications. Care It is important to stay hydrated, as this will help your kidneys. You had a speech and swallow evaluation in the hospital, and you were recommended to continue with a cut-up diet (cut foods) and thin liquids. You may continue this at home. Testing You will need to have your calcium followed after your discharge. It was initially elevated, but this improved during your stay. Please discuss this with your primary care doctor. He will likely repeat your complete metabolic panel (CMP). Follow up Please follow up with your primary care doctor, Dr. Ferreira - in 3-5 days after your discharge Also with a kidney doctor, Dr. Mcgregor in a week to have your kidney numbers checked (renal function testing) As well as a urologist - Dr. Anthony Magdaleno - 1 week to discuss your urinary flow Referrals: Ariel Mcgregor MD [Staff Physician] - 1 Week Rober Ferreira MD [Primary Care Provider] - 01/18/19 Malini Magdaleno MD [Staff Physician] - 1 Week Disposition: HOME This patient is new to me today: No Emergency Visit: No Critical Care patient: No - Discharge Referral Referred to [facility] Med P.C[facility] No <Isaura Tejada - Last Filed: 01/16/19 09:52> ATTENDING PHYSICIAN STATEMENT I saw and evaluated the patient. I reviewed the resident's note and discussed the case with the resident. I agree with the resident's findings and plan as documented. SUBJECTIVE: OBJECTIVE: ASSESSMENT AND PLAN: <Erwin Whitaker - Last Filed: 02/11/19 06:54>
[2019-01-16 10:39] VITALS: BP 153/78; PULSE 66; TEMP 97.9
--- NOTE | 2019-01-16 13:49 | PN ---
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, Physician History of Present Illness: Pt seen and examined at bedside. He is awake and appears comfortable. - Current Medication List Current Medications: Active Medications Amlodipine Besylate (Norvasc -) 2.5 mg PO HS [facility] Last Admin: 01/15/19 21:57 Dose: 2.5 mg Aspirin (Asa -) 162 mg PO DAILY [facility] Last Admin: 01/16/19 09:03 Dose: 162 mg Atorvastatin Calcium (Lipitor -) 40 mg PO HS [facility] Last Admin: 01/15/19 21:57 Dose: 40 mg Aztreonam 1 gm/ Dextrose 50 mls @ 100 mls/hr IVPB BID [facility]; Protocol Last Admin: 01/16/19 09:11 Dose: 100 mls/hr Sodium Chloride (1/2 Normal Saline) 1,000 mls @ 75 mls/hr IV ASDIR [facility] Last Admin: 01/16/19 06:08 Dose: 75 mls/hr Insulin Aspart (Novolog Vial Sliding Scale -) 1 vial SQ TIDAC [facility]; Protocol Last Admin: 01/16/19 11:41 Dose: 2 unit Lactobacillus Acidophilus (Bacid -) 1 tab PO DAILY [facility] Last Admin: 01/16/19 09:03 Dose: 1 tab Memantine (Namenda -) 5 mg PO BID [facility] Last Admin: 01/16/19 09:03 Dose: 5 mg Tamsulosin HCl (Flomax -) 0.4 mg PO DAILY@0830 [facility] Last Admin: 01/16/19 08:22 Dose: 0.4 mg - Objective Vital Signs: Vital Signs Temperature 97.9 F 01/16/19 10:00 Pulse Rate 66 01/16/19 10:00 Respiratory Rate 20 01/16/19 10:00 Blood Pressure 153/78 01/16/19 10:00 O2 Sat by Pulse Oximetry (%) 96 01/13/19 20:45 Constitutional: Yes: Calm Eyes: Yes: Conjunctiva Clear HENT: Yes: Atraumatic Neck: Yes: Supple Cardiovascular: Yes: S1, S2 Respiratory: Yes: CTA Bilaterally Gastrointestinal: Yes: Soft Genitourinary: Yes: Incontinence Musculoskeletal: Yes: Muscle Weakness Edema: No Neurological: Yes: Pre-Existing Deficit Labs: CBC, BMP 01/15/19 08:10 01/16/19 07:30 INR, PTT INR 1.03 (0.83-1.09) 01/15/19 08:10 Assessment/Plan Current Medications Generic Name Dose Route Start Last Admin Trade Name [place] PRN Reason Stop Dose Admin Amlodipine Besylate 2.5 mg 01/09/19 22:00 01/15/19 21:57 Norvasc - PO 2.5 mg HS SONYA Administration Aspirin 162 mg 01/10/19 10:00 01/16/19 09:03 Asa - PO 162 mg DAILY SONYA Administration Atorvastatin Calcium 40 mg 01/09/19 22:00 01/15/19 21:57 Lipitor - PO 40 mg HS SONYA Administration Aztreonam 1 gm/ Dextrose 50 mls @ 100 mls/hr 01/10/19 22:00 01/16/19 09:11 IVPB 100 mls/hr BID SONYA Administration Protocol Sodium Chloride 1,000 mls @ 75 mls/hr 01/15/19 16:00 01/16/19 06:08 1/2 Normal Saline IV 75 mls/hr ASDIR SONYA Administration Insulin Aspart 1 vial 01/09/19 16:30 01/16/19 11:41 Novolog Vial Sliding Scale - SQ 2 unit TIDAC SONYA Administration Protocol Lactobacillus Acidophilus 1 tab 01/10/19 10:00 01/16/19 09:03 Bacid - PO 1 tab DAILY SONYA Administration Memantine 5 mg 01/09/19 22:00 01/16/19 09:03 Namenda - PO 5 mg BID SONYA Administration Tamsulosin HCl 0.4 mg 01/11/19 08:30 01/16/19 08:22 Flomax - PO 0.4 mg DAILY@0830 SONYA Administration Laboratory Tests 01/15/19 01/16/19 08:10 07:30 Random Glucose 101 PTH Intact 65 Impression 1. ckd with acute component 2. dementia 3. cva 4. cad 5. htn 6. uti 7. hypercalcemia Plan - pth is mildy elevated - monitor calcium - hypercalcemia workup - renal dose meds - cont abx
== END 2019-01-16 14:50 | disposition home or self-care (01) | DRG 871 ==
LOC: JER 11:00 → JERBED 14:22 → J6S 01-10 19:50
PROVIDERS: ADMIT Internal Medicine; ATTEND Internal Medicine
DX: A41.50 Gram-negative sepsis, unspecified (principal); G92 Toxic encephalopathy; N39.0 Urinary tract infection, site not specified; N17.9 Acute kidney failure, unspecified; I69.351 Hemiplegia and hemiparesis following cerebral infarction affecting right dominant side; I25.10 Atherosclerotic heart disease of native coronary artery without angina pectoris; Z95.1 Presence of aortocoronary bypass graft; F03.90 Unspecified dementia, unspecified severity, without behavioral disturbance, psychotic disturbance, mood disturbance, and anxiety; E78.5 Hyperlipidemia, unspecified; Z88.0 Allergy status to penicillin; E11.22 Type 2 diabetes mellitus with diabetic chronic kidney disease; I12.9 Hypertensive chronic kidney disease with stage 1 through stage 4 chronic kidney disease, or unspecified chronic kidney disease; N18.9 Chronic kidney disease, unspecified; E86.0 Dehydration; B96.4 Proteus (mirabilis) (morganii) as the cause of diseases classified elsewhere; N40.0 Benign prostatic hyperplasia without lower urinary tract symptoms; N28.1 Cyst of kidney, acquired; E83.52 Hypercalcemia; Z79.84 Long term (current) use of oral hypoglycemic drugs
CPT/HCPCS: 36415; 70450-TC; 71045-TC-FY; 74176-TC; 76775-TC; 76856-TC; 80048; 80053; 81003; 82436; 82565; 82962; 83036; 83605; 83735; 83970; 84100; 84133; 84300; 84484; 84540; 85025; 85610; 85730; 87040; 87081; 87086; 87186; 93005; 93010; 97116-GP; 97162-GP; 99285-25; G0008; J0131; J7030; Q2036

== ENCOUNTER 2019-09-04 12:23 | Inpatient (IN) | payer OTHER ==
--- NOTE | 2019-09-04 13:35 | PDOC ---
History of Present Illness - General Chief Complaint: Weakness Stated Complaint: Urinary Problem Time Seen by Provider: 09/04/19 13:25 - History of Present Illness Initial Comments: History limited 2/2 altered mental status. 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 Per , pt has not been able to transfer out of the bed into his wheelchair which is his baseline. Also is only able to state his first name, and not able to answer when his asks him his full name and date. He was seen here 6 months ago for similar symptoms. Past History - Medical History Allergies/Adverse Reactions: Allergies Allergy/AdvReac Type Severity Reaction Status Date / Time ciprofloxacin [From Cipro] Allergy Verified 09/04/19 13:59 moxifloxacin [From Avelox] Allergy Verified 09/04/19 13:59 Penicillins Allergy Verified 09/04/19 13:59 Home Medications: Ambulatory Orders Amlodipine Besylate 2.5 mg PO DAILY 01/09/19 Ascorbate Calcium [Vitamin C] 500 mg PO DAILY 01/09/19 Aspirin 162 mg PO DAILY 01/09/19 Atorvastatin Ca [Lipitor] 40 mg PO HS 01/09/19 Lactobacillus Acidophilus [Acidophilus] 1 each PO DAILY 01/09/19 Memantine HCl 5 mg PO BID 01/09/19 Tamsulosin HCl [Flomax -] 0.4 mg PO DAILY@0830 #30 cap.er.24h 01/16/19 Glimepiride 4 mg PO BID 09/04/19 Cardiac Disorders: Yes (HTN, CAD) CVA: Yes COPD: No CHF: Yes Dementia: Yes Diabetes: Yes GI Disorders: Yes HTN: Yes Hypercholesterolemia: Yes Thyroid Disease: No - Surgical History Cardiac Surgery: Yes (cabg) - Immunization History Immunization Up to Date: Yes - Psycho-Social/Smoking History Smoking History: Never smoked Have you smoked in the past 12 months: No If you are a former smoker, when did you quit?: 2003 - Substance Abuse Hx (Audit-C & DAST Scrn) How often the patient has a drink containing alcohol: Never Score: In Men: 4 or > Positive; In Women: 3 or > Positive: 0 Screen Result (Pos requires Nsg. Audit-10AR): Negative In the last yr the pt used illegal drug/Rx for NonMed reason: No Score: Yes response is considered Positive: 0 Screen Result (Positive result requires Nsg. DAST-10): Negative Review of Systems - Review of Systems Able to Perform ROS?: No (altered mental status ) *Physical Exam - Vital Signs Last Vital Signs Temp Pulse Resp BP Pulse Ox 99 F 78 19 140/78 100 09/04/19 12:25 09/04/19 12:25 09/04/19 12:25 09/04/19 12:25 09/04/19 12:25 - Physical Exam GENERAL: Awake, alert, disoriented, in no acute distress_ HEAD: No signs of trauma, normocephalic, atraumatic _ EYES: PERRLA, EOMI, sclera anicteric, conjunctiva clear_ ENT: nares patent, mildly dry mucosa NECK: Normal ROM, supple, no lymphadenopathy, JVD, or masses, no c-spine TTP LUNGS: No distress, clear to auscultation bilaterally _ HEART: Regular rate and rhythm, normal S1 and S2, no murmurs appreciated, peripheral pulses normal and equal bilaterally._ ABDOMEN: Soft, nontender, normoactive bowel sounds. No guarding, no rebound. No masses_ EXTREMITIES: Normal inspection, Normal range of motion, no edema. No clubbing or cyanosis_ NEUROLOGICAL: Cranial nerves II through XII grossly intact. Unable to assess rest of neuro exam 2/2 altered mental status. Moving all four extremities and tracking the room. SKIN: Warm, Dry, normal turgor ED Treatment Course - LABORATORY CBC & Chemistry Diagram: 09/04/19 15:00 09/04/19 15:00 Medical Decision Making - Medical Decision Making 09/04/19 13:35 88M presenting today with weakness and altered mental status. DDx includes AMS 2/2 intracranial pathology vs r/o ACS vs r/o sepsis or infection vs electrolyte abnormality vs hypoglycemia. -labs -coags -ekg, trop, cxr -CT head -ua, ucx -tsh 09/04/19 16:26 CT head negative for acute intracranial pathology. Multiple chronic left cerebral infarcts noted. CXR shows no acute chest pathology. s/p Median sternotomy. 09/04/19 17:06 Labs reviewed. Laboratory Last Values WBC 9.5 K/mm3 (4.0-10.0) 09/04/19 15:00 RBC 4.91 M/mm3 (4.00-5.60) 09/04/19 15:00 Hgb 15.6 GM/dL (11.7-16.9) 09/04/19 15:00 Hct 47.9 % (35.4-49) D 09/04/19 15:00 MCV 97.6 fl (80-96) H 09/04/19 15:00 MCH 31.8 pg (25.7-33.7) 09/04/19 15:00 MCHC 32.6 g/dl (32.0-35.9) 09/04/19 15:00 RDW 14.9 % (11.9-15.9) 09/04/19 15:00 Plt Count 258 K/MM3 (134-434) 09/04/19 15:00 MPV 10.0 fl (7.5-11.1) 09/04/19 15:00 Absolute Neuts (auto) 6.6 K/mm3 (1.5-8.0) 09/04/19 15:00 Neutrophils % 69.9 % (42.8-82.8) 09/04/19 15:00 Lymphocytes % 20.7 % (8-40) 09/04/19 15:00 Monocytes % 6.2 % (3.8-10.2) 09/04/19 15:00 Eosinophils % 2.8 % (0-4.5) 09/04/19 15:00 Basophils % 0.4 % (0-2.0) 09/04/19 15:00 Nucleated RBC % 0 % (0-0) 09/04/19 15:00 PT with INR 10.80 SEC (9.7-13.0) 09/04/19 15:00 INR 0.92 (0.83-1.09) 09/04/19 15:00 PTT (Actin FS) 29.5 SECONDS (25.2-36.5) 09/04/19 15:00 Sodium 140 mmol/L (136-145) 09/04/19 15:00 Potassium 5.0 mmol/L (3.5-5.1) 09/04/19 15:00 Chloride 108 mmol/L (98-107) H 09/04/19 15:00 Carbon Dioxide 26 mmol/L (21-32) 09/04/19 15:00 Anion Gap 6 MMOL/L (8-16) L 09/04/19 15:00 BUN 36.6 mg/dL (7-18) H 09/04/19 15:00 Creatinine 2.7 mg/dL (0.55-1.3) H 09/04/19 15:00 Est GFR (CKD-EPI)AfAm 23.17 09/04/19 15:00 Est GFR (CKD-EPI)NonAf 19.99 09/04/19 15:00 Random Glucose 170 mg/dL (74-106) H 09/04/19 15:00 Calcium 11.2 mg/dL (8.5-10.1) H 09/04/19 15:00 Total Bilirubin 0.7 mg/dL (0.2-1) 09/04/19 15:00 AST 8 U/L (15-37) L 09/04/19 15:00 ALT 17 U/L (13-61) 09/04/19 15:00 Alkaline Phosphatase 139 U/L (45-117) H 09/04/19 15:00 Creatine Kinase 52 U/L (26-308) 09/04/19 15:00 Troponin I < 0.02 ng/ml (0.00-0.05) 09/04/19 15:00 Total Protein 6.9 g/dl (6.4-8.2) 09/04/19 15:00 Albumin 3.5 g/dl (3.4-5.0) 09/04/19 15:00 TSH 1.51 uIU/ml (0.358-3.74) D 09/04/19 15:00 Urine Color Yellow 09/04/19 15:00 Urine Appearance Turbid 09/04/19 15:00 Urine pH 5.0 (5.0-8.0) 09/04/19 15:00 Ur Specific [place] 1.013 (1.010-1.035) 09/04/19 15:00 Urine Protein 2+ (NEGATIVE) H 09/04/19 15:00 Urine Glucose (UA) Negative (NEGATIVE) 09/04/19 15:00 Urine Ketones Negative (NEGATIVE) 09/04/19 15:00 Urine Blood 3+ (NEGATIVE) H 09/04/19 15:00 Urine Nitrite Negative (NEGATIVE) 09/04/19 15:00 Urine Bilirubin Negative (NEGATIVE) 09/04/19 15:00 Urine Urobilinogen 0.2 mg/dL (0.2-1.0) 09/04/19 15:00 Ur Leukocyte Esterase 3+ (NEGATIVE) H 09/04/19 15:00 Urine WBC (Auto) 2392 /uL (0-25.8) 09/04/19 15:00 Urine RBC (Auto) 63.7 /uL (0-23.9) 09/04/19 15:00 Urine Casts (Auto) 232 /uL (0-3.1) 09/04/19 15:00 U Pathogenic Cast Auto /lpf (NEGATIVE) 09/04/19 15:00 U Epithel Cells (Auto) >36 /uL (0-25.1) 09/04/19 15:00 Urine Bacteria (Auto) >10,000 /uL (0-1359) 09/04/19 15:00 Started on ceftriaxone for UTI. 09/04/19 18:00 D/w Dr. De La Torre who accepts the patient for admission. Discharge - Discharge Information Problems reviewed: Yes Clinical Impression/Diagnosis: Weakness Altered mental status Qualifiers: Altered mental status type: delirium Qualified Code(s): R41.0 - Disorientation, unspecified UTI (urinary tract infection) Qualifiers: Urinary tract infection type: acute cystitis Hematuria presence: with hematuria Qualified Code(s): N30.01 - Acute cystitis with hematuria Condition: Stable - Admission Yes - Follow up/Referral - Patient Discharge Instructions - Post Discharge Activity
[2019-09-04 15:43] LABS: BASO % 0.4 % (0-2.0); EOS % 2.8 % (0-4.5); HEMATOCRIT 47.9 % (35.4-49); HEMOGLOBIN 15.6 GM/dL (11.7-16.9); LYMPH % 20.7 % (8-40); MCH 31.8 pg (25.7-33.7); MCHC 32.6 g/dl (32.0-35.9); MEAN CELL VOLUME 97.6 fl (80-96); MONO % 6.2 % (3.8-10.2); NEUT % 69.9 % (42.8-82.8); PLATELET COUNT 258 K/MM3 (134-434); RBC 4.91 M/mm3 (4.00-5.60); RDW 14.9 % (11.9-15.9); WHITE BLOOD COUNT 9.5 K/mm3 (4.0-10.0)
[2019-09-04 15:45] LABS: EPI CELLS >36 /uL (0-25.1); HYALINE CASTS 232 /uL (0-3.1); URINE APPEARANCE TURBID; URINE BILIRUBIN NEGATIVE (NEGATIVE); URINE COLOR YELLOW; URINE GLUCOSE (UA) NEGATIVE (NEGATIVE); URINE KETONE NEGATIVE (NEGATIVE); URINE LEUK ESTERASE 3+ (NEGATIVE); URINE NITRITE NEGATIVE (NEGATIVE); URINE PROTEIN 2+ (NEGATIVE); URINE UROBILINOGEN 0.2 mg/dL (0.2-1.0); URINE WBC 2392 /uL (0-25.8)
--- NOTE | 2019-09-04 15:45 | PDOC ---
Documentation entered by Catie Koch SCRIBE, acting as scribe for Meir Thomason MD. Meir Thomason MD: This documentation has been prepared by the emilyibeAugust Ana, SCRIBE, under my direction and personally reviewed by me in its entirety. I confirm that the documentation accurately reflects all work, treatment, procedures, and medical decision making performed by me. Attending Attestation - Resident Resident Name: Wilton Hampton - ED Attending Attestation I have performed the following: I have examined & evaluated the patient, The case was reviewed & discussed with the resident, I agree w/resident's findings & plan, Exceptions are as noted - HPI HPI: 09/04/19 13:30 Patient is an 88 year old male with a significant past medical history of CVA with residual right-sided weakness, hypertension, CAD, CABG, diabetes, and dementia, who presents to the ED with an altered mental status and weakness x3 days. Per patient's , at baseline patient is able to get out of bed and get into his wheelchair which he has not been able to do. also stated that patient is only able to recall his first name but cannot answer any other questions. Patient has experienced similar symptoms in the past. Allergies: NKDA PCP: Dr. Rober Ferreira - Physicial Exam PE: 09/04/19 13:33 See resident exam - Medical Decision Making 09/04/19 15:46 88 M with AMS and weakness. Suspect infectious process. - Labs, UA, CXR - Cultures 09/04/19 15:46 Pt with kenneth pyuria upon catheter placement. Will cover for UTI and admit Discharge - Discharge Information Problems reviewed: Yes Clinical Impression/Diagnosis: Weakness Altered mental status Qualifiers: Altered mental status type: delirium Qualified Code(s): R41.0 - Disorientation, unspecified UTI (urinary tract infection) Qualifiers: Urinary tract infection type: acute cystitis Hematuria presence: with hematuria Qualified Code(s): N30.01 - Acute cystitis with hematuria Condition: Stable - Follow up/Referral - Patient Discharge Instructions - Post Discharge Activity
[2019-09-04 15:48] LABS: INR 0.92 (0.83-1.09); PROTHROMBIN TIME (PATIENT) 10.8 SEC (9.7-13.0)
[2019-09-04 15:51] LABS: ACTIVATED PTT 29.5 SECONDS (25.2-36.5)
[2019-09-04] MEDS ORDERED: CEFTRIAXONE 1,000 MG in DEXTROSE 5%-WATER - 50 ML IVPB ONE (15:52)
[2019-09-04 15:53] LABS: URINE RBC 63.7 /uL (0-23.9)
[2019-09-04] MEDS ORDERED: CEFTRIAXONE 1 GM/50 ML BAG ONE (16:07)
[2019-09-04 16:15] LABS: ALBUMIN 3.5 g/dl (3.4-5.0); ALK PHOS 139 U/L (45-117); ANION GAP 6 MMOL/L (8-16); BILIRUBIN,TOTAL 0.7 mg/dL (0.2-1); BLOOD UREA NITROGEN 36.6 mg/dL (7-18); CALCIUM 11.2 mg/dL (8.5-10.1); CHLORIDE 108 mmol/L (98-107); CO2 26 mmol/L (21-32); CREATININE 2.7 mg/dL (0.55-1.3); GLUCOSE,RANDOM 170 mg/dL (74-106); SGOT/AST 8 U/L (15-37); SGPT/ALT 17 U/L (13-61); SODIUM 140 mmol/L (136-145); TOT PROT 6.9 g/dl (6.4-8.2)
--- NOTE | 2019-09-04 21:16 | PN ---
Teaching Attending Note Name of Resident: Theo Garrett ATTENDING PHYSICIAN STATEMENT I saw and evaluated the patient. I reviewed the resident's note and discussed the case with the resident. I agree with the resident's findings and plan as documented. SUBJECTIVE: 88 y/o male wtih PMH significant for dementia, CVA (2018), CAD s/p CABG (no merlin nts), DM, HTN, HLD presented to hospital with AMS and fatigue. As per symptoms started 2 days ago, she noticed decline in functional status and lethargy. Patient is non verbal unable to provide any history at this time. he denies chest pain, SOB, nausea, vomiting, fever, urinary symptoms OBJECTIVE: Last Vital Signs Temp Pulse Resp BP Pulse Ox 98.3 F 87 15 130/80 98 09/04/19 20:43 09/04/19 20:43 09/04/19 20:43 09/04/19 20:43 09/04/19 20:43 GENERAL: Normal built, not in acute distress HEAD: No signs of trauma, normocephalic, atraumatic EYES: PERRLA, EOMI, sclera anicteric, conjunctiva clear ENT: Hearing grossly normal, nares patent, oropharynx clear without exudates. No uvular deviation. Moist mucosa NECK: Normal ROM, supple, no lymphadenopathy, JVD, or ludy LUNGS: No distress, speaks in full sentences, clear to auscultation bilaterally HEART: Regular rate and rhythm, normal S1 and S2, + murmur systolic LSB ABDOMEN: Soft, nontender, normoactive bowel sounds. No guarding, no rebound. No ludy EXTREMITIES: No edema NEUROLOGICAL: alert, nonverbal, follows some verbal commands by blinking eyes, moves all extremities SKIN: Warm, Dry, normal turgor, no rashes or lesions noted CT head negative for acute intracranial pathology. Multiple chronic left cerebral infarcts noted UA positive for UTI ASSESSMENT AND PLAN: Acute encephhalopathy - metabolic likley due to UTI Dehydration ARSALAN on CKD likley due to dehydration Hypercalcemia - chronic HX of dementia, DM,HTN, HLD Admit to floor IV hydration IV azactam ( penicilin Allergy) Urine culture, blood culture Mg,phos,cpk, procal resume home meds clinical follow up for mental status repeat BMP in AM DVT ppx Discussed with house staff.
[2019-09-04] MEDS ORDERED: AZTREONAM 1 GM in DEXTROSE 5%-WATER - 50 ML IVPB SCH (22:30)
[2019-09-04] MEDS ORDERED: DEXTROSE 5%-WATER - 50 ML IVPB ONE (22:39)
[2019-09-04] MEDS ORDERED: AZTREONAM 1 GM VIAL (RESTRICTED TO ID) ONE (22:39)
--- NOTE | 2019-09-04 22:49 | HP ---
CHIEF COMPLAINT: Presented with AMS PCP: Dr. Ferreira HISTORY OF PRESENT ILLNESS: Gerry Pitt is a 88 y M with a PMH of CVA(2018) w/ residual R. sided weakness, HTN, CAD s/p CABG, DM, dementia, and CKD presents with 5D of AMS. Patient is non verbal at this time, but is able to follow simple commands. Hx was given by the , over the ). She reports that at baseline the patient is able to get out of his bed and on to his wheel chair and is able to have simple conversations. Since last Monday, she noticed that he has not been able to move from his bed to wheel chair or vice versa and also only able to say his name, been more confused and lethargic. She reports that patient did not complain of any chest pain, SOB, fever, chills, nausea vomiting or diarrhea. She also reports that she did not notice any new weakness (hx of R.residual weakness), facial droop, Falls/LOC or slurred speech. Patient currently lives at home with , has a SHIPPING CLERK/ADMIN who is there for 3 days a week, M/W/F. Does some of ADL's on own such as eating and grooming. However needs help with bathing, etc. Previous admission: 01/09/19-01/16/19: patient presented for a change in mental status over the last 2-3 days with had confusion, and weakness in his gait. Head CT 01/09: no acute infarct, no hemorrhage, chronic L frontal, L parietal, L occipital/temp cortical/subcortical infarcts. UA was (+) and was treated with azactam 0.5g IVPB q8h renally dose-received 7 day course. d/c on keflex 500mg BID x 7 days, per ID recommendation. ED: patient received Rocephin 1g. CT head: No acute intracranial pathology. CXR: no infiltrates noted. ER course was notable for: (1) UA: 2+protein, 3+blood, 3+ Leuk est (2) BUN/Crea 36.6/2.7 (3) Ca 11.2 Recent Travel: denies PAST MEDICAL HISTORY: As above in HPI PAST SURGICAL HISTORY: above in HPI Social History: Unable to obtain Smoking: Alcohol: Drugs: Allergies ciprofloxacin [From Cipro] Allergy (Verified 09/04/19 13:59) moxifloxacin [From Avelox] Allergy (Verified 09/04/19 13:59) Penicillins Allergy (Verified 09/04/19 13:59) HOME MEDICATIONS: Home Medications Medication Instructions Recorded Amlodipine Besylate 2.5 mg PO DAILY 01/09/19 Ascorbate Calcium [Vitamin C] 500 mg PO DAILY 01/09/19 Aspirin 162 mg PO DAILY 01/09/19 Atorvastatin Ca [Lipitor] 40 mg PO HS 01/09/19 Lactobacillus Acidophilus 1 each PO DAILY 01/09/19 [Acidophilus] Memantine HCl 5 mg PO BID 01/09/19 Tamsulosin HCl [Flomax -] 0.4 mg PO DAILY@0830 #30 cap.er.24h 01/16/19 Glimepiride 4 mg PO BID 09/04/19 REVIEW OF SYSTEMS: unable to obtain PHYSICAL EXAMINATION Vital Signs - 24 hr 09/04/19 09/04/19 09/04/19 12:25 18:00 18:30 Temperature 99 F Pulse Rate 78 Pulse Rate [ 74 Apical] Respiratory 19 20 Rate Blood Pressure 140/78 Blood Pressure 145/86 [Right Arm] O2 Sat by Pulse 100 98 98 Oximetry (%) 09/04/19 09/04/19 20:43 21:57 Temperature 98.3 F 98.3 F Pulse Rate 83 Pulse Rate [ 87 Apical] Respiratory 15 18 Rate Blood Pressure 123/56 L Blood Pressure 130/80 [Right Arm] O2 Sat by Pulse 98 98 Oximetry (%) GENERAL: Awake, non verbal, able to follow simple commands, no acute distress. HEAD: Normal with no signs of trauma. EYES: Pupils equal, round and reactive to light, extraocular movements intact, sclera anicteric, conjunctiva clear. EARS, NOSE, THROAT: Ears normal, nares patent, oropharynx clear without exudates. Moist mucous membranes. NECK: Normal range of motion, supple without lymphadenopathy, JVD, or masses. LUNGS: Breath sounds equal, clear to auscultation bilaterally. decreased inspiratory effort. No wheezes, and no crackles. No accessory muscle use. HEART: Regular rate and rhythm, normal S1 and S2, Sytolic 4/6 murmur along the left lateral sternal border, rub or gallop. ABDOMEN: Soft, nontender, not distended, normoactive bowel sounds, no guarding, no rebound, no masses. MUSCULOSKELETAL: unable to assess UPPER EXTREMITIES: 2+ pulses, warm, well-perfused. No cyanosis. No clubbing. No peripheral edema. LOWER EXTREMITIES: 2+ pulses, warm, well-perfused. No calf tenderness. No peripheral edema. NEUROLOGICAL: unable to assess. SKIN: Warm, dry, normal turgor, no rashes or lesions noted, normal capillary refill. Laboratory Results - last 24 hr 09/04/19 09/04/19 09/04/19 15:00 15:00 15:00 WBC 9.5 RBC 4.91 Hgb 15.6 Hct 47.9 D MCV 97.6 H MCH 31.8 MCHC 32.6 RDW 14.9 Plt Count 258 MPV 10.0 Absolute Neuts (auto) 6.6 Neutrophils % 69.9 Lymphocytes % 20.7 Monocytes % 6.2 Eosinophils % 2.8 Basophils % 0.4 Nucleated RBC % 0 PT with INR 10.80 INR 0.92 PTT (Actin FS) 29.5 Sodium Potassium Chloride Carbon Dioxide Anion Gap BUN Creatinine Est GFR (CKD-EPI)AfAm Est GFR (CKD-EPI)NonAf Random Glucose Calcium Total Bilirubin AST ALT Alkaline Phosphatase Creatine Kinase Troponin I Total Protein Albumin TSH Urine Color Yellow Urine Appearance Turbid Urine pH 5.0 Ur Specific [place] 1.013 Urine Protein 2+ H Urine Glucose (UA) Negative Urine Ketones Negative Urine Blood 3+ H Urine Nitrite Negative Urine Bilirubin Negative Urine Urobilinogen 0.2 Ur Leukocyte Esterase 3+ H Urine WBC (Auto) 2392 Urine RBC (Auto) 63.7 Urine Casts (Auto) 232 U Pathogenic Cast Auto U Epithel Cells (Auto) >36 Urine Bacteria (Auto) >10,000 09/04/19 15:00 WBC RBC Hgb Hct MCV MCH MCHC RDW Plt Count MPV Absolute Neuts (auto) Neutrophils % Lymphocytes % Monocytes % Eosinophils % Basophils % Nucleated RBC % PT with INR INR PTT (Actin FS) Sodium 140 Potassium 5.0 Chloride 108 H Carbon Dioxide 26 Anion Gap 6 L BUN 36.6 H Creatinine 2.7 H Est GFR (CKD-EPI)AfAm 23.17 Est GFR (CKD-EPI)NonAf 19.99 Random Glucose 170 H Calcium 11.2 H Total Bilirubin 0.7 AST 8 L ALT 17 Alkaline Phosphatase 139 H Creatine Kinase 52 Troponin I < 0.02 Total Protein 6.9 Albumin 3.5 TSH 1.51 D Urine Color Urine Appearance Urine pH Ur Specific [place] Urine Protein Urine Glucose (UA) Urine Ketones Urine Blood Urine Nitrite Urine Bilirubin Urine Urobilinogen Ur Leukocyte Esterase Urine WBC (Auto) Urine RBC (Auto) Urine Casts (Auto) U Pathogenic Cast Auto U Epithel Cells (Auto) Urine Bacteria (Auto) CXR 01/09: prominent mediastinum w/ sternal sutures, aortic plaque. no acute pro cess is seen Head CT 01/09: no acute infarct, no hemorrhage, chronic L frontal, L parietal, L occipital/temp cortical/subcortical infarcts spiral CT 01/10: mild fullness of pelvicalyceal system and proximal hydroureter, without evidence of obstructing stone. Few L ernal cysts. Complex cysts noted. Vascular calcifications in renal hilum. Mild fullness of R renal pelvis and mild proximal R hydroureter without obstructing stone. urinary bladder decompressed with mazariegos. possible cystitis. moderate amount fecal residue. prostate enlarged. 3.2cm abdominal aorta. bladder/kidney U/S 01/12: bilateral renal cysts; several noted. largest is 2.2cm. largest of L is 3cm. no hydronephrosis or masses. CT head (09/03): no acute intracranial pathology. Multiple chronic L. cerebral infarcts CXR: (09/03): No acute infiltrates ASSESSMENT/PLAN: 88 y M with a PMH of CVA(2017) w/ residual R. sided weakness, HTN, CAD s/p CABG, DM, dementia, and CKD presents with 5D of AMS. UA: 2+protein, 3+blood, 3+ Leuk est. Patient is admitted to M/S for management of AMS/UTI. #Acute metabolic encephalopathy - Most likely 2/2 UTI vs Less likely CVA, electrolyte disturbance, or polypharmacy - UA: 2+protein, 3+blood, 3+ Leuk est - Previous Urine culture (01/09/19): + Proteus Mirabilis - Continue azactam 0.5g IVPB q8h (renal Dosing), patient is allergic to Ciprofloxacin, moxifloxacin and penicillins - f/u Ucx, blood cx, LAC acid, CPK - Consulted PT and Speech/swallow eval - fall risk precautions in place - Ordered Straight cath #ARSALAN on CKD - Continue IVF- NS @ 100mls - f/u AM labs #Hypercalcemia(chronic) - Also presented on last admission, which improved w/ IVF hydration - Continue IVF-NS @ 100mls - f/u AM labs #dementia - Continue Memantine 5 mg #hx CVA - Continue asa 162 mg (confirmed w/ list) - Continue lipitor #NIDDM - hold home agents - Last HbA1c(12/2018): 8% - BGM + Sliding scale insulin regimen protocol #HTN - Continue amlodipine #HLD - Continue Lipitor #FEN - IVF NS 100 cc/hr - continue to monitor electrolytes - Diet: #DVT PPX - Heparin 5000u #Dispo - will continue to monitor in M/S, pending speech/swallow eval Visit type - Medication Review Med list reviewed for High Risk Meds patients 65 and older: Yes - Emergency Visit Emergency Visit: No - New Patient This patient is new to me today: Yes Date on this admission: 09/05/19 - Critical Care Critical Care patient: No ATTENDING PHYSICIAN STATEMENT I saw and evaluated the patient. I reviewed the resident's note and discussed the case with the resident. I agree with the resident's findings and plan as documented. SUBJECTIVE: OBJECTIVE: ASSESSMENT AND PLAN:
[2019-09-04] MEDS: SODIUM CHLORIDE 1,000 ML IV SCH (22:54)
[2019-09-04] MEDS: AZTREONAM 1 GM in DEXTROSE 5%-WATER - 50 ML IVPB SCH (22:56)
[2019-09-05] MEDS: HEPARIN NA (PORCINE) 5,000 UNITS/ML 1ML VIAL SQ SCH ×3 (05:27→21:30)
[2019-09-05 07:58] LABS: BASO % 0.8 % (0-2.0); EOS % 4.9 % (0-4.5); HEMATOCRIT 46.8 % (35.4-49); HEMOGLOBIN 15.1 GM/dL (11.7-16.9); LYMPH % 27.3 % (8-40); MCH 31.4 pg (25.7-33.7); MCHC 32.4 g/dl (32.0-35.9); MEAN PLT VOLUME 10.3 fl (7.5-11.1); MONO % 6.1 % (3.8-10.2); NEUT % 60.9 % (42.8-82.8); PLATELET COUNT 256 K/MM3 (134-434); RBC 4.82 M/mm3 (4.00-5.60); RDW 14.8 % (11.9-15.9)
[2019-09-05 08:05] LABS: ALBUMIN 3.3 g/dl (3.4-5.0); BLOOD UREA NITROGEN 38.4 mg/dL (7-18); CALCIUM 10.6 mg/dL (8.5-10.1); MAGNESIUM 2.5 mg/dL (1.8-2.4); PHOSPHOROUS 3.3 mg/dL (2.5-4.9); POTASSIUM 4.5 mmol/L (3.5-5.1)
[2019-09-05 08:06] LABS: BILIRUBIN,TOTAL 0.6 mg/dL (0.2-1); CREATININE 2.5 mg/dL (0.55-1.3); TOT PROT 6.6 g/dl (6.4-8.2)
[2019-09-05] MEDS ORDERED: DEXTROSE 5%-WATER - 50 ML IVPB ONE (09:47)
[2019-09-05] MEDS ORDERED: AZTREONAM 1 GM VIAL (RESTRICTED TO ID) ONE (09:47)
[2019-09-05] MEDS: MEMANTINE HCL 5 MG TABLET (UD) PO SCH ×2 (10:11→21:31)
[2019-09-05] MEDS: AZTREONAM 1 GM in DEXTROSE 5%-WATER - 50 ML IVPB SCH (10:11)
[2019-09-05] MEDS: ASPIRIN 81 MG CHEWABLE TABLETS PO SCH (10:11)
--- NOTE | 2019-09-05 10:15 | CONSULT ---
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 UA: 2+protein, 3+blood, 3+ Leuk est. Patient is admitted to M/S for management of AMS/UTI. Acute metabolic encephalopathy - Most likely 2/2 UTI vs Less likely CVA, electrolyte disturbance, or polypharmacy CXR 01/09: prominent mediastinum w/ sternal sutures, aortic plaque. no acute process is seen Head CT 01/09: no acute infarct, no hemorrhage, chronic L frontal, L parietal, L occipital/temp cortical/subcortical infarcts spiral CT 01/10: mild fullness of pelvicalyceal system and proximal hydroureter, without evidence of obstructing stone. Few L ernal cysts. Complex cysts noted. Vascular calcifications in renal hilum. Mild fullness of R renal pelvis and mild proximal R hydroureter without obstructing stone. urinary bladder decompressed with mazariegos. possible cystitis. moderate amount fecal residue. prostate enlarged. 3.2cm abdominal aorta. bladder/kidney U/S 01/12: bilateral renal cysts; several noted. largest is 2.2cm. largest of L is 3cm. no hydronephrosis or masses. CT head (09/03): no acute intracranial pathology. Multiple chronic L. cerebral infarcts CXR: (09/03): No acute infiltrates Selected Entries 09/04/19 09/04/19 09/04/19 12:25 18:30 20:43 Temperature 99 F 98.3 F Blood Pressure 140/78 Blood Pressure 145/86 130/80 [Right Arm] O2 Sat by Pulse Oximetry (%) 09/04/19 09/04/19 09/05/19 21:57 22:00 04:17 Temperature 98.3 F 98.4 F 97.7 F Blood Pressure 123/56 L 123/56 L 139/104 H Blood Pressure [Right Arm] O2 Sat by Pulse 95 Oximetry (%) Laboratory Tests 09/04/19 09/05/19 18:10 06:35 WBC 9.0 COVID-19 ([facility]) Pending Reg diet/thin liquids ordered . Seen lunchtime, eating well, fed by canine service instructor trainer. 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 ENGINEER: Yes: CVA, Dementia Cardiovascular: Yes: CAD, HTN, Hyperlipdemia - Past Surgical History Past Surgical History: Yes: CABG - Smoking History Smoking history: Never smoked Have you smoked in the past 12 months: No If you are a former smoker, when did you quit?: 2003 - Alcohol/Substance Use Hx Alcohol Use: No History of Substance Use: reports: None - Social History ADL: Family Assistance 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 no acute process is seen Head CT 01/09: no acute infarct, no hemorrhage, chronic L frontal, L parietal, L occipital/temp cortical/subcortical infarcts spiral CT 01/10: mild fullness of pelvicalyceal system and proximal hydroureter, without evidence of obstructing stone. Few L ernal cysts. Complex cysts noted. Vascular calcifications in renal hilum. Mild fullness of R renal pelvis and mild proximal R hydroureter without obstructing stone. urinary bladder decompressed with mazariegos. possible cystitis. moderate amount fecal residue. prostate enlarged. 3.2cm abdominal aorta. bladder/kidney U/S 01/12: bilateral renal cysts; several noted. largest is 2.2cm. largest of L is 3cm. no hydronephrosis or masses. CT head (09/03): no acute intracranial pathology. Multiple chronic L. cerebral infarcts CXR: (09/03): No acute infiltrates) - General Mental Status: Confused Attention: Mild Impairment, Moderate Impairment Head/Neck Control: Good - Hearing Hearing: Impaired Speech Evaluation - Communication Primary Language: MALDIVIAN Communication: Yes: Simple Responses, Aphasia Oral Expression Ability: Yes: Moderate Impairment - Speech Characteristics Voice Loudness: Normal Voice Pitch: Yes: Normal Voice Phonatory-based Quality: Yes: Normal Speech Clarity: < 100% Nasal Resonance: Normal Articulation: Yes: Imprecise (intermittent) - Language/Auditory Comprehension Observation: Comprehends Conversational Speech: Yes (If loud enough) - Language/Verbal Expression Aphasia: Yes: Anomia, Impaired Repetition, Paraphrasic Errors, Neologisms - Swallow Evaluation/Bedside Assessment Current Nutritional Intake: Regular, Thin Liquids Oral Secretions: Yes: WFL Dentition: Yes: Adequate Facial Symmetry at Rest: Symmetrical Facial Symmetry on Retraction: Symmetrical Facial Movement: Controlled Sensation: Normal Against Resistance Opening: Normal Against Resistance Closing: Normal Pucker Lips: Normal Smile: Normal Lingual Movement: Normal, Symmetric Lingual Speed of Movement: Normal Lingual Movement Strgth Against Opposition: Normal Lingual Movement Characteristics: Normal Velopharyngeal Movement: Normal Laryngeal Elevation: WFL Laryngeal Movement: Able to Palpate Rate of Intake: WFL Bolus Size: WFL Labial Seal: WFL Chewing: WFL Oral Prep Time: WFL A-P Transit: WFL Pocketing: None Timing of Swallow: WFL Coughing/Throat Clear: No Change in Voice: No Recommendations - Speech Evaluation, Impression/Plan Impression: Verbal, confused, expressive language deficits suspect baseline, Chronic Left cva's,chewing/swallowing well - Dysphagia Impressions/Plan Swallowing Skills: WFL Dysphagia Impressions: No Impairment *Silent aspiration: cannot be R/O at bedside Dysphagia Treatment Plan: Small Bites, Chin Tuck/Down, Clear Pocket Food, Trial Feedings, Facilitative Feeding, Safe Rate, 1/2 tsp. at a time, Elevate HOB during feed - Recommendations Diet Consistency: Regular Liquids: Thin Liquids
[2019-09-05] MEDS: SODIUM CHLORIDE 1,000 ML IV SCH (11:11)
[2019-09-05] MEDS ORDERED: LISINOPRIL 20 MG TABLET (FP) PO ONE (11:15)
--- NOTE | 2019-09-05 12:10 | EKG ---
Test Reason : Blood Pressure : / mmHG Vent. Rate : 070 BPM Atrial Rate : 070 BPM P-R Int : 156 ms QRS Dur : 100 ms QT Int : 430 ms P-R-T Axes : 085 -57 086 degrees QTc Int : 464 ms POOR DATA QUALITY, INTERPRETATION MAY BE ADVERSELY AFFECTED NORMAL SINUS RHYTHM PULMONARY DISEASE PATTERN LEFT ANTERIOR FASCICULAR BLOCK ABNORMAL ECG WHEN COMPARED WITH ECG OF 04-SEP-2019 21:25, T WAVE INVERSION LESS EVIDENT IN ANTERIOR LEADS Confirmed by EDWARDO MEDINA MD ([id number]) on 09/05/2019 12:09:55 PM Referred By: PIETER TRAVIS DR Confirmed By:EDWARDO MEDINA MD
--- NOTE | 2019-09-05 12:14 | EKG ---
Test Reason : Blood Pressure : / mmHG Vent. Rate : 086 BPM Atrial Rate : 086 BPM P-R Int : 156 ms QRS Dur : 088 ms QT Int : 366 ms P-R-T Axes : 075 267 083 degrees QTc Int : 437 ms NORMAL SINUS RHYTHM RIGHT SUPERIOR AXIS DEVIATION ABNORMAL ECG WHEN COMPARED WITH ECG OF 09-JAN-2019 13:27, PREMATURE ATRIAL COMPLEXES ARE NO LONGER PRESENT Confirmed by EDWARDO MEDINA MD ([id number]) on 09/05/2019 12:13:34 PM Referred By: Confirmed By:EDWARDO MEDINA MD
--- NOTE | 2019-09-05 13:08 | PN ---
Teaching Attending Note Name of Resident: Shyla Tate ATTENDING PHYSICIAN STATEMENT I saw and evaluated the patient. I reviewed the resident's note and discussed the case with the resident. I agree with the resident's findings and plan as documented. SUBJECTIVE: pt seen and examined at bedside, was being fed, not in acute distress OBJECTIVE: Last Vital Signs Temp Pulse Resp BP Pulse Ox 97.7 F 73 18 139/104 H 95 09/05/19 04:17 09/05/19 04:17 09/05/19 04:17 09/05/19 04:17 09/05/19 09:00 GENERAL: Awake, alert, and not oriented, in no acute distress. HEAD: Normal with no signs of trauma. EYES: Pupils equal, round and reactive to light, sclera anicteric, conjunctiva clear. LUNGS: Breath sounds equal, clear to auscultation bilaterally. No wheezes, and no crackles. No accessory muscle use. HEART: Regular rate and rhythm, normal S1 and S2 ABDOMEN: Soft, nontender, not distended MUSCULOSKELETAL: Normal range of motion at all joints. No bony deformities or tenderness. No CVA tenderness. UPPER EXTREMITIES: 2+ pulses, warm, well-perfused. No cyanosis. No clubbing. No peripheral edema. LOWER EXTREMITIES: 2+ pulses, warm, well-perfused. No calf tenderness. No peripheral edema. NEUROLOGICAL: Cranial nerves II-XII intact. incomprehensible speech. CBCD WBC 9.0 K/mm3 (4.0-10.0) 09/05/19 06:35 RBC 4.82 M/mm3 (4.00-5.60) 09/05/19 06:35 Hgb 15.1 GM/dL (11.7-16.9) 09/05/19 06:35 Hct 46.8 % (35.4-49) 09/05/19 06:35 MCV 97.0 fl (80-96) H 09/05/19 06:35 MCHC 32.4 g/dl (32.0-35.9) 09/05/19 06:35 RDW 14.8 % (11.9-15.9) 09/05/19 06:35 Plt Count 256 K/MM3 (134-434) 09/05/19 06:35 MPV 10.3 fl (7.5-11.1) 09/05/19 06:35 CMP Sodium 141 mmol/L (136-145) 09/05/19 06:35 Potassium 4.5 mmol/L (3.5-5.1) 09/05/19 06:35 Chloride 110 mmol/L (98-107) H 09/05/19 06:35 Carbon Dioxide 26 mmol/L (21-32) 09/05/19 06:35 Anion Gap 6 MMOL/L (8-16) L 09/05/19 06:35 BUN 38.4 mg/dL (7-18) H 09/05/19 06:35 Creatinine 2.5 mg/dL (0.55-1.3) H 09/05/19 06:35 Calcium 10.6 mg/dL (8.5-10.1) H 09/05/19 06:35 Total Bilirubin 0.6 mg/dL (0.2-1) 09/05/19 06:35 AST 9 U/L (15-37) L 09/05/19 06:35 ALT 16 U/L (13-61) 09/05/19 06:35 Alkaline Phosphatase 128 U/L (45-117) H 09/05/19 06:35 Total Protein 6.6 g/dl (6.4-8.2) 09/05/19 06:35 Albumin 3.3 g/dl (3.4-5.0) L 09/05/19 06:35 A&P: A 88 YOM with CVA(w rt sided weakness), HTN, CAD s/p CABG, DM, dementia and CKD presented with AMS # Delirium possibly due to UTI - UT showed +2ptn, Esterase, RBC and WBC - prelim cultures showing yeast also - on aztreonam - f/u cultures # hypercalcemia - causes: immobility, adenoma, CKD - check pth, vit D, urine ca - IV hydration # dementia # DM # ARSALAN on CKD # HTN #COVID -ve DVT prophylaxis
--- NOTE | 2019-09-05 13:31 | PN ---
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 (short form) - Note 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: ID consult dictated imp/reccd 88 yo man history of CVA admitted from home with lethargy no fevers or chills per nursing note- straight cath in ED with thick purulent pus- UA with wbcs and epis culture - yeast only d/c antibiotics diflucan po gently hydration renal/bladder sonogram debora/ckd- gentle hydration pen/quinolone allergy noted, tolerates cephalosporins in the past and in ED Problem List - Problems (1) AMS (altered mental status) Code(s): R41.82 - ALTERED MENTAL STATUS, UNSPECIFIED Qualifiers: Altered mental status type: delirium Qualified Code(s): R41.0 - Disorientation, unspecified (2) Pyuria Code(s): R82.81 - PYURIA (3) History of CVA (cerebrovascular accident) Code(s): Z86.73 - PRSNL HX OF TIA (TIA), AND CEREB INFRC W/O RESID DEFICITS (4) History of CVA (cerebrovascular accident) Code(s): Z86.73 - PRSNL HX OF TIA (TIA), AND CEREB INFRC W/O RESID DEFICITS (5) Acute kidney injury superimposed on CKD Code(s): N17.9 - ACUTE KIDNEY FAILURE, UNSPECIFIED; N18.9 - CHRONIC KIDNEY DISEASE, UNSPECIFIED
[2019-09-05] MEDS: SODIUM CHLORIDE 0.45% 1,000 ML IV SCH (13:34)
[2019-09-05] MEDS: FLUCONAZOLE 100 MG TABLET (UD) PO SCH (14:24)
--- NOTE | 2019-09-05 15:01 | PN ---
Physical Exam: SUBJECTIVE: Patient seen and examined at bedside this morning. Patient admitted overnight due to altered mental status. Was found to have a UTI. tHis morning, patient more awake, has no complaints. OBJECTIVE: Vital Signs Temperature 97.7 F 09/05/19 04:17 Pulse Rate 73 09/05/19 04:17 Respiratory Rate 18 09/05/19 04:17 Blood Pressure 139/104 H 09/05/19 04:17 O2 Sat by Pulse Oximetry (%) 95 09/05/19 09:00 GENERAL: The patient is awake, alert, and oriented x1, in no acute distress. HEAD: Normal with no signs of trauma. EYES: PERRLA, EOMI, sclera anicteric, conjunctiva clear. ENT: moist mucous membranes. NECK: full range of motion, supple. LUNGS: Breath sounds equal, clear to auscultation bilaterally HEART: Regular rate and rhythm, S1, S2 ABDOMEN: Soft, nontender, nondistended, normoactive bowel sounds EXTREMITIES: 2+ pulses, warm, well-perfused, no edema. SKIN: Warm, dry, normal turgor Laboratory Results - last 24 hr 09/04/19 09/04/19 09/04/19 15:00 15:00 15:00 WBC 9.5 RBC 4.91 Hgb 15.6 Hct 47.9 D MCV 97.6 H MCH 31.8 MCHC 32.6 RDW 14.9 Plt Count 258 MPV 10.0 Absolute Neuts (auto) 6.6 Neutrophils % 69.9 Lymphocytes % 20.7 Monocytes % 6.2 Eosinophils % 2.8 Basophils % 0.4 Nucleated RBC % 0 PT with INR 10.80 INR 0.92 PTT (Actin FS) 29.5 Sodium Potassium Chloride Carbon Dioxide Anion Gap BUN Creatinine Est GFR (CKD-EPI)AfAm Est GFR (CKD-EPI)NonAf POC Glucometer Random Glucose Lactic Acid Calcium Phosphorus Magnesium Total Bilirubin AST ALT Alkaline Phosphatase Creatine Kinase Troponin I Total Protein Albumin TSH Urine Color Yellow Urine Appearance Turbid Urine pH 5.0 Ur Specific [place] 1.013 Urine Protein 2+ H Urine Glucose (UA) Negative Urine Ketones Negative Urine Blood 3+ H Urine Nitrite Negative Urine Bilirubin Negative Urine Urobilinogen 0.2 Ur Leukocyte Esterase 3+ H Urine WBC (Auto) 2392 Urine RBC (Auto) 63.7 Urine Casts (Auto) 232 U Pathogenic Cast Auto U Epithel Cells (Auto) >36 Urine Bacteria (Auto) >10,000 COVID-19 ([facility]) 09/04/19 09/04/19 09/05/19 15:00 18:10 06:11 WBC RBC Hgb Hct MCV MCH MCHC RDW Plt Count MPV Absolute Neuts (auto) Neutrophils % Lymphocytes % Monocytes % Eosinophils % Basophils % Nucleated RBC % PT with INR INR PTT (Actin FS) Sodium 140 Potassium 5.0 Chloride 108 H Carbon Dioxide 26 Anion Gap 6 L BUN 36.6 H Creatinine 2.7 H Est GFR (CKD-EPI)AfAm 23.17 Est GFR (CKD-EPI)NonAf 19.99 POC Glucometer 156 Random Glucose 170 H Lactic Acid Calcium 11.2 H Phosphorus Magnesium Total Bilirubin 0.7 AST 8 L ALT 17 Alkaline Phosphatase 139 H Creatine Kinase 52 Troponin I < 0.02 Total Protein 6.9 Albumin 3.5 TSH 1.51 D Urine Color Urine Appearance Urine pH Ur Specific [place] Urine Protein Urine Glucose (UA) Urine Ketones Urine Blood Urine Nitrite Urine Bilirubin Urine Urobilinogen Ur Leukocyte Esterase Urine WBC (Auto) Urine RBC (Auto) Urine Casts (Auto) U Pathogenic Cast Auto U Epithel Cells (Auto) Urine Bacteria (Auto) COVID-19 ([facility]) Not detected 09/05/19 09/05/19 09/05/19 06:35 06:35 06:35 WBC 9.0 RBC 4.82 Hgb 15.1 Hct 46.8 MCV 97.0 H MCH 31.4 MCHC 32.4 RDW 14.8 Plt Count 256 MPV 10.3 Absolute Neuts (auto) 5.5 Neutrophils % 60.9 Lymphocytes % 27.3 D Monocytes % 6.1 Eosinophils % 4.9 H Basophils % 0.8 Nucleated RBC % 0 PT with INR INR PTT (Actin FS) Sodium Potassium Chloride Carbon Dioxide Anion Gap BUN Creatinine Est GFR (CKD-EPI)AfAm Est GFR (CKD-EPI)NonAf POC Glucometer Random Glucose Lactic Acid 1.1 Calcium Phosphorus Magnesium Total Bilirubin AST ALT Alkaline Phosphatase Creatine Kinase 34 Troponin I Total Protein Albumin TSH Urine Color Urine Appearance Urine pH Ur Specific [place] Urine Protein Urine Glucose (UA) Urine Ketones Urine Blood Urine Nitrite Urine Bilirubin Urine Urobilinogen Ur Leukocyte Esterase Urine WBC (Auto) Urine RBC (Auto) Urine Casts (Auto) U Pathogenic Cast Auto U Epithel Cells (Auto) Urine Bacteria (Auto) COVID-19 ([facility]) 09/05/19 09/05/19 06:35 11:42 WBC RBC Hgb Hct MCV MCH MCHC RDW Plt Count MPV Absolute Neuts (auto) Neutrophils % Lymphocytes % Monocytes % Eosinophils % Basophils % Nucleated RBC % PT with INR INR PTT (Actin FS) Sodium 141 Potassium 4.5 Chloride 110 H Carbon Dioxide 26 Anion Gap 6 L BUN 38.4 H Creatinine 2.5 H Est GFR (CKD-EPI)AfAm 25.43 Est GFR (CKD-EPI)NonAf 21.94 POC Glucometer 276 Random Glucose 155 H Lactic Acid Calcium 10.6 H Phosphorus 3.3 Magnesium 2.5 H Total Bilirubin 0.6 AST 9 L ALT 16 Alkaline Phosphatase 128 H Creatine Kinase Troponin I Total Protein 6.6 Albumin 3.3 L TSH Urine Color Urine Appearance Urine pH Ur Specific [place] Urine Protein Urine Glucose (UA) Urine Ketones Urine Blood Urine Nitrite Urine Bilirubin Urine Urobilinogen Ur Leukocyte Esterase Urine WBC (Auto) Urine RBC (Auto) Urine Casts (Auto) U Pathogenic Cast Auto U Epithel Cells (Auto) Urine Bacteria (Auto) COVID-19 ([facility]) Active Medications Generic Name Dose Route Start Last Admin Trade Name Freq PRN Reason Stop Dose Admin Amlodipine Besylate 2.5 mg 09/06/19 10:00 Norvasc - PO DAILY SONYA Aspirin 162 mg 09/05/19 10:00 09/05/19 10:11 Asa - PO 162 mg DAILY SONYA Administration Atorvastatin Calcium 40 mg 09/05/19 22:00 Lipitor - PO HS SONYA Fluconazole 100 mg 09/05/19 13:30 09/05/19 14:24 Diflucan - PO 100 mg DAILY SONYA Administration Heparin Sodium (Porcine) 5,000 unit 09/05/19 06:00 09/05/19 13:34 Heparin - SQ 5,000 unit TID SONYA Administration Sodium Chloride 1,000 mls @ 75 mls/hr 09/05/19 12:45 09/05/19 13:34 1/2 Normal Saline IV 75 mls/hr ASDIR SONYA Administration Lactobacillus Acidophilus 1 tab 09/06/19 10:00 Bacid - PO DAILY SONYA Memantine 5 mg 09/05/19 10:00 09/05/19 10:11 Namenda - PO 5 mg BID SONYA Administration Tamsulosin HCl 0.4 mg 09/06/19 08:30 Flomax - PO DAILY@0830 [facility] ASSESSMENT/PLAN: Patient is an 88 year old male with a 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 Previous admission in December for AMS, treated for UTI and hyperCa. #Acute metabolic encephalopathy - Likely 2/2 UTI - UA: 2+protein, 3+blood, 3+ leukocyte esterase - Received IV Aztreonam in the ED based on previous UCx of +Proteus - UCx: yeast like organism - Start Fluconazole 100mg daily, - discontinue IV abx - renal/bladder US ordered - Blood cx pending - Infectious disease (Dr. Mart) consulted. Recommendations appreciated #ARSALAN on CKD - Continue gentle IVF- 1/2 NS @ 75 cc/hr - Creatinine improving, at baseline - Urine osmolality, creatinine and electrolytes ordered. #Hypercalcemia - Also presented on last admission, which improved w/ IVF hydration - Continue IV 1/2 NS @ 75 cc/hr - Improved from 11.2 to 10.6 since yesterday - ALP elevated, GGT ordered - Phos wnl - PTH, Vit D pending #Dementia - C/w memantine 5 mg - Speech and swallow performed by speech language pathology, showed within functional limits - Recommended Facilitative Feeding, Safe Rate, 1/2 tsp. at a time, Elevate HOB during feed #PMH of CVA - C/w with aspirin 162 mg - C/w lipitor #NIDDM - ISS - BGM ACHS - Last HbA1c(12/2018): 8% #HTN - C/w Amlodipine 2.5mg daily #HLD - Continue Lipitor 40 mg #FEN - IV 1/2 NS 75 cc/hr - Routine monitoring of electrolytes during hospital stay - Diabetic/sodium restricted diet #DVT PPX - Heparin 5000 U SQ tid #Disposition - Admitted to med-surg. Visit type - Emergency Visit Emergency Visit: Yes ED Registration Date: 09/04/19 Care time: The patient presented to the Emergency Department on the above date and was hospitalized for further evaluation of their emergent condition. - New Patient This patient is new to me today: No - Critical Care Critical Care patient: No - Medication Review Med list reviewed for High Risk Meds patients 65 and older: Yes ATTENDING PHYSICIAN STATEMENT I saw and evaluated the patient. I reviewed the resident's note and discussed the case with the resident. I agree with the resident's findings and plan as documented. SUBJECTIVE: OBJECTIVE: ASSESSMENT AND PLAN:
[2019-09-05] MEDS ORDERED: INSULIN (NOVOLOG) ASPART 100 UNITS/ML 10ML VIAL ONE ×3 (16:50→21:05)
[2019-09-05] MEDS: INSULIN SLIDING SCALE (NOVOLOG) 1 VIAL SQ SCH ×2 (16:52→21:34)
[2019-09-05 20:52] LABS: GAMMA GLUTAMYL TRANSPEPTIDASE 17 U/L (5-85)
[2019-09-05] MEDS ORDERED: PT OWN MED DRAWER 7, Y5N ONE (21:01)
[2019-09-05] MEDS: ATORVASTATIN CA 40 MG TABLET (FP) PO SCH (21:31)
[2019-09-06] MEDS: HEPARIN NA (PORCINE) 5,000 UNITS/ML 1ML VIAL SQ SCH ×3 (05:28→21:42)
[2019-09-06] MEDS: SODIUM CHLORIDE 0.45% 1,000 ML IV SCH ×2 (05:36→23:42)
[2019-09-06] MEDS: INSULIN SLIDING SCALE (NOVOLOG) 1 VIAL SQ SCH ×4 (06:29→23:43)
[2019-09-06 08:25] LABS: BASO % 0.8 % (0-2.0); EOS % 4.5 % (0-4.5); HEMATOCRIT 43.1 % (35.4-49); HEMOGLOBIN 13.9 GM/dL (11.7-16.9); LYMPH % 27.2 % (8-40); MCH 31.7 pg (25.7-33.7); MCHC 32.3 g/dl (32.0-35.9); MEAN CELL VOLUME 98.3 fl (80-96); MEAN PLT VOLUME 9.8 fl (7.5-11.1); NEUT % 61.5 % (42.8-82.8); PLATELET COUNT 224 K/MM3 (134-434); RBC 4.38 M/mm3 (4.00-5.60); RDW 14.9 % (11.9-15.9); WHITE BLOOD COUNT 8.6 K/mm3 (4.0-10.0)
[2019-09-06] MEDS ORDERED: TAMSULOSIN HCL 0.4 MG CAP PO SCH (08:30)
[2019-09-06 08:58] LABS: ALBUMIN 2.9 g/dl (3.4-5.0); BILIRUBIN,TOTAL 0.8 mg/dL (0.2-1); BLOOD UREA NITROGEN 37.7 mg/dL (7-18); CALCIUM 10.2 mg/dL (8.5-10.1); CREATININE 2.5 mg/dL (0.55-1.3); MAGNESIUM 2.4 mg/dL (1.8-2.4); PHOSPHOROUS 2.7 mg/dL (2.5-4.9); POTASSIUM 4.2 mmol/L (3.5-5.1); TOT PROT 5.9 g/dl (6.4-8.2)
[2019-09-06] MEDS ORDERED: PT OWN MED DRAWER 7, Y5N ONE ×2 (10:51→21:24)
[2019-09-06] MEDS: ASPIRIN 81 MG CHEWABLE TABLETS PO SCH (11:24)
[2019-09-06] MEDS: LACTOBACILLUS ACIDOPHILUS 1 TABLET PO SCH (11:24)
[2019-09-06] MEDS: amLODIPine BESYLATE 2.5 MG TABLET (FP) PO SCH (11:25)
[2019-09-06] MEDS: FLUCONAZOLE 100 MG TABLET (UD) PO SCH (11:25)
[2019-09-06] MEDS: MEMANTINE HCL 5 MG TABLET (UD) PO SCH ×2 (11:25→21:43)
--- NOTE | 2019-09-06 12:14 | PN ---
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: Selected Entries 09/05/19 09/05/19 09/05/19 04:17 09:00 14:00 Breakfast Lunch Supper Temperature 97.7 F 98.9 F Blood Pressure 139/104 H 121/56 L O2 Sat by Pulse Oximetry (%) Oxygen Delivery Room Air Method 09/05/19 09/05/19 09/05/19 14:55 17:04 21:00 Breakfast 75% Lunch 75% Supper Temperature 98.5 F Blood Pressure 105/59 L O2 Sat by Pulse Oximetry (%) Oxygen Delivery Room Air Method 09/05/19 09/05/19 09/06/19 22:36 22:46 05:08 Breakfast Lunch Supper 75% Temperature 98.6 F 98.5 F Blood Pressure 141/59 L 152/72 O2 Sat by Pulse 93 L Oximetry (%) Oxygen Delivery Method 09/06/19 10:00 Breakfast NPO Lunch Supper Temperature Blood Pressure O2 Sat by Pulse Oximetry (%) Oxygen Delivery Method Laboratory Tests 09/06/19 07:20 WBC 8.6 Did well with diet yesterday. NPO for U/S today No further f/u indicated
--- NOTE | 2019-09-06 13:12 | PN ---
Teaching Attending Note Name of Resident: Shyla Tate ATTENDING PHYSICIAN STATEMENT I saw and evaluated the patient. I reviewed the resident's note and discussed the case with the resident. I agree with the resident's findings and plan as documented. SUBJECTIVE: OBJECTIVE: Last Vital Signs Temp Pulse Resp BP Pulse Ox 97.7 F 76 20 148/83 95 09/06/19 08:45 09/06/19 08:45 09/06/19 08:45 09/06/19 08:45 09/06/19 08:45 GENERAL: Awake, alert, and not oriented, in no acute distress. HEAD: Normal with no signs of trauma. EYES: Pupils equal, round and reactive to light, sclera anicteric, conjunctiva clear. LUNGS: Breath sounds equal, clear to auscultation bilaterally. No wheezes, and no crackles. No accessory muscle use. HEART: Regular rate and rhythm, normal S1 and S2 ABDOMEN: Soft, nontender, not distended MUSCULOSKELETAL: Normal range of motion at all joints. No bony deformities or tenderness. No CVA tenderness. UPPER EXTREMITIES: 2+ pulses, warm, well-perfused. No cyanosis. No clubbing. No peripheral edema. LOWER EXTREMITIES: 2+ pulses, warm, well-perfused. No calf tenderness. No peripheral edema. NEUROLOGICAL: Cranial nerves II-XII intact. incomprehensible speech. CBCD WBC 8.6 K/mm3 (4.0-10.0) 09/06/19 07:20 RBC 4.38 M/mm3 (4.00-5.60) 09/06/19 07:20 Hgb 13.9 GM/dL (11.7-16.9) 09/06/19 07:20 Hct 43.1 % (35.4-49) 09/06/19 07:20 MCV 98.3 fl (80-96) H 09/06/19 07:20 MCHC 32.3 g/dl (32.0-35.9) 09/06/19 07:20 RDW 14.9 % (11.9-15.9) 09/06/19 07:20 Plt Count 224 K/MM3 (134-434) 09/06/19 07:20 MPV 9.8 fl (7.5-11.1) 09/06/19 07:20 CMP Sodium 144 mmol/L (136-145) 09/06/19 07:20 Potassium 4.2 mmol/L (3.5-5.1) 09/06/19 07:20 Chloride 116 mmol/L (98-107) H 09/06/19 07:20 Carbon Dioxide 21 mmol/L (21-32) 09/06/19 07:20 Anion Gap 8 MMOL/L (8-16) 09/06/19 07:20 BUN 37.7 mg/dL (7-18) H 09/06/19 07:20 Creatinine 2.5 mg/dL (0.55-1.3) H 09/06/19 07:20 Calcium 10.2 mg/dL (8.5-10.1) H 09/06/19 07:20 Total Bilirubin 0.8 mg/dL (0.2-1) 09/06/19 07:20 AST 6 U/L (15-37) L 09/06/19 07:20 ALT 14 U/L (13-61) 09/06/19 07:20 Alkaline Phosphatase 112 U/L (45-117) 09/06/19 07:20 Total Protein 5.9 g/dl (6.4-8.2) L 09/06/19 07:20 Albumin 2.9 g/dl (3.4-5.0) L 09/06/19 07:20 Active Medications Amlodipine Besylate (Norvasc -) 2.5 mg PO DAILY [facility] Last Admin: 09/06/19 11:25 Dose: 2.5 mg Documented by: Aspirin (Asa -) 162 mg PO DAILY [facility] Last Admin: 09/06/19 11:24 Dose: 162 mg Documented by: Atorvastatin Calcium (Lipitor -) 40 mg PO HS [facility] Last Admin: 09/05/19 21:31 Dose: 40 mg Documented by: Bacitracin (Bacitracin -) 1 applic TP DAILY [facility] Fluconazole (Diflucan -) 100 mg PO DAILY [facility] Last Admin: 09/06/19 11:25 Dose: 100 mg Documented by: Heparin Sodium (Porcine) (Heparin -) 5,000 unit SQ TID [facility] Last Admin: 09/06/19 05:28 Dose: 5,000 unit Documented by: Hydrocortisone (Hytone 1% Cream -) 1 applic TP DAILY PRN PRN Reason: HEMORRHOIDS Sodium Chloride (1/2 Normal Saline) 1,000 mls @ 75 mls/hr IV ASDIR [facility] Last Admin: 09/06/19 05:36 Dose: 75 mls/hr Documented by: Insulin Aspart (Novolog Vial Sliding Scale -) 1 vial SQ ACHS [facility]; Protocol Last Admin: 09/06/19 11:28 Dose: Not Given Documented by: Lactobacillus Acidophilus (Bacid -) 1 tab PO DAILY [facility] Last Admin: 09/06/19 11:24 Dose: 1 tab Documented by: Memantine (Namenda -) 5 mg PO BID [facility] Last Admin: 09/06/19 11:25 Dose: 5 mg Documented by: Tamsulosin HCl (Flomax -) 0.4 mg PO DAILY@0830 [facility] Last Admin: 09/06/19 11:23 Dose: 0.4 mg Documented by: ASSESSMENT AND PLAN: A 88 YOM with CVA(w rt sided weakness), HTN, CAD s/p CABG, DM, dementia and CKD presented with AMS # Delirium - UTI on fluconazole for yeast - pending final culture - US showing urinary retention, BPH, rt kidney atrophy - place mazariegos - urologist consult requested - ID consult appreciated # hypercalcemia - causes: immobility, adenoma, CKD - check pth, vit D, urine ca - IV hydration # COVID -ve # dementia # DM # ARSALAN on CKD # HTN #COVID -ve DVT prophylaxis
[2019-09-06] MEDS: BACITRACIN 15 GM TUBE TOPICAL OINTMENT TP SCH (13:43)
--- NOTE | 2019-09-06 14:23 | PN ---
Physical Exam: SUBJECTIVE: Patient seen and examined OBJECTIVE: Vital Signs Temperature 97.7 F 09/06/19 08:45 Pulse Rate 76 09/06/19 08:45 Respiratory Rate 20 09/06/19 08:45 Blood Pressure 148/83 09/06/19 08:45 O2 Sat by Pulse Oximetry (%) 95 09/06/19 08:45 GENERAL: The patient is awake, alert, and oriented x1, in no acute distress. HEAD: Normal with no signs of trauma. EYES: PERRLA, EOMI, sclera anicteric, conjunctiva clear. ENT: moist mucous membranes. NECK: full range of motion, supple. LUNGS: Breath sounds equal, clear to auscultation bilaterally HEART: Regular rate and rhythm, S1, S2 ABDOMEN: Soft, nontender, nondistended, normoactive bowel sounds EXTREMITIES: 2+ pulses, warm, well-perfused, no edema. SKIN: Warm, dry, normal turgor Laboratory Results - last 24 hr 09/05/19 09/05/19 09/05/19 06:35 13:00 16:47 WBC RBC Hgb Hct MCV MCH MCHC RDW Plt Count MPV Absolute Neuts (auto) Neutrophils % Lymphocytes % Monocytes % Eosinophils % Basophils % Nucleated RBC % Sodium Potassium Chloride Carbon Dioxide Anion Gap BUN Creatinine Est GFR (CKD-EPI)AfAm Est GFR (CKD-EPI)NonAf POC Glucometer 166 Random Glucose Calcium Phosphorus Magnesium Total Bilirubin GGT 17 AST ALT Alkaline Phosphatase Creatine Kinase 34 Total Protein Albumin Urine Osmolality 526 Ur Random Creatinine 103.0 Ur Random Sodium 51 Ur Random Potassium 50.0 Ur Random Chloride 41 L 09/05/19 09/06/19 09/06/19 21:34 06:28 07:20 WBC 8.6 RBC 4.38 Hgb 13.9 Hct 43.1 MCV 98.3 H MCH 31.7 MCHC 32.3 RDW 14.9 Plt Count 224 MPV 9.8 Absolute Neuts (auto) 5.3 Neutrophils % 61.5 Lymphocytes % 27.2 Monocytes % 6.0 Eosinophils % 4.5 Basophils % 0.8 Nucleated RBC % 0 Sodium Potassium Chloride Carbon Dioxide Anion Gap BUN Creatinine Est GFR (CKD-EPI)AfAm Est GFR (CKD-EPI)NonAf POC Glucometer 192 129 Random Glucose Calcium Phosphorus Magnesium Total Bilirubin GGT AST ALT Alkaline Phosphatase Creatine Kinase Total Protein Albumin Urine Osmolality Ur Random Creatinine Ur Random Sodium Ur Random Potassium Ur Random Chloride 09/06/19 09/06/19 07:20 11:27 WBC RBC Hgb Hct MCV MCH MCHC RDW Plt Count MPV Absolute Neuts (auto) Neutrophils % Lymphocytes % Monocytes % Eosinophils % Basophils % Nucleated RBC % Sodium 144 Potassium 4.2 Chloride 116 H Carbon Dioxide 21 Anion Gap 8 BUN 37.7 H Creatinine 2.5 H Est GFR (CKD-EPI)AfAm 25.43 Est GFR (CKD-EPI)NonAf 21.94 POC Glucometer 120 Random Glucose 125 H Calcium 10.2 H Phosphorus 2.7 Magnesium 2.4 Total Bilirubin 0.8 GGT AST 6 L ALT 14 Alkaline Phosphatase 112 Creatine Kinase Total Protein 5.9 L Albumin 2.9 L Urine Osmolality Ur Random Creatinine Ur Random Sodium Ur Random Potassium Ur Random Chloride Active Medications Generic Name Dose Route Start Last Admin Trade Name Freq PRN Reason Stop Dose Admin Amlodipine Besylate 2.5 mg 09/06/19 10:00 09/06/19 11:25 Norvasc - PO 2.5 mg DAILY SONYA Administration Aspirin 162 mg 09/05/19 10:00 09/06/19 11:24 Asa - PO 162 mg DAILY SONYA Administration Atorvastatin Calcium 40 mg 09/05/19 22:00 09/05/19 21:31 Lipitor - PO 40 mg HS SONYA Administration Bacitracin 1 applic 09/06/19 11:45 09/06/19 13:43 Bacitracin - TP 1 applic DAILY SONYA Administration Fluconazole 100 mg 09/05/19 13:30 09/06/19 11:25 Diflucan - PO 100 mg DAILY SONYA Administration Heparin Sodium (Porcine) 5,000 unit 09/05/19 06:00 09/06/19 13:44 Heparin - SQ 5,000 unit TID SONYA Administration Hydrocortisone 1 applic 09/06/19 11:30 Hytone 1% Cream - TP DAILY PRN HEMORRHOIDS Sodium Chloride 1,000 mls @ 75 mls/hr 09/05/19 12:45 09/06/19 05:36 1/2 Normal Saline IV 75 mls/hr ASDIR SONYA Administration Insulin Aspart 1 vial 09/05/19 16:30 09/06/19 11:28 Novolog Vial Sliding Scale - SQ Not Given ACHS SONYA Protocol Lactobacillus Acidophilus 1 tab 09/06/19 10:00 09/06/19 11:24 Bacid - PO 1 tab DAILY SONYA Administration Memantine 5 mg 09/05/19 10:00 09/06/19 11:25 Namenda - PO 5 mg BID SONYA Administration Tamsulosin HCl 0.4 mg 09/06/19 08:30 09/06/19 11:23 Flomax - PO 0.4 mg DAILY@0830 SONYA Administration ASSESSMENT/PLAN: Patient is an 88 year old male with a 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 Previous admission in December for AMS, treated for UTI and hyperCa. #Acute metabolic encephalopathy - Likely 2/2 UTI - UA: 2+protein, 3+blood, 3+ leukocyte esterase - Received IV Aztreonam in the ED based on previous UCx of +Proteus - UCx: yeast like organism - Start Fluconazole 100mg daily day 2 - discontinue IV abx - renal/bladder US - urinary retention, prostatic enlargement - Blood cx no growth to date - will insert mazariegos - Urology (Dr. Magdaleno) consulted. Recommendations appreciated - Infectious disease (Dr. Mart) consulted. Recommendations appreciated #ARSALAN on CKD - Continue gentle IVF- 1/2 NS @ 75 cc/hr - Creatinine improving, at baseline - renal/bladder US - moderately atrophic right kidney with no evidence of obstructive uropathy, urinary retention, prostatic enlargement #Hypercalcemia - trending down - Also presented on last admission, which improved w/ IVF hydration - Continue IV 1/2 NS @ 75 cc/hr - PTH, Vit D, urine ca pending #Dementia - C/w memantine 5 mg - Speech and swallow performed by speech language pathology, showed within functional limits - Recommended Facilitative Feeding, Safe Rate, 1/2 tsp. at a time, Elevate HOB during feed #PMH of CVA - C/w with aspirin 162 mg - C/w lipitor #NIDDM - ISS - BGM ACHS - Last HbA1c(12/2018): 8% #HTN - C/w Amlodipine 2.5mg daily #HLD - Continue Lipitor 40 mg #FEN - IV 1/2 NS 75 cc/hr - Routine monitoring of electrolytes during hospital stay - Diabetic/sodium restricted diet #DVT PPX - Heparin 5000 U SQ tid #Disposition - Admitted to med-surg. Visit type - Emergency Visit Emergency Visit: Yes ED Registration Date: 09/04/19 Care time: The patient presented to the Emergency Department on the above date and was hospitalized for further evaluation of their emergent condition. - New Patient This patient is new to me today: No - Critical Care Critical Care patient: No - Medication Review Med list reviewed for High Risk Meds patients 65 and older: Yes ATTENDING PHYSICIAN STATEMENT I saw and evaluated the patient. I reviewed the resident's note and discussed the case with the resident. I agree with the resident's findings and plan as documented. SUBJECTIVE: OBJECTIVE: ASSESSMENT AND PLAN:
[2019-09-06] MEDS: HYDROCORTISONE 1% TOPICAL CREAM 30 GM TUBE TP PRN (14:40)
--- NOTE | 2019-09-06 17:32 | CONS ---
DATE OF CONSULTATION: DATE OF DICTATION: 09/06/2019 HISTORY OF PRESENT ILLNESS: The patient is an 88-year-old male admitted via the emergency room on September 04, 2019. He comes in with altered mental status and possible urosepsis. He has had history of CVAs in 2018 with residual right-sided weakness. Also has high blood pressure, coronary artery disease, diabetes, dementia, and chronic kidney disease. Urinalysis revealed 2+ protein, 3+ blood. Patient admitted for altered mental status and urinary tract infection. An ultrasound of the kidneys and bladder revealed an atrophic right kidney with a distended bladder. Therefore Chou catheter was passed. There was evidence of a large prostate, and the bladder revealed thickening of the wall. There was some simple renal cysts. Chest x-ray revealed no infiltrate. The patient's T-max was 99. Blood pressure 130/80. O2 saturation 95. A COVID screen is pending. Presently the patient's abdomen is soft, Chou is patent, urine is cloudy. The patient is confused. The is answering the questions. Patient denies any ethanol or tobacco use. He has been on Flomax but also wears an adult Depend. IMPRESSION: Impression at present is history of prostatism with overflow incontinence, history of recurrent urosepsis, urinalysis rule out yeast-like organisms. His latest BUN, creatinine were 37.7 over 2.5. His white count is 8.6. A physical examination revealed a soft abdomen, the prostate is 3+, firm, and nontender. Impression at present is large prostate with recurrent retention, overflow incontinence, and recurrent bouts of urosepsis. Will recommend increasing the dosage of Flomax. Will give patient trial at voiding. If that is unsuccessful, will recommend a suprapubic cystotomy or a minimally prostate reductive surgical procedure including laser vaporization. Alfred [id number]
[2019-09-06] MEDS: ATORVASTATIN CA 40 MG TABLET (FP) PO SCH (21:42)
[2019-09-07] MEDS: HEPARIN NA (PORCINE) 5,000 UNITS/ML 1ML VIAL SQ SCH ×3 (06:47→21:11)
[2019-09-07] MEDS: INSULIN SLIDING SCALE (NOVOLOG) 1 VIAL SQ SCH ×4 (06:52→21:12)
[2019-09-07 07:04] LABS: BASO % 0.6 % (0-2.0); EOS % 3.5 % (0-4.5); HEMATOCRIT 43.5 % (35.4-49); HEMOGLOBIN 13.9 GM/dL (11.7-16.9); LYMPH % 23.3 % (8-40); MCH 31.2 pg (25.7-33.7); MCHC 32.1 g/dl (32.0-35.9); MEAN CELL VOLUME 97.2 fl (80-96); MEAN PLT VOLUME 9.6 fl (7.5-11.1); MONO % 5.4 % (3.8-10.2); NEUT % 67.2 % (42.8-82.8); PLATELET COUNT 254 K/MM3 (134-434); RBC 4.48 M/mm3 (4.00-5.60); RDW 14.7 % (11.9-15.9); WHITE BLOOD COUNT 9.1 K/mm3 (4.0-10.0)
[2019-09-07 07:28] LABS: ALBUMIN 2.8 g/dl (3.4-5.0); BILIRUBIN,TOTAL 0.6 mg/dL (0.2-1); BLOOD UREA NITROGEN 33.8 mg/dL (7-18); CALCIUM 10.2 mg/dL (8.5-10.1); CREATININE 2.2 mg/dL (0.55-1.3); MAGNESIUM 2.3 mg/dL (1.8-2.4); POTASSIUM 4.3 mmol/L (3.5-5.1); TOT PROT 5.6 g/dl (6.4-8.2)
[2019-09-07] MEDS: TAMSULOSIN HCL 0.4 MG CAP PO SCH (08:00)
[2019-09-07] MEDS ORDERED: PT OWN MED DRAWER 7, Y5N ONE (09:44)
[2019-09-07] MEDS: ASPIRIN 81 MG CHEWABLE TABLETS PO SCH (09:47)
[2019-09-07] MEDS: MEMANTINE HCL 5 MG TABLET (UD) PO SCH ×2 (09:47→22:14)
[2019-09-07] MEDS: LACTOBACILLUS ACIDOPHILUS 1 TABLET PO SCH (09:47)
[2019-09-07] MEDS: BACITRACIN 15 GM TUBE TOPICAL OINTMENT TP SCH (09:48)
[2019-09-07] MEDS: amLODIPine BESYLATE 2.5 MG TABLET (FP) PO SCH (09:48)
[2019-09-07] MEDS: FLUCONAZOLE 100 MG TABLET (UD) PO SCH (09:48)
--- NOTE | 2019-09-07 14:14 | PN ---
Physical Exam: SUBJECTIVE: Patient seen and examined OBJECTIVE: Vital Signs Period Temp Pulse Resp BP Sys/Brink Pulse Ox Last 24 Hr 97.9 F-98.6 F 67-90 20-20 113-136/56-66 94-94 GENERAL: Awake, alert, and not oriented, in no acute distress. HEAD: Normal with no signs of trauma. EYES: Pupils equal, round and reactive to light, sclera anicteric, conjunctiva clear. LUNGS: Breath sounds equal, clear to auscultation bilaterally. No wheezes, and no crackles. No accessory muscle use. HEART: Regular rate and rhythm, normal S1 and S2 ABDOMEN: Soft, nontender, not distended, large hemorrhoids/prolapse, scrotal aberration noted MUSCULOSKELETAL: Normal range of motion at all joints. No bony deformities or tenderness. No CVA tenderness. UPPER EXTREMITIES: 2+ pulses, warm, well-perfused. No cyanosis. No clubbing. No peripheral edema. LOWER EXTREMITIES: 2+ pulses, warm, well-perfused. No calf tenderness. No periph eral edema. NEUROLOGICAL: Cranial nerves II-XII intact. incomprehensible speech. Laboratory Results - last 24 hr 09/06/19 09/07/19 09/07/19 16:36 06:15 06:15 WBC 9.1 RBC 4.48 Hgb 13.9 Hct 43.5 MCV 97.2 H MCH 31.2 MCHC 32.1 RDW 14.7 Plt Count 254 MPV 9.6 Absolute Neuts (auto) 6.1 Neutrophils % 67.2 Lymphocytes % 23.3 Monocytes % 5.4 Eosinophils % 3.5 Basophils % 0.6 Nucleated RBC % 0 Sodium 142 Potassium 4.3 Chloride 113 H Carbon Dioxide 23 Anion Gap 6 L BUN 33.8 H Creatinine 2.2 H Est GFR (CKD-EPI)AfAm 29.68 Est GFR (CKD-EPI)NonAf 25.61 POC Glucometer 212 Random Glucose 110 H Calcium 10.2 H Magnesium 2.3 Total Bilirubin 0.6 AST 8 L ALT 14 Alkaline Phosphatase 113 Total Protein 5.6 L Albumin 2.8 L 09/07/19 09/07/19 06:50 11:35 WBC RBC Hgb Hct MCV MCH MCHC RDW Plt Count MPV Absolute Neuts (auto) Neutrophils % Lymphocytes % Monocytes % Eosinophils % Basophils % Nucleated RBC % Sodium Potassium Chloride Carbon Dioxide Anion Gap BUN Creatinine Est GFR (CKD-EPI)AfAm Est GFR (CKD-EPI)NonAf POC Glucometer 120 193 Random Glucose Calcium Magnesium Total Bilirubin AST ALT Alkaline Phosphatase Total Protein Albumin Active Medications Generic Name Dose Route Start Last Admin Trade Name [place] PRN Reason Stop Dose Admin Amlodipine Besylate 2.5 mg 09/06/19 10:00 09/07/19 09:48 Norvasc - PO 2.5 mg DAILY SONYA Administration Aspirin 162 mg 09/05/19 10:00 09/07/19 09:47 Asa - PO 162 mg DAILY SONYA Administration Atorvastatin Calcium 40 mg 09/05/19 22:00 09/06/19 21:42 Lipitor - PO 40 mg HS SONYA Administration Bacitracin 1 applic 09/06/19 11:45 09/07/19 09:48 Bacitracin - TP 1 applic DAILY SONYA Administration Fluconazole 100 mg 09/05/19 13:30 09/07/19 09:48 Diflucan - PO 100 mg DAILY SONYA Administration Heparin Sodium (Porcine) 5,000 unit 09/05/19 06:00 09/07/19 06:47 Heparin - SQ 5,000 unit TID SONYA Administration Hydrocortisone 1 applic 09/06/19 11:30 09/06/19 14:40 Hytone 1% Cream - TP 1 applic DAILY PRN Administration HEMORRHOIDS Sodium Chloride 1,000 mls @ 75 mls/hr 09/05/19 12:45 09/06/19 23:42 1/2 Normal Saline IV 75 mls/hr ASDIR SONYA Administration Insulin Aspart 1 vial 09/05/19 16:30 09/07/19 11:49 Novolog Vial Sliding Scale - SQ Not Given ACHS [facility] Protocol Lactobacillus Acidophilus 1 tab 09/06/19 10:00 09/07/19 09:47 Bacid - PO 1 tab DAILY SONYA Administration Memantine 5 mg 09/05/19 10:00 09/07/19 09:47 Namenda - PO 5 mg BID SONYA Administration Tamsulosin HCl 0.8 mg 09/06/19 16:43 09/07/19 08:00 Flomax - PO 0.8 mg DAILY@0830 SONYA Administration ASSESSMENT/PLAN: A 88 YOM with CVA(w rt sided weakness), HTN, CAD s/p CABG, DM, dementia and CKD presented with AMS # Delirium - recurrent UTI, now on fluconazole for yeast - pending final culture - US showing urinary retention, BPH, rt kidney atrophy - place mazariegos back as pt failed spontaneous voiding trial - probably will need suprapubic cath - urologist consult appreciated - ID consult appreciated # mild hypercalcemia - causes: immobility, adenoma, CKD - check pth, vit D, urine ca - IV hydration # local wound care management # COVID -ve # dementia # DM # ARSALAN on CKD # HTN #COVID -ve DVT prophylaxis Visit type - Emergency Visit Emergency Visit: Yes ED Registration Date: 09/04/19 Care time: The patient presented to the Emergency Department on the above date and was hospitalized for further evaluation of their emergent condition. - New Patient This patient is new to me today: No - Critical Care Critical Care patient: No - Discharge Referral Referred to [facility] Med P.C.: No - Medication Review Med list reviewed for High Risk Meds patients 65 and older: Yes (reviewed)
[2019-09-07] MEDS: SODIUM CHLORIDE 0.45% 1,000 ML IV SCH (17:00)
[2019-09-07] MEDS: ATORVASTATIN CA 40 MG TABLET (FP) PO SCH (21:12)
[2019-09-08] MEDS: HEPARIN NA (PORCINE) 5,000 UNITS/ML 1ML VIAL SQ SCH ×3 (05:56→21:41)
[2019-09-08] MEDS: INSULIN SLIDING SCALE (NOVOLOG) 1 VIAL SQ SCH ×4 (06:03→21:42)
[2019-09-08] MEDS: TAMSULOSIN HCL 0.4 MG CAP PO SCH (08:21)
[2019-09-08] MEDS ORDERED: PT OWN MED DRAWER 7, Y5N ONE (09:35)
[2019-09-08] MEDS: ASPIRIN 81 MG CHEWABLE TABLETS PO SCH (09:39)
[2019-09-08] MEDS: FLUCONAZOLE 100 MG TABLET (UD) PO SCH (09:40)
[2019-09-08] MEDS: MEMANTINE HCL 5 MG TABLET (UD) PO SCH ×2 (09:40→21:41)
[2019-09-08] MEDS: BACITRACIN 15 GM TUBE TOPICAL OINTMENT TP SCH (09:40)
[2019-09-08] MEDS: LACTOBACILLUS ACIDOPHILUS 1 TABLET PO SCH (09:40)
[2019-09-08] MEDS: amLODIPine BESYLATE 2.5 MG TABLET (FP) PO SCH (09:41)
--- NOTE | 2019-09-08 10:11 | PN ---
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 (short form) - Note 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: mazariegos replaced for retention yesterday no complaints alert Vital Signs Period Temp Pulse Resp BP Sys/Brink Pulse Ox Last 24 Hr 98.3 F-98.5 F 64-77 20-20 127-155/66-72 94-96 cor-rrr lungs clear abd soft,nt ext no edema mazariegos with clear urine CBC, BMP 09/07/19 06:15 09/07/19 06:15 Microbiology 09/04/19 06:45 Blood - Peripheral Venous Blood Culture - Preliminary NO GROWTH OBTAINED AFTER 72 HOURS, INCUBATION TO CO NTINUE FOR 2 DAYS. 09/04/19 06:35 Blood - Peripheral Venous Blood Culture - Preliminary NO GROWTH OBTAINED AFTER 72 HOURS, INCUBATION TO CON TINUE FOR 2 DAYS. 09/04/19 15:00 Urine - Urine - Catheterized Urine Culture - Final Yeast Like Organism imp/reccd UTI with yeast- would finish 7 days of diflucan urinary retention-now with mazariegos debora/ckd- gentle hydration pen/quinolone allergy noted, tolerates cephalosporins in the past and in ED Problem List - Problems (1) AMS (altered mental status) Code(s): R41.82 - ALTERED MENTAL STATUS, UNSPECIFIED Qualifiers: Altered mental status type: delirium Qualified Code(s): R41.0 - Disorie ntation, unspecified (2) Pyuria Code(s): R82.81 - PYURIA (3) History of CVA (cerebrovascular accident) Code(s): Z86.73 - PRSNL HX OF TIA (TIA), AND CEREB INFRC W/O RESID DEFICITS (4) History of CVA (cerebrovascular accident) Code(s): Z86.73 - PRSNL HX OF TIA (TIA), AND CEREB INFRC W/O RESID DEFICITS (5) Acute kidney injury superimposed on CKD Code(s): N17.9 - ACUTE KIDNEY FAILURE, UNSPECIFIED; N18.9 - CHRONIC KIDNEY DISEASE, UNSPECIFIED
--- NOTE | 2019-09-08 14:48 | PN ---
Physical Exam: SUBJECTIVE: Patient seen and examined, no change from yesterday OBJECTIVE: Vital Signs Period Temp Pulse Resp BP Sys/Brink Pulse Ox Last 24 Hr 98.3 F-98.5 F 64-77 20-20 127-155/66-72 94-96 GENERAL: Awake, alert, and not oriented, in no acute distress. HEAD: Normal with no signs of trauma. EYES: Pupils equal, round and reactive to light, sclera anicteric, conjunctiva clear. LUNGS: Breath sounds equal, clear to auscultation bilaterally. No wheezes, and no crackles. No accessory muscle use. HEART: Regular rate and rhythm, normal S1 and S2 ABDOMEN: Soft, nontender, not distended, large hemorrhoids/prolapse, scrotal aberration noted MUSCULOSKELETAL: Normal range of motion at all joints. No bony deformities or tenderness. No CVA tenderness. UPPER EXTREMITIES: 2+ pulses, warm, well-perfused. No cyanosis. No clubbing. No peripheral edema. LOWER EXTREMITIES: 2+ pulses, warm, well-perfused. No calf tenderness. No peripheral edema. NEUROLOGICAL: Cranial nerves II-XII intact. incomprehensible speech. Laboratory Results - last 24 hr 09/07/19 09/07/19 09/08/19 16:52 21:11 06:02 POC Glucometer 169 190 108 09/08/19 11:36 POC Glucometer 254 Active Medications Generic Name Dose Route Start Last Admin Trade Name Freq PRN Reason Stop Dose Admin Amlodipine Besylate 2.5 mg 09/06/19 10:00 09/08/19 09:41 Norvasc - PO 2.5 mg DAILY SONYA Administration Aspirin 162 mg 09/05/19 10:00 09/08/19 09:39 Asa - PO 162 mg DAILY SONYA Administration Atorvastatin Calcium 40 mg 09/05/19 22:00 09/07/19 21:12 Lipitor - PO 40 mg HS SONYA Administration Bacitracin 1 applic 09/06/19 11:45 09/08/19 09:40 Bacitracin - TP 1 applic DAILY SONYA Administration Fluconazole 100 mg 09/05/19 13:30 09/08/19 09:40 Diflucan - PO 100 mg DAILY SONYA Administration Heparin Sodium (Porcine) 5,000 unit 09/05/19 06:00 09/08/19 14:14 Heparin - SQ 5,000 unit TID SONYA Administration Hydrocortisone 1 applic 09/06/19 11:30 09/06/19 14:40 Hytone 1% Cream - TP 1 applic DAILY PRN Administration HEMORRHOIDS Sodium Chloride 1,000 mls @ 75 mls/hr 09/05/19 12:45 09/07/19 17:00 1/2 Normal Saline IV 75 mls/hr ASDIR SONYA Administration Insulin Aspart 1 vial 09/05/19 16:30 09/08/19 12:31 Novolog Vial Sliding Scale - SQ 6 units ACHS SONYA Administration Protocol Lactobacillus Acidophilus 1 tab 09/06/19 10:00 09/08/19 09:40 Bacid - PO 1 tab DAILY SONYA Administration Memantine 5 mg 09/05/19 10:00 09/08/19 09:40 Namenda - PO 5 mg BID SONYA Administration Tamsulosin HCl 0.8 mg 09/06/19 16:43 09/08/19 08:21 Flomax - PO 0.8 mg DAILY@0830 SONYA Administration ASSESSMENT/PLAN: A 88 YOM with CVA(w rt sided weakness), HTN, CAD s/p CABG, DM, dementia and CKD presented with AMS # Delirium 2/2 UTI - recurrent UTI, now on fluconazole for yeast for total 7 days - overflow incontinence, now on mazariegos - probably will need suprapubic cath - urologist consult appreciated - ID consult appreciated # mild hypercalcemia # local wound care management # COVID -ve # hemorrhoid, rectal prolapse # dementia # DM # ARSALAN on CKD # HTN #COVID -ve DVT prophylaxis Visit type - Emergency Visit Emergency Visit: Yes ED Registration Date: 09/04/19 Care time: The patient presented to the Emergency Department on the above date and was hospitalized for further evaluation of their emergent condition. - New Patient This patient is new to me today: No - Critical Care Critical Care patient: No - Discharge Referral Referred to [facility] Med P.C.: No - Medication Review Med list reviewed for High Risk Meds patients 65 and older: Yes (reviewed)
[2019-09-08] MEDS: SODIUM CHLORIDE 0.45% 1,000 ML IV SCH (17:38)
[2019-09-08] MEDS ORDERED: INSULIN (NOVOLOG) ASPART 100 UNITS/ML 10ML VIAL ONE (21:00)
[2019-09-08] MEDS: ATORVASTATIN CA 40 MG TABLET (FP) PO SCH (21:41)
[2019-09-09] MEDS: SODIUM CHLORIDE 0.45% 1,000 ML IV SCH ×2 (01:41→10:02)
[2019-09-09] MEDS: HEPARIN NA (PORCINE) 5,000 UNITS/ML 1ML VIAL SQ SCH ×3 (06:22→21:47)
[2019-09-09] MEDS: INSULIN SLIDING SCALE (NOVOLOG) 1 VIAL SQ SCH ×4 (06:32→21:48)
[2019-09-09 08:22] LABS: EOS % 6.4 % (0-4.5); HEMATOCRIT 39.4 % (35.4-49); HEMOGLOBIN 12.7 GM/dL (11.7-16.9); LYMPH % 29.3 % (8-40); MCH 31.4 pg (25.7-33.7); MCHC 32.3 g/dl (32.0-35.9); MEAN CELL VOLUME 97.2 fl (80-96); MEAN PLT VOLUME 9.9 fl (7.5-11.1); MONO % 5.3 % (3.8-10.2); PLATELET COUNT 232 K/MM3 (134-434); RBC 4.06 M/mm3 (4.00-5.60); RDW 14.8 % (11.9-15.9); WHITE BLOOD COUNT 8.3 K/mm3 (4.0-10.0)
[2019-09-09 08:46] LABS: ALBUMIN 2.7 g/dl (3.4-5.0); BILIRUBIN,TOTAL 0.6 mg/dL (0.2-1); BLOOD UREA NITROGEN 30.4 mg/dL (7-18); CREATININE 2.1 mg/dL (0.55-1.3); POTASSIUM 4.8 mmol/L (3.5-5.1); TOT PROT 5.5 g/dl (6.4-8.2)
--- NOTE | 2019-09-09 09:50 | PN ---
Physical Exam: SUBJECTIVE: Patient seen and examined at bedside this morning. No acute events overnight. OBJECTIVE: Vital Signs Temperature 98.3 F 09/09/19 09:38 Pulse Rate 77 09/09/19 09:38 Respiratory Rate 18 09/09/19 09:38 Blood Pressure 148/71 09/09/19 09:38 O2 Sat by Pulse Oximetry (%) 90 L 09/09/19 09:38 GENERAL: The patient is awake, alert, and oriented x1, in no acute distress. HEAD: Normal with no signs of trauma. EYES: PERRLA, EOMI, sclera anicteric, conjunctiva clear. ENT: moist mucous membranes. NECK: full range of motion, supple. LUNGS: Breath sounds equal, clear to auscultation bilaterally HEART: Regular rate and rhythm, S1, S2 ABDOMEN: Soft, nontender, nondistended, normoactive bowel sounds EXTREMITIES: 2+ pulses, warm, well-perfused, no edema. SKIN: Warm, dry, normal turgor Laboratory Results - last 24 hr 09/08/19 09/08/19 09/08/19 11:36 16:57 21:40 WBC RBC Hgb Hct MCV MCH MCHC RDW Plt Count MPV Absolute Neuts (auto) Neutrophils % Lymphocytes % Monocytes % Eosinophils % Basophils % Nucleated RBC % Sodium Potassium Chloride Carbon Dioxide Anion Gap BUN Creatinine Est GFR (CKD-EPI)AfAm Est GFR (CKD-EPI)NonAf POC Glucometer 254 172 141 Random Glucose Calcium Total Bilirubin AST ALT Alkaline Phosphatase Total Protein Albumin 09/09/19 09/09/19 09/09/19 06:31 07:20 07:20 WBC 8.3 RBC 4.06 Hgb 12.7 Hct 39.4 MCV 97.2 H MCH 31.4 MCHC 32.3 RDW 14.8 Plt Count 232 MPV 9.9 Absolute Neuts (auto) 4.8 Neutrophils % 58.0 Lymphocytes % 29.3 D Monocytes % 5.3 Eosinophils % 6.4 H D Basophils % 1.0 Nucleated RBC % 0 Sodium 144 Potassium 4.8 Chloride 115 H Carbon Dioxide 21 Anion Gap 8 BUN 30.4 H Creatinine 2.1 H Est GFR (CKD-EPI)AfAm 31.40 Est GFR (CKD-EPI)NonAf 27.09 POC Glucometer 103 Random Glucose 105 Calcium 10.0 Total Bilirubin 0.6 AST 16 ALT 23 Alkaline Phosphatase 103 Total Protein 5.5 L Albumin 2.7 L Active Medications Generic Name Dose Route Start Last Admin Trade Name [place] PRN Reason Stop Dose Admin Amlodipine Besylate 2.5 mg 09/06/19 10:00 09/08/19 09:41 Norvasc - PO 2.5 mg DAILY SONYA Administration Aspirin 162 mg 09/05/19 10:00 09/08/19 09:39 Asa - PO 162 mg DAILY SONYA Administration Atorvastatin Calcium 40 mg 09/05/19 22:00 09/08/19 21:41 Lipitor - PO 40 mg HS SONYA Administration Bacitracin 1 applic 09/06/19 11:45 09/08/19 09:40 Bacitracin - TP 1 applic DAILY SONYA Administration Fluconazole 100 mg 09/05/19 13:30 09/08/19 09:40 Diflucan - PO 100 mg DAILY SONYA Administration Heparin Sodium (Porcine) 5,000 unit 09/05/19 06:00 09/09/19 06:22 Heparin - SQ 5,000 unit TID SONYA Administration Hydrocortisone 1 applic 09/06/19 11:30 09/06/19 14:40 Hytone 1% Cream - TP 1 applic DAILY PRN Administration HEMORRHOIDS Sodium Chloride 1,000 mls @ 75 mls/hr 09/05/19 12:45 09/09/19 01:41 1/2 Normal Saline IV 75 mls/hr ASDIR SONYA Administration Insulin Aspart 1 vial 09/05/19 16:30 09/09/19 06:32 Novolog Vial Sliding Scale - SQ Not Given ACHS [facility] Protocol Lactobacillus Acidophilus 1 tab 09/06/19 10:00 09/08/19 09:40 Bacid - PO 1 tab DAILY SONYA Administration Memantine 5 mg 09/05/19 10:00 09/08/19 21:41 Namenda - PO 5 mg BID SONYA Administration Tamsulosin HCl 0.8 mg 09/06/19 16:43 09/08/19 08:21 Flomax - PO 0.8 mg DAILY@0830 SONYA Administration ASSESSMENT/PLAN: Patient is an 88 year old male with a 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 Previous admission in December for AMS, treated for UTI and hyperCa. #Acute metabolic encephalopathy - Likely 2/2 UTI - UA: 2+protein, 3+blood, 3+ leukocyte esterase - UCx: yeast like organism - Fluconazole 100mg daily day 5, to complete 7 days - renal/bladder US - urinary retention, prostatic enlargement - Blood cx no growth to date - Voiding trial done over the weekend, but patient still retained urine, mazariegos re-inserted - will possibly need suprapubic cath - Tamsulosin increased to 0.8mg daily - Urology (Dr. Magdaleno) consulted. Recommendations appreciated - Infectious disease (Dr. Beauchamp) consulted. Recommendations appreciated #ARSALAN on CKD - Creatinine now at baseline - renal/bladder US - moderately atrophic right kidney with no evidence of obstructive uropathy, urinary retention, prostatic enlargement #Hypercalcemia - trending down - Also presented on last admission, which improved w/ IVF hydration - Continue IV 1/2 NS @ 75 cc/hr - PTH, Vit D, urine ca pending #Dementia - C/w memantine 5 mg bid - Speech and swallow performed by speech language pathology, showed within functional limits - Facilitative Feeding, Safe Rate, 1/2 tsp. at a time, Elevate HOB during feed #PMH of CVA - C/w with aspirin 162 mg - C/w lipitor #NIDDM - ISS - BGM ACHS - Last HbA1c(12/2018): 8% #HTN - C/w Amlodipine 2.5mg daily #HLD - Continue Lipitor 40 mg #FEN - IV 1/2 NS 75 cc/hr - Routine bmp monitoring - Diabetic/sodium restricted diet #DVT PPX - Heparin 5000 U SQ tid #Disposition - Admitted to med-surg. Visit type - Emergency Visit Emergency Visit: Yes ED Registration Date: 09/04/19 Care time: The patient presented to the Emergency Department on the above date and was hospitalized for further evaluation of their emergent condition. - New Patient This patient is new to me today: No - Critical Care Critical Care patient: No - Medication Review Med list reviewed for High Risk Meds patients 65 and older: Yes ATTENDING PHYSICIAN STATEMENT I saw and evaluated the patient. I reviewed the resident's note and discussed the case with the resident. I agree with the resident's findings and plan as documented. SUBJECTIVE: OBJECTIVE: ASSESSMENT AND PLAN:
[2019-09-09] MEDS ORDERED: PT OWN MED DRAWER 7, Y5N ONE (09:57)
[2019-09-09] MEDS: MEMANTINE HCL 5 MG TABLET (UD) PO SCH ×2 (10:01→21:47)
[2019-09-09] MEDS: FLUCONAZOLE 100 MG TABLET (UD) PO SCH (10:01)
[2019-09-09] MEDS: LACTOBACILLUS ACIDOPHILUS 1 TABLET PO SCH (10:01)
[2019-09-09] MEDS: TAMSULOSIN HCL 0.4 MG CAP PO SCH (10:01)
[2019-09-09] MEDS: ASPIRIN 81 MG CHEWABLE TABLETS PO SCH (10:01)
[2019-09-09] MEDS: amLODIPine BESYLATE 2.5 MG TABLET (FP) PO SCH (10:01)
[2019-09-09] MEDS: HYDROCORTISONE 1% TOPICAL CREAM 30 GM TUBE TP PRN (10:02)
[2019-09-09] MEDS: BACITRACIN 15 GM TUBE TOPICAL OINTMENT TP SCH (10:02)
--- NOTE | 2019-09-09 11:21 | PN ---
Teaching Attending Note Name of Resident: Shyla Tate ATTENDING PHYSICIAN STATEMENT I saw and evaluated the patient. I reviewed the resident's note and discussed the case with the resident. I agree with the resident's findings and plan as documented. SUBJECTIVE: pt seen and examined at bedside, pleasant OBJECTIVE: Last Vital Signs Temp Pulse Resp BP Pulse Ox 98.3 F 77 18 148/71 90 L 09/09/19 09:38 09/09/19 09:38 09/09/19 09:38 09/09/19 09:38 09/09/19 09:38 GENERAL: Awake, alert, and not oriented, in no acute distress. HEAD: Normal with no signs of trauma. EYES: Pupils equal, round and reactive to light, sclera anicteric, conjunctiva clear. LUNGS: Breath sounds equal, clear to auscultation bilaterally. No wheezes, and no crackles. No accessory muscle use. HEART: Regular rate and rhythm, normal S1 and S2 ABDOMEN: Soft, nontender, not distended, large hemorrhoids/prolapse, scrotal aberration noted MUSCULOSKELETAL: Normal range of motion at all joints. No bony deformities or tenderness. No CVA tenderness. UPPER EXTREMITIES: 2+ pulses, warm, well-perfused. No cyanosis. No clubbing. No peripheral edema. LOWER EXTREMITIES: 2+ pulses, warm, well-perfused. No calf tenderness. No peripheral edema. NEUROLOGICAL: Cranial nerves II-XII intact. incomprehensible speech. CBCD WBC 8.3 K/mm3 (4.0-10.0) 09/09/19 07:20 RBC 4.06 M/mm3 (4.00-5.60) 09/09/19 07:20 Hgb 12.7 GM/dL (11.7-16.9) 09/09/19 07:20 Hct 39.4 % (35.4-49) 09/09/19 07:20 MCV 97.2 fl (80-96) H 09/09/19 07:20 MCHC 32.3 g/dl (32.0-35.9) 09/09/19 07:20 RDW 14.8 % (11.9-15.9) 09/09/19 07:20 Plt Count 232 K/MM3 (134-434) 09/09/19 07:20 MPV 9.9 fl (7.5-11.1) 09/09/19 07:20 CMP Sodium 144 mmol/L (136-145) 09/09/19 07:20 Potassium 4.8 mmol/L (3.5-5.1) 09/09/19 07:20 Chloride 115 mmol/L (98-107) H 09/09/19 07:20 Carbon Dioxide 21 mmol/L (21-32) 09/09/19 07:20 Anion Gap 8 MMOL/L (8-16) 09/09/19 07:20 BUN 30.4 mg/dL (7-18) H 09/09/19 07:20 Creatinine 2.1 mg/dL (0.55-1.3) H 09/09/19 07:20 Calcium 10.0 mg/dL (8.5-10.1) 09/09/19 07:20 Total Bilirubin 0.6 mg/dL (0.2-1) 09/09/19 07:20 AST 16 U/L (15-37) 09/09/19 07:20 ALT 23 U/L (13-61) 09/09/19 07:20 Alkaline Phosphatase 103 U/L (45-117) 09/09/19 07:20 Total Protein 5.5 g/dl (6.4-8.2) L 09/09/19 07:20 Albumin 2.7 g/dl (3.4-5.0) L 09/09/19 07:20 Active Medications Amlodipine Besylate (Norvasc -) 2.5 mg PO DAILY [facility] Last Admin: 09/09/19 10:01 Dose: 2.5 mg Documented by: Aspirin (Asa -) 162 mg PO DAILY [facility] Last Admin: 09/09/19 10:01 Dose: 162 mg Documented by: Atorvastatin Calcium (Lipitor -) 40 mg PO HS [facility] Last Admin: 09/08/19 21:41 Dose: 40 mg Documented by: Bacitracin (Bacitracin -) 1 applic TP DAILY [facility] Last Admin: 09/09/19 10:02 Dose: 1 applic Documented by: Fluconazole (Diflucan -) 100 mg PO DAILY [facility] Last Admin: 09/09/19 10:01 Dose: 100 mg Documented by: Heparin Sodium (Porcine) (Heparin -) 5,000 unit SQ TID [facility] Last Admin: 07/27/20 06:22 Dose: 5,000 unit Documented by: Hydrocortisone (Hytone 1% Cream -) 1 applic TP DAILY PRN PRN Reason: HEMORRHOIDS Last Admin: 09/09/19 10:02 Dose: 1 applic Documented by: Sodium Chloride (1/2 Normal Saline) 1,000 mls @ 75 mls/hr IV ASDIR [facility] Last Admin: 09/09/19 10:02 Dose: 75 mls/hr Documented by: Insulin Aspart (Novolog Vial Sliding Scale -) 1 vial SQ ACHS [facility]; Protocol Last Admin: 09/09/19 06:32 Dose: Not Given Documented by: Lactobacillus Acidophilus (Bacid -) 1 tab PO DAILY [facility] Last Admin: 09/09/19 10:01 Dose: 1 tab Documented by: Memantine (Namenda -) 5 mg PO BID [facility] Last Admin: 09/09/19 10:01 Dose: 5 mg Documented by: Tamsulosin HCl (Flomax -) 0.8 mg PO DAILY@0830 [facility] Last Admin: 09/09/19 10:01 Dose: 0.8 mg Documented by: ASSESSMENT AND PLAN: A 88 YOM with CVA(w rt sided weakness), HTN, CAD s/p CABG, DM, dementia and CKD presented with AMS # Delirium 2/2 UTI - recurrent UTI, now on fluconazole for yeast for total 7 days (last day 09/11/2019) - overflow incontinence, now on mazariegos - will need suprapubic cath - urologist consult - ID consult appreciated # mild hypercalcemia # local wound care management # COVID -ve # hemorrhoid, rectal prolapse # dementia # DM # ARSALAN on CKD # HTN #COVID -ve DVT prophylaxis Plan: discussed with Urologist, pt will go to suprapubic cath +/- TURP/TUVP on Monday09/11/2019
[2019-09-09] MEDS ORDERED: INSULIN (NOVOLOG) ASPART 100 UNITS/ML 10ML VIAL ONE ×2 (11:52→17:38)
--- NOTE | 2019-09-09 19:12 | PN ---
DATE OF VISIT: DATE OF DICTATION: 09/08/2019 Patient is an 88-year-old male with a history of acute urinary retention, had Chou catheter placed. A trial of voiding has failed after receiving 0.8 mg of tamsulosin. The patient does have history of a CVA with right-sided weakness. He is a hypertensive. He is status post coronary artery bypass. He is also a diabetic with chronic kidney disease as well as dementia. The patient presently has a Chou catheter in place. The abdomen is soft. Urine is clear. Culture reveals no growth. His CBC revealed a white count of 9.1, hemoglobin 13.9, and hematocrit 43.5. BUN of 33 and creatinine 2.2. His vital signs were stable with a T-max of 98.5. IMPRESSION AT PRESENT: Urinary tract infection with overflow incontinence requiring either a suprapubic tube or an attempt at a minimally-invasive prostate-reducing procedure including laser vaporization. Will explain this to family and decide on procedure. Alfred [id number]
--- NOTE | 2019-09-09 19:44 | PN ---
DATE OF VISIT: DATE OF DICTATION: 09/09/2019 HISTORY OF PRESENT ILLNESS: The patient is an 88-year-old male with multiple comorbidities, has history of overflow incontinence, several trials at voiding were unsuccessful, residual urine greater than 600 to 700 mL. Will recommend a suprapubic cystotomy for permanent drainage. The patient's white count presently is 8.3, hemoglobin and hematocrit 12.7/39.4, BUN and creatinine are 30.4 over 2.1. His T-max was 98.5. IMPRESSION: At present is an 88-year-old male with urinary incontinence secondary to overflow. It seems that he was not relieved by alpha adrenergic blockers. Due to his age, will recommend a suprapubic cystotomy for permanent drainage. Will follow with you. HILARY KAUR M.D. [id number]
[2019-09-09] MEDS: ATORVASTATIN CA 40 MG TABLET (FP) PO SCH (21:47)
[2019-09-10] MEDS: HEPARIN NA (PORCINE) 5,000 UNITS/ML 1ML VIAL SQ SCH ×2 (05:29→14:32)
[2019-09-10] MEDS: INSULIN SLIDING SCALE (NOVOLOG) 1 VIAL SQ SCH ×4 (06:12→21:50)
[2019-09-10 08:02] LABS: BASO % 0.5 % (0-2.0); EOS % 5.6 % (0-4.5); HEMATOCRIT 40.3 % (35.4-49); HEMOGLOBIN 12.9 GM/dL (11.7-16.9); LYMPH % 32.5 % (8-40); MCH 31.1 pg (25.7-33.7); MCHC 31.9 g/dl (32.0-35.9); MEAN CELL VOLUME 97.3 fl (80-96); MEAN PLT VOLUME 9.8 fl (7.5-11.1); MONO % 5.4 % (3.8-10.2); PLATELET COUNT 231 K/MM3 (134-434); RBC 4.14 M/mm3 (4.00-5.60); RDW 14.6 % (11.9-15.9); WHITE BLOOD COUNT 8.6 K/mm3 (4.0-10.0)
[2019-09-10 08:05] LABS: ALBUMIN 2.8 g/dl (3.4-5.0); BILIRUBIN,TOTAL 0.5 mg/dL (0.2-1); BLOOD UREA NITROGEN 28.9 mg/dL (7-18); CALCIUM 10.1 mg/dL (8.5-10.1); CREATININE 1.9 mg/dL (0.55-1.3); MAGNESIUM 2.2 mg/dL (1.8-2.4); POTASSIUM 4.7 mmol/L (3.5-5.1); TOT PROT 5.7 g/dl (6.4-8.2)
[2019-09-10] MEDS ORDERED: PT OWN MED DRAWER 7, Y5N ONE ×2 (09:19→21:12)
[2019-09-10] MEDS: MEMANTINE HCL 5 MG TABLET (UD) PO SCH ×2 (09:21→21:49)
[2019-09-10] MEDS: SODIUM CHLORIDE 0.45% 1,000 ML IV SCH (09:21)
[2019-09-10] MEDS: TAMSULOSIN HCL 0.4 MG CAP PO SCH (09:21)
[2019-09-10] MEDS: FLUCONAZOLE 100 MG TABLET (UD) PO SCH (09:21)
[2019-09-10] MEDS: ASPIRIN 81 MG CHEWABLE TABLETS PO SCH (09:21)
[2019-09-10] MEDS: amLODIPine BESYLATE 2.5 MG TABLET (FP) PO SCH (09:21)
[2019-09-10] MEDS: LACTOBACILLUS ACIDOPHILUS 1 TABLET PO SCH (09:21)
[2019-09-10] MEDS: BACITRACIN 15 GM TUBE TOPICAL OINTMENT TP SCH (09:22)
[2019-09-10] MEDS: HYDROCORTISONE 1% TOPICAL CREAM 30 GM TUBE TP PRN (09:22)
[2019-09-10 10:36] LABS: N-TERMINAL BNP 404.6 pg/ml (5-450)
[2019-09-10] MEDS ORDERED: INSULIN (NOVOLOG) ASPART 100 UNITS/ML 10ML VIAL ONE ×2 (11:44→21:11)
[2019-09-10] MEDS ORDERED: ASPIRIN 81 MG CHEWABLE TABLETS PO SCH (13:00)
[2019-09-10] MEDS ORDERED: DOCUSATE SODIUM 100 MG CAPSULE (FP) PO PRN (16:31)
--- NOTE | 2019-09-10 16:32 | PN ---
Physical Exam: SUBJECTIVE: Patient seen and examined OBJECTIVE: Vital Signs Temperature 98.2 F 09/10/19 14:00 Pulse Rate 74 09/10/19 14:00 Respiratory Rate 20 09/10/19 14:00 Blood Pressure 137/65 09/10/19 14:00 O2 Sat by Pulse Oximetry (%) 91 L 09/10/19 09:15 GENERAL: The patient is awake, alert, and oriented x1, in no acute distress. HEAD: Normal with no signs of trauma. EYES: PERRLA, EOMI, sclera anicteric, conjunctiva clear. ENT: moist mucous membranes. NECK: full range of motion, supple. LUNGS: Breath sounds equal, clear to auscultation bilaterally HEART: Regular rate and rhythm, S1, S2 ABDOMEN: Soft, nontender, nondistended, normoactive bowel sounds, large hemorrhoids EXTREMITIES: 2+ pulses, warm, well-perfused, no edema. SKIN: Warm, dry, normal turgor Laboratory Results - last 24 hr 09/09/19 09/09/19 09/10/19 17:26 21:47 06:11 WBC RBC Hgb Hct MCV MCH MCHC RDW Plt Count MPV Absolute Neuts (auto) Neutrophils % Lymphocytes % Monocytes % Eosinophils % Basophils % Nucleated RBC % Sodium Potassium Chloride Carbon Dioxide Anion Gap BUN Creatinine Est GFR (CKD-EPI)AfAm Est GFR (CKD-EPI)NonAf POC Glucometer 176 100 110 Random Glucose Calcium Magnesium Total Bilirubin AST ALT Alkaline Phosphatase B-Natriuretic Peptide Total Protein Albumin 09/10/19 09/10/19 09/10/19 06:40 06:40 11:49 WBC 8.6 RBC 4.14 Hgb 12.9 Hct 40.3 MCV 97.3 H MCH 31.1 MCHC 31.9 L RDW 14.6 Plt Count 231 MPV 9.8 Absolute Neuts (auto) 4.8 Neutrophils % 56.0 Lymphocytes % 32.5 Monocytes % 5.4 Eosinophils % 5.6 H Basophils % 0.5 Nucleated RBC % 0 Sodium 142 Potassium 4.7 Chloride 113 H Carbon Dioxide 21 Anion Gap 8 BUN 28.9 H Creatinine 1.9 H Est GFR (CKD-EPI)AfAm 35.44 Est GFR (CKD-EPI)NonAf 30.58 POC Glucometer 130 Random Glucose 101 Calcium 10.1 Magnesium 2.2 Total Bilirubin 0.5 AST 18 ALT 32 Alkaline Phosphatase 105 B-Natriuretic Peptide 404.6 Total Protein 5.7 L Albumin 2.8 L Active Medications Generic Name Dose Route Start Last Admin Trade Name [place] PRN Reason Stop Dose Admin Amlodipine Besylate 2.5 mg 09/06/19 10:00 09/10/19 09:21 Norvasc - PO 2.5 mg DAILY [facility] Administration Aspirin 81 mg 09/10/19 13:00 Asa - PO DAILY [facility] Atorvastatin Calcium 40 mg 09/05/19 22:00 09/09/19 21:47 Lipitor - PO 40 mg HS [facility] Administration Bacitracin 1 applic 09/06/19 11:45 09/10/19 09:22 Bacitracin - TP 1 applic DAILY [facility] Administration Fluconazole 100 mg 09/05/19 13:30 09/10/19 09:21 Diflucan - PO 100 mg DAILY [facility] Administration Heparin Sodium (Porcine) 5,000 unit 09/05/19 06:00 09/10/19 14:32 Heparin - SQ 5,000 unit TID [facility] Administration Hydrocortisone 1 applic 09/06/19 11:30 09/10/19 09:22 Hytone 1% Cream - TP 1 applic DAILY PRN Administration HEMORRHOIDS Sodium Chloride 1,000 mls @ 75 mls/hr 09/09/19 10:00 09/10/19 09:21 1/2 Normal Saline IV 75 mls/hr ASDIR [facility] Administration Insulin Aspart 1 vial 09/05/19 16:30 09/10/19 11:50 Novolog Vial Sliding Scale - SQ Not Given ACHS [facility] Protocol Lactobacillus Acidophilus 1 tab 09/06/19 10:00 09/10/19 09:21 Bacid - PO 1 tab DAILY [facility] Administration Memantine 5 mg 09/05/19 10:00 09/10/19 09:21 Namenda - PO 5 mg BID [facility] Administration Tamsulosin HCl 0.8 mg 09/06/19 16:43 09/10/19 09:21 Flomax - PO 0.8 mg DAILY@0830 [facility] Administration ASSESSMENT/PLAN: Patient is an 88 year old male with a 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 Previous admission in December for AMS, treated for UTI and hyperCa. #Acute metabolic encephalopathy - Likely 2/2 UTI - UA: 2+protein, 3+blood, 3+ leukocyte esterase - UCx: yeast like organism - Fluconazole 100mg daily day 6, to complete 7 days - renal/bladder US - urinary retention, prostatic enlargement - Blood cx no growth to date - Voiding trial done over the weekend, but patient still retained urine, mazariegos re-inserted - will need suprapubic cystostomy - plan for OR, pending repeat covid - Tamsulosin increased to 0.8mg daily - Urology (Dr. Magdaleno) consulted. Recommendations appreciated - Infectious disease (Dr. Beauchamp) consulted. Recommendations appreciated #ARSALAN on CKD - Creatinine now at baseline - renal/bladder US - moderately atrophic right kidney with no evidence of obstructive uropathy, urinary retention, prostatic enlargement #Hypercalcemia - trending down - Also presented on last admission, which improved w/ IVF hydration - Continue IV 1/2 NS @ 75 cc/hr - PTH, Vit D, urine ca pending #Hemorrhoids - reported she has applied steroid creams but has not improved - will consult surgery (Dr. Thomas) for evaluation. appreciate recs. #Dementia - C/w memantine 5 mg bid - Speech and swallow performed by speech language pathology, showed within functional limits - Facilitative Feeding, Safe Rate, 1/2 tsp. at a time, Elevate HOB during feed #PMH of CVA - C/w with aspirin 162 mg - C/w lipitor #NIDDM - ISS - BGM ACHS - Last HbA1c(12/2018): 8% #HTN - C/w Amlodipine 2.5mg daily #HLD - Continue Lipitor 40 mg #FEN - IV 1/2 NS 75 cc/hr - Routine bmp monitoring - Diabetic/sodium restricted diet #DVT PPX - Heparin 5000 U SQ tid #Disposition - Admitted to med-surg. Visit type - Emergency Visit Emergency Visit: Yes ED Registration Date: 09/04/19 Care time: The patient presented to the Emergency Department on the above date and was hospitalized for further evaluation of their emergent condition. - New Patient This patient is new to me today: No - Critical Care Critical Care patient: No - Medication Review Med list reviewed for High Risk Meds patients 65 and older: Yes ATTENDING PHYSICIAN STATEMENT I saw and evaluated the patient. I reviewed the resident's note and discussed the case with the resident. I agree with the resident's findings and plan as documented. SUBJECTIVE: OBJECTIVE: ASSESSMENT AND PLAN:
--- NOTE | 2019-09-10 18:07 | PN ---
Teaching Attending Note Name of Resident: Shyla Tate ATTENDING PHYSICIAN STATEMENT I saw and evaluated the patient. I reviewed the resident's note and discussed the case with the resident. I agree with the resident's findings and plan as documented. SUBJECTIVE: Patient seen and examined bedside, being treated for funguria, needing SPT placement likely for tomorrow. VSS. OBJECTIVE: GENERAL: The patient is awake, alert, and oriented x1, in no acute distress. HEAD: Normal with no signs of trauma. EYES: PERRLA, EOMI, sclera anicteric, conjunctiva clear. ENT: moist mucous membranes. NECK: full range of motion, supple. LUNGS: Breath sounds equal, clear to auscultation bilaterally HEART: Regular rate and rhythm, S1, S2 ABDOMEN: Soft, nontender, nondistended, normoactive bowel sounds, large hemorrhoids EXTREMITIES: 2+ pulses, warm, well-perfused, no edema. SKIN: Warm, dry, normal turgor mazariegos draining clear urine Vital Signs - 24 hr 09/09/19 09/10/19 09/10/19 21:00 06:00 09:00 Temperature 98.3 F 98.1 F Pulse Rate 67 73 Respiratory 18 20 Rate Blood Pressure 136/65 148/63 O2 Sat by Pulse 97 91 L 91 L Oximetry (%) 09/10/19 09/10/19 09/10/19 09:15 14:00 16:20 Temperature 98.7 F 98.2 F 97.7 F Pulse Rate 74 74 80 Respiratory 20 20 18 Rate Blood Pressure 155/77 137/65 121/65 O2 Sat by Pulse 91 L 95 Oximetry (%) Microbiology 09/04/19 06:45 Blood - Peripheral Venous Blood Culture - Final NO GROWTH AFTER 5 DAYS INCUBATION 09/04/19 06:35 Blood - Peripheral Venous Blood Culture - Final NO GROWTH AFTER 5 DAYS INCUBATION 09/04/19 15:00 Urine - Urine - Catheterized Urine Culture - Final Yeast Like Organism Laboratory Results - last 24 hr 09/09/19 09/10/19 09/10/19 21:47 06:11 06:40 WBC 8.6 RBC 4.14 Hgb 12.9 Hct 40.3 MCV 97.3 H MCH 31.1 MCHC 31.9 L RDW 14.6 Plt Count 231 MPV 9.8 Absolute Neuts (auto) 4.8 Neutrophils % 56.0 Lymphocytes % 32.5 Monocytes % 5.4 Eosinophils % 5.6 H Basophils % 0.5 Nucleated RBC % 0 Sodium Potassium Chloride Carbon Dioxide Anion Gap BUN Creatinine Est GFR (CKD-EPI)AfAm Est GFR (CKD-EPI)NonAf POC Glucometer 100 110 Random Glucose Calcium Magnesium Total Bilirubin AST ALT Alkaline Phosphatase B-Natriuretic Peptide Total Protein Albumin 09/10/19 09/10/19 09/10/19 06:40 11:49 17:10 WBC RBC Hgb Hct MCV MCH MCHC RDW Plt Count MPV Absolute Neuts (auto) Neutrophils % Lymphocytes % Monocytes % Eosinophils % Basophils % Nucleated RBC % Sodium 142 Potassium 4.7 Chloride 113 H Carbon Dioxide 21 Anion Gap 8 BUN 28.9 H Creatinine 1.9 H Est GFR (CKD-EPI)AfAm 35.44 Est GFR (CKD-EPI)NonAf 30.58 POC Glucometer 130 179 Random Glucose 101 Calcium 10.1 Magnesium 2.2 Total Bilirubin 0.5 AST 18 ALT 32 Alkaline Phosphatase 105 B-Natriuretic Peptide 404.6 Total Protein 5.7 L Albumin 2.8 L Home Medications Medication Instructions Recorded Amlodipine Besylate 2.5 mg PO DAILY 01/09/19 Ascorbate Calcium [Vitamin C] 500 mg PO DAILY 01/09/19 Aspirin 162 mg PO DAILY 01/09/19 Atorvastatin Ca [Lipitor] 40 mg PO HS 01/09/19 Lactobacillus Acidophilus 1 each PO DAILY 01/09/19 [Acidophilus] Memantine HCl 5 mg PO BID 01/09/19 Tamsulosin HCl [Flomax -] 0.4 mg PO DAILY@0830 #30 cap.er.24h 01/16/19 Glimepiride 4 mg PO BID 09/04/19 Current Medications Generic Name Dose Route Start Last Admin Trade Name Freq PRN Reason Stop Dose Admin Amlodipine Besylate 2.5 mg 09/06/19 10:00 09/10/19 09:21 Norvasc - PO 2.5 mg DAILY [facility] Administration Aspirin 81 mg 09/10/19 13:00 Asa - PO DAILY [facility] Atorvastatin Calcium 40 mg 09/05/19 22:00 09/09/19 21:47 Lipitor - PO 40 mg HS [facility] Administration Bacitracin 1 applic 09/06/19 11:45 09/10/19 09:22 Bacitracin - TP 1 applic DAILY [facility] Administration Docusate Sodium 100 mg 09/10/19 16:31 Colace - PO Q12H PRN CONSTIPATION Fluconazole 100 mg 09/05/19 13:30 09/10/19 09:21 Diflucan - PO 100 mg DAILY [facility] Administration Heparin Sodium (Porcine) 5,000 unit 09/05/19 06:00 09/10/19 14:32 Heparin - SQ 5,000 unit TID [facility] Administration Hydrocortisone 1 applic 09/06/19 11:30 09/10/19 09:22 Hytone 1% Cream - TP 1 applic DAILY PRN Administration HEMORRHOIDS Sodium Chloride 1,000 mls @ 75 mls/hr 09/09/19 10:00 09/10/19 09:21 1/2 Normal Saline IV 75 mls/hr ASDIR [facility] Administration Insulin Aspart 1 vial 09/05/19 16:30 09/10/19 17:11 Novolog Vial Sliding Scale - SQ 2 units ACHS [facility] Administration Protocol Lactobacillus Acidophilus 1 tab 09/06/19 10:00 09/10/19 09:21 Bacid - PO 1 tab DAILY [facility] Administration Memantine 5 mg 09/05/19 10:00 09/10/19 09:21 Namenda - PO 5 mg BID [facility] Administration Senna 1 tab 09/10/19 22:00 Senna - PO HS [facility] Tamsulosin HCl 0.8 mg 09/06/19 16:43 09/10/19 09:21 Flomax - PO 0.8 mg DAILY@0830 [facility] Administration ASSESSMENT AND PLAN: 88 M UTI with yeast HTN HLD BPH Urinary retention 2/2 outflow obstruction requiring SPT T2DM Plan: COnt. Fluconazole and IVF NPO MN for SPT in AM Cont. dementia meds Cont. Flomax Correct electrolytes PRN DVT ppx: Heparin SC
[2019-09-10] MEDS: SENNOSIDES 8.6MG TABLET (FP) PO SCH (21:49)
[2019-09-10] MEDS: ATORVASTATIN CA 40 MG TABLET (FP) PO SCH (21:49)
[2019-09-11] MEDS: INSULIN SLIDING SCALE (NOVOLOG) 1 VIAL SQ SCH ×4 (07:30→21:16)
--- NOTE | 2019-09-11 09:55 | PN ---
Physical Exam: SUBJECTIVE: Patient seen and examined at bedside this morning. No acute events overnight. OBJECTIVE: Vital Signs Temperature 98.1 F 09/11/19 06:00 Pulse Rate 77 09/11/19 06:00 Respiratory Rate 18 09/11/19 06:00 Blood Pressure 158/79 09/11/19 06:00 O2 Sat by Pulse Oximetry (%) 90 L 09/11/19 06:00 GENERAL: The patient is awake, alert, and oriented x1, in no acute distress. HEAD: Normal with no signs of trauma. EYES: PERRLA, EOMI, sclera anicteric, conjunctiva clear. ENT: moist mucous membranes. NECK: full range of motion, supple. LUNGS: Breath sounds equal, clear to auscultation bilaterally HEART: Regular rate and rhythm, S1, S2 ABDOMEN: Soft, nontender, nondistended, normoactive bowel sounds, large hemorrhoids EXTREMITIES: 2+ pulses, warm, well-perfused, no edema. SKIN: Warm, dry, normal turgor Laboratory Results - last 24 hr 09/10/19 09/10/19 09/10/19 06:40 11:49 17:10 Sodium 142 Potassium 4.7 Chloride 113 H Carbon Dioxide 21 Anion Gap 8 BUN 28.9 H Creatinine 1.9 H Est GFR (CKD-EPI)AfAm 35.44 Est GFR (CKD-EPI)NonAf 30.58 POC Glucometer 130 179 Random Glucose 101 Calcium 10.1 Magnesium 2.2 Total Bilirubin 0.5 AST 18 ALT 32 Alkaline Phosphatase 105 B-Natriuretic Peptide 404.6 Total Protein 5.7 L Albumin 2.8 L 09/10/19 09/11/19 21:50 07:30 Sodium Potassium Chloride Carbon Dioxide Anion Gap BUN Creatinine Est GFR (CKD-EPI)AfAm Est GFR (CKD-EPI)NonAf POC Glucometer 193 124 Random Glucose Calcium Magnesium Total Bilirubin AST ALT Alkaline Phosphatase B-Natriuretic Peptide Total Protein Albumin Active Medications Generic Name Dose Route Start Last Admin Trade Name Freq PRN Reason Stop Dose Admin Amlodipine Besylate 2.5 mg 09/06/19 10:00 09/10/19 09:21 Norvasc - PO 2.5 mg DAILY [facility] Administration Aspirin 81 mg 09/10/19 13:00 Asa - PO DAILY [facility] Atorvastatin Calcium 40 mg 09/05/19 22:00 09/10/19 21:49 Lipitor - PO 40 mg HS [facility] Administration Bacitracin 1 applic 09/06/19 11:45 09/10/19 09:22 Bacitracin - TP 1 applic DAILY [facility] Administration Docusate Sodium 100 mg 09/10/19 16:31 Colace - PO Q12H PRN CONSTIPATION Fluconazole 100 mg 09/05/19 13:30 09/10/19 09:21 Diflucan - PO 100 mg DAILY [facility] Administration Heparin Sodium (Porcine) 5,000 unit 09/05/19 06:00 09/10/19 14:32 Heparin - SQ 5,000 unit TID [facility] Administration Hydrocortisone 1 applic 09/06/19 11:30 09/10/19 09:22 Hytone 1% Cream - TP 1 applic DAILY PRN Administration HEMORRHOIDS Sodium Chloride 1,000 mls @ 75 mls/hr 09/09/19 10:00 09/10/19 09:21 1/2 Normal Saline IV 75 mls/hr ASDIR [facility] Administration Insulin Aspart 1 vial 09/05/19 16:30 09/11/19 07:30 Novolog Vial Sliding Scale - SQ Not Given ACHS [facility] Protocol Lactobacillus Acidophilus 1 tab 09/06/19 10:00 09/10/19 09:21 Bacid - PO 1 tab DAILY [facility] Administration Memantine 5 mg 09/05/19 10:00 09/10/19 21:49 Namenda - PO 5 mg BID [facility] Administration Senna 1 tab 09/10/19 22:00 09/10/19 21:49 Senna - PO 1 tab HS [facility] Administration Tamsulosin HCl 0.8 mg 09/06/19 16:43 09/10/19 09:21 Flomax - PO 0.8 mg DAILY@0830 [facility] Administration ASSESSMENT/PLAN: Patient is an 88 year old male with a 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 Previous admission in December for AMS, treated for UTI and hyperCa. #Acute metabolic encephalopathy, improved - Likely 2/2 UTI - UA: 2+protein, 3+blood, 3+ leukocyte esterase - UCx: yeast like organism - Fluconazole 100mg daily 08/19 today - renal/bladder US - urinary retention, prostatic enlargement - Blood cx no growth to date - Voiding trial done over the weekend, but patient still retained urine, mazariegos re-inserted - will need suprapubic cystostomy - plan for OR, pending repeat covid - Tamsulosin increased to 0.8mg daily - Urology (Dr. Magdaleno) consulted. Recommendations appreciated - Infectious disease (Dr. Beauchamp) consulted. Recommendations appreciated #ARSALAN on CKD - Creatinine now at baseline - renal/bladder US - moderately atrophic right kidney with no evidence of obstructive uropathy, urinary retention, prostatic enlargement #Hypercalcemia - trending down - Also presented on last admission, which improved w/ IVF hydration - Continue IV 1/2 NS @ 75 cc/hr - PTH, Vit D, urine ca pending #Hemorrhoids - reported she has applied steroid creams but has not improved - will consult surgery (Dr. Thomas) for evaluation. appreciate recs. #Dementia - C/w memantine 5 mg bid - Speech and swallow performed by speech language pathology, showed within functional limits - Facilitative Feeding, Safe Rate, 1/2 tsp. at a time, Elevate HOB during feed #PMH of CVA - C/w with aspirin 162 mg - C/w lipitor #NIDDM - ISS - BGM ACHS - Last HbA1c(12/2018): 8% #HTN - C/w Amlodipine 2.5mg daily #HLD - Continue Lipitor 40 mg #FEN - IV 1/2 NS 75 cc/hr - Routine bmp monitoring - Diabetic/sodium restricted diet #DVT PPX - Heparin 5000 U SQ tid #Disposition - Admitted to med-surg. Visit type - Emergency Visit Emergency Visit: Yes ED Registration Date: 09/04/19 Care time: The patient presented to the Emergency Department on the above date and was hospitalized for further evaluation of their emergent condition. - New Patient This patient is new to me today: No - Critical Care Critical Care patient: No - Medication Review Med list reviewed for High Risk Meds patients 65 and older: Yes ATTENDING PHYSICIAN STATEMENT I saw and evaluated the patient. I reviewed the resident's note and discussed the case with the resident. I agree with the resident's findings and plan as documented. SUBJECTIVE: OBJECTIVE: ASSESSMENT AND PLAN:
--- NOTE | 2019-09-11 10:02 | CONSULT ---
<Hector Wilson - Last Filed: 09/11/19 09:12> - Consultation REQUESTING PROVIDER: CONSULT REQUEST: We have been asked to surgically evaluate this patient for hemorrhoids PCP:Maged Carmen MD HISTORY OF PRESENT ILLNESS: 88M was consulted to surgery for hemorrhoids. Pt has some baseline dementia so unable to get much history. Unsure how long hemorrhoids have been present. Most of history gotten from chart. 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, HTN, CAD s/p CABG, DM, dementia, and CKD Home Medications Medication Instructions Recorded Amlodipine Besylate 2.5 mg PO DAILY 01/09/19 Ascorbate Calcium [Vitamin C] 500 mg PO DAILY 01/09/19 Aspirin 162 mg PO DAILY 01/09/19 Atorvastatin Ca [Lipitor] 40 mg PO HS 01/09/19 Lactobacillus Acidophilus 1 each PO DAILY 01/09/19 [Acidophilus] Memantine HCl 5 mg PO BID 01/09/19 Tamsulosin HCl [Flomax -] 0.4 mg PO DAILY@0830 #30 cap.er.24h 01/16/19 Glimepiride 4 mg PO BID 09/04/19 Allergies Allergy/AdvReac Type Severity Reaction Status Date / Time ciprofloxacin [From Cipro] Allergy Verified 09/04/19 13:59 moxifloxacin [From Avelox] Allergy Verified 09/04/19 13:59 Penicillins Allergy Verified 09/04/19 13:59 PHYSICAL EXAM: GENERAL: Awake, alert, and oriented to name HEAD: Normal with no signs of trauma. EYES: PERRL, sclera anicteric, conjunctiva clear. NECK: Normal ROM, supple without lymphadenopathy, JVD, or masses. LUNGS: breathing comfortably, No accessory muscle use. ABDOMEN: Soft, nontender, not distended, normoactive bowel sounds, no guarding, no rebound, no masses. No organomegaly. MUSCULOSKELETAL: Normal ROM at all joints. No bony deformities or tenderness. No CVA tenderness. BUTTOCK: Internal hemorrhoids presents easily reducible, decreased rectal tone, no signs of bleeding or thrombus, no mass UPPER EXTREMITIES: warm, well-perfused. No cyanosis. No peripheral edema. LOWER EXTREMITIES: warm, well-perfused. No calf tenderness. No peripheral edema. NEUROLOGICAL: Normal speech, gait not observed. PSYCH: Cooperative. Good eye contact. Appropriate mood and affect. SKIN: Warm, dry, normal turgor, no rashes or lesions noted. Vital Signs Temperature 98.1 F 09/11/19 06:00 Pulse Rate 77 09/11/19 06:00 Respiratory Rate 18 09/11/19 06:00 Blood Pressure 158/79 09/11/19 06:00 O2 Sat by Pulse Oximetry (%) 90 L 09/11/19 06:00 Lab Results WBC 8.6 K/mm3 (4.0-10.0) 09/10/19 06:40 RBC 4.14 M/mm3 (4.00-5.60) 09/10/19 06:40 Hgb 12.9 GM/dL (11.7-16.9) 09/10/19 06:40 Hct 40.3 % (35.4-49) 09/10/19 06:40 MCV 97.3 fl (80-96) H 09/10/19 06:40 MCHC 31.9 g/dl (32.0-35.9) L 09/10/19 06:40 RDW 14.6 % (11.9-15.9) 09/10/19 06:40 Plt Count 231 K/MM3 (134-434) 09/10/19 06:40 INR 0.92 (0.83-1.09) 09/04/19 15:00 Sodium 142 mmol/L (136-145) 09/10/19 06:40 Potassium 4.7 mmol/L (3.5-5.1) 09/10/19 06:40 Chloride 113 mmol/L (98-107) H 09/10/19 06:40 Carbon Dioxide 21 mmol/L (21-32) 09/10/19 06:40 Anion Gap 8 MMOL/L (8-16) 09/10/19 06:40 BUN 28.9 mg/dL (7-18) H 09/10/19 06:40 Creatinine 1.9 mg/dL (0.55-1.3) H 09/10/19 06:40 Random Glucose 101 mg/dL (74-106) 09/10/19 06:40 Calcium 10.1 mg/dL (8.5-10.1) 09/10/19 06:40 Problem List - Problems (1) Hemorrhoids that prolapse with straining and require manual replacement back inside anal canal Assessment/Plan: Plan -hemorrhoids are easily reducible, no signs of bleeding -can use witch khloe for discomfort -can follow up with Dr. Thomas as outpatient if interested in further treatment. Pt discussed with Dr. Thomas who agrees with plan Code(s): K64.2 - THIRD DEGREE HEMORRHOIDS <Meir Thomas - Last Filed: 09/11/19 10:24> - Consultation Attending Surgeon: I personally saw and examined the patient. My examination reveals a patient with hemorrhoids. I discussed the case with the surgical PA and agree with their findings and plan of care with any exceptions as noted. ~ Meir Thomas MD, FACS
[2019-09-11] MEDS: SODIUM CHLORIDE 0.45% 1,000 ML IV SCH ×2 (11:15→18:55)
[2019-09-11] MEDS ORDERED: PT OWN MED DRAWER 7, Y5N ONE ×3 (11:19→21:10)
[2019-09-11] MEDS: TAMSULOSIN HCL 0.4 MG CAP PO SCH (11:22)
[2019-09-11] MEDS: BACITRACIN 15 GM TUBE TOPICAL OINTMENT TP SCH (11:22)
[2019-09-11] MEDS: LACTOBACILLUS ACIDOPHILUS 1 TABLET PO SCH (11:22)
[2019-09-11] MEDS: amLODIPine BESYLATE 2.5 MG TABLET (FP) PO SCH (11:22)
[2019-09-11] MEDS: FLUCONAZOLE 100 MG TABLET (UD) PO SCH (11:24)
[2019-09-11] MEDS: MEMANTINE HCL 5 MG TABLET (UD) PO SCH ×2 (11:24→21:16)
[2019-09-11 13:36] LABS: BASO % 0.7 % (0-2.0); EOS % 2.6 % (0-4.5); HEMATOCRIT 42.4 % (35.4-49); HEMOGLOBIN 13.8 GM/dL (11.7-16.9); LYMPH % 21.6 % (8-40); MCH 31.9 pg (25.7-33.7); MCHC 32.5 g/dl (32.0-35.9); MEAN CELL VOLUME 98.2 fl (80-96); MEAN PLT VOLUME 9.9 fl (7.5-11.1); MONO % 5.1 % (3.8-10.2); PLATELET COUNT 243 K/MM3 (134-434); RBC 4.31 M/mm3 (4.00-5.60); RDW 14.4 % (11.9-15.9); WHITE BLOOD COUNT 9.1 K/mm3 (4.0-10.0)
[2019-09-11 14:10] LABS: ALBUMIN 2.9 g/dl (3.4-5.0); BILIRUBIN,TOTAL 0.5 mg/dL (0.2-1); BLOOD UREA NITROGEN 26.1 mg/dL (7-18); CALCIUM 10.2 mg/dL (8.5-10.1); MAGNESIUM 2.2 mg/dL (1.8-2.4); POTASSIUM 4.9 mmol/L (3.5-5.1)
--- NOTE | 2019-09-11 18:07 | PN ---
Teaching Attending Note Name of Resident: Shyla Tate ATTENDING PHYSICIAN STATEMENT I saw and evaluated the patient. I reviewed the resident's note and discussed the case with the resident. I agree with the resident's findings and plan as documented. SUBJECTIVE: Patient seen and examined bedside, for SPT placement for outflow obstruction. VSS. OBJECTIVE: GENERAL: The patient is awake, alert, and oriented x1, in no acute distress, hard of hearing HEAD: Normal with no signs of trauma. EYES: PERRLA, EOMI, sclera anicteric, conjunctiva clear. ENT: moist mucous membranes. NECK: full range of motion, supple. LUNGS: Breath sounds equal, clear to auscultation bilaterally HEART: Regular rate and rhythm, S1, S2 ABDOMEN: Soft, nontender, nondistended, normoactive bowel sounds, large hemorrhoids EXTREMITIES: 2+ pulses, warm, well-perfused, no edema. SKIN: Warm, dry, normal turgor mazariegos draining clear urine Vital Signs - 24 hr 09/10/19 09/11/19 09/11/19 21:43 03:22 06:00 Temperature 98.6 F 98.1 F Pulse Rate 75 77 Respiratory 18 18 Rate Blood Pressure 150/68 158/79 O2 Sat by Pulse 94 L 94 L 90 L Oximetry (%) 09/11/19 09/11/19 09/11/19 09:00 14:00 16:20 Temperature 98.4 F 98.3 F Pulse Rate 74 80 Respiratory 20 18 20 Rate Blood Pressure 146/62 147/65 O2 Sat by Pulse 96 94 L 93 L Oximetry (%) Microbiology 09/04/19 06:45 Blood - Peripheral Venous Blood Culture - Final NO GROWTH AFTER 5 DAYS INCUBATION 09/04/19 06:35 Blood - Peripheral Venous Blood Culture - Final NO GROWTH AFTER 5 DAYS INCUBATION 09/04/19 15:00 Urine - Urine - Catheterized Urine Culture - Final Yeast Like Organism Laboratory Results - last 24 hr 09/05/19 09/10/19 09/10/19 06:35 09:30 21:50 WBC RBC Hgb Hct MCV MCH MCHC RDW Plt Count MPV Absolute Neuts (auto) Neutrophils % Lymphocytes % Monocytes % Eosinophils % Basophils % Nucleated RBC % Sodium Potassium Chloride Carbon Dioxide Anion Gap BUN Creatinine Est GFR (CKD-EPI)AfAm Est GFR (CKD-EPI)NonAf POC Glucometer 193 Random Glucose Calcium Magnesium Total Bilirubin AST ALT Alkaline Phosphatase B-Natriuretic Peptide Total Protein Albumin PTH Intact 91 H COVID-19 ([facility]) Not detected Blood Type Antibody Screen 09/11/19 09/11/19 09/11/19 07:03 07:03 07:30 WBC RBC Hgb Hct MCV MCH MCHC RDW Plt Count MPV Absolute Neuts (auto) Neutrophils % Lymphocytes % Monocytes % Eosinophils % Basophils % Nucleated RBC % Sodium Potassium Chloride Carbon Dioxide Anion Gap BUN Creatinine Est GFR (CKD-EPI)AfAm Est GFR (CKD-EPI)NonAf POC Glucometer 124 Random Glucose Calcium Magnesium Total Bilirubin AST ALT Alkaline Phosphatase B-Natriuretic Peptide 470.0 H Total Protein Albumin PTH Intact COVID-19 ([facility]) Blood Type O NEGATIVE Antibody Screen Negative 09/11/19 09/11/19 09/11/19 12:12 12:45 12:45 WBC 9.1 RBC 4.31 Hgb 13.8 Hct 42.4 MCV 98.2 H MCH 31.9 MCHC 32.5 RDW 14.4 Plt Count 243 MPV 9.9 Absolute Neuts (auto) 6.4 Neutrophils % 70.0 D Lymphocytes % 21.6 D Monocytes % 5.1 Eosinophils % 2.6 Basophils % 0.7 Nucleated RBC % 0 Sodium 140 Potassium 4.9 Chloride 112 H Carbon Dioxide 23 Anion Gap 6 L BUN 26.1 H Creatinine 2.0 H Est GFR (CKD-EPI)AfAm 33.31 Est GFR (CKD-EPI)NonAf 28.74 POC Glucometer 137 Random Glucose 130 H Calcium 10.2 H Magnesium 2.2 Total Bilirubin 0.5 AST 16 ALT 30 Alkaline Phosphatase 119 H B-Natriuretic Peptide Total Protein 6.0 L Albumin 2.9 L PTH Intact COVID-19 ([facility]) Blood Type Antibody Screen 09/11/19 17:48 WBC RBC Hgb Hct MCV MCH MCHC RDW Plt Count MPV Absolute Neuts (auto) Neutrophils % Lymphocytes % Monocytes % Eosinophils % Basophils % Nucleated RBC % Sodium Potassium Chloride Carbon Dioxide Anion Gap BUN Creatinine Est GFR (CKD-EPI)AfAm Est GFR (CKD-EPI)NonAf POC Glucometer 143 Random Glucose Calcium Magnesium Total Bilirubin AST ALT Alkaline Phosphatase B-Natriuretic Peptide Total Protein Albumin PTH Intact COVID-19 ([facility]) Blood Type Antibody Screen Home Medications Medication Instructions Recorded Amlodipine Besylate 2.5 mg PO DAILY 01/09/19 Ascorbate Calcium [Vitamin C] 500 mg PO DAILY 01/09/19 Aspirin 162 mg PO DAILY 01/09/19 Atorvastatin Ca [Lipitor] 40 mg PO HS 01/09/19 Lactobacillus Acidophilus 1 each PO DAILY 01/09/19 [Acidophilus] Memantine HCl 5 mg PO BID 01/09/19 Tamsulosin HCl [Flomax -] 0.4 mg PO DAILY@0830 #30 cap.er.24h 01/16/19 Glimepiride 4 mg PO BID 09/04/19 Current Medications Generic Name Dose Route Start Last Admin Trade Name Freq PRN Reason Stop Dose Admin Amlodipine Besylate 2.5 mg 09/06/19 10:00 09/11/19 11:22 Norvasc - PO 2.5 mg DAILY SONYA Administration Aspirin 81 mg 09/10/19 13:00 09/11/19 11:23 Asa - PO Not Given DAILY SONYA Atorvastatin Calcium 40 mg 09/05/19 22:00 09/10/19 21:49 Lipitor - PO 40 mg HS SONYA Administration Bacitracin 1 applic 09/06/19 11:45 09/11/19 11:22 Bacitracin - TP 1 applic DAILY SONYA Administration Docusate Sodium 100 mg 09/10/19 16:31 Colace - PO Q12H PRN CONSTIPATION Fluconazole 100 mg 09/05/19 13:30 09/11/19 11:24 Diflucan - PO 100 mg DAILY SONYA Administration Heparin Sodium (Porcine) 5,000 unit 09/05/19 06:00 09/10/19 14:32 Heparin - SQ 5,000 unit TID SONYA Administration Hydrocortisone 1 applic 09/06/19 11:30 09/10/19 09:22 Hytone 1% Cream - TP 1 applic DAILY PRN Administration HEMORRHOIDS Sodium Chloride 1,000 mls @ 75 mls/hr 09/09/19 10:00 09/11/19 11:15 1/2 Normal Saline IV Not Given ASDIR SONYA Insulin Aspart 1 vial 09/05/19 16:30 09/11/19 17:49 Novolog Vial Sliding Scale - SQ Not Given ACHS [facility] Protocol Lactobacillus Acidophilus 1 tab 09/06/19 10:00 09/11/19 11:22 Bacid - PO 1 tab DAILY SONYA Administration Memantine 5 mg 09/05/19 10:00 07/29/20 11:24 Namenda - PO 5 mg BID SONYA Administration Senna 1 tab 09/10/19 22:00 09/10/19 21:49 Senna - PO 1 tab HS SONYA Administration Tamsulosin HCl 0.8 mg 09/06/19 16:43 09/11/19 11:22 Flomax - PO 0.8 mg DAILY@0830 SONYA Administration ASSESSMENT AND PLAN: 88 M UTI growing yeast S/p SPT placement HTN HLD BPH w/ LUTS T2DM Plan: COnt. Fluconazole and IVF Post-SPT use per surgery team Cont. dementia meds Cont. Flomax Correct electrolytes PRN DVT ppx: Heparin SC
[2019-09-11] MEDS: ATORVASTATIN CA 40 MG TABLET (FP) PO SCH (21:16)
[2019-09-11] MEDS: SENNOSIDES 8.6MG TABLET (FP) PO SCH (21:16)
[2019-09-12] MEDS: INSULIN SLIDING SCALE (NOVOLOG) 1 VIAL SQ SCH ×4 (06:29→21:47)
[2019-09-12 07:25] LABS: BASO % 0.6 % (0-2.0); HEMATOCRIT 43.1 % (35.4-49); HEMOGLOBIN 13.9 GM/dL (11.7-16.9); LYMPH % 24.2 % (8-40); MCH 31.3 pg (25.7-33.7); MCHC 32.3 g/dl (32.0-35.9); MEAN CELL VOLUME 96.9 fl (80-96); MEAN PLT VOLUME 9.7 fl (7.5-11.1); MONO % 5.8 % (3.8-10.2); NEUT % 65.4 % (42.8-82.8); PLATELET COUNT 262 K/MM3 (134-434); RBC 4.44 M/mm3 (4.00-5.60); RDW 14.7 % (11.9-15.9); WHITE BLOOD COUNT 9.9 K/mm3 (4.0-10.0)
[2019-09-12 07:58] LABS: BILIRUBIN,TOTAL 0.9 mg/dL (0.2-1); BLOOD UREA NITROGEN 26.3 mg/dL (7-18); CALCIUM 10.3 mg/dL (8.5-10.1); POTASSIUM 4.8 mmol/L (3.5-5.1); TOT PROT 6.1 g/dl (6.4-8.2)
[2019-09-12] MEDS: LACTOBACILLUS ACIDOPHILUS 1 TABLET PO SCH ×2 (09:05→10:33)
[2019-09-12] MEDS: FLUCONAZOLE 100 MG TABLET (UD) PO SCH ×2 (09:05→10:34)
[2019-09-12] MEDS: MEMANTINE HCL 5 MG TABLET (UD) PO SCH ×3 (09:05→21:44)
[2019-09-12] MEDS: TAMSULOSIN HCL 0.4 MG CAP PO SCH ×2 (09:05→10:33)
[2019-09-12] MEDS: amLODIPine BESYLATE 2.5 MG TABLET (FP) PO SCH (09:06)
[2019-09-12] MEDS ORDERED: PT OWN MED DRAWER 7, Y5N ONE ×2 (10:32→12:06)
[2019-09-12] MEDS: BACITRACIN 15 GM TUBE TOPICAL OINTMENT TP SCH (10:37)
[2019-09-12] MEDS: SODIUM CHLORIDE 0.45% 1,000 ML IV SCH (10:42)
--- NOTE | 2019-09-12 10:50 | PN ---
DATE OF VISIT: DATE OF DICTATION: 09/11/2019 Patient is an 88-year-old male with history of overflow incontinence, neurogenic bladder, has multiple comorbidities. A suprapubic cystotomy was planned for today, but was not available to sign consent. Left message for to obtain consent. Will reschedule patient as soon as possible. HILARY KAUR M.D. [id number]
--- NOTE | 2019-09-12 13:54 | PN ---
DATE OF VISIT: DATE OF DICTATION: 09/11/2019 Patient is an 88-year-old male with multiple comorbidities. Has been having overflow incontinence with recurrent urinary tract infection, multiple trials at voiding have been unsuccessful. The patient is also confused and not oriented to time and place. Suprapubic tube has been recommended to patient's , and she agrees. Will get consent from patient's , who is his healthcare proxy and schedule procedure as soon as possible. HILARY KAUR M.D. [id number]
--- NOTE | 2019-09-12 14:20 | PN ---
Physical Exam: SUBJECTIVE: Patient seen and examined. No acute events overnight. OBJECTIVE: Vital Signs Temperature 98.8 F 09/12/19 14:05 Pulse Rate 85 09/12/19 14:05 Respiratory Rate 09/12/19 14:05 Blood Pressure 110/60 09/12/19 14:05 O2 Sat by Pulse Oximetry (%) 87 L 09/12/19 14:05 GENERAL: The patient is awake, alert, and oriented x1, in no acute distress. HEAD: Normal with no signs of trauma. EYES: PERRLA, EOMI, sclera anicteric, conjunctiva clear. ENT: moist mucous membranes. NECK: full range of motion, supple. LUNGS: Breath sounds equal, clear to auscultation bilaterally HEART: Regular rate and rhythm, S1, S2 ABDOMEN: Soft, nontender, nondistended, normoactive bowel sounds, large he morrhoids EXTREMITIES: 2+ pulses, warm, well-perfused, no edema. SKIN: Warm, dry, normal turgor Laboratory Results - last 24 hr 09/05/19 09/11/19 09/11/19 06:35 17:48 21:12 WBC RBC Hgb Hct MCV MCH MCHC RDW Plt Count MPV Absolute Neuts (auto) Neutrophils % Lymphocytes % Monocytes % Eosinophils % Basophils % Nucleated RBC % Sodium Potassium Chloride Carbon Dioxide Anion Gap BUN Creatinine Est GFR (CKD-EPI)AfAm Est GFR (CKD-EPI)NonAf POC Glucometer 143 221 Random Glucose Calcium Total Bilirubin AST ALT Alkaline Phosphatase Total Protein Albumin PTH Intact 91 H 09/12/19 09/12/19 09/12/19 05:56 06:35 06:35 WBC 9.9 RBC 4.44 Hgb 13.9 Hct 43.1 MCV 96.9 H MCH 31.3 MCHC 32.3 RDW 14.7 Plt Count 262 MPV 9.7 Absolute Neuts (auto) 6.5 Neutrophils % 65.4 Lymphocytes % 24.2 Monocytes % 5.8 Eosinophils % 4.0 Basophils % 0.6 Nucleated RBC % 0 Sodium 141 Potassium 4.8 Chloride 110 H Carbon Dioxide 21 Anion Gap 10 BUN 26.3 H Creatinine 2.0 H Est GFR (CKD-EPI)AfAm 33.31 Est GFR (CKD-EPI)NonAf 28.74 POC Glucometer 118 Random Glucose 125 H Calcium 10.3 H Total Bilirubin 0.9 AST 17 ALT 32 Alkaline Phosphatase 122 H Total Protein 6.1 L Albumin 3.0 L PTH Intact 09/12/19 11:59 WBC RBC Hgb Hct MCV MCH MCHC RDW Plt Count MPV Absolute Neuts (auto) Neutrophils % Lymphocytes % Monocytes % Eosinophils % Basophils % Nucleated RBC % Sodium Potassium Chloride Carbon Dioxide Anion Gap BUN Creatinine Est GFR (CKD-EPI)AfAm Est GFR (CKD-EPI)NonAf POC Glucometer 145 Random Glucose Calcium Total Bilirubin AST ALT Alkaline Phosphatase Total Protein Albumin PTH Intact Active Medications Generic Name Dose Route Start Last Admin Trade Name Freq PRN Reason Stop Dose Admin Amlodipine Besylate 2.5 mg 09/06/19 10:00 09/12/19 09:06 Norvasc - PO 2.5 mg DAILY SONYA Administration Aspirin 81 mg 09/10/19 13:00 09/11/19 11:23 Asa - PO Not Given DAILY SONYA Atorvastatin Calcium 40 mg 09/05/19 22:00 09/11/19 21:16 Lipitor - PO 40 mg HS SONYA Administration Bacitracin 1 applic 09/06/19 11:45 09/12/19 10:37 Bacitracin - TP 1 applic DAILY SONYA Administration Docusate Sodium 100 mg 09/10/19 16:31 Colace - PO Q12H PRN CONSTIPATION Heparin Sodium (Porcine) 5,000 unit 09/05/19 06:00 09/10/19 14:32 Heparin - SQ 5,000 unit TID SONYA Administration Hydrocortisone 1 applic 09/06/19 11:30 09/10/19 09:22 Hytone 1% Cream - TP 1 applic DAILY PRN Administration HEMORRHOIDS Sodium Chloride 1,000 mls @ 75 mls/hr 09/09/19 10:00 09/12/19 10:42 1/2 Normal Saline IV 75 mls/hr ASDIR SONYA Administration Insulin Aspart 1 vial 09/05/19 16:30 09/12/19 12:00 Novolog Vial Sliding Scale - SQ Not Given ACHS SONYA Protocol Lactobacillus Acidophilus 1 tab 09/06/19 10:00 09/12/19 10:33 Bacid - PO 1 tab DAILY SONYA Administration Memantine 5 mg 09/05/19 10:00 09/12/19 10:45 Namenda - PO 5 mg BID SONYA Administration Senna 1 tab 09/10/19 22:00 09/11/19 21:16 Senna - PO 1 tab HS SONYA Administration Tamsulosin HCl 0.8 mg 09/06/19 16:43 09/12/19 10:33 Flomax - PO 0.8 mg DAILY@0830 SONYA Administration ASSESSMENT/PLAN: Patient is an 88 year old male with a 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 Previous admission in December for AMS, treated for UTI and hyperCa. #Acute metabolic encephalopathy, improved - Likely 2/2 UTI - UA: 2+protein, 3+blood, 3+ leukocyte esterase - UCx: yeast like organism - Fluconazole 100mg daily 08/19 completed - renal/bladder US - urinary retention, prostatic enlargement - Blood cx no growth to date - will need suprapubic cystostomy - plan for OR tomorrow, covid negative - Tamsulosin increased to 0.8mg daily - Urology (Dr. Magdaleno) consulted. Recommendations appreciated - Infectious disease (Dr. Beauchamp) consulted. Recommendations appreciated #ARSALAN on CKD - Creatinine now at baseline - renal/bladder US - moderately atrophic right kidney with no evidence of obstructive uropathy, urinary retention, prostatic enlargement #Hypercalcemia - trending down - Also presented on last admission, which improved w/ IVF hydration - Continue IV 1/2 NS @ 75 cc/hr - PTH, Vit D, urine ca pending #Hemorrhoids - reported she has applied steroid creams but has not improved - will consult surgery (Dr. Thomas) for evaluation. appreciate recs. #Dementia - C/w memantine 5 mg bid - Speech and swallow performed by speech language pathology, showed within functional limits - Facilitative Feeding, Safe Rate, 1/2 tsp. at a time, Elevate HOB during feed - will ask speech and swallow to re-evaluate - MBS ordered #PMH of CVA - C/w with aspirin 162 mg - C/w lipitor #NIDDM - ISS - BGM ACHS - Last HbA1c(12/2018): 8% #HTN - C/w Amlodipine 2.5mg daily #HLD - Continue Lipitor 40 mg #FEN - IV 1/2 NS 75 cc/hr - Routine bmp monitoring - Diabetic/sodium restricted diet #DVT PPX - Heparin 5000 U SQ tid #Disposition - Admitted to med-surg. Visit type - Emergency Visit Emergency Visit: Yes ED Registration Date: 09/04/19 Care time: The patient presented to the Emergency Department on the above date and was hospitalized for further evaluation of their emergent condition. - New Patient This patient is new to me today: No - Critical Care Critical Care patient: No - Medication Review Med list reviewed for High Risk Meds patients 65 and older: Yes ATTENDING PHYSICIAN STATEMENT I saw and evaluated the patient. I reviewed the resident's note and discussed the case with the resident. I agree with the resident's findings and plan as documented. SUBJECTIVE: OBJECTIVE: ASSESSMENT AND PLAN:
[2019-09-12] MEDS: HEPARIN NA (PORCINE) 5,000 UNITS/ML 1ML VIAL SQ SCH ×2 (14:44→21:44)
[2019-09-12] MEDS ORDERED: INSULIN (NOVOLOG) ASPART 100 UNITS/ML 10ML VIAL ONE ×3 (16:31→21:34)
--- NOTE | 2019-09-12 19:06 | PN ---
Teaching Attending Note Name of Resident: Shyla Tate ATTENDING PHYSICIAN STATEMENT I saw and evaluated the patient. I reviewed the resident's note and discussed the case with the resident. I agree with the resident's findings and plan as documented. SUBJECTIVE: Patient seen and examined bedside, no acute changes overnight, awaiting family consent for SPT, then may DC to SNF/home with services. VSS. OBJECTIVE: GENERAL: The patient is awake, alert, and oriented x1, in no acute distress, hard of hearing HEAD: Normal with no signs of trauma. EYES: PERRLA, EOMI, sclera anicteric, conjunctiva clear. ENT: moist mucous membranes. NECK: full range of motion, supple. LUNGS: Breath sounds equal, clear to auscultation bilaterally HEART: Regular rate and rhythm, S1, S2 ABDOMEN: Soft, nontender, nondistended, normoactive bowel sounds, large hemorrhoids EXTREMITIES: 2+ pulses, warm, well-perfused, no edema. SKIN: Warm, dry, normal turgor mazariegos draining clear urine Vital Signs - 24 hr 09/11/19 09/11/19 09/12/19 21:00 23:10 06:00 Temperature 98.8 F 9.9 F L Pulse Rate 90 79 Respiratory 20 20 20 Rate Blood Pressure 121/77 113/68 O2 Sat by Pulse 94 L 94 L Oximetry (%) 09/12/19 09/12/19 09/12/19 09:00 10:00 14:05 Temperature 97.8 F 98.8 F Pulse Rate 73 85 Respiratory 20 20 Rate Blood Pressure 152/88 110/60 O2 Sat by Pulse 95 95 87 L Oximetry (%) 09/12/19 16:15 Temperature 98.5 F Pulse Rate 82 Respiratory 20 Rate Blood Pressure 129/71 O2 Sat by Pulse 95 Oximetry (%) Microbiology 09/04/19 06:45 Blood - Peripheral Venous Blood Culture - Final NO GROWTH AFTER 5 DAYS INCUBATION 09/04/19 06:35 Blood - Peripheral Venous Blood Culture - Final NO GROWTH AFTER 5 DAYS INCUBATION 09/04/19 15:00 Urine - Urine - Catheterized Urine Culture - Final Yeast Like Organism Laboratory Results - last 24 hr 09/11/19 09/12/19 09/12/19 21:12 05:56 06:35 WBC 9.9 RBC 4.44 Hgb 13.9 Hct 43.1 MCV 96.9 H MCH 31.3 MCHC 32.3 RDW 14.7 Plt Count 262 MPV 9.7 Absolute Neuts (auto) 6.5 Neutrophils % 65.4 Lymphocytes % 24.2 Monocytes % 5.8 Eosinophils % 4.0 Basophils % 0.6 Nucleated RBC % 0 Sodium Potassium Chloride Carbon Dioxide Anion Gap BUN Creatinine Est GFR (CKD-EPI)AfAm Est GFR (CKD-EPI)NonAf POC Glucometer 221 118 Random Glucose Calcium Total Bilirubin AST ALT Alkaline Phosphatase Total Protein Albumin 09/12/19 09/12/19 09/12/19 06:35 11:59 16:26 WBC RBC Hgb Hct MCV MCH MCHC RDW Plt Count MPV Absolute Neuts (auto) Neutrophils % Lymphocytes % Monocytes % Eosinophils % Basophils % Nucleated RBC % Sodium 141 Potassium 4.8 Chloride 110 H Carbon Dioxide 21 Anion Gap 10 BUN 26.3 H Creatinine 2.0 H Est GFR (CKD-EPI)AfAm 33.31 Est GFR (CKD-EPI)NonAf 28.74 POC Glucometer 145 166 Random Glucose 125 H Calcium 10.3 H Total Bilirubin 0.9 AST 17 ALT 32 Alkaline Phosphatase 122 H Total Protein 6.1 L Albumin 3.0 L Home Medications Medication Instructions Recorded Amlodipine Besylate 2.5 mg PO DAILY 01/09/19 Ascorbate Calcium [Vitamin C] 500 mg PO DAILY 01/09/19 Aspirin 162 mg PO DAILY 01/09/19 Atorvastatin Ca [Lipitor] 40 mg PO HS 01/09/19 Lactobacillus Acidophilus 1 each PO DAILY 01/09/19 [Acidophilus] Memantine HCl 5 mg PO BID 01/09/19 Tamsulosin HCl [Flomax -] 0.4 mg PO DAILY@0830 #30 cap.er.24h 01/16/19 Glimepiride 4 mg PO BID 09/04/19 Current Medications Generic Name Dose Route Start Last Admin Trade Name Freq PRN Reason Stop Dose Admin Amlodipine Besylate 2.5 mg 09/06/19 10:00 09/12/19 09:06 Norvasc - PO 2.5 mg DAILY SONYA Administration Aspirin 81 mg 09/10/19 13:00 09/11/19 11:23 Asa - PO Not Given DAILY SONYA Atorvastatin Calcium 40 mg 09/05/19 22:00 09/11/19 21:16 Lipitor - PO 40 mg HS SONYA Administration Bacitracin 1 applic 09/06/19 11:45 09/12/19 10:37 Bacitracin - TP 1 applic DAILY SONYA Administration Docusate Sodium 100 mg 09/10/19 16:31 Colace - PO Q12H PRN CONSTIPATION Heparin Sodium (Porcine) 5,000 unit 09/05/19 06:00 09/12/19 14:44 Heparin - SQ 5,000 unit TID SONYA Administration Hydrocortisone 1 applic 09/06/19 11:30 09/10/19 09:22 Hytone 1% Cream - TP 1 applic DAILY PRN Administration HEMORRHOIDS Sodium Chloride 1,000 mls @ 75 mls/hr 09/09/19 10:00 09/12/19 10:42 1/2 Normal Saline IV 75 mls/hr ASDIR SONYA Administration Insulin Aspart 1 vial 09/05/19 16:30 09/12/19 16:35 Novolog Vial Sliding Scale - SQ 2 units ACHS SONYA Administration Protocol Lactobacillus Acidophilus 1 tab 09/06/19 10:00 09/12/19 10:33 Bacid - PO 1 tab DAILY SONYA Administration Memantine 5 mg 09/05/19 10:00 09/12/19 10:45 Namenda - PO 5 mg BID SONYA Administration Senna 1 tab 09/10/19 22:00 09/11/19 21:16 Senna - PO 1 tab HS SONYA Administration Tamsulosin HCl 0.8 mg 09/06/19 16:43 09/12/19 10:33 Flomax - PO 0.8 mg DAILY@0830 SONYA Administration ASSESSMENT AND PLAN: 88 M UTI growing yeast Needs SPT placement HTN HLD BPH w/ LUTS T2DM Plan: s/p Fluconazole course awaiting SPT use per surgery team (first procedure cancelled d/t lack of consent) Cont. dementia meds Cont. Flomax Correct electrolytes PRN DVT ppx: Heparin SC
[2019-09-12] MEDS: ATORVASTATIN CA 40 MG TABLET (FP) PO SCH (21:43)
[2019-09-12] MEDS: SENNOSIDES 8.6MG TABLET (FP) PO SCH (21:43)
[2019-09-13] MEDS: SODIUM CHLORIDE 0.45% 1,000 ML IV SCH ×2 (00:07→17:52)
[2019-09-13] MEDS: INSULIN SLIDING SCALE (NOVOLOG) 1 VIAL SQ SCH ×3 (07:07→17:49)
[2019-09-13] MEDS: HEPARIN NA (PORCINE) 5,000 UNITS/ML 1ML VIAL SQ SCH ×2 (07:08→21:32)
[2019-09-13] MEDS ORDERED: PT OWN MED DRAWER 7, Y5N ONE ×2 (09:00→21:12)
[2019-09-13] MEDS: TAMSULOSIN HCL 0.4 MG CAP PO SCH (09:37)
[2019-09-13] MEDS: LACTOBACILLUS ACIDOPHILUS 1 TABLET PO SCH (09:38)
[2019-09-13] MEDS: amLODIPine BESYLATE 2.5 MG TABLET (FP) PO SCH (09:39)
[2019-09-13] MEDS: MEMANTINE HCL 5 MG TABLET (UD) PO SCH ×2 (09:39→21:33)
[2019-09-13 10:12] LABS: BASO % 0.7 % (0-2.0); EOS % 4.9 % (0-4.5); HEMATOCRIT 42.5 % (35.4-49); LYMPH % 28.6 % (8-40); MCH 32.2 pg (25.7-33.7); MCHC 32.8 g/dl (32.0-35.9); MEAN CELL VOLUME 98.1 fl (80-96); MEAN PLT VOLUME 9.9 fl (7.5-11.1); MONO % 6.1 % (3.8-10.2); NEUT % 59.7 % (42.8-82.8); PLATELET COUNT 255 K/MM3 (134-434); RBC 4.33 M/mm3 (4.00-5.60); RDW 14.8 % (11.9-15.9); WHITE BLOOD COUNT 8.6 K/mm3 (4.0-10.0)
[2019-09-13 10:16] LABS: INR 0.92 (0.83-1.09); PROTHROMBIN TIME (PATIENT) 10.9 SEC (9.7-13.0)
[2019-09-13 10:19] LABS: ACTIVATED PTT 30.8 SECONDS (25.2-36.5)
[2019-09-13 10:22] LABS: ALBUMIN 2.8 g/dl (3.4-5.0); BILIRUBIN,TOTAL 0.5 mg/dL (0.2-1); BLOOD UREA NITROGEN 27.5 mg/dL (7-18); CALCIUM 10.2 mg/dL (8.5-10.1); CREATININE 2.2 mg/dL (0.55-1.3); MAGNESIUM 2.2 mg/dL (1.8-2.4); PHOSPHOROUS 2.7 mg/dL (2.5-4.9); POTASSIUM 4.3 mmol/L (3.5-5.1); TOT PROT 5.8 g/dl (6.4-8.2)
--- NOTE | 2019-09-13 10:53 | PN ---
Physical Exam: SUBJECTIVE: Patient seen and examined. No acute events overnight. OBJECTIVE: Vital Signs Temperature 97.5 F L 09/13/19 09:00 Pulse Rate 76 09/13/19 09:00 Respiratory Rate 18 09/13/19 09:00 Blood Pressure 156/85 09/13/19 09:00 O2 Sat by Pulse Oximetry (%) 95 09/13/19 09:00 GENERAL: The patient is awake, alert, and oriented x1, in no acute distress. HEAD: Normal with no signs of trauma. EYES: PERRLA, EOMI, sclera anicteric, conjunctiva clear. ENT: moist mucous membranes. NECK: full range of motion, supple. LUNGS: Breath sounds equal, clear to auscultation bilaterally HEART: Regular rate and rhythm, S1, S2 ABDOMEN: Soft, nontender, nondistended, normoactive bowel sounds, large hem orrhoids EXTREMITIES: 2+ pulses, warm, well-perfused, no edema. SKIN: Warm, dry, normal turgor Laboratory Results - last 24 hr 09/12/19 09/12/19 09/12/19 11:59 16:26 21:41 WBC Corrected WBC (auto) RBC Hgb Hct MCV MCH MCHC RDW Plt Count MPV Absolute Neuts (auto) Neutrophils % Lymphocytes % Monocytes % Eosinophils % Basophils % Nucleated RBC % Platelet Estimate Platelet Comment PT with INR INR PTT (Actin FS) Sodium Potassium Chloride Carbon Dioxide Anion Gap BUN Creatinine Est GFR (CKD-EPI)AfAm Est GFR (CKD-EPI)NonAf POC Glucometer 145 166 202 Random Glucose Calcium Phosphorus Magnesium Total Bilirubin AST ALT Alkaline Phosphatase Total Protein Albumin 09/13/19 09/13/19 09/13/19 07:00 07:00 07:00 WBC Cancelled Corrected WBC (auto) Cancelled RBC Cancelled Hgb Cancelled Hct Cancelled MCV Cancelled MCH Cancelled MCHC Cancelled RDW Cancelled Plt Count Cancelled MPV Cancelled Absolute Neuts (auto) Cancelled Neutrophils % Cancelled Lymphocytes % Cancelled Monocytes % Cancelled Eosinophils % Cancelled Basophils % Cancelled Nucleated RBC % Cancelled Platelet Estimate Cancelled Platelet Comment Cancelled PT with INR Cancelled INR Cancelled PTT (Actin FS) Cancelled Sodium 140 Potassium 4.3 Chloride 111 H Carbon Dioxide 20 L Anion Gap 9 BUN 27.5 H Creatinine 2.2 H Est GFR (CKD-EPI)AfAm 29.68 Est GFR (CKD-EPI)NonAf 25.61 POC Glucometer Random Glucose 138 H Calcium 10.2 H Phosphorus 2.7 Magnesium 2.2 Total Bilirubin 0.5 AST 14 L ALT 26 Alkaline Phosphatase 114 Total Protein 5.8 L Albumin 2.8 L 09/13/19 09/13/19 09/13/19 07:06 09:24 09:24 WBC 8.6 Corrected WBC (auto) RBC 4.33 Hgb 14.0 Hct 42.5 MCV 98.1 H MCH 32.2 MCHC 32.8 RDW 14.8 Plt Count 255 MPV 9.9 Absolute Neuts (auto) 5.1 Neutrophils % 59.7 Lymphocytes % 28.6 Monocytes % 6.1 Eosinophils % 4.9 H Basophils % 0.7 Nucleated RBC % 0 Platelet Estimate Platelet Comment PT with INR 10.90 INR 0.92 PTT (Actin FS) 30.8 Sodium Potassium Chloride Carbon Dioxide Anion Gap BUN Creatinine Est GFR (CKD-EPI)AfAm Est GFR (CKD-EPI)NonAf POC Glucometer 145 Random Glucose Calcium Phosphorus Magnesium Total Bilirubin AST ALT Alkaline Phosphatase Total Protein Albumin Active Medications Generic Name Dose Route Start Last Admin Trade Name Freq PRN Reason Stop Dose Admin Amlodipine Besylate 2.5 mg 09/06/19 10:00 09/13/19 09:39 Norvasc - PO 2.5 mg DAILY SONYA Administration Aspirin 81 mg 09/10/19 13:00 09/11/19 11:23 Asa - PO Not Given DAILY SONYA Atorvastatin Calcium 40 mg 09/05/19 22:00 09/12/19 21:43 Lipitor - PO 40 mg HS SONYA Administration Bacitracin 1 applic 09/06/19 11:45 09/12/19 10:37 Bacitracin - TP 1 applic DAILY SONYA Administration Docusate Sodium 100 mg 09/10/19 16:31 Colace - PO Q12H PRN CONSTIPATION Heparin Sodium (Porcine) 5,000 unit 09/05/19 06:00 09/13/19 07:08 Heparin - SQ 5,000 unit TID SONYA Administration Hydrocortisone 1 applic 09/06/19 11:30 09/10/19 09:22 Hytone 1% Cream - TP 1 applic DAILY PRN Administration HEMORRHOIDS Sodium Chloride 1,000 mls @ 75 mls/hr 09/09/19 10:00 09/13/19 00:07 1/2 Normal Saline IV 75 mls/hr ASDIR SONYA Administration Insulin Aspart 1 vial 09/05/19 16:30 09/13/19 07:07 Novolog Vial Sliding Scale - SQ Not Given ACHS [facility] Protocol Lactobacillus Acidophilus 1 tab 09/06/19 10:00 09/13/19 09:38 Bacid - PO Not Given DAILY SONYA Memantine 5 mg 09/05/19 10:00 09/13/19 09:39 Namenda - PO Not Given BID SONYA Senna 1 tab 09/10/19 22:00 09/12/19 21:43 Senna - PO 1 tab HS SONYA Administration Tamsulosin HCl 0.8 mg 09/06/19 16:43 09/13/19 09:37 Flomax - PO Not Given DAILY@0830 [facility] ASSESSMENT/PLAN: Patient is an 88 year old male with a 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 Previous admission in December for AMS, treated for UTI and hyperCa. #Acute metabolic encephalopathy, improved - Likely 2/2 UTI - UA: 2+protein, 3+blood, 3+ leukocyte esterase - UCx: yeast like organism - Fluconazole 100mg daily 08/19 completed - renal/bladder US - urinary retention, prostatic enlargement - Blood cx no growth to date - will need suprapubic cystostomy - plan for OR today, covid negative - Tamsulosin increased to 0.8mg daily - Urology (Dr. Magdaleno) consulted. Recommendations appreciated - Infectious disease (Dr. Beauchamp) consulted. Recommendations appreciated #ARSALAN on CKD - Creatinine now at baseline - renal/bladder US - moderately atrophic right kidney with no evidence of obstructive uropathy, urinary retention, prostatic enlargement #Hypercalcemia - Also presented on last admission, which improved w/ IVF hydration - Continue IV 1/2 NS @ 75 cc/hr - PTH, Vit D, urine ca #Hemorrhoids - reported she has applied steroid creams but has not improved - consult surgery (Dr. Thomas) for evaluation. appreciate recs. - to follow up in clinic for further intervention #Dementia - C/w memantine 5 mg bid - Speech and swallow performed by speech language pathology, showed within fun ctional limits - Facilitative Feeding, Safe Rate, 1/2 tsp. at a time, Elevate HOB during feed #PMH of CVA - C/w with aspirin 162 mg - C/w lipitor #NIDDM - ISS - BGM ACHS - Last HbA1c(12/2018): 8% #HTN - C/w Amlodipine 2.5mg daily #HLD - Continue Lipitor 40 mg #FEN - IV 1/2 NS 42 cc/hr - Routine bmp monitoring - Diabetic/sodium restricted diet #DVT PPX - Heparin 5000 U SQ tid #Disposition - Admitted to med-surg. Visit type - Emergency Visit Emergency Visit: Yes ED Registration Date: 09/04/19 Care time: The patient presented to the Emergency Department on the above date and was hospitalized for further evaluation of their emergent condition. - New Patient This patient is new to me today: No - Critical Care Critical Care patient: No - Medication Review Med list reviewed for High Risk Meds patients 65 and older: Yes ATTENDING PHYSICIAN STATEMENT I saw and evaluated the patient. I reviewed the resident's note and discussed the case with the resident. I agree with the resident's findings and plan as documented. SUBJECTIVE: OBJECTIVE: ASSESSMENT AND PLAN:
[2019-09-13] MEDS ORDERED: ONDANSETRON 4 MG/2 ML VIAL IVPUSH PRN (11:32)
[2019-09-13] MEDS ORDERED: LACTATED RINGERS SOLUTION 1,000 ML IV SCH (11:45)
[2019-09-13] MEDS ORDERED: ceFAZolin SODIUM 1 GM VIAL IVPB ONE (12:22)
[2019-09-13] MEDS ORDERED: LIDOCAINE HCL 1%, 10 MG/ML (20ML VIAL) INF ONE (12:25)
--- NOTE | 2019-09-13 12:40 | OP ---
Operative Note - Note: Operative Date: 09/13/19 Pre-Operative Diagnosis: overflow incontenence, rec. urosepsis, large pvr Operation: cysto, suprapubic cystostomy Findings: trabeculated bladder, large pvr-500cc Post-Operative Diagnosis: Same as Pre-op Surgeon: Malini Magdaleno Anesthesia: General Specimens Removed: urine Estimated Blood Loss (mls): 0 Drains & Tubes with Location: 20f 30cc spt Drains, Volume Out (mls): 0 Blood Volume Replaced (mls): 0 Fluid Volume Replaced (mls): 0 Operative Report Dictated: Yes
[2019-09-13] MEDS ORDERED: HYDROCORTISONE 1% TOPICAL CREAM 30 GM TUBE TP PRN (15:14)
[2019-09-13] MEDS ORDERED: SENNOSIDES 8.6MG TABLET (FP) PO PRN (15:15)
[2019-09-13] MEDS ORDERED: DOCUSATE SODIUM 100 MG CAPSULE (FP) PO PRN (15:15)
--- NOTE | 2019-09-13 15:28 | OP ---
DATE OF OPERATION: 09/13/2019 PREOPERATIVE DIAGNOSIS: Overflow incontinence, recurrent urosepsis, large postvoid residual. POSTOPERATIVE DIAGNOSIS: Overflow incontinence, recurrent urosepsis, large postvoid residual. OPERATIVE PROCEDURE: Cystourethroscopy and suprapubic cystotomy. ANESTHESIA: General. DESCRIPTION OF PROCEDURE: Under general anesthesia, patient was prepped and draped in the usual sterile manner. He was placed in the supine position. Flexible cystoscopy was performed. Urethra was wide open. Prostate revealed bilobar hypertrophy of the gland. No lateral lobe kissing was noted. The bladder was entered. This revealed a grade 3 trabeculation throughout. No overt lesions or calculi were seen. Ureteral orifices were within normal limits with efflux of clear urine. The bladder then was filled to capacity. A suprapubic incision was made 2 fingerbreadths above the pubic symphysis. This was carried down through skin and subcutaneous tissue. Linea alba was opened in the direction of its fiber. Using sponge stick, the peritoneum was swept cephalically off the dome of the bladder. The bladder was grasped with 2 Allis forceps. An incision was made in the dome of the bladder. A 20-Kazakh 30-mL Chou was placed into the dome of the bladder. The bladder was closed with 2 layers of 4-0 Vicryl suture ligature and 2-0 Vicryl suture ligature. A 2-0 Vicryl suture ligature was also used in a pursestring fashion to anchor the Chou to the dome of the bladder. The wound was irrigated. The fascia was closed with 2-0 Vicryl suture ligatures. The skin was closed with jessi. The suprapubic catheter was connected to a drainage bag. The patient tolerated the procedure well. He returned to the recovery room in good condition. Alfred [id number]
[2019-09-13] MEDS: SODIUM CHLORIDE 1,000 ML IV SCH (16:09)
[2019-09-13] MEDS: BACITRACIN 15 GM TUBE TOPICAL OINTMENT TP SCH (17:51)
[2019-09-13] MEDS: ATORVASTATIN CA 40 MG TABLET (FP) PO SCH (21:32)
[2019-09-14] MEDS: INSULIN SLIDING SCALE (NOVOLOG) 1 VIAL SQ SCH ×3 (06:09→17:27)
--- NOTE | 2019-09-14 08:20 | PN ---
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 (short form) - Note 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: Anesthesia/Pain Pt seen and examined S:awake comfortable O: Vital Signs Temperature 98.3 F 09/14/19 06:00 Pulse Rate 80 09/14/19 06:00 Respiratory Rate 18 09/14/19 06:00 Blood Pressure 140/59 L 09/14/19 06:00 O2 Sat by Pulse Oximetry (%) 95 09/14/19 06:00 CBC, BMP 09/13/19 09:24 09/13/19 07:00 A/P Current Active Problems AMS (altered mental status) (Acute) Acute kidney injury superimposed on CKD (Acute) CKD (chronic kidney disease) (Acute) Hemorrhoids that prolapse with straining and require manual replacement back inside anal canal (Acute) History of CVA (cerebrovascular accident) (Acute) History of CVA (cerebrovascular accident) (Acute) Pyuria (Acute) UTI (urinary tract infection) (Acute) Weakness (Acute) s/p suprapubic cath placement Doing well post op Continue current care Efrain Soria
[2019-09-14 08:32] LABS: BASO % 0.7 % (0-2.0); HEMATOCRIT 42.4 % (35.4-49); LYMPH % 19.7 % (8-40); MCH 32.4 pg (25.7-33.7); MCHC 33.2 g/dl (32.0-35.9); MEAN CELL VOLUME 97.8 fl (80-96); NEUT % 69.6 % (42.8-82.8); PLATELET COUNT 272 K/MM3 (134-434); RBC 4.33 M/mm3 (4.00-5.60); RDW 14.8 % (11.9-15.9); WHITE BLOOD COUNT 9.4 K/mm3 (4.0-10.0)
[2019-09-14 09:05] LABS: POTASSIUM 5.5 mmol/L (3.5-5.1)
[2019-09-14 09:20] LABS: ALBUMIN 2.8 g/dl (3.4-5.0); BILIRUBIN,TOTAL 0.6 mg/dL (0.2-1); CALCIUM 10.7 mg/dL (8.5-10.1); CREATININE 2.5 mg/dL (0.55-1.3); MAGNESIUM 2.2 mg/dL (1.8-2.4); TOT PROT 5.9 g/dl (6.4-8.2)
[2019-09-14] MEDS ORDERED: PT OWN MED DRAWER 7, Y5N ONE ×3 (09:46→22:27)
[2019-09-14] MEDS: LACTOBACILLUS ACIDOPHILUS 1 TABLET PO SCH (09:51)
[2019-09-14] MEDS: MEMANTINE HCL 5 MG TABLET (UD) PO SCH ×2 (09:51→22:30)
[2019-09-14] MEDS: HEPARIN NA (PORCINE) 5,000 UNITS/ML 1ML VIAL SQ SCH ×2 (09:51→22:29)
[2019-09-14] MEDS: ASCORBIC ACID 500 MG TABLET (FP) PO SCH (09:51)
[2019-09-14] MEDS: amLODIPine BESYLATE 2.5 MG TABLET (FP) PO SCH (09:51)
[2019-09-14] MEDS: TAMSULOSIN HCL 0.4 MG CAP PO SCH (09:52)
[2019-09-14] MEDS: ASPIRIN 81 MG CHEWABLE TABLETS PO SCH (09:52)
[2019-09-14] MEDS: BACITRACIN 15 GM TUBE TOPICAL OINTMENT TP SCH (09:52)
[2019-09-14] MEDS ORDERED: INSULIN (NOVOLOG) ASPART 100 UNITS/ML 10ML VIAL ONE ×2 (12:12→17:39)
[2019-09-14] MEDS ORDERED: SODIUM CHLORIDE 0.9% 500 ML INFUS.BAG IV ONE (12:13)
[2019-09-14] MEDS: ALBUTEROL SO4 0.083% IH SOL 2.5 MG/3 ML VIAL.NEB. NEB SCH ×3 (12:30→13:34)
--- NOTE | 2019-09-14 14:44 | PN ---
Teaching Attending Note Name of Resident: Shyla Tate ATTENDING PHYSICIAN STATEMENT I saw and evaluated the patient. I reviewed the resident's note and discussed the case with the resident. I agree with the resident's findings and plan as documented. SUBJECTIVE: Patient seen and examined bedside, s/p SPT placement, tolerated procedure well. VSS. OBJECTIVE: GENERAL: The patient is awake, alert, and oriented x1, in no acute distress, hard of hearing HEAD: Normal with no signs of trauma. EYES: PERRLA, EOMI, sclera anicteric, conjunctiva clear. ENT: moist mucous membranes. NECK: full range of motion, supple. LUNGS: Breath sounds equal, clear to auscultation bilaterally HEART: Regular rate and rhythm, S1, S2 ABDOMEN: Soft, nontender, nondistended, normoactive bowel sounds, large hemorrhoids EXTREMITIES: 2+ pulses, warm, well-perfused, no edema. SKIN: Warm, dry, normal turgor mazariegos draining clear urine Vital Signs - 24 hr 09/13/19 09/13/19 09/13/19 15:00 16:30 21:00 Temperature 97.4 F L 97.4 F L Pulse Rate 82 77 Respiratory 18 18 18 Rate Blood Pressure 150/65 151/74 O2 Sat by Pulse 99 96 Oximetry (%) 09/13/19 09/14/19 09/14/19 22:00 06:00 09:50 Temperature 98.4 F 98.3 F 99 F Pulse Rate 84 80 75 Respiratory 18 18 16 Rate Blood Pressure 128/67 140/59 L 130/53 L O2 Sat by Pulse 96 95 94 L Oximetry (%) 09/14/19 14:00 Temperature 98.7 F Pulse Rate 81 Respiratory 20 Rate Blood Pressure 133/60 O2 Sat by Pulse Oximetry (%) Microbiology 09/04/19 06:45 Blood - Peripheral Venous Blood Culture - Final NO GROWTH AFTER 5 DAYS INCUBATION 09/04/19 06:35 Blood - Peripheral Venous Blood Culture - Final NO GROWTH AFTER 5 DAYS INCUBATION 09/04/19 15:00 Urine - Urine - Catheterized Urine Culture - Final Yeast Like Organism Laboratory Results - last 24 hr 09/13/19 09/14/19 09/14/19 17:43 05:56 08:06 WBC 9.4 RBC 4.33 Hgb 14.0 Hct 42.4 MCV 97.8 H MCH 32.4 MCHC 33.2 RDW 14.8 Plt Count 272 MPV 10.0 Absolute Neuts (auto) 6.6 Neutrophils % 69.6 Lymphocytes % 19.7 D Monocytes % 6.0 Eosinophils % 4.0 Basophils % 0.7 Nucleated RBC % 0 Sodium Potassium Chloride Carbon Dioxide Anion Gap BUN Creatinine Est GFR (CKD-EPI)AfAm Est GFR (CKD-EPI)NonAf POC Glucometer 128 123 Random Glucose Calcium Magnesium Total Bilirubin AST ALT Alkaline Phosphatase Total Protein Albumin 09/14/19 09/14/19 08:06 12:02 WBC RBC Hgb Hct MCV MCH MCHC RDW Plt Count MPV Absolute Neuts (auto) Neutrophils % Lymphocytes % Monocytes % Eosinophils % Basophils % Nucleated RBC % Sodium 142 Potassium 5.5 H Chloride 114 H Carbon Dioxide 24 Anion Gap 5 L BUN 30.0 H Creatinine 2.5 H Est GFR (CKD-EPI)AfAm 25.43 Est GFR (CKD-EPI)NonAf 21.94 POC Glucometer 222 Random Glucose 142 H Calcium 10.7 H Magnesium 2.2 Total Bilirubin 0.6 AST 11 L ALT 21 Alkaline Phosphatase 117 Total Protein 5.9 L Albumin 2.8 L Home Medications Medication Instructions Recorded Amlodipine Besylate 2.5 mg PO DAILY 01/09/19 Ascorbate Calcium [Vitamin C] 500 mg PO DAILY 01/09/19 Aspirin 162 mg PO DAILY 01/09/19 Atorvastatin Ca [Lipitor] 40 mg PO HS 01/09/19 Lactobacillus Acidophilus 1 each PO DAILY 01/09/19 [Acidophilus] Memantine HCl 5 mg PO BID 01/09/19 Tamsulosin HCl [Flomax -] 0.4 mg PO DAILY@0830 #30 cap.er.24h 01/16/19 Glimepiride 4 mg PO BID 09/04/19 Current Medications Generic Name Dose Route Start Last Admin Trade Name Freq PRN Reason Stop Dose Admin Amlodipine Besylate 2.5 mg 09/14/19 10:00 09/14/19 09:51 Norvasc - PO 2.5 mg DAILY SONYA Administration Ascorbic Acid 500 mg 09/14/19 10:00 09/14/19 09:51 Vitamin C - PO 500 mg DAILY SONYA Administration Aspirin 81 mg 09/14/19 10:00 09/14/19 09:52 Asa - PO 81 mg DAILY SONYA Administration Atorvastatin Calcium 40 mg 09/13/19 22:00 09/13/19 21:32 Lipitor - PO 40 mg HS SONYA Administration Bacitracin 1 applic 09/14/19 10:00 09/14/19 09:52 Bacitracin - TP 1 applic DAILY SONYA Administration Docusate Sodium 100 mg 09/13/19 15:15 Colace - PO Q8H PRN CONSTIPATION Heparin Sodium (Porcine) 5,000 unit 09/13/19 22:00 09/14/19 09:51 Heparin - SQ 5,000 unit BID SONYA Administration Hydrocortisone 1 applic 09/13/19 15:14 09/14/19 09:52 Hytone 1% Cream - TP 1 applic DAILY PRN Administration HEMORRHOIDS Sodium Chloride 1,000 mls @ 42 mls/hr 09/13/19 15:30 09/13/19 16:09 Normal Saline - IV 42 mls/hr ASDIR SONYA Administration Insulin Aspart 1 vial 09/13/19 16:30 09/14/19 12:18 Novolog Vial Sliding Scale - SQ 2 units TIDAC SONYA Administration Protocol Lactobacillus Acidophilus 1 tab 09/14/19 10:00 09/14/19 09:51 Bacid - PO 1 tab DAILY SONYA Administration Memantine 5 mg 09/13/19 22:00 09/14/19 09:51 Namenda - PO 5 mg BID SONYA Administration Senna 2 tab 09/13/19 15:15 Senna - PO HS PRN CONSTIPATION Tamsulosin HCl 0.8 mg 09/14/19 08:30 09/14/19 09:52 Flomax - PO 0.8 mg DAILY@0830 SONYA Administration ASSESSMENT AND PLAN: 88 M UTI growing yeast s/p SPT placement HTN HLD BPH w/ LUTS T2DM Plan: s/p Fluconazole course s/p SPT placement Cont. dementia meds Cont. Flomax Correct electrolytes PRN DVT ppx: Heparin SC
--- NOTE | 2019-09-14 14:52 | PN ---
Physical Exam: SUBJECTIVE: Patient seen and examined bedside, s/p SPT placement, tolerated procedure well. VSS. OBJECTIVE: GENERAL: The patient is awake, alert, and oriented x1, in no acute distress, hard of hearing HEAD: Normal with no signs of trauma. EYES: PERRLA, EOMI, sclera anicteric, conjunctiva clear. ENT: moist mucous membranes. NECK: full range of motion, supple. LUNGS: Breath sounds equal, clear to auscultation bilaterally HEART: Regular rate and rhythm, S1, S2 ABDOMEN: Soft, nontender, nondistended, normoactive bowel sounds, large hemorr hoids EXTREMITIES: 2+ pulses, warm, well-perfused, no edema. SKIN: Warm, dry, normal turgor mazariegos draining clear urine Vital Signs - 24 hr 09/13/19 09/13/19 09/13/19 15:00 16:30 21:00 Temperature 97.4 F L 97.4 F L Pulse Rate 82 77 Respiratory 18 18 18 Rate Blood Pressure 150/65 151/74 O2 Sat by Pulse 99 96 Oximetry (%) 09/13/19 09/14/19 09/14/19 22:00 06:00 09:50 Temperature 98.4 F 98.3 F 99 F Pulse Rate 84 80 75 Respiratory 18 18 16 Rate Blood Pressure 128/67 140/59 L 130/53 L O2 Sat by Pulse 96 95 94 L Oximetry (%) 09/14/19 14:00 Temperature 98.7 F Pulse Rate 81 Respiratory 20 Rate Blood Pressure 133/60 O2 Sat by Pulse Oximetry (%) Microbiology 09/04/19 06:45 Blood - Peripheral Venous Blood Culture - Final NO GROWTH AFTER 5 DAYS INCUBATION 09/04/19 06:35 Blood - Peripheral Venous Blood Culture - Final NO GROWTH AFTER 5 DAYS INCUBATION 09/04/19 15:00 Urine - Urine - Catheterized Urine Culture - Final Yeast Like Organism Laboratory Results - last 24 hr 09/13/19 09/14/19 09/14/19 17:43 05:56 08:06 WBC 9.4 RBC 4.33 Hgb 14.0 Hct 42.4 MCV 97.8 H MCH 32.4 MCHC 33.2 RDW 14.8 Plt Count 272 MPV 10.0 Absolute Neuts (auto) 6.6 Neutrophils % 69.6 Lymphocytes % 19.7 D Monocytes % 6.0 Eosinophils % 4.0 Basophils % 0.7 Nucleated RBC % 0 Sodium Potassium Chloride Carbon Dioxide Anion Gap BUN Creatinine Est GFR (CKD-EPI)AfAm Est GFR (CKD-EPI)NonAf POC Glucometer 128 123 Random Glucose Calcium Magnesium Total Bilirubin AST ALT Alkaline Phosphatase Total Protein Albumin 09/14/19 09/14/19 08:06 12:02 WBC RBC Hgb Hct MCV MCH MCHC RDW Plt Count MPV Absolute Neuts (auto) Neutrophils % Lymphocytes % Monocytes % Eosinophils % Basophils % Nucleated RBC % Sodium 142 Potassium 5.5 H Chloride 114 H Carbon Dioxide 24 Anion Gap 5 L BUN 30.0 H Creatinine 2.5 H Est GFR (CKD-EPI)AfAm 25.43 Est GFR (CKD-EPI)NonAf 21.94 POC Glucometer 222 Random Glucose 142 H Calcium 10.7 H Magnesium 2.2 Total Bilirubin 0.6 AST 11 L ALT 21 Alkaline Phosphatase 117 Total Protein 5.9 L Albumin 2.8 L Home Medications Medication Instructions Recorded Amlodipine Besylate 2.5 mg PO DAILY 01/09/19 Ascorbate Calcium [Vitamin C] 500 mg PO DAILY 01/09/19 Aspirin 162 mg PO DAILY 01/09/19 Atorvastatin Ca [Lipitor] 40 mg PO HS 01/09/19 Lactobacillus Acidophilus 1 each PO DAILY 01/09/19 [Acidophilus] Memantine HCl 5 mg PO BID 01/09/19 Tamsulosin HCl [Flomax -] 0.4 mg PO DAILY@0830 #30 cap.er.24h 01/16/19 Glimepiride 4 mg PO BID 09/04/19 Current Medications Generic Name Dose Route Start Last Admin Trade Name Betoq PRN Reason Stop Dose Admin Amlodipine Besylate 2.5 mg 09/14/19 10:00 09/14/19 09:51 Norvasc - PO 2.5 mg DAILY SONYA Administration Ascorbic Acid 500 mg 09/14/19 10:00 09/14/19 09:51 Vitamin C - PO 500 mg DAILY SONYA Administration Aspirin 81 mg 09/14/19 10:00 09/14/19 09:52 Asa - PO 81 mg DAILY SONYA Administration Atorvastatin Calcium 40 mg 09/13/19 22:00 09/13/19 21:32 Lipitor - PO 40 mg HS SONYA Administration Bacitracin 1 applic 09/14/19 10:00 09/14/19 09:52 Bacitracin - TP 1 applic DAILY SONYA Administration Docusate Sodium 100 mg 09/13/19 15:15 Colace - PO Q8H PRN CONSTIPATION Heparin Sodium (Porcine) 5,000 unit 09/13/19 22:00 09/14/19 09:51 Heparin - SQ 5,000 unit BID SONYA Administration Hydrocortisone 1 applic 09/13/19 15:14 09/14/19 09:52 Hytone 1% Cream - TP 1 applic DAILY PRN Administration HEMORRHOIDS Sodium Chloride 1,000 mls @ 42 mls/hr 09/13/19 15:30 09/13/19 16:09 Normal Saline - IV 42 mls/hr ASDIR SONYA Administration Insulin Aspart 1 vial 09/13/19 16:30 09/14/19 12:18 Novolog Vial Sliding Scale - SQ 2 units TIDAC SONYA Administration Protocol Lactobacillus Acidophilus 1 tab 09/14/19 10:00 09/14/19 09:51 Bacid - PO 1 tab DAILY SONYA Administration Memantine 5 mg 09/13/19 22:00 09/14/19 09:51 Namenda - PO 5 mg BID SONYA Administration Senna 2 tab 09/13/19 15:15 Senna - PO HS PRN CONSTIPATION Tamsulosin HCl 0.8 mg 09/14/19 08:30 09/14/19 09:52 Flomax - PO 0.8 mg DAILY@0830 SONYA Administration ASSESSMENT AND PLAN: 88 M UTI growing yeast s/p SPT placement HTN HLD BPH w/ LUTS T2DM Plan: s/p Fluconazole course s/p SPT placement Cont. dementia meds Cont. Flomax Correct electrolytes PRN DVT ppx: Heparin SC Visit type - Emergency Visit Emergency Visit: Yes ED Registration Date: 09/04/19 Care time: The patient presented to the Emergency Department on the above date and was hospitalized for further evaluation of their emergent condition. - New Patient This patient is new to me today: No - Critical Care Critical Care patient: No - Discharge Referral Referred to [facility] Med P.C.: No - Medication Review Med list reviewed for High Risk Meds patients 65 and older: Yes
[2019-09-14] MEDS ORDERED: ACETAMINOPHEN 1000 MG/100 ML VIAL (NON FORMULARY) IVPB ONE (15:18)
[2019-09-14] MEDS: SODIUM CHLORIDE 1,000 ML IV SCH (17:27)
[2019-09-14] MEDS: ATORVASTATIN CA 40 MG TABLET (FP) PO SCH (22:30)
[2019-09-15] MEDS: INSULIN SLIDING SCALE (NOVOLOG) 1 VIAL SQ SCH ×3 (06:40→17:04)
[2019-09-15 08:12] LABS: BASO % 0.7 % (0-2.0); EOS % 5.1 % (0-4.5); HEMOGLOBIN 12.2 GM/dL (11.7-16.9); LYMPH % 19.6 % (8-40); MCH 31.3 pg (25.7-33.7); MCHC 32.1 g/dl (32.0-35.9); MEAN CELL VOLUME 97.3 fl (80-96); NEUT % 69.6 % (42.8-82.8); PLATELET COUNT 250 K/MM3 (134-434); RDW 14.6 % (11.9-15.9); WHITE BLOOD COUNT 8.5 K/mm3 (4.0-10.0)
[2019-09-15 08:41] LABS: ALBUMIN 2.8 g/dl (3.4-5.0); BILIRUBIN,TOTAL 0.4 mg/dL (0.2-1); BLOOD UREA NITROGEN 29.7 mg/dL (7-18); CALCIUM 10.2 mg/dL (8.5-10.1); CREATININE 2.4 mg/dL (0.55-1.3); POTASSIUM 4.3 mmol/L (3.5-5.1); TOT PROT 5.6 g/dl (6.4-8.2)
[2019-09-15] MEDS: TAMSULOSIN HCL 0.4 MG CAP PO SCH (09:42)
[2019-09-15] MEDS: HEPARIN NA (PORCINE) 5,000 UNITS/ML 1ML VIAL SQ SCH ×2 (09:43→21:54)
[2019-09-15] MEDS: ASCORBIC ACID 500 MG TABLET (FP) PO SCH (09:43)
[2019-09-15] MEDS: ASPIRIN 81 MG CHEWABLE TABLETS PO SCH (09:43)
[2019-09-15] MEDS: LACTOBACILLUS ACIDOPHILUS 1 TABLET PO SCH (09:43)
[2019-09-15] MEDS: amLODIPine BESYLATE 2.5 MG TABLET (FP) PO SCH (09:44)
[2019-09-15] MEDS ORDERED: PT OWN MED DRAWER 7, Y5N ONE ×2 (09:45→21:52)
[2019-09-15] MEDS: MEMANTINE HCL 5 MG TABLET (UD) PO SCH ×2 (09:46→21:54)
[2019-09-15] MEDS: BACITRACIN 15 GM TUBE TOPICAL OINTMENT TP SCH (09:47)
[2019-09-15] MEDS ORDERED: INSULIN (NOVOLOG) ASPART 100 UNITS/ML 10ML VIAL ONE (11:54)
--- NOTE | 2019-09-15 12:59 | PN ---
Physical Exam: SUBJECTIVE: Patient seen and examined 09/15/19: pt nonverbal at baseline OBJECTIVE: Vital Signs Period Temp Pulse Resp BP Sys/Brink Pulse Ox Last 24 Hr 97.8 F-99.3 F 75-83 18-20 125-159/55-86 96-98 GENERAL: The patient is awake, alert, in no acute distress. nonverbal HEAD: Normal with no signs of trauma. EYES: extraocular movements intact, sclera anicteric, conjunctiva clear. No ptosis. ENT: Ears normal, nares patent, oropharynx clear without exudates, moist mucous membranes. NECK: Trachea midline, full range of motion, supple. LUNGS: Breath sounds equal, clear to auscultation bilaterally, no wheezes, no crackles, no accessory muscle use. HEART: Regular rate and rhythm, S1, S2 without murmur, rub or gallop. ABDOMEN: Soft, nontender, nondistended, normoactive bowel sounds, no guarding, no rebound, no hepatosplenomegaly, no masses. EXTREMITIES: 2+ pulses, warm, well-perfused, no edema. NEUROLOGICAL: unable to assess as not following commands gait not observed. PSYCH: Normal mood, normal affect. SKIN: Warm, dry, normal turgor, no rashes or lesions noted Laboratory Results - last 24 hr 09/14/19 09/14/19 09/15/19 17:26 21:12 06:39 WBC RBC Hgb Hct MCV MCH MCHC RDW Plt Count MPV Absolute Neuts (auto) Neutrophils % Lymphocytes % Monocytes % Eosinophils % Basophils % Nucleated RBC % Sodium Potassium Chloride Carbon Dioxide Anion Gap BUN Creatinine Est GFR (CKD-EPI)AfAm Est GFR (CKD-EPI)NonAf POC Glucometer 240 217 153 Random Glucose Calcium Total Bilirubin AST ALT Alkaline Phosphatase Total Protein Albumin 09/15/19 09/15/19 09/15/19 06:58 06:58 11:42 WBC 8.5 RBC 3.90 L Hgb 12.2 Hct 38.0 MCV 97.3 H MCH 31.3 MCHC 32.1 RDW 14.6 Plt Count 250 MPV 10.0 Absolute Neuts (auto) 5.9 Neutrophils % 69.6 Lymphocytes % 19.6 Monocytes % 5.0 Eosinophils % 5.1 H Basophils % 0.7 Nucleated RBC % 0 Sodium 144 Potassium 4.3 Chloride 115 H Carbon Dioxide 20 L Anion Gap 9 BUN 29.7 H Creatinine 2.4 H Est GFR (CKD-EPI)AfAm 26.72 Est GFR (CKD-EPI)NonAf 23.05 POC Glucometer 178 Random Glucose 153 H Calcium 10.2 H Total Bilirubin 0.4 AST 11 L ALT 16 Alkaline Phosphatase 102 Total Protein 5.6 L Albumin 2.8 L Active Medications Generic Name Dose Route Start Last Admin Trade Name Freq PRN Reason Stop Dose Admin Amlodipine Besylate 2.5 mg 09/14/19 10:00 09/15/19 09:44 Norvasc - PO 2.5 mg DAILY SONYA Administration Ascorbic Acid 500 mg 09/14/19 10:00 09/15/19 09:43 Vitamin C - PO 500 mg DAILY SONYA Administration Aspirin 81 mg 09/14/19 10:00 09/15/19 09:43 Asa - PO 81 mg DAILY SONYA Administration Atorvastatin Calcium 40 mg 09/13/19 22:00 09/14/19 22:30 Lipitor - PO 40 mg HS SONYA Administration Bacitracin 1 applic 09/14/19 10:00 09/15/19 09:47 Bacitracin - TP 1 applic DAILY SONYA Administration Docusate Sodium 100 mg 09/13/19 15:15 Colace - PO Q8H PRN CONSTIPATION Heparin Sodium (Porcine) 5,000 unit 09/13/19 22:00 09/15/19 09:43 Heparin - SQ 5,000 unit BID SONYA Administration Hydrocortisone 1 applic 09/13/19 15:14 09/14/19 09:52 Hytone 1% Cream - TP 1 applic DAILY PRN Administration HEMORRHOIDS Sodium Chloride 1,000 mls @ 42 mls/hr 09/13/19 15:30 09/14/19 17:27 Normal Saline - IV 42 mls/hr ASDIR SONYA Administration Insulin Aspart 1 vial 09/13/19 16:30 09/15/19 12:00 Novolog Vial Sliding Scale - SQ 2 units TIDAC SONYA Administration Protocol Lactobacillus Acidophilus 1 tab 09/14/19 10:00 09/15/19 09:43 Bacid - PO 1 tab DAILY SONYA Administration Memantine 5 mg 09/13/19 22:00 09/15/19 09:46 Namenda - PO 5 mg BID SONYA Administration Senna 2 tab 09/13/19 15:15 Senna - PO HS PRN CONSTIPATION Tamsulosin HCl 0.8 mg 09/14/19 08:30 09/15/19 09:42 Flomax - PO 0.8 mg DAILY@0830 [facility] Administration ASSESSMENT/PLAN: 88 M with dm, htn, hl, bph, dementia admitted with ams secodnary to uti * UTI due to yeast organisms/bph s/p fluconazole course stable s/p SPT placement cont flomax *htn - bp stable on norvasc *dm - some hyperglycemia yest but better toafy cont to monitor on iss *dementia - stable on namenda, no signs of agitation *dvt prophy - sq heparin Dc planning Visit type - Emergency Visit Emergency Visit: Yes ED Registration Date: 09/04/19 Care time: The patient presented to the Emergency Department on the above date and was hospitalized for further evaluation of their emergent condition. - New Patient This patient is new to me today: Yes Date on this admission: 09/15/19 - Critical Care Critical Care patient: No - Discharge Referral Referred to [facility] Med [facility] No - Medication Review Med list reviewed for High Risk Meds patients 65 and older: No
[2019-09-15] MEDS: SODIUM CHLORIDE 1,000 ML IV SCH (17:04)
[2019-09-15] MEDS: ATORVASTATIN CA 40 MG TABLET (FP) PO SCH (21:54)
[2019-09-16] MEDS: INSULIN SLIDING SCALE (NOVOLOG) 1 VIAL SQ SCH ×3 (06:13→17:32)
[2019-09-16] MEDS ORDERED: PT OWN MED DRAWER 7, Y5N ONE ×2 (07:01→21:01)
[2019-09-16] MEDS: TAMSULOSIN HCL 0.4 MG CAP PO SCH (09:57)
[2019-09-16] MEDS: ASPIRIN 81 MG CHEWABLE TABLETS PO SCH (09:58)
[2019-09-16] MEDS: ASCORBIC ACID 500 MG TABLET (FP) PO SCH (09:58)
[2019-09-16] MEDS: LACTOBACILLUS ACIDOPHILUS 1 TABLET PO SCH (09:58)
[2019-09-16] MEDS: HEPARIN NA (PORCINE) 5,000 UNITS/ML 1ML VIAL SQ SCH ×2 (10:01→22:22)
[2019-09-16] MEDS: BACITRACIN 15 GM TUBE TOPICAL OINTMENT TP SCH (10:03)
[2019-09-16] MEDS: MEMANTINE HCL 5 MG TABLET (UD) PO SCH ×2 (10:03→22:22)
[2019-09-16] MEDS: amLODIPine BESYLATE 2.5 MG TABLET (FP) PO SCH (10:04)
[2019-09-16] MEDS ORDERED: INSULIN (NOVOLOG) ASPART 100 UNITS/ML 10ML VIAL ONE (12:21)
[2019-09-16] MEDS: SODIUM CHLORIDE 1,000 ML IV SCH (17:34)
--- NOTE | 2019-09-16 18:33 | PN ---
Teaching Attending Note Name of Resident: Shyla Tate ATTENDING PHYSICIAN STATEMENT I saw and evaluated the patient. I reviewed the resident's note and discussed the case with the resident. I agree with the resident's findings and plan as documented. SUBJECTIVE: Patient seen and examined bedside, s/p SPT placement, DC home with s ervices in AM, no acute changes overnight. VSS. OBJECTIVE: GENERAL: The patient is awake, alert, and oriented x1, in no acute distress, hard of hearing HEAD: Normal with no signs of trauma. EYES: PERRLA, EOMI, sclera anicteric, conjunctiva clear. ENT: moist mucous membranes. NECK: full range of motion, supple. LUNGS: Breath sounds equal, clear to auscultation bilaterally HEART: Regular rate and rhythm, S1, S2 ABDOMEN: Soft, nontender, nondistended, normoactive bowel sounds, large hemorrhoids EXTREMITIES: 2+ pulses, warm, well-perfused, no edema. SKIN: Warm, dry, normal turgor mazariegos draining clear urine Vital Signs - 24 hr 09/15/19 09/15/19 09/16/19 21:00 23:00 06:00 Temperature 98.1 F 99.2 F Pulse Rate 76 94 H Respiratory 20 20 Rate Blood Pressure 136/71 154/70 O2 Sat by Pulse 98 93 L Oximetry (%) 09/16/19 09/16/19 09/16/19 09:00 14:00 18:09 Temperature 97.4 F L 98.4 F Pulse Rate 76 80 69 Respiratory 18 16 18 Rate Blood Pressure 125/85 138/77 135/66 O2 Sat by Pulse 94 L Oximetry (%) Microbiology 09/04/19 06:45 Blood - Peripheral Venous Blood Culture - Final NO GROWTH AFTER 5 DAYS INCUBATION 09/04/19 06:35 Blood - Peripheral Venous Blood Culture - Final NO GROWTH AFTER 5 DAYS INCUBATION 09/04/19 15:00 Urine - Urine - Catheterized Urine Culture - Final Yeast Like Organism Laboratory Results - last 24 hr 09/15/19 09/16/19 09/16/19 21:00 06:12 11:59 POC Glucometer 178 139 208 09/16/19 17:26 POC Glucometer 138 Home Medications Medication Instructions Recorded Amlodipine Besylate 2.5 mg PO DAILY 01/09/19 Ascorbate Calcium [Vitamin C] 500 mg PO DAILY 01/09/19 Aspirin 162 mg PO DAILY 01/09/19 Atorvastatin Ca [Lipitor] 40 mg PO HS 01/09/19 Lactobacillus Acidophilus 1 each PO DAILY 01/09/19 [Acidophilus] Memantine HCl 5 mg PO BID 01/09/19 Tamsulosin HCl [Flomax -] 0.4 mg PO DAILY@0830 #30 cap.er.24h 01/16/19 Glimepiride 4 mg PO BID 09/04/19 Current Medications Generic Name Dose Route Start Last Admin Trade Name Freq PRN Reason Stop Dose Admin Amlodipine Besylate 2.5 mg 09/14/19 10:00 09/16/19 10:04 Norvasc - PO 2.5 mg DAILY SONYA Administration Ascorbic Acid 500 mg 09/14/19 10:00 09/16/19 09:58 Vitamin C - PO 500 mg DAILY SONYA Administration Aspirin 81 mg 09/14/19 10:00 09/16/19 09:58 Asa - PO 81 mg DAILY SONYA Administration Atorvastatin Calcium 40 mg 09/13/19 22:00 09/15/19 21:54 Lipitor - PO 40 mg HS SONYA Administration Bacitracin 1 applic 09/14/19 10:00 09/16/19 10:03 Bacitracin - TP 1 applic DAILY SONYA Administration Docusate Sodium 100 mg 09/13/19 15:15 Colace - PO Q8H PRN CONSTIPATION Heparin Sodium (Porcine) 5,000 unit 09/13/19 22:00 09/16/19 10:01 Heparin - SQ 5,000 unit BID SONYA Administration Hydrocortisone 1 applic 09/13/19 15:14 09/14/19 09:52 Hytone 1% Cream - TP 1 applic DAILY PRN Administration HEMORRHOIDS Sodium Chloride 1,000 mls @ 42 mls/hr 09/13/19 15:30 09/16/19 17:34 Normal Saline - IV 42 mls/hr ASDIR SONYA Administration Insulin Aspart 1 vial 09/13/19 16:30 09/16/19 17:32 Novolog Vial Sliding Scale - SQ Not Given TIDAC [facility] Protocol Lactobacillus Acidophilus 1 tab 09/14/19 10:00 09/16/19 09:58 Bacid - PO 1 tab DAILY SONYA Administration Memantine 5 mg 09/13/19 22:00 09/16/19 10:03 Namenda - PO 5 mg BID SONYA Administration Senna 2 tab 09/13/19 15:15 Senna - PO HS PRN CONSTIPATION Tamsulosin HCl 0.8 mg 09/14/19 08:30 09/16/19 09:57 Flomax - PO 0.8 mg DAILY@0830 SONYA Administration ASSESSMENT AND PLAN: 88 M UTI growing yeast s/p SPT placement HTN HLD BPH w/ LUTS T2DM Plan: s/p Fluconazole course s/p SPT placement Cont. dementia meds Cont. Flomax Correct electrolytes PRN DC in AM home with [employer] and support from DVT ppx: Heparin SC
--- NOTE | 2019-09-16 18:44 | PN ---
Physical Exam: SUBJECTIVE: Patient seen and examined OBJECTIVE: Vital Signs Temperature 98.4 F 09/16/19 18:09 Pulse Rate 69 09/16/19 18:09 Respiratory Rate 18 09/16/19 18:09 Blood Pressure 135/66 09/16/19 18:09 O2 Sat by Pulse Oximetry (%) 94 L 09/16/19 09:00 GENERAL: The patient is awake, alert, and oriented x1, in no acute distress. HEAD: Normal with no signs of trauma. EYES: PERRLA, EOMI, sclera anicteric, conjunctiva clear. ENT: moist mucous membranes. NECK: full range of motion, supple. LUNGS: Breath sounds equal, clear to auscultation bilaterally HEART: Regular rate and rhythm, S1, S2 ABDOMEN: Soft, nontender, nondistended, normoactive bowel sounds, large hemorrhoids, suprapubic cath in place EXTREMITIES: 2+ pulses, warm, well-perfused, no edema. SKIN: Warm, dry, normal turgor Laboratory Results - last 24 hr 09/15/19 09/16/19 09/16/19 21:00 06:12 11:59 POC Glucometer 178 139 208 09/16/19 17:26 POC Glucometer 138 Active Medications Generic Name Dose Route Start Last Admin Trade Name Freq PRN Reason Stop Dose Admin Amlodipine Besylate 2.5 mg 09/14/19 10:00 09/16/19 10:04 Norvasc - PO 2.5 mg DAILY SONYA Administration Ascorbic Acid 500 mg 09/14/19 10:00 09/16/19 09:58 Vitamin C - PO 500 mg DAILY SONYA Administration Aspirin 81 mg 09/14/19 10:00 09/16/19 09:58 Asa - PO 81 mg DAILY SONYA Administration Atorvastatin Calcium 40 mg 09/13/19 22:00 09/15/19 21:54 Lipitor - PO 40 mg HS SONYA Administration Bacitracin 1 applic 09/14/19 10:00 09/16/19 10:03 Bacitracin - TP 1 applic DAILY SONYA Administration Docusate Sodium 100 mg 09/13/19 15:15 Colace - PO Q8H PRN CONSTIPATION Heparin Sodium (Porcine) 5,000 unit 09/13/19 22:00 09/16/19 10:01 Heparin - SQ 5,000 unit BID SONYA Administration Hydrocortisone 1 applic 09/13/19 15:14 09/14/19 09:52 Hytone 1% Cream - TP 1 applic DAILY PRN Administration HEMORRHOIDS Insulin Aspart 1 vial 09/13/19 16:30 09/16/19 17:32 Novolog Vial Sliding Scale - SQ Not Given TIDAC [facility] Protocol Lactobacillus Acidophilus 1 tab 09/14/19 10:00 09/16/19 09:58 Bacid - PO 1 tab DAILY SONYA Administration Memantine 5 mg 09/13/19 22:00 09/16/19 10:03 Namenda - PO 5 mg BID SONYA Administration Senna 2 tab 09/13/19 15:15 Senna - PO HS PRN CONSTIPATION Tamsulosin HCl 0.8 mg 09/14/19 08:30 09/16/19 09:57 Flomax - PO 0.8 mg DAILY@0830 SONYA Administration ASSESSMENT/PLAN: Patient is an 88 year old male with a 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 Previous admission in December for AMS, treated for UTI and hyperCa. #Acute metabolic encephalopathy, improved - Likely 2/2 UTI - UA: 2+protein, 3+blood, 3+ leukocyte esterase - UCx: yeast like organism - Fluconazole 100mg daily 08/19 completed - renal/bladder US - urinary retention, prostatic enlargement - s/p suprapubic cath insertion - Urology (Dr. Magdaleno) consulted. Recommendations appreciated - Infectious disease (Dr. Beauchamp) consulted. Recommendations appreciated #ARSALAN on CKD - Creatinine now at baseline - renal/bladder US - moderately atrophic right kidney with no evidence of obstructive uropathy, urinary retention, prostatic enlargement #Hypercalcemia - Also presented on last admission, which improved w/ IVF hydration - PTH, Vit D, urine ca #Hemorrhoids - reported she has applied steroid creams but has not improved - consult surgery (Dr. Thomas) for evaluation. appreciate recs. - to follow up in clinic for further intervention #Dementia - C/w memantine 5 mg bid - Speech and swallow performed by speech language pathology, showed within functional limits - Facilitative Feeding, Safe Rate, 1/2 tsp. at a time, Elevate HOB during feed #PMH of CVA - C/w with aspirin 162 mg - C/w lipitor #NIDDM - ISS - BGM ACHS - Last HbA1c(12/2018): 8% #HTN - C/w Amlodipine 2.5mg daily #HLD - Continue Lipitor 40 mg #FEN - Not on any standing fluids - Routine bmp monitoring - Diabetic/sodium restricted diet #DVT PPX - Heparin 5000 U SQ bid #Disposition - Admitted to med-surg. Visit type - Emergency Visit Emergency Visit: Yes ED Registration Date: 09/04/19 Care time: The patient presented to the Emergency Department on the above date and was hospitalized for further evaluation of their emergent condition. - New Patient This patient is new to me today: No - Critical Care Critical Care patient: No - Medication Review Med list reviewed for High Risk Meds patients 65 and older: Yes ATTENDING PHYSICIAN STATEMENT I saw and evaluated the patient. I reviewed the resident's note and discussed the case with the resident. I agree with the resident's findings and plan as documented. SUBJECTIVE: OBJECTIVE: ASSESSMENT AND PLAN:
[2019-09-16] MEDS: ATORVASTATIN CA 40 MG TABLET (FP) PO SCH (22:22)
[2019-09-17] MEDS: INSULIN SLIDING SCALE (NOVOLOG) 1 VIAL SQ SCH ×3 (06:02→17:33)
[2019-09-17] MEDS ORDERED: INSULIN (NOVOLOG) ASPART 100 UNITS/ML 10ML VIAL ONE (06:43)
[2019-09-17 08:35] LABS: BLOOD UREA NITROGEN 24.3 mg/dL (7-18); CALCIUM 10.6 mg/dL (8.5-10.1); CREATININE 2.1 mg/dL (0.55-1.3); POTASSIUM 4.4 mmol/L (3.5-5.1)
[2019-09-17] MEDS: ASPIRIN 81 MG CHEWABLE TABLETS PO SCH (10:14)
[2019-09-17] MEDS: TAMSULOSIN HCL 0.4 MG CAP PO SCH (10:14)
[2019-09-17] MEDS: ASCORBIC ACID 500 MG TABLET (FP) PO SCH (10:15)
[2019-09-17] MEDS: LACTOBACILLUS ACIDOPHILUS 1 TABLET PO SCH (10:15)
[2019-09-17] MEDS: amLODIPine BESYLATE 2.5 MG TABLET (FP) PO SCH (10:15)
[2019-09-17] MEDS: HEPARIN NA (PORCINE) 5,000 UNITS/ML 1ML VIAL SQ SCH ×2 (10:15→22:00)
[2019-09-17] MEDS: MEMANTINE HCL 5 MG TABLET (UD) PO SCH ×2 (10:17→22:01)
[2019-09-17] MEDS ORDERED: PT OWN MED DRAWER 7, Y5N ONE (10:17)
[2019-09-17] MEDS: BACITRACIN 15 GM TUBE TOPICAL OINTMENT TP SCH (10:18)
[2019-09-17 11:59] VITALS: BMI 24.4
--- NOTE | 2019-09-17 13:32 | PN ---
Teaching Attending Note Name of Resident: Shyla Tate ATTENDING PHYSICIAN STATEMENT I saw and evaluated the patient. I reviewed the resident's note and discussed the case with the resident. I agree with the resident's findings and plan as documented. SUBJECTIVE: pt seen and examined at bedside, pleasant OBJECTIVE: Last Vital Signs Temp Pulse Resp BP Pulse Ox 98.6 F 82 18 152/77 96 09/17/19 09:00 09/17/19 09:00 09/17/19 09:00 09/17/19 09:00 09/17/19 09:00 GENERAL: The patient is awake, alert, and oriented x1, in no acute distress, hard of hearing HEENT: NC/AT, not p/c/j, neck supple no JVD LUNGS: Breath sounds equal, clear to auscultation bilaterally HEART: Regular rate and rhythm, S1, S2 ABDOMEN: Soft, nontender, nondistended, normoactive bowel sounds, large hemorrhoids, SBT draining clear urine EXTREMITIES: 2+ pulses, warm, well-perfused, no edema. SKIN: Warm, dry, normal turgor CBCD WBC 8.5 K/mm3 (4.0-10.0) 09/15/19 06:58 RBC 3.90 M/mm3 (4.00-5.60) L 09/15/19 06:58 Hgb 12.2 GM/dL (11.7-16.9) 09/15/19 06:58 Hct 38.0 % (35.4-49) 09/15/19 06:58 MCV 97.3 fl (80-96) H 09/15/19 06:58 MCHC 32.1 g/dl (32.0-35.9) 09/15/19 06:58 RDW 14.6 % (11.9-15.9) 09/15/19 06:58 Plt Count 250 K/MM3 (134-434) 09/15/19 06:58 MPV 10.0 fl (7.5-11.1) 09/15/19 06:58 CMP Sodium 144 mmol/L (136-145) 09/17/19 06:56 Potassium 4.4 mmol/L (3.5-5.1) 09/17/19 06:56 Chloride 116 mmol/L (98-107) H 09/17/19 06:56 Carbon Dioxide 22 mmol/L (21-32) 09/17/19 06:56 Anion Gap 6 MMOL/L (8-16) L 09/17/19 06:56 BUN 24.3 mg/dL (7-18) H 09/17/19 06:56 Creatinine 2.1 mg/dL (0.55-1.3) H 09/17/19 06:56 Calcium 10.6 mg/dL (8.5-10.1) H 09/17/19 06:56 Total Bilirubin 0.4 mg/dL (0.2-1) 09/15/19 06:58 AST 11 U/L (15-37) L 09/15/19 06:58 ALT 16 U/L (13-61) 09/15/19 06:58 Alkaline Phosphatase 102 U/L (45-117) 09/15/19 06:58 Total Protein 5.6 g/dl (6.4-8.2) L 09/15/19 06:58 Albumin 2.8 g/dl (3.4-5.0) L 09/15/19 06:58 Active Medications Amlodipine Besylate (Norvasc -) 2.5 mg PO DAILY [facility] Last Admin: 09/17/19 10:15 Dose: 2.5 mg Documented by: Ascorbic Acid (Vitamin C -) 500 mg PO DAILY [facility] Last Admin: 09/17/19 10:15 Dose: 500 mg Documented by: Aspirin (Asa -) 81 mg PO DAILY [facility] Last Admin: 09/17/19 10:14 Dose: 81 mg Documented by: Atorvastatin Calcium (Lipitor -) 40 mg PO HS [facility] Last Admin: 09/16/19 22:22 Dose: 40 mg Documented by: Bacitracin (Bacitracin -) 1 applic TP DAILY [facility] Last Admin: 09/17/19 10:18 Dose: 1 applic Documented by: Docusate Sodium (Colace -) 100 mg PO Q8H PRN PRN Reason: CONSTIPATION Last Admin: 09/17/19 10:15 Dose: 100 mg Documented by: Heparin Sodium (Porcine) (Heparin -) 5,000 unit SQ BID [facility] Last Admin: 09/17/19 10:15 Dose: 5,000 unit Documented by: Hydrocortisone (Hytone 1% Cream -) 1 applic TP DAILY PRN PRN Reason: HEMORRHOIDS Last Admin: 09/14/19 09:52 Dose: 1 applic Documented by: Insulin Aspart (Novolog Vial Sliding Scale -) 1 vial SQ TIDAC [facility]; Protocol Last Admin: 09/17/19 06:02 Dose: Not Given Documented by: Lactobacillus Acidophilus (Bacid -) 1 tab PO DAILY [facility] Last Admin: 09/17/19 10:15 Dose: 1 tab Documented by: Memantine (Namenda -) 5 mg PO BID [facility] Last Admin: 09/17/19 10:17 Dose: 5 mg Documented by: Senna (Senna -) 2 tab PO HS PRN PRN Reason: CONSTIPATION Tamsulosin HCl (Flomax -) 0.8 mg PO DAILY@0830 [facility] Last Admin: 09/17/19 10:14 Dose: 0.8 mg Documented by: ASSESSMENT AND PLAN: A 88 YOM with CVA(w rt sided weakness), HTN, CAD s/p CABG, DM, dementia and CKD presented with AMS Overflow incontinence s/p SPT placement UTI resolved HTN HLD T2DM DVT ppx: Heparin SC Plan: DC home with [employer] and support from
--- NOTE | 2019-09-17 15:47 | DS ---
Physical Exam: SUBJECTIVE: Patient seen and examined OBJECTIVE: Vital Signs Temperature 98.4 F 09/17/19 14:42 Pulse Rate 66 09/17/19 14:42 Respiratory Rate 16 09/17/19 14:42 Blood Pressure 146/65 09/17/19 14:42 O2 Sat by Pulse Oximetry (%) 96 09/17/19 09:00 PHYSICAL EXAM GENERAL: The patient is awake, alert, and oriented x1, in no acute distress. HEAD: Normal with no signs of trauma. EYES: PERRLA, EOMI, sclera anicteric, conjunctiva clear. ENT: moist mucous membranes. NECK: full range of motion, supple. LUNGS: Breath sounds equal, clear to auscultation bilaterally HEART: Regular rate and rhythm, S1, S2 ABDOMEN: Soft, nontender, nondistended, normoactive bowel sounds, large hemorrhoids, suprapubic cath in place EXTREMITIES: 2+ pulses, warm, well-perfused, no edema. SKIN: Warm, dry, normal turgor LABS Laboratory Results - last 24 hr 09/16/19 09/17/19 09/17/19 17:26 06:01 06:56 Sodium 144 Potassium 4.4 Chloride 116 H Carbon Dioxide 22 Anion Gap 6 L BUN 24.3 H Creatinine 2.1 H Est GFR (CKD-EPI)AfAm 31.40 Est GFR (CKD-EPI)NonAf 27.09 POC Glucometer 138 136 Random Glucose 145 H Calcium 10.6 H 09/17/19 12:03 Sodium Potassium Chloride Carbon Dioxide Anion Gap BUN Creatinine Est GFR (CKD-EPI)AfAm Est GFR (CKD-EPI)NonAf POC Glucometer 189 Random Glucose Calcium HOSPITAL COURSE: Date of Admission:09/04/19 Date of Discharge: 09/17/19 Patient is an 88 year old male with a PMH of CVA(2018) w/residual R. sided weakness, HTN, CAD s/p CABG, DM, dementia, and CKD presents with 5 days of AMS. Patient was found to have a urinary tract infection, urine cultures growing yeast like organism. Patient was evaluated by ID and was treated with 7 days of Fluconazole. Ultrasound done showed enlarged prostate. Patient was evaluated by urology and patient had suprapubic cath placement. Patient was also noted to have ARSALAN and hypercalcemia which improved with IV fluids. Patient was evaluated by surgery for hemorrhoids and recommended witch khloe and outpatinet follow up for further management. Patient was discharged with VNS. Minutes to complete discharge: 38 Discharge Summary Problems reviewed: Yes Reason For Visit: Urinary TRACT INFECTION AMS Current Active Problems AMS (altered mental status) (Acute) Acute kidney injury superimposed on CKD (Acute) CKD (chronic kidney disease) (Acute) Hemorrhoids that prolapse with straining and require manual replacement back inside anal canal (Acute) History of CVA (cerebrovascular accident) (Acute) History of CVA (cerebrovascular accident) (Acute) Pyuria (Acute) UTI (urinary tract infection) (Acute) Weakness (Acute) Condition: Stable - Instructions Diet, Activity, Other Instructions: Your visit You were admitted to the hospital because you were found to have a urinary tract infection. A yeast infection was noted on the culture and you completed 7 days of treatment. An ultrasound was done which showed you had a large prostate that is likely causing blockage on the urinary flow and giving you the frequent urinary tract infection. A catheter was placed in your bladder so urine will flow from there and into a bag. Please note of the following instructions below to care for the catheter. Catheter care 1)Wash your hands before you handle the catheter. 2)Clean the area around the catheter with soap and water at least one time every day. Wash the area with soap and water after every bowel movement. 4)Keep the drainage bag lower than your bladder to keep urine from backing up. 5)Empty the drainage bag when it is full or at least every 8 hours. 6) Clean the bag after removing it from the catheter. Use another drainage bag or container while you clean the bag. Medications Please continue your home medications. Follow up Please follow up with your primary care provider (Dr. Ferreira) in 1 week. Please follow up with the urologist (Dr. Magdaleno) in 1-2 weeks. A referral has been provided. Additional info Please call 911 or go to the emergency room if with any worsening fevers, chills, headache, dizziness, chest pain, shortness of breath, belly pain, di arrhea, or any new concerns noted. Referrals: Malini Magdaleno MD [Staff Physician] - Rboer Ferreira MD [Primary Care Provider] - Disposition: VNS/HOME HEALTH CARE - Home Medications Comprehensive Discharge Medication List: Ambulatory Orders Amlodipine Besylate 2.5 mg PO DAILY 01/09/19 Ascorbate Calcium [Vitamin C] 500 mg PO DAILY 01/09/19 Aspirin 162 mg PO DAILY 01/09/19 Atorvastatin Ca [Lipitor] 40 mg PO HS 01/09/19 Lactobacillus Acidophilus [Acidophilus] 1 each PO DAILY 01/09/19 Memantine HCl 5 mg PO BID 01/09/19 Tamsulosin HCl [Flomax -] 0.4 mg PO DAILY@0830 #30 cap.er.24h 01/16/19 Glimepiride 4 mg PO BID 09/04/19 Bacitracin - [Bacitracin Topical Ointment -] 1 applic TP DAILY tube 09/17/19 Hydrocortisone 1% Cream [Hytone 1% Cream -] 1 applic TP DAILY PRN tube 09/17/19 This patient is new to me today: No Emergency Visit: Yes ED Registration Date: 09/04/19 Care time: The patient presented to the Emergency Department on the above date and was hospitalized for further evaluation of their emergent condition. Critical Care patient: No - Discharge Referral Referred to [facility] Med P.C[facility] No ATTENDING PHYSICIAN STATEMENT I saw and evaluated the patient. I reviewed the resident's note and discussed the case with the resident. I agree with the resident's findings and plan as documented. SUBJECTIVE: OBJECTIVE: ASSESSMENT AND PLAN:
--- NOTE | 2019-09-17 15:59 | PN ---
Teaching Attending Note Name of Resident: Shyla Tate ATTENDING PHYSICIAN STATEMENT I saw and evaluated the patient. I reviewed the resident's note and discussed the case with the resident. I agree with the resident's findings and plan as documented. SUBJECTIVE: Patient seen and examined bedside, no overnight events, awaiting DC home w/ services. VSS. OBJECTIVE: GENERAL: The patient is awake, alert, and oriented x1, in no acute distress, hard of hearing HEAD: Normal with no signs of trauma. EYES: PERRLA, EOMI, sclera anicteric, conjunctiva clear. ENT: moist mucous membranes. NECK: full range of motion, supple. LUNGS: Breath sounds equal, clear to auscultation bilaterally HEART: Regular rate and rhythm, S1, S2 ABDOMEN: Soft, nontender, nondistended, normoactive bowel sounds, large hemorrhoids EXTREMITIES: 2+ pulses, warm, well-perfused, no edema. SKIN: Warm, dry, normal turgor mazariegos draining yellow urine Vital Signs - 24 hr 09/16/19 09/16/19 09/17/19 18:09 21:00 06:00 Temperature 98.4 F 99.0 F 98.9 F Pulse Rate 69 75 72 Respiratory 18 18 20 Rate Blood Pressure 135/66 143/68 131/59 L O2 Sat by Pulse 95 Oximetry (%) 09/17/19 09/17/19 09:00 14:42 Temperature 98.6 F 98.4 F Pulse Rate 82 66 Respiratory 18 16 Rate Blood Pressure 152/77 146/65 O2 Sat by Pulse 96 Oximetry (%) Microbiology 09/04/19 06:45 Blood - Peripheral Venous Blood Culture - Final NO GROWTH AFTER 5 DAYS INCUBATION 09/04/19 06:35 Blood - Peripheral Venous Blood Culture - Final NO GROWTH AFTER 5 DAYS INCUBATION 09/04/19 15:00 Urine - Urine - Catheterized Urine Culture - Final Yeast Like Organism Laboratory Results - last 24 hr 09/16/19 09/17/19 09/17/19 17:26 06:01 06:56 Sodium 144 Potassium 4.4 Chloride 116 H Carbon Dioxide 22 Anion Gap 6 L BUN 24.3 H Creatinine 2.1 H Est GFR (CKD-EPI)AfAm 31.40 Est GFR (CKD-EPI)NonAf 27.09 POC Glucometer 138 136 Random Glucose 145 H Calcium 10.6 H 09/17/19 12:03 Sodium Potassium Chloride Carbon Dioxide Anion Gap BUN Creatinine Est GFR (CKD-EPI)AfAm Est GFR (CKD-EPI)NonAf POC Glucometer 189 Random Glucose Calcium Home Medications Medication Instructions Recorded Amlodipine Besylate 2.5 mg PO DAILY 01/09/19 Ascorbate Calcium [Vitamin C] 500 mg PO DAILY 01/09/19 Aspirin 162 mg PO DAILY 01/09/19 Atorvastatin Ca [Lipitor] 40 mg PO HS 01/09/19 Lactobacillus Acidophilus 1 each PO DAILY 01/09/19 [Acidophilus] Memantine HCl 5 mg PO BID 01/09/19 Tamsulosin HCl [Flomax -] 0.4 mg PO DAILY@0830 #30 cap.er.24h 01/16/19 Glimepiride 4 mg PO BID 09/04/19 Bacitracin - [Bacitracin Topical 1 applic TP DAILY tube 09/17/19 Ointment -] Hydrocortisone 1% Cream [Hytone 1% 1 applic TP DAILY PRN tube 09/17/19 Cream -] Current Medications Generic Name Dose Route Start Last Admin Trade Name Freq PRN Reason Stop Dose Admin Amlodipine Besylate 2.5 mg 09/14/19 10:00 09/17/19 10:15 Norvasc - PO 2.5 mg DAILY SONYA Administration Ascorbic Acid 500 mg 09/14/19 10:00 09/17/19 10:15 Vitamin C - PO 500 mg DAILY SONYA Administration Aspirin 81 mg 09/14/19 10:00 09/17/19 10:14 Asa - PO 81 mg DAILY SONYA Administration Atorvastatin Calcium 40 mg 09/13/19 22:00 09/16/19 22:22 Lipitor - PO 40 mg HS SONYA Administration Bacitracin 1 applic 09/14/19 10:00 09/17/19 10:18 Bacitracin - TP 1 applic DAILY SONYA Administration Docusate Sodium 100 mg 09/13/19 15:15 09/17/19 10:15 Colace - PO 100 mg Q8H PRN Administration CONSTIPATION Heparin Sodium (Porcine) 5,000 unit 09/13/19 22:00 09/17/19 10:15 Heparin - SQ 5,000 unit BID SONYA Administration Hydrocortisone 1 applic 09/13/19 15:14 09/14/19 09:52 Hytone 1% Cream - TP 1 applic DAILY PRN Administration HEMORRHOIDS Insulin Aspart 1 vial 09/13/19 16:30 09/17/19 13:50 Novolog Vial Sliding Scale - SQ Not Given TIDAC [facility] Protocol Lactobacillus Acidophilus 1 tab 09/14/19 10:00 09/17/19 10:15 Bacid - PO 1 tab DAILY SONYA Administration Memantine 5 mg 09/13/19 22:00 09/17/19 10:17 Namenda - PO 5 mg BID SONYA Administration Senna 2 tab 09/13/19 15:15 Senna - PO HS PRN CONSTIPATION Tamsulosin HCl 0.8 mg 09/14/19 08:30 09/17/19 10:14 Flomax - PO 0.8 mg DAILY@0830 SONYA Administration ASSESSMENT AND PLAN: 88 M UTI growing yeast s/p SPT placement HTN HLD BPH w/ LUTS T2DM Plan: s/p Fluconazole course s/p SPT placement Cont. dementia meds Cont. Flomax Correct electrolytes PRN DC home with [employer] and support from
[2019-09-17] MEDS: ATORVASTATIN CA 40 MG TABLET (FP) PO SCH (22:00)
[2019-09-18] MEDS ORDERED: PT OWN MED DRAWER 7, Y5N ONE ×3 (02:25→21:08)
[2019-09-18] MEDS: INSULIN SLIDING SCALE (NOVOLOG) 1 VIAL SQ SCH ×3 (06:15→17:34)
--- NOTE | 2019-09-18 10:18 | PN ---
Teaching Attending Note Name of Resident: Shyla Tate ATTENDING PHYSICIAN STATEMENT I saw and evaluated the patient. I reviewed the resident's note and discussed the case with the resident. I agree with the resident's findings and plan as documented. SUBJECTIVE: pt seen and examined, no change from yesterday OBJECTIVE: Last Vital Signs Temp Pulse Resp BP Pulse Ox 98.4 F 69 20 148/70 93 L 09/18/19 06:00 09/18/19 06:00 09/18/19 06:00 09/18/19 06:00 09/17/19 21:00 GENERAL: The patient is awake, alert, and oriented x1, in no acute distress, hard of hearing HEENT: NC/AT, not p/c/j, neck supple no JVD LUNGS: Breath sounds equal, clear to auscultation bilaterally HEART: Regular rate and rhythm, S1, S2 ABDOMEN: Soft, nontender, nondistended, normoactive bowel sounds, large hemorrhoids, SBT draining clear urine EXTREMITIES: 2+ pulses, warm, well-perfused, no edema. SKIN: Warm, dry, normal turgor CBCD WBC 8.5 K/mm3 (4.0-10.0) 09/15/19 06:58 RBC 3.90 M/mm3 (4.00-5.60) L 09/15/19 06:58 Hgb 12.2 GM/dL (11.7-16.9) 09/15/19 06:58 Hct 38.0 % (35.4-49) 09/15/19 06:58 MCV 97.3 fl (80-96) H 09/15/19 06:58 MCHC 32.1 g/dl (32.0-35.9) 09/15/19 06:58 RDW 14.6 % (11.9-15.9) 09/15/19 06:58 Plt Count 250 K/MM3 (134-434) 09/15/19 06:58 MPV 10.0 fl (7.5-11.1) 09/15/19 06:58 CMP Sodium 144 mmol/L (136-145) 09/17/19 06:56 Potassium 4.4 mmol/L (3.5-5.1) 09/17/19 06:56 Chloride 116 mmol/L (98-107) H 09/17/19 06:56 Carbon Dioxide 22 mmol/L (21-32) 09/17/19 06:56 Anion Gap 6 MMOL/L (8-16) L 09/17/19 06:56 BUN 24.3 mg/dL (7-18) H 09/17/19 06:56 Creatinine 2.1 mg/dL (0.55-1.3) H 09/17/19 06:56 Calcium 10.6 mg/dL (8.5-10.1) H 09/17/19 06:56 Total Bilirubin 0.4 mg/dL (0.2-1) 09/15/19 06:58 AST 11 U/L (15-37) L 09/15/19 06:58 ALT 16 U/L (13-61) 09/15/19 06:58 Alkaline Phosphatase 102 U/L (45-117) 09/15/19 06:58 Total Protein 5.6 g/dl (6.4-8.2) L 09/15/19 06:58 Albumin 2.8 g/dl (3.4-5.0) L 09/15/19 06:58 Active Medications Amlodipine Besylate (Norvasc -) 2.5 mg PO DAILY [facility] Last Admin: 09/17/19 10:15 Dose: 2.5 mg Documented by: Ascorbic Acid (Vitamin C -) 500 mg PO DAILY [facility] Last Admin: 09/17/19 10:15 Dose: 500 mg Documented by: Aspirin (Asa -) 81 mg PO DAILY [facility] Last Admin: 09/17/19 10:14 Dose: 81 mg Documented by: Atorvastatin Calcium (Lipitor -) 40 mg PO HS [facility] Last Admin: 09/17/19 22:00 Dose: 40 mg Documented by: Bacitracin (Bacitracin -) 1 applic TP DAILY [facility] Last Admin: 09/17/19 10:18 Dose: 1 applic Documented by: Docusate Sodium (Colace -) 100 mg PO Q8H PRN PRN Reason: CONSTIPATION Last Admin: 09/17/19 10:15 Dose: 100 mg Documented by: Heparin Sodium (Porcine) (Heparin -) 5,000 unit SQ BID [facility] Last Admin: 09/17/19 22:00 Dose: 5,000 unit Documented by: Hydrocortisone (Hytone 1% Cream -) 1 applic TP DAILY PRN PRN Reason: HEMORRHOIDS Last Admin: 09/14/19 09:52 Dose: 1 applic Documented by: Insulin Aspart (Novolog Vial Sliding Scale -) 1 vial SQ TIDAC [facility]; Protocol Last Admin: 09/18/19 06:15 Dose: Not Given Documented by: Lactobacillus Acidophilus (Bacid -) 1 tab PO DAILY [facility] Last Admin: 09/17/19 10:15 Dose: 1 tab Documented by: Memantine (Namenda -) 5 mg PO BID [facility] Last Admin: 09/17/19 22:01 Dose: 5 mg Documented by: Senna (Senna -) 2 tab PO HS PRN PRN Reason: CONSTIPATION Tamsulosin HCl (Flomax -) 0.8 mg PO DAILY@0830 [facility] Last Admin: 09/17/19 10:14 Dose: 0.8 mg Documented by: ASSESSMENT AND PLAN: A 88 YOM with CVA(w rt sided weakness), HTN, CAD s/p CABG, DM, dementia and CKD presented with AMS Overflow incontinence s/p SPT placement UTI resolved HTN HLD T2DM DVT ppx: Heparin SC Plan: DC home with [employer] and support from
[2019-09-18] MEDS: MEMANTINE HCL 5 MG TABLET (UD) PO SCH ×2 (10:54→21:57)
[2019-09-18] MEDS: TAMSULOSIN HCL 0.4 MG CAP PO SCH (10:54)
[2019-09-18] MEDS: LACTOBACILLUS ACIDOPHILUS 1 TABLET PO SCH (10:55)
[2019-09-18] MEDS: HEPARIN NA (PORCINE) 5,000 UNITS/ML 1ML VIAL SQ SCH ×2 (10:55→21:56)
[2019-09-18] MEDS: ASPIRIN 81 MG CHEWABLE TABLETS PO SCH (10:55)
[2019-09-18] MEDS: amLODIPine BESYLATE 2.5 MG TABLET (FP) PO SCH (10:56)
[2019-09-18] MEDS: BACITRACIN 15 GM TUBE TOPICAL OINTMENT TP SCH (10:56)
[2019-09-18] MEDS: ASCORBIC ACID 500 MG TABLET (FP) PO SCH (10:56)
[2019-09-18] MEDS ORDERED: INSULIN (NOVOLOG) ASPART 100 UNITS/ML 10ML VIAL ONE (21:53)
[2019-09-18] MEDS: ATORVASTATIN CA 40 MG TABLET (FP) PO SCH (21:57)
[2019-09-19] MEDS: INSULIN SLIDING SCALE (NOVOLOG) 1 VIAL SQ SCH ×2 (06:00→12:48)
[2019-09-19] MEDS ORDERED: PT OWN MED DRAWER 7, Y5N ONE (09:25)
[2019-09-19] MEDS: ASCORBIC ACID 500 MG TABLET (FP) PO SCH (09:28)
[2019-09-19] MEDS: MEMANTINE HCL 5 MG TABLET (UD) PO SCH (09:28)
[2019-09-19] MEDS: BACITRACIN 15 GM TUBE TOPICAL OINTMENT TP SCH (09:28)
[2019-09-19] MEDS: HEPARIN NA (PORCINE) 5,000 UNITS/ML 1ML VIAL SQ SCH (09:28)
[2019-09-19] MEDS: ASPIRIN 81 MG CHEWABLE TABLETS PO SCH (09:28)
[2019-09-19] MEDS: TAMSULOSIN HCL 0.4 MG CAP PO SCH (09:28)
[2019-09-19] MEDS: LACTOBACILLUS ACIDOPHILUS 1 TABLET PO SCH (09:28)
[2019-09-19] MEDS: amLODIPine BESYLATE 2.5 MG TABLET (FP) PO SCH (09:29)
--- NOTE | 2019-09-19 13:47 | PN ---
Teaching Attending Note Name of Resident: Shyla Tate ATTENDING PHYSICIAN STATEMENT I saw and evaluated the patient. I reviewed the resident's note and discussed the case with the resident. I agree with the resident's findings and plan as documented. SUBJECTIVE: pt seen and examined, no change in current condition OBJECTIVE: Last Vital Signs Temp Pulse Resp BP Pulse Ox 97.8 F 73 20 130/69 97 09/19/19 05:45 09/19/19 05:59 09/19/19 05:59 09/19/19 05:59 09/18/19 22:05 GENERAL: The patient is awake, alert, and oriented x1, in no acute distress, hard of hearing HEENT: NC/AT, not p/c/j, neck supple no JVD LUNGS: Breath sounds equal, clear to auscultation bilaterally HEART: Regular rate and rhythm, S1, S2 ABDOMEN: Soft, nontender, nondistended, normoactive bowel sounds, large hemorrhoids, SBT draining clear urine EXTREMITIES: 2+ pulses, warm, well-perfused, no edema. SKIN: Warm, dry, normal turgor CBCD WBC 8.5 K/mm3 (4.0-10.0) 09/15/19 06:58 RBC 3.90 M/mm3 (4.00-5.60) L 09/15/19 06:58 Hgb 12.2 GM/dL (11.7-16.9) 09/15/19 06:58 Hct 38.0 % (35.4-49) 09/15/19 06:58 MCV 97.3 fl (80-96) H 09/15/19 06:58 MCHC 32.1 g/dl (32.0-35.9) 09/15/19 06:58 RDW 14.6 % (11.9-15.9) 09/15/19 06:58 Plt Count 250 K/MM3 (134-434) 09/15/19 06:58 MPV 10.0 fl (7.5-11.1) 09/15/19 06:58 CMP Sodium 144 mmol/L (136-145) 09/17/19 06:56 Potassium 4.4 mmol/L (3.5-5.1) 09/17/19 06:56 Chloride 116 mmol/L (98-107) H 09/17/19 06:56 Carbon Dioxide 22 mmol/L (21-32) 09/17/19 06:56 Anion Gap 6 MMOL/L (8-16) L 09/17/19 06:56 BUN 24.3 mg/dL (7-18) H 09/17/19 06:56 Creatinine 2.1 mg/dL (0.55-1.3) H 09/17/19 06:56 Calcium 10.6 mg/dL (8.5-10.1) H 09/17/19 06:56 Total Bilirubin 0.4 mg/dL (0.2-1) 09/15/19 06:58 AST 11 U/L (15-37) L 09/15/19 06:58 ALT 16 U/L (13-61) 09/15/19 06:58 Alkaline Phosphatase 102 U/L (45-117) 09/15/19 06:58 Total Protein 5.6 g/dl (6.4-8.2) L 09/15/19 06:58 Albumin 2.8 g/dl (3.4-5.0) L 09/15/19 06:58 Active Medications Amlodipine Besylate (Norvasc -) 2.5 mg PO DAILY [facility] Last Admin: 09/19/19 09:29 Dose: 2.5 mg Documented by: Ascorbic Acid (Vitamin C -) 500 mg PO DAILY [facility] Last Admin: 09/19/19 09:28 Dose: 500 mg Documented by: Aspirin (Asa -) 81 mg PO DAILY [facility] Last Admin: 09/19/19 09:28 Dose: 81 mg Documented by: Atorvastatin Calcium (Lipitor -) 40 mg PO HS [facility] Last Admin: 09/18/19 21:57 Dose: 40 mg Documented by: Bacitracin (Bacitracin -) 1 applic TP DAILY [facility] Last Admin: 09/19/19 09:28 Dose: 1 applic Documented by: Docusate Sodium (Colace -) 100 mg PO Q8H PRN PRN Reason: CONSTIPATION Last Admin: 09/17/19 10:15 Dose: 100 mg Documented by: Heparin Sodium (Porcine) (Heparin -) 5,000 unit SQ BID [facility] Last Admin: 09/19/19 09:28 Dose: 5,000 unit Documented by: Hydrocortisone (Hytone 1% Cream -) 1 applic TP DAILY PRN PRN Reason: HEMORRHOIDS Last Admin: 09/14/19 09:52 Dose: 1 applic Documented by: Insulin Aspart (Novolog Vial Sliding Scale -) 1 vial SQ TIDAC [facility]; Protocol Last Admin: 09/19/19 12:48 Dose: Not Given Documented by: Lactobacillus Acidophilus (Bacid -) 1 tab PO DAILY [facility] Last Admin: 09/19/19 09:28 Dose: 1 tab Documented by: Memantine (Namenda -) 5 mg PO BID [facility] Last Admin: 09/19/19 09:28 Dose: 5 mg Documented by: Senna (Senna -) 2 tab PO HS PRN PRN Reason: CONSTIPATION Tamsulosin HCl (Flomax -) 0.8 mg PO DAILY@0830 [facility] Last Admin: 09/19/19 09:28 Dose: 0.8 mg Documented by: ASSESSMENT AND PLAN: A 88 YOM with CVA(w rt sided weakness), HTN, CAD s/p CABG, DM, dementia and CKD presented with AMS Overflow incontinence s/p SPT placement UTI resolved HTN HLD T2DM DVT ppx: Heparin SC Plan: DC home with [employer] and support from
[2019-09-19 14:27] VITALS: BP 170/87; PULSE 71; TEMP 98.6
== END 2019-09-19 14:16 | disposition home health service (06) | DRG 662 ==
LOC: JER 12:23 → JERBED 18:19 → J8W 21:42
PROVIDERS: ADMIT Internal Medicine; ATTEND Student in an Organized Health Care Education/Training Program
PROC: 0TJB8ZZ Inspection of Bladder, Via Natural or Artificial Opening Endoscopic (ICD-10-PCS; 2019-09-13)
PROC: 0T8C0ZZ Division of Bladder Neck, Open Approach (ICD-10-PCS; principal; 2019-09-13 11:00)
DX: N39.0 Urinary tract infection, site not specified (principal); G93.41 Metabolic encephalopathy; N17.9 Acute kidney failure, unspecified; I69.351 Hemiplegia and hemiparesis following cerebral infarction affecting right dominant side; F03.90 Unspecified dementia, unspecified severity, without behavioral disturbance, psychotic disturbance, mood disturbance, and anxiety; N18.9 Chronic kidney disease, unspecified; E11.9 Type 2 diabetes mellitus without complications; E83.52 Hypercalcemia; R33.9 Retention of urine, unspecified; K64.2 Third degree hemorrhoids; B37.9 Candidiasis, unspecified; N40.1 Benign prostatic hyperplasia with lower urinary tract symptoms; I25.10 Atherosclerotic heart disease of native coronary artery without angina pectoris; Z95.1 Presence of aortocoronary bypass graft; I12.9 Hypertensive chronic kidney disease with stage 1 through stage 4 chronic kidney disease, or unspecified chronic kidney disease; R41.82 Altered mental status, unspecified; E78.5 Hyperlipidemia, unspecified; R53.1 Weakness; E86.0 Dehydration
CPT/HCPCS: 36415; 70450-TC; 71045-TC-FY; 76700-TC; 76775-TC; 76856-TC; 80048; 80053; 81003; 82306; 82436; 82550; 82565; 82962; 82977; 83605; 83735; 83880; 83935; 83970; 84100; 84133; 84300; 84443; 84484; 85025; 85610; 85730; 86850; 86900; 86901; 87040; 87086; 93005; 93010; 94640; 94760; 97116-GP; 97162-GP; 99285-25; J0131; J1644; U0003